=== PATIENT | female | born 1945 | race Caucasian/White ===

== ENCOUNTER 2019-09-07 13:39 | Outpatient (CLI) | payer MEDICARE, BC, SELFPAY ==
--- NOTE | 2019-09-07 14:03 | ECHO_ITS ---
Patient Info Name: Alpa Gifford Age: 73 years : 1945 Gender: Female Ht: 63 in Wt: 197 lbs BSA: 2.03 m2 HR: 71 bpm BP: 136 / 83 mmHg Technical Quality: Good Exam Date: 09/07/2019 2:36 PM Exam Location: [facility] Patient Status: Outpatient Admit Date: 09/07/2019 Staff Ordering Physician: Govind Oliva PA-C Surface Hydrologist: Sami Betts RDCS, RT Attending Provider: Govind Oliva PA-C Referring Physician: Hazel PEARL; Exam Type: CA echo doppler color flow Study Info Indications R01.1 - Cardiac murmur, unspecified Complete two-dimensional, color flow and Doppler transthoracic echocardiogram is performed. Summary 1. Left ventricular chamber dimension is normal. 2. Left ventricular systolic function is normal, estimated at 60-65%. 3. There is mildly increased left ventricular wall thickness. 4. The left ventricular diastolic function is grade I diastolic dysfunction. 5. E/e' 12 is mildly elevated. 6. There is severe aortic valve sclerosis. 7. There is severe aortic valve stenosis with a peak velocity of 400 cm/s, mean gradient of 36 mmHg, and aortic valve area of 1.0 cm2. 8. The mitral valve has moderately calcified annulus. 9. There is trace tricuspid valve regurgitation. 10. Small atheroma in anterior and posterior aortic root. Left Ventricle E/e' 12 is mildly elevated. Left ventricular chamber dimension is normal. Left ventricular systolic function is normal, estimated at 60-65%. There is mildly increased left ventricular wall thickness. The left ventricular diastolic function is grade I diastolic dysfunction. Right Ventricle Right ventricular chamber dimension is normal. Right ventricular systolic function is normal. Left Atria Left atrial chamber dimension is normal. Right Atria Right atrial chamber dimension is normal. Aortic Valve The aortic valve is trileaflet. There is severe aortic valve sclerosis. There is severe aortic valve stenosis with a peak velocity of 400 cm/s, mean gradient of 36 mmHg, and aortic valve area of 1.0 cm2. There is no aortic valve regurgitation. Pulmonic Valve There is no pulmonic regurgitation. Mitral Valve The mitral valve has moderately calcified annulus. There is no mitral valve stenosis. There is no mitral valve regurgitation. Tricuspid Valve There is trace tricuspid valve regurgitation. RVSP is not calcuated due to an inadequate TR jet. Pericardium/Pleural There is no pericardial effusion. Inferior Vena Cava Normal inferior vena cava with >50% collapse upon inspiration consistent with normal right atrial pressure, 5 mmHg. Aorta Small atheroma in anterior and posterior aortic root. The aortic root size at the sinus of Valsalva is normal. Left Ventricular Outflow Tract Name Value Normal LVOT 2D LVOT Diameter 2.2 cm LVOT Doppler LVOT Peak Gradient 4 mmHg LVOT Mean Gradient 2 mmHg LVOT VTI 23 cm LVOT VTI/AV VTI Ratio 0.3 LVOT Stroke Volume 88 ml
== END 2019-09-07 13:40 | disposition home or self-care (01) ==
PROVIDERS: PCP Physician Assistant; Visit Provider Physician Assistant
DX: I08.3 Combined rheumatic disorders of mitral, aortic and tricuspid valves (principal)
CPT/HCPCS: 93306

== ENCOUNTER → 2019-09-09 11:28 | Outpatient (CLI) | payer MEDICARE, BC, SELFPAY ==
--- NOTE | ~2019-09-09 | XR_ITS ---
XR lumbar spine 6V w bending DATE: 09/09/2019 12:14 INDICATION: Low back pain TECHNIQUE: AP, lateral, coned lateral lumbosacral and standing flexion and extension lateral views COMPARISON: 04/26/2019 lumbar spine FINDINGS: Diffuse osteopenia. Since 04/26/2019 there has been vertebroplasty at L4 mild anterior wedge compression fracture and at T 11 vertebral body where mild cupping of the superior vertebral endplate is noted. There is chronic vertebroplasty at moderate anterior wedge L1 compression fracture and at L5. There is mild retrolisthesis at L2-3. There is mild grade 1 anterolisthesis at L3-4. The sacroiliac joints are normally aligned. Surgical clips overlie the abdomen, radiopaque sutures overlie the medial left upper quadrant. Status post left total hip arthroplasty.. IMPRESSION: Interval vertebroplasty at T11 and L4 since 04/26/2019 Degenerative changes Diffuse osteopenia Reviewed, dictated and finalized at location B. HER ALL ROUND
--- NOTE | ~2019-09-09 | XR_ITS ---
XR thoracic spine 2V DATE: 09/09/2019 12:14 INDICATION: Wedge compression fracture of T9-T10 vertebra TECHNIQUE: Standing AP, lateral and swimmer views COMPARISON: 03/08/2019 CT cervical spine and thoracic spine 04/03/2019 MR thoracic spine 04/26/2019 thoracic spine FINDINGS: Diffuse osteopenia. Moderate dextroscoliosis of the thoracic spine. Degenerative spurring of the thoracic spine. Cervical fusion is noted at C5-6. Moderately severe degenerative disc disease at C4-5 and C7-T1. There are compression fracture deformities and vertebroplasty at T7, T9 and T11, as well as L1. IMPRESSION: Compression fracture deformities and vertebroplasty at T7, T9, T11 and L1 Dextroscoliosis Degenerative change of the thoracic spine Osteopenia Reviewed, dictated and finalized at location B. ON OPENER
== END ==
PROVIDERS: Visit Provider Nurse Practitioner Family
DX: S22.070D Wedge compression fracture of T9-T10 vertebra, subsequent encounter for fracture with routine healing (principal); M85.88 Other specified disorders of bone density and structure, other site; M41.9 Scoliosis, unspecified; M51.34 Other intervertebral disc degeneration, thoracic region
CPT/HCPCS: 72070; 72114

== ENCOUNTER 2019-09-09 15:45 | Outpatient (CLI) | payer MEDICARE, BC, SELFPAY ==
--- NOTE | ~2019-09-09 | XR_ITS ---
EXAMINATION: XR chest 2V 09/09/2019 16:20 INDICATION: Pain pump placement. Back pain. PROCEDURE: 2 view chest COMPARISON: 06/28/2019 FINDINGS: The lungs are clear. The cardiomediastinal silhouette is within normal limits. There are no pleural effusions. There is no pneumothorax suspected. There is dextroscoliosis of the thoracic spine. There are multiple thoracic compression fractures with vertebroplasty changes. There is side p late and screws transfixing the proximal aspect of the right humerus. There are changes of left clavi cular osteotomy. Status post cholecystectomy. IMPRESSION: 1: NO ACUTE CARDIOPULMONARY DISEASE. Reviewed, dictated and finalized at location A. SETTER
== END 2019-09-09 15:46 | disposition home or self-care (01) ==
PROVIDERS: PCP Physician Assistant; Visit Provider Nurse Practitioner Family
DX: Z01.812 Encounter for preprocedural laboratory examination (principal); Z45.9 Encounter for adjustment and management of unspecified implanted device; M54.9 Dorsalgia, unspecified
CPT/HCPCS: 71046

== ENCOUNTER 2019-09-28 06:34 | Day surgery (SDC) | payer MEDICARE, BC, SELFPAY ==
[2019-09-27 18:22] VITALS: BMI 35.4
[2019-09-28] VITALS (9 sets, daily range): BP systolic 117–166; BP diastolic 56–96; PULSE 64–77; RESP 10–24; TEMP 36.7; O2SAT 94–100
--- NOTE | 2019-09-28 06:57 | ECHO_ITS ---
Patient Info Name: Alpa Gifford Age: 73 years : 1945 Gender: Female Ht: 63 in Wt: 200 lbs BSA: 2.05 m2 Technical Quality: Good Exam Date: 09/28/2019 7:14 AM Exam Location: [facility] Patient Status: Outpatient Admit Date: 09/28/2019 Staff Ordering Physician: Albino Ruff DO Transportation Director: Paula Hines RDCS Attending Provider: Albino Ruff DO Exam Type: CA echo transesophageal Study Info Indications I35.0 - Nonrheumatic aortic (valve) stenosis Complete two-dimensional, color flow and Doppler transesophageal study is performed. Procedure Details Risks/benefits/alternative treatment discussed with patient and she gave informed consent. Conscious sedation with Versed 2 mg and Fentanyl 50 mcg IV given. HALLIE probe advanced to posterior oropharynx and she swallowed probe without incident. Transesophageal images obtained. HALLIE probe withdrawn and no blood noted on HALLIE probe tip. She tolerated procedure well and no complications. Vitals stable with HR 70's bpm and BP 135/80 mmHg. Summary 1. Left ventricular systolic function is normal with an ejection fraction 60-65%. 2. Left ventricular chamber dimension is normal. 3. There is moderately increased left ventricular wall thickness. 4. Diastolic function is not assessed. 5. Left atrial chamber dimension is mildly enlarged. 6. There is severe aortic valve sclerosis. 7. There is severe aortic valve stenosis with turbulent flow. 8. By planimetry, aortic valve area is 0.7 cm2 and 0.8 cm2. 9. The mitral valve has mild calcified annulus. 10. There is mild mitral valve regurgitation. Left Ventricle Diastolic function is not assessed. Left ventricular systolic function is normal with an ejection fraction 60-65%. Left ventricular chamber dimension is normal. There is moderately increased left ventricular wall thickness. Right Ventricle Right ventricular chamber dimension is normal. Right ventricular systolic function is normal. Left Atria Left atrial chamber dimension is mildly enlarged. Right Atria Right atrial chamber dimension is normal. Atrial Septum Intact interatrial septum visualized by color flow and agitated saline imaging. Aortic Valve There is severe aortic valve stenosis with turbulent flow. By planimetry, aortic valve area is 0.7 cm2 and 0.8 cm2. The aortic valve is trileaflet. There is severe aortic valve sclerosis. There is no aortic valve regurgitation. Pulmonic Valve There is no pulmonic regurgitation. Mitral Valve The mitral valve has mild calcified annulus. There is no mitral valve stenosis. There is mild mitral valve regurgitation. Tricuspid Valve There is no tricuspid valve regurgitation. Pericardium/Pleural There is no pericardial effusion. Inferior Vena Cava Not well visualized inferior vena cava. Aorta The aortic root size at the sinus of Valsalva is normal. Aortic Valve Name Value Normal AV 2D/MM AV Area (Planimetry) 0.7 cm2 Report Signatures
== END 2019-09-28 09:30 | disposition home or self-care (01) ==
PROVIDERS: PCP Physician Assistant; Visit Provider Internal Medicine Cardiovascular Disease
PROC: (CPT 93312; principal; 2019-09-28 07:30)
DX: I35.0 Nonrheumatic aortic (valve) stenosis (principal); I10 Essential (primary) hypertension; E78.5 Hyperlipidemia, unspecified; Z79.82 Long term (current) use of aspirin
CPT/HCPCS: 93312; 93320; 93325; J2250; J3010

== ENCOUNTER → 2019-10-02 09:38 | Outpatient (CLI) | payer MEDICARE, BC, SELFPAY ==
--- NOTE | ~2019-10-02 | MR_ITS ---
EXAMINATION: MR thoracic spine wo con EXAM DATE: 10/02/2019 10:59 INDICATION: Chronic mid to low back pain, left hip and leg pain. TECHNIQUE: Multi-sequential, multiplanar MR images of the thoracic spine were obtained without contra st. Sagittal T1, T2, T2 fat saturation, axial T2 weighted images reviewed. Comparison is made to [place] or examination from 04/03/2019. FINDINGS: The previously seen bone marrow edema at acute and subacute thoracolumbar fractures has res olved. There is normal bone marrow signal today. Following chronic appearing compression fractures are present. T6 mild. T7 moderate, treated. T9 mild to moderate, treated. T11 mild, treated. L1 mild to moderate, treated. Compared to previous examination the T11 compression fracture has developed. Methylmethacrylate has b een injected at the T7, T9, T11 levels. L1 was already treated on prior study. There is mild to moderate thoracic disc disease, no more than mild central canal or neural foraminal stenosis at any given level. The vertebral bodies are aligned in the AP dimension. There are scattere d focal signal abnormalities consistent with hemangiomata, otherwise without focal suspicious marrow signal abnormalities. Mild to moderate thoracic facet arthropathy. The spinal cord signal intensity a nd intrinsic morphology is normal. Paraspinal soft tissue is unremarkable. IMPRESSION: 1. Multiple chronic appearing thoracolumbar compression fractures. 2. Mild to moderate spondylosis. Reviewed, dictated and finalized at location A.
--- NOTE | ~2019-10-02 | MR_ITS ---
EXAMINATION: MR lumbar spine wo [facility] EXAM DATE: 10/02/2019 11:01 INDICATION: Chronic low back pain, left hip and leg pain. 3 previous surgeries. TECHNIQUE: Multi-sequential, multiplanar MR images of the lumbar spine were obtained without contrast . Sagittal T1, T2, T2 fat saturation images. Axial T2 weighted images. Comparison is made to prior examination from 05/04/2019. FINDINGS: Chronic mild to moderate compression fracture at L1 and L4, mild at L5. The L1 and L5 level s were previously treated, L4 has been treated since the prior study. There is 2 mm retrolisthesis L1 on L2 and L2 on L3, 3 mm anterolisthesis L3 on L4, 4 mm retrolisthesis L4 on L5. There is moderate d isc disease L4-5 and L5-S1, mild at the other lumbar levels. Endplate degenerative signal change. The conus medullaris terminates at the L1/2 level and has normal signal intensity and morphology. Scatt ered vertebral body hemangiomas. No acute lumbar findings. Paraspinal soft tissue is unremarkable. Level by level evaluation: T12-L1: There is a mild diffuse disc bulge. Facet arthropathy: None. Neural foraminal stenosis: No stenosis. Central canal stenosis: No stenosis. L1-L2: There is a mild diffuse disc bulge. Facet arthropathy: Mild. Neural foraminal stenosis: No stenosis. Central canal stenosis: No stenosis. L2-L3: There is a mild to moderate diffuse disc bulge. Facet arthropathy: Mild to moderate. Neural foraminal stenosis: Mild bilateral. Central canal stenosis: No stenosis. L3-L4: There is a moderate diffuse disc bulge. Facet arthropathy: Moderate . Ligamentum flavum enlargement. Neural foraminal stenosis: Mild to moderate bilateral. Central canal stenosis: Mild to moderate. L4-L5: There is a moderate diffuse disc bulge asymmetric to the right Facet arthropathy: Moderate. Neural foraminal stenosis: Moderate right to severe, mild to moderate left. Central canal stenosis: Mild. L5-S1: There is a mild to moderate diffuse disc bulge. Facet arthropathy: Mild to moderate. Neural foraminal stenosis: Moderate bilateral. Central canal stenosis: No stenosis. IMPRESSION: 1. Stable treated thoracolumbar compression fractures. 2. Moderate lower lumbar spondylosis Reviewed, dictated and finalized at location A.
== END ==
PROVIDERS: Visit Provider Nurse Practitioner Family
DX: M54.17 Radiculopathy, lumbosacral region (principal); S22.068A Other fracture of T7-T8 thoracic vertebra, initial encounter for closed fracture; X58.XXXA Exposure to other specified factors, initial encounter; M47.896 Other spondylosis, lumbar region
CPT/HCPCS: 72146; 72148

== ENCOUNTER 2020-05-03 11:44 | Outpatient (CLI) | payer MEDICARE, BC, SELFPAY ==
[2020-05-03 12:39] LABS: Anion Gap 6 mmol/L (8-16); Blood Urea Nitrogen 12 mg/dL (7-17); Calcium 9.5 mg/dL (8.4-10.2); Carbon Dioxide 32 mmol/L (22-30); Chloride 102 mmol/L (98-107); Estimated Glomerular Filt Rate > 60; Glucose 90 mg/dL (65-105); Potassium 4.2 mmol/L (3.4-5.0); Sodium 140 mmol/L (137-145)
[2020-05-03 13:27] LABS: Free T4 Free Thyroxine 1.22 ng/mL (0.78-2.19); Vitamin D 25 Hydroxy 55.8 ng/mL
== END 2020-05-03 11:45 | disposition home or self-care (01) ==
PROVIDERS: PCP Physician Assistant; Visit Provider Internal Medicine Endocrinology, Diabetes & Metabolism
DX: M81.0 Age-related osteoporosis without current pathological fracture (principal); E03.9 Hypothyroidism, unspecified; K11.7 Disturbances of salivary secretion
CPT/HCPCS: 36415; 80048; 82306; 84439; 84443; 86038

== ENCOUNTER 2020-05-30 07:28 | Outpatient (CLI) | payer MEDICARE, BC, SELFPAY ==
--- NOTE | 2020-06-30 15:14 | WPDHOMESLEEP ---
Sleep Study - Home Unattended Date of Study: 05/30/20 Interpreting Physician: Keisha Xie MD Home Sleep Study Type: Apnea Link Air Height: 1.6 m Weight: 90.718 kg Body Mass Index: 35.4 Neck Circumference (inches): 16 Sparks: 18 Reason for Sleep Study Hypersomnia Sleep History Alpa Gifford is a 74 year old female who has difficulty sleeping due to pain which has been going on several years. She reports difficulty falling asleep and staying asleep. She wakes up several times at night, and she often needs to take medication to get back to sleep. She never gets more than 3 or 4 hours at a time. She has tried to go to bed earlier but this leads to her staying awake longer during the night. Her oldest son had a diagnosis of sleep apnea before he , and it was attributed to his weight. She does not snore loudly enough that others complain. She occasionally awakens at night with heartburn, belching or coughing. She never awakens from sleep feeling short of breath. She frequently has trouble sleeping with a cold. She does not wake up gasping for breath at night. She constantly has breathing problems at night observed by others. She occasionally sweats excessively at night. She does not notice her heart pounding or beating irregularly at night. She constantly falls asleep during the day, occasionally involuntarily, never while driving. She does not fall asleep during physical effort. She does not have loss of muscle tone due to strong emotion. She does not feel paralyzed on waking or falling asleep and does not have vivid dreamlike scenes upon waking or falling asleep. She is not afraid to go to sleep. She does not have nightmares. She does not remember her dreams. She does not have racing thoughts. She occasionally feels sad or depressed. Rarely feels anxiety. Rarely has muscular tension or notice parts of her body jerking. She never kicks at night. She constantly has crawling and aching feelings in her legs. She constantly has leg pain at night. She does not have morning jaw pain. She does not grind her teeth during sleep. She is constantly bothered by pain in the daytime, is awakened by pain in the night, wakes up feeling stiff with sore muscles and has pain in the spine on waking. She has fatigue, memory problems and headaches. She is so sleepy that she may fall asleep at the table after lunch. She has gained 50-60 pounds this year. Normal bedtime is 7 or 8:00 p.m. typically taking quite a while to fall asleep. She wakes 4-5 times at night. After her sleep medication wears off she will lie awake in bed, sometimes turn the lights on, sometimes use her telephone. She wakes in the morning between 3:00 a.m. and 5:00 a.m.. She estimates 3-4 hours of sleep at night, occasionally 5 hours. Weekend is the same. She often will go back to bed around 6:00 or 7:00 a.m.ng and sleep until 10:00 a.m.. She can't breathe through her nose at times while sleeping. Her lips and tongue are very dry. She does take short naps. Short naps are not refreshing. She is drowsy in the morning for 3 hours or longer. Habits: Never smoked. Caffeine diet Pepsi 1 a day. No alcohol or recreational drugs. [facility] Past Medical History Medical History Anxiety Arthritis Cataracts, bilateral Depression Heart disease High cholesterol History of stroke Hypertension Inguinal hernia Lumbar radiculitis Migraines Obesity RLS (restless legs syndrome) Shortness of breath Spine fracture Stroke Thyroid disease Tibia fracture Surgical History Surgical History History of cholecystectomy History of hip replacement History of kyphoplasty History of revision of total hip arthroplasty (~07/2018) History of Mekhi-en-Y gastric bypass History of total hysterectomy Family History Family History O
[2020-06-30 16:05] VITALS: BMI 35.4
== END 2020-05-30 07:29 | disposition home or self-care (01) ==
LOC: ANHCSM 07:28
PROVIDERS: PCP Physician Assistant; Visit Provider Physician Assistant
DX: G47.33 Obstructive sleep apnea (adult) (pediatric) (principal); G47.10 Hypersomnia, unspecified; E66.9 Obesity, unspecified; Z68.35 Body mass index [BMI] 35.0-35.9, adult
CPT/HCPCS: 95806

== ENCOUNTER 2020-06-30 12:58 | Outpatient (CLI) | payer MEDICARE, BC, SELFPAY ==
[2020-06-30 14:56] LABS: Folic Acid 13.7 ng/mL (2.76->20)
== END 2020-06-30 12:59 | disposition home or self-care (01) ==
PROVIDERS: PCP Physician Assistant; Visit Provider Physician Assistant
DX: R53.83 Other fatigue (principal)
CPT/HCPCS: 36415; 82607; 82746

== ENCOUNTER 2020-08-11 08:20 | Outpatient (CLI) | payer MEDICARE, BC, SELFPAY ==
[2020-08-11 08:54] LABS: Anion Gap 5 mmol/L (8-16); Blood Urea Nitrogen 22 mg/dL (7-17); Carbon Dioxide 31 mmol/L (22-30); Chloride 103 mmol/L (98-107); Estimated Glomerular Filt Rate > 60; Glucose 93 mg/dL (65-105); Potassium 4.2 mmol/L (3.4-5.0); Sodium 139 mmol/L (137-145)
[2020-08-11 09:31] LABS: Free T4 Free Thyroxine 1.39 ng/mL (0.78-2.19); Vitamin D 25 Hydroxy 44.8 ng/mL
[2020-08-11 09:32] LABS: Thyroid Stimulating Hormone 0.777 uIU/mL (0.465-4.680)
[2020-08-11 10:00] LABS: Total Triiodothyronine (T3) 0.94 NG/ML (0.97-1.69)
[2020-08-15 16:49] LABS: Creatinine, Random Urine 87 mg/dL (20-275); N-Telopeptide (NTx) 84 (***)
[2020-08-16 12:04] LABS: Collagen Type I C-Telopeptide 803 pg/mL (***); Osteocalcin 41 ng/mL (8-32)
== END 2020-08-11 08:21 | disposition home or self-care (01) ==
PROVIDERS: PCP Physician Assistant; Visit Provider Internal Medicine Endocrinology, Diabetes & Metabolism
DX: E03.9 Hypothyroidism, unspecified (principal); M81.0 Age-related osteoporosis without current pathological fracture
CPT/HCPCS: 36415; 80048; 82306; 82523; 82570; 83937; 84439; 84443; 84480

== ENCOUNTER 2020-08-21 11:14 | Outpatient (CLI) | payer MEDICARE, BC, SELFPAY ==
[2020-08-21 13:09] LABS: Free T4 Free Thyroxine 1.48 ng/mL (0.78-2.19)
== END 2020-08-21 11:15 | disposition home or self-care (01) ==
LOC: ANHLAB 11:16
PROVIDERS: PCP Physician Assistant; Visit Provider Internal Medicine Endocrinology, Diabetes & Metabolism
DX: E03.9 Hypothyroidism, unspecified (principal)
CPT/HCPCS: 36415; 84439; 84443

== ENCOUNTER 2020-08-26 11:09 | Emergency (ER) | payer MEDICARE, BC, SELFPAY ==
[2020-08-26] VITALS (17 sets, daily range): BP systolic 130–179; BP diastolic 73–108; PULSE 98; RESP 20; TEMP 36.6; O2SAT 95–100
--- NOTE | ~2020-08-26 | CT_ITS ---
EXAMINATION: CT facial & cervical spine wo DATE: 08/26/2020 12:22 INDICATION: Head injury. TECHNIQUE: Computed tomography (CT) of the maxillofacial region and cervical spine was performed with out intravenous contrast. Automated exposure control and iterative reconstruction technique were empl oyed. The dose-length product was 488.83 mGy-cm. COMPARISON: CT and cervical spine CT 03/08/2019 FINDINGS: MAXILLOFACIAL CT: There are likely changes of ocular lens replacement surgeries. There is leftward deviation of the shellie al septum. The paranasal sinuses are clear. There are small bilateral chronic mastoid effusions. CERVICAL SPINE CT: There is 3 mm anterolisthesis of C3 on C4 and 2 mm anterolisthesis of C4 on C5 and C7 on T1. There is interbody fusion at C5-C6. Vertebral body heights are normal. There is mildly decreased disc height at C2-C3 and C3-C4, severely decreased disc height at C4-C5 and C6-C7, and mildly decreased disc heig ht at C7-T1. The following disc levels are specifically discussed: C2-C3: There is mild bilateral uncovertebral joint osteoarthritis. There is mild right and severe lef t facet joint osteoarthritis. There is no neural foraminal stenosis. There is no central canal stenos is. C3-C4: There is moderate bilateral uncovertebral joint osteoarthritis. There is severe bilateral face t joint osteoarthritis. There is mild bilateral neural foraminal stenosis. There is mild central edil l stenosis. C4-C5: There is severe bilateral uncovertebral joint osteoarthritis. There is severe bilateral facet joint osteoarthritis. There is mild bilateral neural foraminal stenosis. There is mild central canal stenosis. C5-C6: There is no uncovertebral joint hypertrophy. There is mild bilateral facet joint hypertrophy. There is no neural foraminal stenosis. There is no central canal stenosis. C6-C7: There is severe bilateral uncovertebral joint osteoarthritis. There is moderate bilateral face t joint osteoarthritis. There is mild bilateral neural foraminal stenosis. There is mild central edil l stenosis. C7-T1: There is mild bilateral uncovertebral joint osteoarthritis. There is severe bilateral facet megan int osteoarthritis. There is mild bilateral neural foraminal stenosis. There is no central canal sten osis. IMPRESSION: 1. No fracture. 2. Severe cervical spondylosis. Reviewed, dictated and finalized at location A. WARE ENGINEERING SUPERVISOR
--- NOTE | ~2020-08-26 | XR_ITS ---
EXAMINATION: XR chest 2V DATE: 08/26/2020 12:50 INDICATION: Fall. TECHNIQUE: Frontal and lateral views of the chest were obtained. COMPARISON: Chest 2 views 09/09/2019 FINDINGS: There are mild airspace opacities in the lower lung zones. No pleural effusion or pneumotho rax. The heart size is normal. There are changes of aortic valve replacement. There are changes of ve rtebroplasty at multiple levels. There is internal fixation of right humerus. IMPRESSION: 1. Mild airspace opacities in lower lung zones, consistent with atelectasis versus pneumonia. Reviewed, dictated and finalized at location A. H REPAIR TECHNICIAN IMPRESSION: 1. Mild airspace opacities in lower lung zones, consistent with atelectasis anatoliy ria pneumonia.
--- NOTE | ~2020-08-26 | CT_ITS ---
EXAMINATION: CT lumbar spine wo con DATE: 08/26/2020 12:22 INDICATION: Low back pain. TECHNIQUE: Computed tomography (CT) of the lumbar spine was performed without intravenous contrast. A utomated exposure control and iterative reconstruction technique were employed. The dose-length produ ct was 1235.81 mGy-cm. COMPARISON: CT abdomen and pelvis 03/30/2019 FINDINGS: There are changes of cholecystectomy. There are 4 stones in left kidney measuring up to 4 m m. There is 3 mm retrolisthesis of L5 on S1. There are chronic fractures of T11, L1, L4, and L5 with changes of vertebroplasty. There is severely decreased disc height at T12-L1, L4-L5, and L5-S1 with e ndplate remodeling. There is mildly decreased disc height at L1-L2. There is a left hip arthroplasty. The following disc levels are specifically discussed: L1-L2: The disc does not extend beyond the endplate margin. There is moderate bilateral facet joint o steoarthritis. There is no neural foraminal stenosis. There is no central canal stenosis. L2-L3: The disc is bulging. There is moderate bilateral facet joint osteoarthritis. There is mild louis ateral neural foraminal stenosis. There is mild central canal stenosis. L3-L4: The disc is bulging. There is severe bilateral facet joint osteoarthritis. There is mild bilat eral neural foraminal stenosis. There is mild central canal stenosis. L4-L5: The disc is bulging. There is severe bilateral facet joint osteoarthritis. There is moderate b ilateral neural foraminal stenosis. There is mild central canal stenosis. L5-S1: The disc is bulging. There is severe bilateral facet joint osteoarthritis. There is moderate b ilateral neural foraminal stenosis. There is mild central canal stenosis. IMPRESSION: 1. No acute fracture. 2. Severe lumbar spondylosis. Reviewed, dictated and finalized at location A. [employer]
--- NOTE | ~2020-08-26 | XR_ITS ---
EXAMINATION: XR foot LT min 3V DATE: 08/26/2020 12:50 INDICATION: Left foot pain. Fall. TECHNIQUE: 4 views of left foot were obtained. COMPARISON: None. FINDINGS: Bone alignment is normal. No fracture. There is mild osteoarthritis of first metatarsophala ngeal joint and many of the midfoot joints and interphalangeal joints. There are erosions at first in terphalangeal joint. There is an enthesophyte at plantar aspect of calcaneal tuberosity. IMPRESSION: 1. Mild polyarticular osteoarthritis. 2. Erosions at first interphalangeal joint, which may be inflammatory arthropathy such as gout. Reviewed, dictated and finalized at location A. 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 Mild polyarticular osteoarthritis. 2. Erosions at first interphalangeal joint, which may be inflammatory arthropat hy such as gout.
--- NOTE | ~2020-08-26 | XR_ITS ---
EXAMINATION: XR hip LT min 3V w AP pelvis DATE: 08/26/2020 12:50 INDICATION: Left hip pain. TECHNIQUE: An anteroposterior view pelvis and 3 views of left hip were obtained. COMPARISON: Left hip radiographs 06/28/2019 FINDINGS: There is a total left hip arthroplasty in near-anatomic alignment. No acute fracture. No pe riprosthetic lucency to suggest loosening or infection. There is mild right hip osteoarthritis. There are changes of vertebroplasty at L4 and L5. IMPRESSION: 1. Total left hip arthroplasty in near-anatomic alignment. 2. Mild right hip osteoarthritis. Reviewed, dictated and finalized at location A. C.O.D. BILLER
--- NOTE | ~2020-08-26 | CT_ITS ---
EXAMINATION: CT brain wo con DATE: 08/26/2020 12:15 INDICATION: Head injury. TECHNIQUE: Computed tomography (CT) of the head was performed without intravenous contrast. The mA wa s adjusted according to patient size. Iterative reconstruction technique was employed. The dose-lengt h product was 605.33 mGy-cm. COMPARISON: Head CT 03/08/2019 FINDINGS: There are scattered areas of low attenuation in the cerebral white matter. There is no intr acranial hemorrhage, acute infarction, or abnormal intracranial mass lesion. The ventricles are ada l in size. There are likely changes of ocular lens replacement surgeries. There is mild mucosal thick ening in the ethmoid sinuses. There are small bilateral mastoid effusions. There is right frontal sca lp soft tissue swelling. IMPRESSION: 1. Stable moderate nonspecific cerebral white matter disease, which likely represents chronic small v essel ischemic disease. Reviewed, dictated and finalized at location A. 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 Stable moderate nonspecific cerebral white matter disease, which likely repr esents chronic small vessel ischemic disease.
--- NOTE | 2020-08-26 11:42 | ECG_ITS ---
Measurements Intervals [place] Rate: 79 P: 43 AR: 181 QRS: 2 QRSD: 96 T: 25 QT: 362 QTc: 416 Interpretive Statements SINUS RHYTHM VOLTAGE CRITERIA FOR LVH BORDERLINE R WAVE PROGRESSION, ANTERIOR LEADS BORDERLINE ECG Electronically Signed On 08-26-2020 14:32:53 LONG CHAIN BEAMER by Albino Ruff D.O.
--- NOTE | 2020-08-26 11:45 | PC.NURSE ---
patient brought back to ED room 22 after ground level fall at her home during the night. see initial notes. denies known LOC. feels ok now just mild ALMONTE. has chronic hip pain. lives with her son and DIL. assessments documented.
--- NOTE | 2020-08-26 11:45 | ED.FALL ---
HPI - Fall General Chief Complaint: Fall Stated Complaint: fall Time Seen by Provider: 08/26/20 11:30 Source: patient Mode of arrival: ambulatory Limitations: no limitations History of Present Illness HPI Narrative: This is a 74 year old female that presents to the ER after a fall in the night. Reports last night she was getting out of bed to adjust her CPAP machine. Reports she hadn't even gotten her feet on the floor and she fell forward. Reports striking her face on her dresser. Also reports an injury to her left foot. She is unsure why she fell. Denies any prodromal symptoms. Is unsure if she lost consciousness. Reports pain in her neck, back and left hip as well which is apparently chronic. Reports she has history of drop fot on the left and uses a cane to walk. Denies vision changes, chest pain, shortness of breath, vomiting, or new numbness or weakness. Related Data Home Medications Medication Instructions Recorded Confirmed fluticasone 250 mcg-salmeterol 50 1 inhalation INHALATION BID 07/09/19 08/21/20 mcg/dose blistr powdr for inhalation losartan 50 mg tablet 50 mg PO DAILY 07/09/19 08/21/20 pregabalin 100 mg capsule 100 mg PO DAILY 07/09/19 05/17/20 albuterol sulfate 90 mcg/actuation 1 puff INHALATION Q4H PRN 09/10/19 08/21/20 aerosol inhaler azelastine 0.05 % eye drops 1 drop EACH EYE BID 09/10/19 08/21/20 baclofen 5 mg tablet 5 mg PO TID tablet 09/10/19 08/21/20 lactobacillus combination no.9 4 4,000 mmu cells PO DAILY 09/10/19 08/21/20 billion cell capsule metoclopramide HCl 10 mg tablet 10 mg PO Q6H PRN 09/10/19 05/17/20 multivitamin 1 tablet PO DAILY 09/10/19 08/21/20 diphenoxylate-atropine 2.5 1 tablet PO QID tablet 11/16/19 08/21/20 mg-0.025 mg tablet cyanocobalamin (vitamin B-12) 1,000 mcg PO DAILY 04/27/20 08/21/20 1,000 mcg capsule docusate sodium 50 mg capsule 50 mg PO DAILY 04/27/20 08/21/20 glycerin (adult) 1 supp CO DAILY PRN 04/27/20 magnesium hydroxide 400 mg/5 mL 5 ml PO DAILY PRN 04/27/20 05/17/20 oral suspension ondansetron 4 mg disintegrating 4 mg PO Q8H 04/27/20 tablet levothyroxine 75 mcg tablet 75 mcg PO DAILY tablet 08/21/20 08/21/20 Allergies Allergy/AdvReac Type Severity Reaction Status Date / Time gabapentin Allergy Severe hallucinati Verified 08/26/20 11:27 on pentazocine Allergy Severe hallucinati Verified 08/26/20 11:27 on adhesive tape Allergy Mild rash Verified 08/26/20 11:27 Review of Systems Review of Systems: Narrative: CONSTITUTIONAL: Denies fever EYES: Denies visual changes CARDIOVASCULAR: Denies chest pain RESPIRATORY: Denies dyspnea. GASTROINTESTINAL: Denies vomiting MUSCULOSKELETAL: Reports back pain, joint pain, and myalgia. NEUROLOGIC: Reports headache. Denies new numbness, or weakness. All systems reviewed & are unremarkable except as noted in HPI and below PMFSH Past Medical History Medical History Anxiety Arthritis Cataracts, bilateral Depression Heart disease High cholesterol History of stroke Hypertension Inguinal hernia Lumbar radiculitis Migraines Obesity RLS (restless legs syndrome) Shortness of breath Spine fracture Stroke Thyroid disease Tibia fracture Surgical History Surgical History History of cholecystectomy History of hip replacement History of kyphoplasty History of revision of total hip arthroplasty (~07/2018) History of Mekhi-en-Y gastric bypass History of total hysterectomy Family History Family History Other Back pain H/O thyroid disease Hypertension Social History Social History Smoking status: Never smoker Second hand tobacco smoke exposure: No Alcohol intake: current Drinks per week: 1 Exam Narrative: Exam Narrative: GENERAL: Well-appearing, well-n
[2020-08-26] MEDS: ACETAMINOPHEN 500 MG TABLET 1000 MG PO (12:01)
[2020-08-26 12:04] LABS: Basophils Percent Auto 0.4 % (0.2-1.2); Eosinophils Absolute Auto 0.1 K/mm3 (0-0.3); Eosinophils Percent Auto 2.5 % (0-4.4); Hematocrit 39.7 % (37.0-47.0); Hemoglobin 13.2 g/dL (12.0-15.0); Immature Granulocyte Absolute 0.02 K/mm3 (0.00-0.031); Immature Granulocyte Percent A 0.4 % (0-0.5); Lymphocytes Absolute Auto 1.23 K/mm3 (0.9-3.2); Lymphocytes Percent Auto 22.1 % (18.3-44.2); Mean Corpuscular HGB Conc 33.2 g/dl (32-36); Mean Corpuscular Hemoglobin 31.6 pg (26-34); Mean Platelet Volume 9.1 fl (7.4-10.4); Monocytes Absolute Auto 0.3 K/mm3 (0.1-0.6); Monocytes Percent Auto 6.1 % (2.6-8.5); Neutrophils Absolute Auto 3.8 K/mm3 (1.3-6.7); Neutrophils Percent Auto 68.5 % (45.5-73.1); Platelet Count Result 143 k/mm3 (150-375); Red Blood Count 4.18 M/mm3 (4.2-5.4); Red Cell Distribution Width 12.9 % (11.5-14.5); White Blood Count 5.6 K/mm3 (4.5-10.0)
--- NOTE | 2020-08-26 12:15 | PC.NURSE ---
patient to CT
[2020-08-26 12:20] LABS: Alanine Aminotransferase 16 U/L (4-35); Albumin Level 4.1 g/dL (3.5-5.1); Alkaline Phosphatase 74 U/L (38-126); Anion Gap 4 mmol/L (8-16); Aspartate Amino Transferase 27 U/L (14-36); Bilirubin,Total 0.6 mg/dL (0.2-1.3); Blood Urea Nitrogen 16 mg/dL (7-17); Calcium 9.2 mg/dL (8.4-10.2); Carbon Dioxide 29 mmol/L (22-30); Chloride 106 mmol/L (98-107); Estimated CRCL calculation 58 ml/min; Estimated Glomerular Filt Rate > 60; Glucose 96 mg/dL (65-105); Sodium 139 mmol/L (137-145)
--- NOTE | 2020-08-26 12:45 | PC.NURSE ---
back from CT. ordnance technician at bedside to get urine specimen. back on BP and O2 monitors.
[2020-08-26 13:39] LABS: Add Urine Microscopic? YES; Appearance Urine Clear (Clear); Bilirubin Urine Negative (Negative); Blood Urine Negative (Negative); Color Urine Yellow (Yellow); Glucose Urine UA Negative (Negative); Ketones Urine Negative (Negative); Leukocyte Esterase Ur Trace LEU/UL (Negative); Mucus Urine Rare /lpf; Nitrate Urine Negative (Negative); Protein Urine Negative (Negative); RBC Urine 0-2 /hpf (0-2); Specific Grav Ur 1.015 (1.001-1.035); Squamous Epithelial Cell Urine Moderate /hpf (Few); Urobilinogen Urine Negative mg/dL (<2.0); WBC Urine 0-3 /hpf
--- NOTE | 2020-08-26 13:43 | PC.NURSE ---
resting on stretcher. tests all resulted. patient did ambulate to restroom to provide urine specimen. assist x 1 and her cane. gait appeared steady.
== END 2020-08-26 14:43 | disposition home or self-care (01) ==
PROVIDERS: Physician Assistant; Emergency Provider Emergency Medicine; PCP Physician Assistant
DX: S09.93XA Unspecified injury of face, initial encounter (principal); E78.00 Pure hypercholesterolemia, unspecified; Z86.73 Personal history of transient ischemic attack (TIA), and cerebral infarction without residual deficits; I10 Essential (primary) hypertension; E66.9 Obesity, unspecified; Z68.37 Body mass index [BMI] 37.0-37.9, adult; G25.81 Restless legs syndrome; E07.9 Disorder of thyroid, unspecified; Z96.649 Presence of unspecified artificial hip joint; Z98.84 Bariatric surgery status; M47.812 Spondylosis without myelopathy or radiculopathy, cervical region; R94.31 Abnormal electrocardiogram [ECG] [EKG]; M47.816 Spondylosis without myelopathy or radiculopathy, lumbar region; R90.82 White matter disease, unspecified; M94.8X7 Other specified disorders of cartilage, ankle and foot; M19.072 Primary osteoarthritis, left ankle and foot; R91.8 Other nonspecific abnormal finding of lung field; M16.11 Unilateral primary osteoarthritis, right hip; Z96.642 Presence of left artificial hip joint; W06.XXXA Fall from bed, initial encounter
CPT/HCPCS: 36415; 70450; 70486; 71046; 72125; 72131; 73502; 73630; 80053; 81001; 85025; 93005; 99284; A9270

== ENCOUNTER 2020-09-07 07:51 | Outpatient (CLI) | payer MEDICARE, BC, SELFPAY ==
--- NOTE | ~2020-09-07 | DEXA_ITS ---
Bone Density Report Name: Alpa Gifford Age: 74 Sex: Female Ethnicity: White Date of : 1945 Indication: postmenopausal; prior fracture; Referring Provider: Estela García Study: Bone densitometry was performed. Exam Date: September 07, 2020 Accession number: [id number] Bone Density: Region BMD T-score Z-score Classification AP Spine (L2, L3) 0.875 -1.7 0.9 Osteopenia Femoral Neck (Right) 0.693 -1.4 0.8 Osteopenia Total Hip (Right) 0.748 -1.6 0.3 Osteopenia World Health Organization criteria for BMD impression classify patients as: Normal (T-score at or above -1.0), Osteopenia (T-score between -1.0 and -2.5), or Osteoporosis (T-score at or below -2.5). 10-year Fracture Risk: FRAX not reported because: Prior hip or vertebral fracture Impression: The patient has low bone mass, based on the Total Spine T-score. The patient has risk factors, including: previous fracture. Discussion: INCREASED RISK OF FRACTURE DUE TO HISTORY OF FRACTURE. The patient's previous fracture puts the patient at high risk of a future fracture. In untreated patients, the risk of osteoporotic fracture increases approximately two-fold for each 1.0 SD decrease in T-score. Low bone density is not the only risk factor for fracture; also consider factors such as patient's age, frailty or poor health, risk of falling, risk of injury, previous osteoporotic fracture, family history of osteoporosis, cigarette smoking, low body weight, etc. Not everyone with a low trauma fracture has osteoporosis; osteomalacia and other metabolic bone disorders should also be considered. Patients who have osteoporosis should be evaluated for specific diseases and conditions (secondary causes) that may cause or contribute to bone loss and fracture risk. National Osteoporosis Foundation (NOF) recommends pharmacologic intervention for patients with a prior hip or vertebral fracture regardless of BMD T-score. The patient should follow a healthful lifestyle (good nutrition with adequate calcium and vitamin D, and appropriate weight-bearing exercise). Follow-Up: Consider a repeat BMD and Vertebral Fracture Assessment (VFA) exam in 2 years or sooner if medically necessary, to reassess this patient's status. Reported by: BRIAN on 09/07/2020 8:33:00 AM. Reviewed, dictated and finalized at location Howard CHAVES
== END 2020-09-07 07:52 | disposition home or self-care (01) ==
PROVIDERS: PCP Physician Assistant; Visit Provider Internal Medicine Endocrinology, Diabetes & Metabolism
DX: M81.0 Age-related osteoporosis without current pathological fracture (principal); M85.89 Other specified disorders of bone density and structure, multiple sites
CPT/HCPCS: 77080

== ENCOUNTER → 2020-09-08 12:07 | Outpatient (CLI) | payer MEDICARE, BC, SELFPAY ==
[2020-09-08 21:58] LABS: SARS-CoV-2 RNA PCR Negative
== END ==
PROVIDERS: PCP Physician Assistant; Visit Provider Physician Assistant
DX: R68.89 Other general symptoms and signs (principal); Z20.822 Contact with and (suspected) exposure to COVID-19
CPT/HCPCS: C9803; U0003; U0005

== ENCOUNTER 2020-09-11 12:05 | Outpatient (CLI) | payer MEDICARE, BC, SELFPAY ==
--- NOTE | 2020-09-11 | ECG_ITS ---
Measurements Intervals [place] Rate: 69 P: 51 TX: 172 QRS: 4 QRSD: 81 T: 35 QT: 383 QTc: 411 Interpretive Statements SINUS RHYTHM VOLTAGE CRITERIA FOR LVH BASELINE ARTIFACT- II, III, AVR, AVL, AVF BORDERLINE ECG Electronically Signed On 09-11-2020 13:14:27 PREPRESS OPERATOR by Albino Ruff D.O.
[2020-09-11 13:29] LABS: Thyroid Stimulating Hormone 0.842 uIU/mL (0.465-4.680)
[2020-09-11 13:46] LABS: Hematocrit 40.5 % (37.0-47.0); Hemoglobin 13.7 g/dL (12.0-15.0); Mean Corpuscular HGB Conc 33.8 g/dl (32-36); Mean Corpuscular Hemoglobin 31.3 pg (26-34); Mean Corpuscular Volume 92.5 fl (80-100); Mean Platelet Volume 8.7 fl (7.4-10.4); Platelet Count Result 198 k/mm3 (150-375); Red Blood Count 4.38 M/mm3 (4.2-5.4); Red Cell Distribution Width 12.5 % (11.5-14.5); White Blood Count 4.7 K/mm3 (4.5-10.0)
[2020-09-11 14:00] LABS: Free T4 Free Thyroxine 1.09 ng/mL (0.78-2.19)
[2020-09-11 14:03] LABS: Anion Gap 5 mmol/L (8-16); Blood Urea Nitrogen 20 mg/dL (7-17); CRP 0.6 mg/dL (<1.0); Calcium 9.5 mg/dL (8.4-10.2); Carbon Dioxide 30 mmol/L (22-30); Chloride 106 mmol/L (98-107); Estimated Glomerular Filt Rate > 60; Glucose 92 mg/dL (65-105); Potassium 3.7 mmol/L (3.4-5.0); Sodium 141 mmol/L (137-145)
[2020-09-11 14:46] LABS: Erythrocyte Sedimentation Rate 24 mm/hr (0-20)
[2020-09-11 14:56] LABS: Add Urine Microscopic? NO; Appearance Urine Clear (Clear); Bilirubin Urine Negative (Negative); Blood Urine Negative (Negative); Color Urine Yellow (Yellow); Glucose Urine UA Negative (Negative); Ketones Urine Negative (Negative); Leukocyte Esterase Ur Negative LEU/UL (NEGATIVE); Nitrate Urine Negative (Negative); Protein Urine Negative (Negative); Specific Grav Ur 1.021 (1.001-1.035); Urobilinogen Urine Negative mg/dL (<2.0)
== END 2020-09-11 12:06 | disposition home or self-care (01) ==
LOC: ANHLAB 12:08
PROVIDERS: Nurse Practitioner Family; PCP Physician Assistant; Visit Provider Internal Medicine Endocrinology, Diabetes & Metabolism
DX: Z01.818 Encounter for other preprocedural examination (principal); E03.9 Hypothyroidism, unspecified
CPT/HCPCS: 36415; 80048; 81003; 84439; 84443; 85027; 85652; 86140; 87086; 93005

== ENCOUNTER 2020-10-27 14:41 | Outpatient (CLI) | payer MEDICARE, BC, SELFPAY ==
--- NOTE | 2020-10-27 14:47 | ECHO_ITS ---
Patient Info Name: Alpa Gifford Age: 74 years : 1945 Gender: Female Ht: 63 in Wt: 220 lbs BSA: 2.16 m2 HR: 72 bpm BP: 126 / 79 mmHg Technical Quality: Good Exam Date: 10/27/2020 2:49 PM Exam Location: [facility] Patient Status: Outpatient Admit Date: 10/27/2020 Staff Ordering Physician: Albino Ruff DO All Round Butcher: Allison Mendoza RDCS Attending Provider: Albino Ruff DO Referring Physician: Speedy GODOY; Exam Type: CA echo doppler color flow Study Info Indications - S/P AVR Complete two-dimensional, color flow and Doppler transthoracic echocardiogram is performed. Summary 1. Complete two-dimensional, color flow and Doppler transthoracic echocardiogram is performed. 2. Left ventricular chamber dimension is normal. 3. Left ventricular systolic function is normal, estimated at 60-65%. 4. The left ventricular diastolic function is grade I diastolic dysfunction. 5. E/e' 12 is mildly elevated. 6. Left atrial chamber dimension is mildly enlarged. 7. The bioprosthetic aortic valve is normal in appearance. TAVR by history. 8. The mitral valve has moderately calcified annulus. 9. No pulmonary hypertension, estimated pulmonary arterial systolic pressure is 24 mmHg. Left Ventricle E/e' 12 is mildly elevated. Left ventricular chamber dimension is normal. Left ventricular systolic function is normal, estimated at 60-65%. The left ventricular diastolic function is grade I diastolic dysfunction. Right Ventricle Right ventricular chamber dimension is normal. Right ventricular systolic function is normal. Left Atria Left atrial chamber dimension is mildly enlarged. Right Atria Right atrial chamber dimension is normal. Aortic Valve The bioprosthetic aortic valve is normal in appearance. TAVR by history. There is no bioprosthetic aortic valve stenosis by gradients and velocity. There is no regurgitation of the bioprosthetic aortic valve. Pulmonic Valve There is no pulmonic regurgitation. Mitral Valve The mitral valve has moderately calcified annulus. There is no mitral valve stenosis. There is no mitral valve regurgitation. Tricuspid Valve There is no tricuspid valve regurgitation. No pulmonary hypertension, estimated pulmonary arterial systolic pressure is 24 mmHg. Pericardium/Pleural There is no pericardial effusion. Inferior Vena Cava Normal inferior vena cava with >50% collapse upon inspiration consistent with normal right atrial pressure, 5 mmHg. Aorta The aortic root size at the sinus of Valsalva is normal. Left Ventricular Outflow Tract Name Value Normal LVOT 2D LVOT Diameter 2.0 cm LVOT Doppler LVOT Peak Gradient 7 mmHg LVOT Mean Gradient 4 mmHg LVOT VTI 28 cm LVOT VTI/AV VTI Ratio 0.5 LVOT Stroke Volume 88 ml LVOT CO 18.9 l/min LVOT CI 8.8 l/min/m2 Pulmonic Valve Name
== END 2020-10-27 14:42 | disposition home or self-care (01) ==
PROVIDERS: PCP Physician Assistant; Visit Provider Internal Medicine Cardiovascular Disease
DX: Z95.2 Presence of prosthetic heart valve (principal); I51.7 Cardiomegaly
CPT/HCPCS: 93306

== ENCOUNTER 2020-11-06 10:55 | Outpatient (CLI) | payer MEDICARE, BC, SELFPAY ==
[2020-11-06 11:37] LABS: Anion Gap 4 mmol/L (8-16); Blood Urea Nitrogen 26 mg/dL (7-17); Calcium 9.3 mg/dL (8.4-10.2); Carbon Dioxide 36 mmol/L (22-30); Chloride 98 mmol/L (98-107); Estimated Glomerular Filt Rate 54; Glucose 100 mg/dL (65-105); Potassium 3.7 mmol/L (3.4-5.0); Sodium 138 mmol/L (137-145)
== END 2020-11-06 10:56 | disposition home or self-care (01) ==
PROVIDERS: PCP Physician Assistant; Visit Provider Internal Medicine Cardiovascular Disease
DX: R60.0 Localized edema (principal)
CPT/HCPCS: 36415; 80048

== ENCOUNTER 2020-11-13 05:07 | Emergency (ER) | payer MEDICARE, SELFPAY ==
--- NOTE | ~2020-11-13 | XR_ITS ---
EXAMINATION: XR wrist LT min 3V DATE: 11/13/2020 06:07 INDICATION: Left wrist pain. Fall. TECHNIQUE: 4 views of left wrist were obtained. COMPARISON: None. FINDINGS: There is a comminuted fracture of distal radius with involvement of the distal radioulnar j oint. The main distal fracture fragment demonstrates impaction and 4 mm dorsal displacement and dorsa l angulation. There is 28 degrees dorsal tilt of the distal articular surface. There is an avulsion f racture of the ulnar styloid. Osteopenia is noted. There is moderate osteoarthritis of first carpomet acarpal joint and mild osteoarthritis of first metacarpophalangeal joint. There are loose bodies in t he radiocarpal compartment. IMPRESSION: 1. Comminuted fracture of distal radius. 2. Avulsion fracture of the ulnar styloid. Reviewed, dictated and finalized at location A.
[2020-11-13 05:23] VITALS: BP 127/80; PULSE 95; RESP 18; TEMP 36.3; O2SAT 100
[2020-11-13] MEDS: HYDROmorphone HCL INJ (*CRX) 1 MG/ML SYR IM ×2 (05:34→06:57)
--- NOTE | 2020-11-13 06:20 | ED.GENADULT ---
HPI - General Adult General Chief complaint: Extremity Problem,Nontraumatic Stated complaint: FALL, L WRIST INJURY Time Seen by Provider: 11/13/20 05:21 History of Present Illness HPI narrative: Patient 75-year-old female presents emerged from with chief complaint of left wrist pain. The patient reports that she fell on an outstretched hand this evening did not strike her head had no loss of consciousness. Patient reports that there is pain in her distal wrist and reports pain with range of motion. The patient denies numbness or tingling Related Data Home Medications Medication Instructions Recorded Confirmed fluticasone 250 mcg-salmeterol 50 1 inhalation INHALATION BID 07/09/19 10/09/20 mcg/dose blistr powdr for inhalation losartan 50 mg tablet 50 mg PO DAILY 07/09/19 10/09/20 pregabalin 100 mg capsule 100 mg PO DAILY 07/09/19 10/09/20 albuterol sulfate 90 mcg/actuation 1 puff INHALATION Q4H PRN 09/10/19 10/09/20 aerosol inhaler azelastine 0.05 % eye drops 1 drop EACH EYE BID 09/10/19 10/09/20 lactobacillus combination no.9 4 4,000 mmu cells PO DAILY 09/10/19 10/09/20 billion cell capsule metoclopramide HCl 10 mg tablet 10 mg PO Q6H PRN 09/10/19 10/09/20 multivitamin 1 tablet PO DAILY 09/10/19 10/09/20 diphenoxylate-atropine 2.5 1 tablet PO QID tablet 11/16/19 10/09/20 mg-0.025 mg tablet cyanocobalamin (vitamin B-12) 1,000 mcg PO DAILY 04/27/20 10/09/20 1,000 mcg capsule docusate sodium 50 mg capsule 50 mg PO DAILY 04/27/20 10/09/20 glycerin (adult) 1 supp IA DAILY PRN 04/27/20 10/09/20 magnesium hydroxide 400 mg/5 mL 5 ml PO DAILY PRN 04/27/20 10/09/20 oral suspension ondansetron 4 mg disintegrating 4 mg PO Q8H 04/27/20 10/09/20 tablet Allergies Allergy/AdvReac Type Severity Reaction Status Date / Time gabapentin Allergy Severe hallucinati Verified 11/13/20 05:27 on pentazocine Allergy Severe hallucinati Verified 11/13/20 05:27 on adhesive tape Allergy Mild rash Verified 11/13/20 05:27 Review of Systems Review of Systems: Narrative: A 10 system review of systems was completed on the patient and is negative except for what is stated in the HPI. Nursing and ancillary documentation was reviewed. [facility] Past Medical History Medical History Anxiety Arthritis Cataracts, bilateral Depression Heart disease High cholesterol History of stroke Hypertension Inguinal hernia Lumbar radiculitis Migraines Obesity RLS (restless legs syndrome) Shortness of breath Spine fracture Stroke Thyroid disease Tibia fracture Surgical History Surgical History History of cholecystectomy History of hip replacement History of kyphoplasty History of revision of total hip arthroplasty (~07/2018) History of Mekhi-en-Y gastric bypass History of total hysterectomy Family History Family History Other Back pain H/O thyroid disease Hypertension Social History Social History Smoking status: Never smoker Second hand tobacco smoke exposure: No Alcohol intake: current Drinks per week: 1 Exam Narrative: Exam Narrative: GENERAL: Well-appearing, well-nourished, and in no acute distress. HEAD: Normocephalic, atraumatic. EYES: PERRLA and EOMI. ENT: Nares clear, no rhinorrhea or epistaxis. Mucous membranes moist. NECK: Supple. CHEST: Clear to auscultation. No respiratory distress. HEART: Regular rate and rhythm. No murmur heard. Normal peripheral pulses. ABDOMEN: Soft, nontender, nondistended, normal active bowel sounds. EXTREMITIES: Normal range of motion. No edema. There is a deformity present in the distal radius of the left upper extremity SKIN: Warm, dry, no rash. NEURO: No focal deficits. Alert and oriented x3. PSYCH: Normal mood and
[2020-11-13 06:58] VITALS: BP 130/74; PULSE 90; RESP 18; O2SAT 99
== END 2020-11-13 07:00 | disposition home or self-care (01) ==
PROVIDERS: Emergency Provider Emergency Medicine; PCP Physician Assistant
DX: S52.502A Unspecified fracture of the lower end of left radius, initial encounter for closed fracture (principal); W19.XXXA Unspecified fall, initial encounter; H26.9 Unspecified cataract; E78.00 Pure hypercholesterolemia, unspecified; Z86.73 Personal history of transient ischemic attack (TIA), and cerebral infarction without residual deficits; I10 Essential (primary) hypertension; G25.81 Restless legs syndrome; Z96.649 Presence of unspecified artificial hip joint
CPT/HCPCS: 29125; 73110; 96372; 99284; A4565; J1170

== ENCOUNTER → 2020-11-18 06:44 | Outpatient (CLI) | payer MEDICARE, BC, SELFPAY ==
[2020-11-18 19:16] LABS: SARS-CoV-2 RNA PCR Negative
== END ==
PROVIDERS: PCP Physician Assistant; Visit Provider Orthopaedic Surgery
DX: Z01.812 Encounter for preprocedural laboratory examination (principal); Z20.822 Contact with and (suspected) exposure to COVID-19
CPT/HCPCS: C9803; U0003; U0005

== ENCOUNTER 2020-11-21 01:05 | Day surgery (SDC) | payer MEDICARE, BC, SELFPAY ==
[2020-11-21] VITALS (8 sets, daily range): BP systolic 107–179; BP diastolic 52–94; PULSE 73–88; RESP 12–18; TEMP 36.1–36.4; O2SAT 92–100
--- NOTE | ~2020-11-21 | XR_ITS ---
EXAMINATION: XR surgery orthopedic DATE: 11/21/2020 14:59 INDICATION: ORIF left wrist fracture TECHNIQUE: 3 fluoroscopic spot images of the left wrist were obtained during procedure performed by Carson Villalobos. Radiologist was not present for the imaging or procedure. The amount of fluoroscopy ti me used during this procedure was 0.4 minutes. COMPARISON: 11/13/2020 FINDINGS: Interval open reduction and internal fixation of a comminuted intra-articular fracture of the distal left femur with a volar plate and screws. Alignment of the fracture appears near-anatomic post fixati on. No significant interval change in mild distraction of an ulnar styloid avulsion fracture. No othe r fractures identified. Joint spaces appear relatively preserved. IMPRESSION: 1. Near-anatomic alignment post open reduction internal fixation of a comminuted intra-articular frac ture of the distal left radius. Line 2. Unchanged mild distraction of an ulnar styloid avulsion fracture. Reviewed, dictated and finalized at location A. IMPRESSION: 1. Near-anatomic alignment post open reduction internal fixation of a comminute d intra-articular fracture of the distal left radius. Line 2. Unchanged mild distraction of an ulnar styloid avulsion fracture.
--- NOTE | 2020-11-21 09:38 | WPDHPUPDATE1 ---
History and Physical Update Update Date/Time: 11/21/20 09:38 History and Physical has been reviewed, including an updated exam of the patient. There are NO changes in the patient's condition. Risks, benefits, and alternatives have been discussed and questions answered. Patient agrees to proceed with procedure.
[2020-11-21] MEDS: ACETAMINOPHEN 500 MG TABLET 1000 MG PO (12:20)
[2020-11-21] MEDS: LACTATED RINGERS 1,000 ML 30 ML IV CONT (12:20)
[2020-11-21] MEDS: KETOROLAC 15 MG/ML VIAL (*BKC) IV PUSH (12:23)
--- NOTE | 2020-11-21 12:24 | WPDANESEPPF ---
Anes - Initial Pre Proc Eval Procedure: Operation Date: 11/21/20 13:30 Proposed Procedures p Open Reduction Internal Fixation Left Distal Radius - Narayan Villalobos MD Date/Time: 11/21/20 12:24 Surgeon: Narayan Villalobos MD Pre Op Diagnosis: extra articular left distal radius fx Patient Data Age: 75 Gender: F Height: 1.6 m Weight: 100.2 kg Allergies Allergy/AdvReac Type Severity Reaction Status Date / Time gabapentin Allergy Severe hallucinati Verified 11/21/20 11:42 on pentazocine Allergy Severe hallucinati Verified 11/21/20 11:42 on adhesive tape Allergy Mild rash Verified 11/21/20 11:42 Home Medications Medication Instructions Recorded Confirmed Type fluticasone 250 mcg-salmeterol 50 1 inhalation INHALATION BID 07/09/19 11/15/20 History mcg/dose blistr powdr for inhalation losartan 50 mg tablet 50 mg PO DAILY 07/09/19 11/15/20 History pregabalin 100 mg capsule 100 mg PO DAILY 07/09/19 11/15/20 History albuterol sulfate 90 mcg/actuation 1 puff INHALATION Q4H PRN 09/10/19 11/15/20 History aerosol inhaler azelastine 0.05 % eye drops 1 drop EACH EYE BID 09/10/19 11/15/20 History lactobacillus combination no.9 4 4,000 mmu cells PO DAILY 09/10/19 11/15/20 History billion cell capsule metoclopramide HCl 10 mg tablet 10 mg PO Q6H PRN 09/10/19 11/15/20 History multivitamin 1 tablet PO DAILY 09/10/19 11/15/20 History aspirin 81 mg tablet,delayed 81 mg PO DAILY #90 tablet 11/16/19 11/15/20 Rx release diphenoxylate-atropine 2.5 1 tablet PO QID PRN tablet 11/16/19 11/15/20 History mg-0.025 mg tablet sennosides 8.6 mg-docusate sodium 1 tab-cap PO BID PRN #60 tablet 04/09/20 11/15/20 Rx 50 mg tablet cyanocobalamin (vitamin B-12) 1,000 mcg PO DAILY 04/27/20 11/15/20 History 1,000 mcg capsule docusate sodium 50 mg capsule 50 mg PO DAILY 04/27/20 11/15/20 History glycerin (adult) 1 supp SC DAILY PRN 04/27/20 11/15/20 History magnesium hydroxide 400 mg/5 mL 5 ml PO DAILY PRN 04/27/20 11/15/20 History oral suspension ondansetron 4 mg disintegrating 4 mg PO Q8H PRN 04/27/20 11/15/20 History tablet atorvastatin 40 mg tablet 40 mg PO DAILY #90 tablet 06/26/20 11/15/20 Rx pramipexole 1 mg tablet See Rx Instructions .ROUTE 07/07/20 11/15/20 Rx .COMPLEX #180 tablet baclofen 10 mg tablet 10 mg PO TID PRN #30 tablet 09/08/20 11/15/20 Rx hyoscyamine sulfate 0.125 mg tablet 0.125 mg PO QID #30 tablet 09/08/20 11/15/20 Rx finasteride 1 mg tablet 1 mg PO DAILY #30 tablet 10/06/20 11/15/20 Rx levothyroxine 75 mcg tablet 75 mcg PO DAILY #90 tablet 10/16/20 11/15/20 Rx omeprazole 40 mg capsule,delayed 40 mg PO DAILY #90 cap 10/16/20 11/15/20 Rx release furosemide 20 mg tablet 20 mg PO DAILY #30 tablet 10/30/20 11/15/20 Rx oxycodone-acetaminophen 5 mg-325 1 - 2 tablet PO Q4-6H PRN #30 11/15/20 11/15/20 Rx mg tablet tablet suvorexant 10 mg tablet 10 mg PO QHS #30 tablet 11/15/20 Rx venlafaxine [Effexor XR] 37.5 mg PO HS 11/15/20 11/15/20 History Patient hx anesthesia problems: none Family hx anesthesia problems: none [facility] Past Medical History Medical History (Updated 11/14/20 @ 00:01 by Patti Wagner) Anxiety Arthritis Cataracts, bilateral Depression Heart disease High cholesterol History of stroke Hypertension Inguinal hernia Lumbar radiculitis Migraines Obesity RLS (restless legs syndrome) Shortness of breath Spine fracture Stroke Thyroid disease Tibia fracture Surgical History Surgical History (Updated 11/20/20 @ 09:38 by Chaz Persaud DO) H/O aortic valve replacement History of cholecystectomy History of hip replacement History of kyphoplasty History of revision of total hip arthroplasty (~07/2018) History of Mekhi-en-Y gastric bypass History of total hysterectomy Family History Family History Other Back pain H/O thyroid disease Hypertension Social History Social His
[2020-11-21] MEDS: ceFAZolin 2 GM/D5W 50 ML 2 GM/50 ML BAG IVPB (13:34)
[2020-11-21] MEDS: BUPIVACAINE/EPINEPHRINE 0.5% 30 ML VIAL INFILTRATE (14:15)
--- NOTE | 2020-11-21 15:20 | P.OP_ITS ---
Procedure Note - Detailed Date of procedure: 11/21/20 Pre-op diagnosis: extra articular left distal radius fx Post-op diagnosis: same Procedure performed: ORIF distal radius fracture. Implants: [employer] volar plate Anesthesia: JOYA Surgeon: Narayan Villalobos MD Hardware Engineer: Rupal Myles PA-C Estimated blood loss (mL): 20 Tourniquet time (min): 47 Drains: No Complications: No immediate complications Condition: stable Disposition: PACU Findings: Physician accounts receivable assistant, Rupal Myles PA-C, required for surgery; including patient positioning, draping, tissue retraction, maintaining instrument position, wound closure, and splint replacement. Operative details: Preoperative antibiotics were given. A general anesthetic was administered. The hand was prepped and draped in the usual sterile fashion with a well-padded tourniquet. The limb was exsanguinated and the tourniquet inflated to 250 millimeters of mercury. A longitudinal incision was created over the flexor carpi radialis tendon. Dissection was brought down through the sheath. The pronator quadratus was identified and released off of the radius. The fracture was carefully exposed and cleared of debris. Reduction was obtained with traction and manipulation. Fluoroscopy was used to confirm anatomic reduction. The volar plate was placed on the radius and the position was confirmed. Provisional pins were placed. The dynamic cortical screw was applied. The plate was fine tuned and fluoroscopy was use to confirm that the joint would not be violated. Subsequent distal pins and screws were placed, followed by the proximal row. The wound was irrigated and closed. 2-0 Vicryl suture was used to reapproximate the pronator quadratus. The tourniquet was released and meticulous hemostasis was confirmed. The skin was closed with 3-0 Monocryl suture and a running 4-0 Monocryl suture. Steri-Strips were applied on the skin. A sterile bulky dressing with a volar splint was applied.
[2020-11-21] MEDS: fentaNYL CITRATE INJ (*CRX) 100 MCG/2 ML VIAL 25 MCG IV PUSH ×5 (15:57→16:28)
== END 2020-11-21 18:05 | disposition home or self-care (01) ==
PROVIDERS: PCP Physician Assistant; Visit Provider Orthopaedic Surgery
PROC: (CPT 25575; principal; 2020-11-21 13:30)
DX: S52.552A Other extraarticular fracture of lower end of left radius, initial encounter for closed fracture (principal); I10 Essential (primary) hypertension; E78.00 Pure hypercholesterolemia, unspecified; G25.81 Restless legs syndrome; F41.9 Anxiety disorder, unspecified; F32.9 Major depressive disorder, single episode, unspecified; E66.9 Obesity, unspecified; Z68.39 Body mass index [BMI] 39.0-39.9, adult; Z86.73 Personal history of transient ischemic attack (TIA), and cerebral infarction without residual deficits; Z95.2 Presence of prosthetic heart valve; Z98.84 Bariatric surgery status; W19.XXXA Unspecified fall, initial encounter
CPT/HCPCS: 25607; A9270; J0690; J1885; J2405; J2704; J3010; J7120

== ENCOUNTER → 2021-02-15 10:35 | Outpatient (CLI) | payer MEDICARE, BC, SELFPAY ==
--- NOTE | ~2021-02-15 | MR_ITS ---
EXAMINATION: MR knee RT wo con DATE: 02/15/2021 11:59 INDICATION: Lateral primary osteoarthritis of the right knee presenting with worsening generalized ri ght knee pain, swelling, difficulty walking with limited range of motion. TECHNIQUE: Magnetic resonance imaging (MRI) of the right knee was performed without intravenous contr ast. Sequences included coronal PD-weighted FSE, coronal PD-weighted FS FSE, sagittal T2-weighted FS E, sagittal PD-weighted FS FSE and axial PD weighted fat saturated FSE. COMPARISON: None. FINDINGS: Motion blurring Mild motion artifact or blurring to some degree on all sequences which mildly limits evaluation most significantly of the menisci and cartilage. Medial compartment: Medial meniscus is normal. Articular cartilage is normal. Small marginal osteophytes are present. Lateral compartment: Tear, likely complex at the anterior horn and body of the lateral meniscus. Partial-thickness cartila ge loss along the posterior weightbearing lateral femoral condyle with smooth chondral surface and wi thout degenerative subchondral changes. Small marginal osteophytes are present. Patellofemoral compartment: Partial-thickness cartilage loss at the patella and trochlea most prominent along the lateral patella r facet with central tiny focus of subarticular edema, at the inferior aspect of the trochlear groove and throughout the lateral trochlea. Small marginal osteophytes are present. Ligaments and tendons: Anterior and posterior cruciate ligaments are normal. The medial collateral ligament and fibular raphael ateral ligament complex are normal. The extensor mechanism is normal. The visualized medial and later al hamstring tendons as well as the iliotibial band are normal. Fluid: Moderate-sized left knee joint effusion. No loose osteochondral bodies identified. Osseous/other: Mild red marrow reexpansion in the distal metadiaphyseal region of the femur. Marrow signal is otherw ise unremarkable. No fracture or pathologic marrow replacing process. Subcutaneous varicosities along the lateral side of the knee. IMPRESSION: 1. Motion artifact or blurring to some degree on all sequences which moderately decreases sensitivity and specificity for evaluation of the menisci and cartilage. 2. Suggestion of a likely complex tear of the body and anterior horn of the lateral meniscus. 3. Moderate patellofemoral osteoarthritis with extensive moderate to high-grade chondromalacia at the lateral aspect of the patellofemoral compartment. 4. Moderate-sized left knee joint effusion. Reviewed, dictated and finalized at location A. IMPRESSION: 1. Motion artifact or blurring to some degree on all sequences which moderately decreases sensitivity and specificity for evaluation of the menisci and cartil age. 2. Suggestion of a likely complex tear of the body and anterior horn of the lat eral meniscus. 3. Moderate patellofemoral osteoarthritis with extensive moderate to high-grade chondromalacia at the lateral aspect of the patellofemoral compartment. 4. Moderate-sized left knee joint effusion.
== END ==
PROVIDERS: PCP Physician Assistant; Visit Provider Orthopaedic Surgery
DX: M17.11 Unilateral primary osteoarthritis, right knee (principal); M22.41 Chondromalacia patellae, right knee; M25.461 Effusion, right knee
CPT/HCPCS: 73721

== ENCOUNTER 2021-03-01 08:03 | Outpatient (CLI) | payer MEDICARE, BC, SELFPAY ==
[2021-03-01 08:43] LABS: Anion Gap 7 mmol/L (8-16); Blood Urea Nitrogen 13 mg/dL (7-17); Calcium 9.5 mg/dL (8.4-10.2); Carbon Dioxide 31 mmol/L (22-30); Chloride 100 mmol/L (98-107); Estimated Glomerular Filt Rate > 60; Glucose 93 mg/dL (65-110); Potassium 3.9 mmol/L (3.4-5.0); Sodium 138 mmol/L (137-145)
== END 2021-03-01 08:04 | disposition home or self-care (01) ==
PROVIDERS: Anesthesiology; PCP Physician Assistant; Visit Provider Orthopaedic Surgery
DX: Z01.818 Encounter for other preprocedural examination (principal); Z51.81 Encounter for therapeutic drug level monitoring
CPT/HCPCS: 36415; 80048

== ENCOUNTER → 2021-03-06 03:37 | Outpatient (CLI) | payer MEDICARE, BC, SELFPAY ==
[2021-03-06 21:09] LABS: SARS-CoV-2 RNA PCR Negative
== END ==
PROVIDERS: PCP Physician Assistant; Visit Provider Orthopaedic Surgery
DX: Z01.812 Encounter for preprocedural laboratory examination (principal); Z20.822 Contact with and (suspected) exposure to COVID-19
CPT/HCPCS: C9803; U0003; U0005

== ENCOUNTER 2021-03-09 04:19 | Day surgery (SDC) | payer MEDICARE, BC, SELFPAY ==
[2021-02-27 15:27] VITALS: BMI 39.8
--- NOTE | 2021-03-05 10:46 | SUR.PREOP ---
1045 notiffied pt of date/time change for surgery, and covid test. pt updated on meds of what to take and when to stop taking.
[2021-03-09] VITALS (9 sets, daily range): BP systolic 116–154; BP diastolic 59–100; PULSE 61–86; RESP 12–22; TEMP 36.4–36.6; O2SAT 95–100
[2021-03-09] MEDS: LACTATED RINGERS 1,000 ML 30 ML IV CONT (12:55)
[2021-03-09] MEDS: KETOROLAC 15 MG/ML VIAL (*BKC) IV PUSH (13:05)
[2021-03-09] MEDS: ACETAMINOPHEN 500 MG TABLET 1000 MG PO (13:05)
--- NOTE | 2021-03-09 13:42 | WPDHPUPDATE1 ---
History and Physical Update Update Date/Time: 03/09/21 13:42 History and Physical has been reviewed, including an updated exam of the patient. There are NO changes in the patient's condition. Risks, benefits, and alternatives have been discussed and questions answered. Patient agrees to proceed with procedure.
--- NOTE | 2021-03-09 13:46 | WPDANESEPPF ---
Anes - Initial Pre Proc Eval Procedure: Operation Date: 03/09/21 14:30 Proposed Procedures p Right Arthroscopic Partial Lateral Meniscectomy, Right Intraarticular Knee Injection - Narayan Villalobos MD Date/Time: 03/09/21 13:46 Surgeon: Narayan Villalobos MD Pre Op Diagnosis: right lateral meniscus tear Patient Data Age: 75 Gender: F Height: 1.6 m Weight: 103.5 kg Last Vital Signs Temp 36.6 C 03/09/21 13:02 Pulse 81 03/09/21 13:02 Resp 18 03/09/21 13:02 BP 151/79 H 03/09/21 13:02 Pulse Ox 100 03/09/21 13:02 Allergies Allergy/AdvReac Type Severity Reaction Status Date / Time gabapentin Allergy Severe hallucinati Verified 03/09/21 13:18 on pentazocine Allergy Severe hallucinati Verified 03/09/21 13:18 on adhesive tape Allergy Mild rash Verified 03/09/21 13:18 Home Medications Medication Instructions Recorded Confirmed Type fluticasone 250 mcg-salmeterol 50 1 inhalation INHALATION BID PRN 07/09/19 03/09/21 History mcg/dose blistr powdr for inhalation albuterol sulfate 90 mcg/actuation 1 puff INHALATION Q4H PRN 09/10/19 03/09/21 History aerosol inhaler azelastine 0.05 % eye drops 1 drop EACH EYE DAILY 09/10/19 03/09/21 History lactobacillus combination no.9 4 4,000 mmu cells PO DAILY 09/10/19 03/09/21 History billion cell capsule multivitamin 1 tablet PO DAILY 09/10/19 03/09/21 History aspirin 81 mg tablet,delayed 81 mg PO DAILY #90 tablet 11/16/19 03/09/21 Rx release diphenoxylate-atropine 2.5 1 tablet PO QID PRN tablet 11/16/19 03/09/21 History mg-0.025 mg tablet sennosides 8.6 mg-docusate sodium 1 tab-cap PO BID PRN #60 tablet 04/09/20 03/09/21 Rx 50 mg tablet cyanocobalamin (vitamin B-12) 1,000 mcg PO DAILY 04/27/20 03/09/21 History 1,000 mcg capsule glycerin (adult) 1 supp [place] DAILY PRN 04/27/20 03/09/21 History atorvastatin 40 mg tablet 40 mg PO DAILY #90 tablet 12/19/20 03/09/21 Rx pregabalin 100 mg capsule 100 mg PO BID #60 cap 12/19/20 03/09/21 Rx baclofen 10 mg tablet 10 mg PO TID PRN #30 tablet 01/16/21 03/09/21 Rx losartan 50 mg tablet 50 mg PO DAILY #90 tablet 01/25/21 03/09/21 Rx finasteride 1 mg PO DAILY 02/27/21 03/09/21 History furosemide 20 mg PO QAM 02/27/21 03/09/21 History levothyroxine 75 mcg PO QAM 02/27/21 03/09/21 History magnesium 250 mg PO DAILY 02/27/21 03/09/21 History omeprazole 40 mg capsule,delayed 40 mg PO DAILY #90 cap 02/27/21 03/09/21 Rx release pramipexole [Mirapex] 2 mg PO HS 02/27/21 03/09/21 History venlafaxine 150 mg PO HS 02/27/21 03/09/21 History Patient hx anesthesia problems: none Family hx anesthesia problems: none PMFSH Past Medical History Medical History Anxiety Arthritis Cataracts, bilateral Depression Heart disease High cholesterol History of stroke Hypertension Inguinal hernia Lumbar radiculitis Migraines Obesity RLS (restless legs syndrome) Shortness of breath Spine fracture Stroke Thyroid disease Tibia fracture Surgical History Surgical History H/O aortic valve replacement History of cholecystectomy History of hip replacement History of kyphoplasty History of revision of total hip arthroplasty (~07/2018) History of Mekhi-en-Y gastric bypass History of total hysterectomy Family History Family History Other Back pain H/O thyroid disease Hypertension Social History Social History Smoking status: Never smoker Second hand tobacco smoke exposure: No Alcohol intake: never Drinks per week: 1 Alcohol use details: STATES MAYBE 1 DRINK / MONTH Substance use: never Substance use type: does not use Living arrangements: with family Additional living arrangements comments: SON AND DIL Spiritual care concerns: No Anes - Eval
[2021-03-09] MEDS: ceFAZolin 2 GM/D5W 50 ML 2 GM/50 ML BAG IVPB (15:08)
[2021-03-09] MEDS: BUPIVACAINE/EPINEPHRINE 0.5% 10 ML VIAL 20 ML INFILTRATE (15:52)
[2021-03-09] MEDS: methylPREDNISolone ACETATE 80 MG/ML VIAL IM (15:53)
--- NOTE | 2021-03-09 16:17 | P.OP_ITS ---
Procedure Note - Detailed Date of Procedure 03/09/21 Pre-op Diagnosis Lateral meniscus tear Post-op Diagnosis same Procedure Performed Arthroscopic partial lateral meniscectomy Surgeon Narayan Villalobos MD Anesthesia general Findings Extensive complex tearing of the lateral meniscus throughout the body as well as the anterior and posterior horn. Unstable flaps consistent with the severe mechanical symptoms the patient experienced. Extensive chondrocalcinosis. Subtotal lateral meniscectomy performed. Medial femur chondromalacia grade 1, medial tibia grade 2. Lateral femur chondromalacia grade 2, lateral tibia grade 1. Patellar grade 2/3, trochlea grade 2/3. Description of Procedure The patient was identified and the surgical site confirmed and signed in the preoperative holding area. Antibiotics were started per protocol. She was brought to the operative room and transferred to the OR table. A general anesthetic was administered. Supine position with the operative lower extremity position in the leg snell after placement of a well padded tourniquet. The leg support was lowered and the contralateral limb was supported with a soft bolster. The knee was prepped and draped in the usual sterile fashion. A time- out was performed. The portal sites were marked and infiltrated with 0.5% Marcaine 20 mL. The limb was exsanguinated and the tourniquet inflated to 300 mL Hg. Standard inferolateral and inferomedial portals were established. Inflow was obtained with the saline pump. The camera was introduced. Diagnostic inspection of the joint was accomplished. The meniscus was debrided with the arthroscopic shaver and punches until stable. The radiofrequency probe was also used for further d?bridement. The arthroscopic instruments were removed. The tourniquet released and wounds closed with subcutaneous 4-0 Monocryl absorbable suture. Steri strips and a sterile dressing were applied. A light elastic wrap was placed. The patient was extubated and brought to the recovery room in stable condition. Estimated Blood Loss 5 Drains No Complications No immediate complications Condition stable Disposition PACU
[2021-03-09] MEDS: fentaNYL CITRATE INJ (*CRX) 100 MCG/2 ML VIAL 25 MCG IV PUSH (16:23)
[2021-03-09] MEDS: ONDANSETRON INJ 4 MG/2 ML VIAL IV PUSH (16:44)
== END 2021-03-09 18:34 | disposition home or self-care (01) ==
PROVIDERS: PCP Physician Assistant; Visit Provider Orthopaedic Surgery
PROC: (CPT 29870; principal; 2021-03-09 14:30)
DX: M23.241 Derangement of anterior horn of lateral meniscus due to old tear or injury, right knee (principal); M23.251 Derangement of posterior horn of lateral meniscus due to old tear or injury, right knee; M23.261 Derangement of other lateral meniscus due to old tear or injury, right knee; M11.261 Other chondrocalcinosis, right knee; I10 Essential (primary) hypertension; E78.00 Pure hypercholesterolemia, unspecified; E78.5 Hyperlipidemia, unspecified; G25.81 Restless legs syndrome; E66.9 Obesity, unspecified; Z68.41 Body mass index [BMI] 40.0-44.9, adult; I25.10 Atherosclerotic heart disease of native coronary artery without angina pectoris; E07.9 Disorder of thyroid, unspecified; Z86.73 Personal history of transient ischemic attack (TIA), and cerebral infarction without residual deficits; Z96.649 Presence of unspecified artificial hip joint; Z95.2 Presence of prosthetic heart valve; Z98.84 Bariatric surgery status; Z79.82 Long term (current) use of aspirin; Z79.899 Other long term (current) drug therapy
CPT/HCPCS: 29881; A9270; J0690; J1040; J1885; J2405; J3010; J7120

== ENCOUNTER 2021-03-30 12:23 | Outpatient (CLI) | payer MEDICARE, BC, SELFPAY | END 2021-03-30 12:24 | disposition home or self-care (01) | PROVIDERS: PCP Physician Assistant; Visit Provider Physician Assistant | DX: K52.1 Toxic gastroenteritis and colitis (principal); Z53.9 Procedure and treatment not carried out, unspecified reason | CPT/HCPCS: 99199 ==

== ENCOUNTER 2021-04-10 10:24 | Outpatient (CLI) | payer MEDICARE, BC, SELFPAY ==
[2021-04-10 11:08] LABS: Cholesterol 228 mg/dL (0-200); HDL Direct 97 mg/dL; Triglycerides 111 mg/dL (<150)
[2021-04-10 11:20] LABS: LDL Cholesterol Direct 84 mg/dL
== END 2021-04-10 10:25 | disposition home or self-care (01) ==
LOC: ANHLAB 10:26
PROVIDERS: PCP Physician Assistant; Visit Provider Internal Medicine Cardiovascular Disease
DX: E78.00 Pure hypercholesterolemia, unspecified (principal)
CPT/HCPCS: 36415; 80061

== ENCOUNTER → 2021-05-08 04:25 | Outpatient (CLI) | payer MEDICARE, BC, SELFPAY ==
[2021-05-09 19:26] LABS: SARS-CoV-2 RNA PCR Negative
== END ==
PROVIDERS: PCP Physician Assistant; Visit Provider Physician Assistant
DX: Z20.822 Contact with and (suspected) exposure to COVID-19 (principal); R09.89 Other specified symptoms and signs involving the circulatory and respiratory systems
CPT/HCPCS: C9803; U0003; U0005

== ENCOUNTER 2021-05-17 18:41 | Emergency (ER) | payer MEDICARE, BC, SELFPAY ==
[2021-05-17 19:24] VITALS: BP 169/89; PULSE 96; RESP 18; TEMP 36.3; O2SAT 98
[2021-05-17] MEDS: ENOXAPARIN 120 MG/0.8 ML SYRINGE 106 MG SUB-Q (21:13)
--- NOTE | 2021-05-17 21:29 | ED.GENADULT ---
HPI - General Adult General Chief complaint: Extremity Problem,Nontraumatic Stated complaint: R LEG SWELLING,PAINFUL Time Seen by Provider: 05/17/21 20:09 History of Present Illness HPI narrative: Patient is a 75-year-old female who presents ER with right lower extremity swelling. She reports history of DVT and PE in the past. She is not anticoagulated. She underwent right knee surgery 2 months ago and then had a fall with trauma to the right knee 2 weeks ago. She had negative radiographs after the fall. Since then she has developed swelling and pain in her calf and anterior thigh. No chest pain or chest pressure or difficulty breathing. No fevers or chills or sweats. Was sent here by her orthopedic to be evaluated for DVT. Related Data Home Medications Medication Instructions Recorded Confirmed fluticasone 250 mcg-salmeterol 50 1 inhalation INHALATION BID PRN 07/09/19 05/02/21 mcg/dose blistr powdr for inhalation albuterol sulfate 90 mcg/actuation 1 puff INHALATION Q4H PRN 09/10/19 05/02/21 aerosol inhaler azelastine 0.05 % eye drops 1 drop EACH EYE DAILY 09/10/19 05/02/21 lactobacillus combination no.9 4 4,000 mmu cells PO DAILY 09/10/19 05/02/21 billion cell capsule multivitamin 1 tablet PO DAILY 09/10/19 05/02/21 diphenoxylate-atropine 2.5 1 tablet PO QID PRN tablet 11/16/19 05/02/21 mg-0.025 mg tablet cyanocobalamin (vitamin B-12) 1,000 mcg PO DAILY 04/27/20 05/02/21 1,000 mcg capsule glycerin (adult) 1 supp MD DAILY PRN 04/27/20 05/02/21 finasteride 1 mg PO DAILY 02/27/21 05/02/21 furosemide 20 mg PO QAM 02/27/21 05/02/21 levothyroxine 75 mcg PO QAM 02/27/21 05/02/21 magnesium 250 mg PO DAILY 02/27/21 05/02/21 venlafaxine 150 mg PO HS 02/27/21 04/17/21 atorvastatin 40 mg tablet 40 mg PO TID tablet 05/10/21 Allergies Allergy/AdvReac Type Severity Reaction Status Date / Time gabapentin Allergy Severe hallucinati Verified 05/17/21 20:19 on pentazocine Allergy Severe hallucinati Verified 05/17/21 20:19 on adhesive tape Allergy Mild rash Verified 05/17/21 20:19 Review of Systems Review of Systems: All systems reviewed & are unremarkable except as noted in HPI and below Constitutional: Constitutional: Denies chills, Denies fever(s) and Denies weakness Cardiovascular: Cardiovascular: Denies chest pain and Denies radiating jaw, neck or arm pain Respiratory: Respiratory: Denies cough, Denies dyspnea and Denies wheezing Musculoskeletal: Musculoskeletal: Reports arthralgias and Denies joint swelling Comments: Lower extremity swelling Neurologic: Denies focal weakness and Denies numbness PMFSH Past Medical History Medical History Anxiety Arthritis Cataracts, bilateral Depression Heart disease High cholesterol History of stroke Hypertension Inguinal hernia Lumbar radiculitis Migraines Obesity RLS (restless legs syndrome) Shortness of breath Spine fracture Stroke Thyroid disease Tibia fracture Surgical History Surgical History H/O aortic valve replacement History of cholecystectomy History of hip replacement History of kyphoplasty History of meniscectomy of right knee (~03/09/21) Partial Lateral Menisectomy w/Cortisone Injection History of revision of total hip arthroplasty (~07/2018) History of Mekhi-en-Y gastric bypass History of total hysterectomy Family History Family History Other Back pain H/O thyroid disease Hypertension Social History Social History Second hand tobacco smoke exposure: No Alcohol intake: never Drinks per week: 1 Alcohol use details: STATES MAYBE 1 DRINK / MONTH Substance use: never Substance use type: does not use Additional living arrangements comments: SON AND DIL Spiritual care concerns: No
== END 2021-05-17 21:40 | disposition home or self-care (01) ==
PROVIDERS: Emergency Provider Emergency Medicine; PCP Physician Assistant
DX: M79.89 Other specified soft tissue disorders (principal); E78.00 Pure hypercholesterolemia, unspecified; I11.9 Hypertensive heart disease without heart failure; E66.9 Obesity, unspecified; Z68.41 Body mass index [BMI] 40.0-44.9, adult; E07.9 Disorder of thyroid, unspecified; M19.90 Unspecified osteoarthritis, unspecified site; Z86.718 Personal history of other venous thrombosis and embolism; Z86.711 Personal history of pulmonary embolism; Z86.73 Personal history of transient ischemic attack (TIA), and cerebral infarction without residual deficits; Z96.649 Presence of unspecified artificial hip joint; Z95.2 Presence of prosthetic heart valve; Z98.84 Bariatric surgery status
CPT/HCPCS: 96372; 99283; J1650

== ENCOUNTER 2021-05-18 09:14 | Outpatient (CLI) | payer MEDICARE, BC, SELFPAY ==
--- NOTE | ~2021-05-18 | US_ITS ---
EXAMINATION: US venous doppler LE RT DATE: 05/18/2021 10:00 INDICATION: Right lower limb pain. TECHNIQUE: Grayscale ultrasound images without and with compression and Doppler ultrasound images of the right lower extremity veins were obtained. COMPARISON: None. FINDINGS: The visualized portions of right common femoral vein, profunda (deep) femoral vein, femoral vein, pop liteal vein, peroneal veins, posterior tibial veins, and greater saphenous vein outflow are patent. IMPRESSION: 1. No deep venous thrombosis. Reviewed, dictated and finalized at location A.
== END 2021-05-18 09:15 | disposition home or self-care (01) ==
PROVIDERS: PCP Physician Assistant; Visit Provider Emergency Medicine
DX: M79.89 Other specified soft tissue disorders (principal)
CPT/HCPCS: 93971

== ENCOUNTER 2021-05-28 15:46 | Emergency (ER) | payer MEDICARE, BC, SELFPAY ==
--- NOTE | ~2021-05-28 | US_ITS ---
EXAMINATION: US venous doppler LE RT EXAM DATE: 05/28/2021 17:56 INDICATION: Right leg pain. TECHNIQUE: Multiple grayscale, color flow and Doppler images of the right lower extremity deep venous system were obtained and reviewed. There is no prior study for comparison. FINDINGS: The right common femoral, femoral and profunda veins demonstrate normal color flow, respira tory variation, augmentation and compressibility. Compressibility, color flow confirmed within the r ight popliteal, posterior tibial, peroneal, and greater saphenous veins. IMPRESSION: No right lower extremity deep venous thrombosis. Reviewed, dictated and finalized at location A. RBOAT MECHANIC INBOARD/OUTBOARD
--- NOTE | ~2021-05-28 | XR_ITS ---
EXAMINATION: XR knee RT 3V EXAM DATE: 05/28/2021 18:00 INDICATION: Chronic pain to lateral side right knee, hard to walk and then the period. TECHNIQUE: Three projections of the right knee. Comparison is made to prior examination from 05/10/20. FINDINGS: No evidence osteochondral defect or joint body in the right knee joint. There is small j oint effusion. There is varicose vein. There is moderate tricompartmental primary osteoarthritis. The re is mild meniscal calcification. Chondrocalcinosis can be an age related finding, but with other po ssible etiologies including CPPD, parathyroid disorders, hemochromatosis, gout. There are no acute fr actures or dislocations identified. There is no subcutaneous gas. The soft tissue is unremarkable. There are no radiopaque foreign bodies. IMPRESSION: 1. Small joint effusion. 2. Moderate osteoarthritis. 3. Chondrocalcinosis. Reviewed, dictated and finalized at location A. RUMENT TECHNICIAN
[2021-05-28 16:02] VITALS: BP 155/78; PULSE 100; RESP 16; TEMP 36.2; O2SAT 100
[2021-05-28 17:01] LABS: Basophils Percent Auto 0.6 % (0.2-1.2); Eosinophils Absolute Auto 0.4 K/mm3 (0-0.3); Eosinophils Percent Auto 6.1 % (0-4.4); Hematocrit 42.1 % (37.0-47.0); Immature Granulocyte Absolute 0.02 K/mm3 (0.00-0.031); Immature Granulocyte Percent A 0.3 % (0-0.5); Lymphocytes Absolute Auto 1.34 K/mm3 (0.9-3.2); Lymphocytes Percent Auto 20.3 % (18.3-44.2); Mean Corpuscular HGB Conc 33.3 g/dl (32-36); Mean Corpuscular Hemoglobin 32.2 pg (26-34); Mean Corpuscular Volume 96.8 fl (80-100); Mean Platelet Volume 9.3 fl (7.4-10.4); Monocytes Absolute Auto 0.5 K/mm3 (0.1-0.6); Monocytes Percent Auto 7.1 % (2.6-8.5); Neutrophils Absolute Auto 4.3 K/mm3 (1.3-6.7); Neutrophils Percent Auto 65.6 % (45.5-73.1); Platelet Count Result 193 k/mm3 (150-375); Red Blood Count 4.35 M/mm3 (4.2-5.4); Red Cell Distribution Width 13.2 % (11.5-14.5); White Blood Count 6.6 K/mm3 (4.5-10.0)
[2021-05-28 17:13] LABS: Anion Gap 10 mmol/L (8-16); Blood Urea Nitrogen 14 mg/dL (7-17); Calcium 9.4 mg/dL (8.4-10.2); Carbon Dioxide 26 mmol/L (22-30); Chloride 107 mmol/L (98-107); Estimated CRCL calculation 58 ml/min; Estimated Glomerular Filt Rate > 60; Glucose 94 mg/dL (65-110); Potassium 3.8 mmol/L (3.4-5.0); Sodium 143 mmol/L (137-145)
[2021-05-28 17:19] VITALS: BP 165/94; PULSE 96; RESP 18; TEMP 37; O2SAT 99
--- NOTE | 2021-05-28 18:11 | ED.GENADULT ---
HPI - General Adult General Chief complaint: Extremity Problem,Nontraumatic Stated complaint: cellulitis of leg Time Seen by Provider: 05/28/21 17:12 Source: patient and RN notes reviewed History of Present Illness HPI narrative: Patient is a 75 y/o female complaining of right knee pain and swelling for 1 month. She states that she had knee surgery with Dr. Villalobos over 2 months ago. She describes her pain as aching and rates it as 7/10. There is no pain radiation. Walking makes her pain worse. Related Data Home Medications Medication Instructions Recorded Confirmed fluticasone 250 mcg-salmeterol 50 1 inhalation INHALATION BID PRN 07/09/19 05/02/21 mcg/dose blistr powdr for inhalation albuterol sulfate 90 mcg/actuation 1 puff INHALATION Q4H PRN 09/10/19 05/02/21 aerosol inhaler azelastine 0.05 % eye drops 1 drop EACH EYE DAILY 09/10/19 05/02/21 lactobacillus combination no.9 4 4,000 mmu cells PO DAILY 09/10/19 05/02/21 billion cell capsule multivitamin 1 tablet PO DAILY 09/10/19 05/02/21 diphenoxylate-atropine 2.5 1 tablet PO QID PRN tablet 11/16/19 05/02/21 mg-0.025 mg tablet cyanocobalamin (vitamin B-12) 1,000 mcg PO DAILY 04/27/20 05/02/21 1,000 mcg capsule glycerin (adult) 1 supp [place] DAILY PRN 04/27/20 05/02/21 finasteride 1 mg PO DAILY 02/27/21 05/02/21 furosemide 20 mg PO QAM 02/27/21 05/02/21 levothyroxine 75 mcg PO QAM 02/27/21 05/02/21 magnesium 250 mg PO DAILY 02/27/21 05/02/21 venlafaxine 150 mg PO HS 02/27/21 04/17/21 atorvastatin 40 mg tablet 40 mg PO TID tablet 05/10/21 Allergies Allergy/AdvReac Type Severity Reaction Status Date / Time gabapentin Allergy Severe hallucinati Verified 05/17/21 20:19 on pentazocine Allergy Severe hallucinati Verified 05/17/21 20:19 on adhesive tape Allergy Mild rash Verified 05/17/21 20:19 Review of Systems Constitutional: Constitutional: Denies chills, Denies fever(s), Denies headache(s) and Denies weakness Eyes: Eyes: Denies blurry vision ENT: Denies headache(s) and Denies neck pain Cardiovascular: Cardiovascular: Denies chest pain and Denies dyspnea Respiratory: Respiratory: Denies cough and Denies dyspnea Gastrointestinal: Gastrointestinal: Denies abdominal pain, Denies diarrhea, Denies nausea and Denies vomiting Genitourinary: Genitourinary: Denies hematuria and Denies dysuria Musculoskeletal: Musculoskeletal: Reports as per HPI, Denies back pain, Reports arthralgias (right knee pain) and Denies neck pain Neurologic: Denies headache(s) and Denies weakness PMFSH Past Medical History Medical History Anxiety Arthritis Cataracts, bilateral Depression Heart disease High cholesterol History of stroke Hypertension Inguinal hernia Lumbar radiculitis Migraines Obesity RLS (restless legs syndrome) Shortness of breath Spine fracture Stroke Thyroid disease Tibia fracture Surgical History Surgical History H/O aortic valve replacement History of cholecystectomy History of hip replacement History of kyphoplasty History of meniscectomy of right knee (~03/09/21) Partial Lateral Menisectomy w/Cortisone Injection History of revision of total hip arthroplasty (~07/2018) History of Mekhi-en-Y gastric bypass History of total hysterectomy Family History Family History Other Back pain H/O thyroid disease Hypertension Social History Social History Second hand tobacco smoke exposure: No Alcohol intake: never Drinks per week: 1 Alcohol use details: STATES MAYBE 1 DRINK / MONTH Substance use: never Substance use type: does not use Additional living arrangements comments: SON AND DIL Spiritual care concerns: No Exam Const: General: no acute distress and well developed Orientation/consciousness:
[2021-05-28 18:57] VITALS: BP 164/87; PULSE 98; RESP 18; O2SAT 98
[2021-05-28 19:08] LABS: CRP < 0.5 mg/dL (<1.0); Uric Acid 5.2 mg/dL (2.5-7.5)
[2021-05-28 19:18] LABS: Erythrocyte Sedimentation Rate 21 mm/hr (0-20)
[2021-05-28 19:33] VITALS: PULSE 89; RESP 16; O2SAT 99
[2021-05-28 20:34] LABS: Source Synovial Fluid Synovial fluid
[2021-05-28 20:35] LABS: Appearance Synovial Fluid Cloudy (Clear); Color Synovial Fluid Red (Colorless); Nucleated Cell Synovial Fluid 255 /uL (0-200); RBC Synovial Fluid 12163 /uL (0-0)
[2021-05-28 20:53] LABS: Lymphocytes Synovial Fluid 44 %; Monocytes Synovial Fluid 30 %; Neutrophils Synovial Fluid 26 % (0-25)
[2021-05-28 20:55] LABS: Crystals Synovial Fluid None Seen (None Seen)
[2021-05-28 21:34] VITALS: BP 151/63; PULSE 98; RESP 16; O2SAT 96
[2021-05-28 23:07] VITALS: BP 154/66; PULSE 89; RESP 16; O2SAT 97
== END 2021-05-28 23:00 | disposition home or self-care (01) ==
PROVIDERS: Emergency Medicine; Emergency Provider Emergency Medicine; PCP Physician Assistant
DX: M17.11 Unilateral primary osteoarthritis, right knee (principal); I11.9 Hypertensive heart disease without heart failure; Z86.73 Personal history of transient ischemic attack (TIA), and cerebral infarction without residual deficits
CPT/HCPCS: 20610; 36415; 73562; 80048; 84550; 85025; 85652; 86140; 87070; 87075; 87205; 89051; 89060; 93971; 99284

== ENCOUNTER → 2021-05-30 11:58 | Outpatient (CLI) | payer MEDICARE, BC, SELFPAY ==
--- NOTE | ~2021-05-30 | MR_ITS ---
EXAMINATION: MR lumbar spine wo con DATE: 05/30/2021 13:13 INDICATION: Radiculopathy, lumbosacral region. TECHNIQUE: Magnetic resonance imaging (MRI) of the lumbar spine was performed without intravenous con trast. Sequences included sagittal T2-weighted FSE, sagittal STIR FSE, sagittal T1-weighted FSE, and axial T2-weighted FSE. COMPARISON: Lumbar spine MRI 10/02/2019 FINDINGS: Bone alignment is normal. There is a chronic compression fracture of T11 with changes of ve rtebroplasty. There are chronic burst fractures of L1, L4, and L5 with changes of vertebroplasties. T here is 3 mm retrolisthesis of L4 on L5 and L5 on S1. There is mildly decreased disc height at T12-L1 and L1-L2 and severely decreased disc height at L4-L5 and L5-S1 with endplate remodeling. The distal spinal cord signal intensity is normal. The conus medullaris is at L1-L2. The following disc levels are specifically discussed: T12-L1: The disc is bulging. There is mild bilateral facet joint osteoarthritis. There is no neural f oraminal stenosis. There is mild central canal stenosis. L1-L2: The disc is bulging. There is mild bilateral facet joint osteoarthritis. There is mild bilater al neural foraminal stenosis. There is no central canal stenosis. L2-L3: The disc is bulging and has an annular fissure. There is mild bilateral facet joint osteoarthr itis. There is mild bilateral neural foraminal stenosis. There is mild central canal stenosis. L3-L4: The disc is bulging and has an annular fissure. There is severe bilateral facet joint osteoart hritis. There is mild bilateral neural foraminal stenosis. There is mild central canal stenosis. L4-L5: The disc is bulging and has an annular fissure. There is severe right and moderate left facet joint osteoarthritis. There is moderate bilateral neural foraminal stenosis. There is mild central ca nal stenosis. L5-S1: The disc is bulging and has an annular fissure. There is mild bilateral facet joint osteoarthr itis. There is moderate bilateral neural foraminal stenosis. There is no central canal stenosis. IMPRESSION: 1. Severe lumbar spondylosis, stable from 10/02/2019. Reviewed, dictated and finalized at location A. SMISSION WORKER
== END ==
PROVIDERS: Visit Provider Nurse Practitioner Family
DX: M54.17 Radiculopathy, lumbosacral region (principal); M47.816 Spondylosis without myelopathy or radiculopathy, lumbar region
CPT/HCPCS: 72148

== ENCOUNTER 2021-06-25 14:29 | Outpatient (CLI) | payer MEDICARE, BC, SELFPAY ==
--- NOTE | ~2021-06-25 | XR_ITS ---
EXAMINATION: XR chest 2V DATE: 06/25/2021 14:53 INDICATION: Cough, unspecified. TECHNIQUE: Frontal and lateral views of the chest were obtained. COMPARISON: Chest 2 views 08/26/2020 FINDINGS: Calcified pulmonary nodules are consistent with old granulomatous disease. There are mild a irspace opacities in right midlung zone. No pleural effusion or pneumothorax. The heart size is ada l. There are changes of aortic valve replacement. There are changes of vertebroplasty at multiple lev els. There is plate and screw fixation of proximal right humerus. Surgical clips in the right upper q uadrant are likely from cholecystectomy. IMPRESSION: 1. Mild airspace opacities in right midlung zone, consistent with atelectasis versus pneumonia. Reviewed, dictated and finalized at location A. EXAMINER IMPRESSION: 1. Mild airspace opacities in right midlung zone, consistent with atelectasis v ersus pneumonia.
== END 2021-06-25 14:30 | disposition home or self-care (01) ==
LOC: ANHIMG 14:37
PROVIDERS: PCP Physician Assistant; Visit Provider Physician Assistant
DX: R05.9 Cough, unspecified (principal); R91.8 Other nonspecific abnormal finding of lung field
CPT/HCPCS: 71046

== ENCOUNTER → 2021-08-06 08:20 | Outpatient (CLI) | payer MEDICARE, BC, SELFPAY ==
[2021-08-07 08:04] LABS: SARS-CoV-2 RNA PCR Positive
== END ==
PROVIDERS: PCP Physician Assistant; Visit Provider Physician Assistant
DX: U07.1 COVID-19 (principal); R68.89 Other general symptoms and signs
CPT/HCPCS: C9803; U0003; U0005

== ENCOUNTER 2021-08-06 10:21 | Inpatient (IN) | payer MEDICARE, BC, SELFPAY ==
[2021-08-06] VITALS (23 sets, daily range): BP systolic 110–178; BP diastolic 62–137; PULSE 72–90; RESP 13–24; TEMP 36.7–36.8; O2SAT 88–99
--- NOTE | ~2021-08-06 | CT_ITS ---
EXAMINATION: CTA chest PE protocol DATE: 08/06/2021 15:06 INDICATION: Shortness of breath. Cough. TECHNIQUE: Computed tomography angiography (CTA) of the chest was performed with 100 mL Omnipaque-350 intravenous contrast timed to evaluate the pulmonary arteries. Coronal maximum intensity projection 3D-reconstructions were created by the technologist. Automated exposure control and iterative reconst ruction technique were employed. The dose-length product was 714.10 mGy-cm. COMPARISON: Chest single view 08/06/21, CT abdomen and pelvis 03/30/2019, thoracic spine 03/08/2019 FINDINGS: There is mild atelectasis bilaterally. There are patchy groundglass opacities in the lower lobes. There are two 6 mm nodules at left major fissure that are chronic, likely benign. No pleural e ffusion. The heart size is normal. There are changes of aortic valve replacement. There is no pulmona ry embolus. There is a small sliding hiatal hernia. There are surgical changes of the stomach. There are changes of cholecystectomy. An intrathecal catheter is noted. There is internal fixation of right humerus. There are multiple chronic vertebral fractures of the spine with changes vertebroplasty at 3 levels. IMPRESSION: 1. No pulmonary embolus. 2. Patchy groundglass opacities in the lower lobes of the lungs, consistent with mild atelectasis anatoliy ria pneumonia. Reviewed, dictated and finalized at location A. GN PAINTER IMPRESSION: 1. No pulmonary embolus. 2. Patchy groundglass opacities in the lower lobes of the lungs, consistent wit h mild atelectasis versus pneumonia.
--- NOTE | ~2021-08-06 | XR_ITS ---
EXAMINATION: XR chest 1V portable EXAM DATE: 08/06/2021 11:47 INDICATION: dyspnea/covid pending. Productive cough. TECHNIQUE: Portable AP frontal chest x-ray was obtained. Comparison is made to prior examination from 07/10. FINDINGS: Small amount of basilar atelectasis or pneumonia. The cardiomediastinal silhouette is promi nent but magnified on this AP technique. There is no pneumothorax suspected. There are no pleural eff usions. There is aortic arteriosclerosis. Right humeral hardware. There are bony degenerative changes . Thoracic and lumbar vertebral plasties. IMPRESSION: Small amount of bibasilar atelectasis or pneumonia. Reviewed, dictated and finalized at location G. HANDISE DISTRIBUTOR
--- NOTE | 2021-08-06 11:35 | ECG_ITS ---
Measurements Intervals [place] Rate: 83 P: 39 IN: 156 QRS: -25 QRSD: 93 T: 1 QT: 383 QTc: 451 Interpretive Statements SINUS RHYTHM VOLTAGE CRITERIA FOR LVH BORDERLINE R WAVE PROGRESSION, ANTERIOR LEADS BASELINE ARTIFACT- I, II, III, AVR, AVL, AVF, V2-V6 BORDERLINE ECG Electronically Signed On 08-06-2021 11:44:52 LAUNDERER HAND by Albino Ruff D.O.
[2021-08-06 12:07] LABS: Basophils Percent Auto 0.6 % (0.2-1.2); Eosinophils Absolute Auto 0.3 K/mm3 (0-0.3); Eosinophils Percent Auto 6.3 % (0-4.4); Hematocrit 43.1 % (37.0-47.0); Hemoglobin 14.4 g/dL (12.0-15.0); Immature Granulocyte Absolute 0.02 K/mm3 (0.00-0.031); Immature Granulocyte Percent A 0.4 % (0-0.5); Lymphocytes Absolute Auto 1.76 K/mm3 (0.9-3.2); Lymphocytes Percent Auto 34.6 % (18.3-44.2); Mean Corpuscular HGB Conc 33.4 g/dl (32-36); Mean Corpuscular Hemoglobin 31.6 pg (26-34); Mean Corpuscular Volume 94.5 fl (80-100); Monocytes Absolute Auto 0.5 K/mm3 (0.1-0.6); Monocytes Percent Auto 10.2 % (2.6-8.5); Neutrophils Absolute Auto 2.4 K/mm3 (1.3-6.7); Neutrophils Percent Auto 47.9 % (45.5-73.1); Platelet Count Result 173 k/mm3 (150-375); Red Blood Count 4.56 M/mm3 (4.2-5.4); Red Cell Distribution Width 12.7 % (11.5-14.5); White Blood Count 5.1 K/mm3 (4.5-10.0)
[2021-08-06 12:23] LABS: Alanine Aminotransferase 21 U/L (4-35); Albumin Level 4.6 g/dL (3.5-5.1); Alkaline Phosphatase 81 U/L (38-126); Anion Gap 10 mmol/L (8-16); Aspartate Amino Transferase 31 U/L (14-36); Bilirubin,Total 0.7 mg/dL (0.2-1.3); Blood Urea Nitrogen 19 mg/dL (7-17); Calcium 9.6 mg/dL (8.4-10.2); Carbon Dioxide 32 mmol/L (22-30); Chloride 95 mmol/L (98-107); Estimated CRCL calculation 60 ml/min; Estimated Glomerular Filt Rate > 60; Glucose 93 mg/dL (65-110); Potassium 3.6 mmol/L (3.4-5.0); Sodium 137 mmol/L (137-145)
[2021-08-06 12:30] LABS: NT Pro B Type Natriuretic Pept 40 pg/mL (5-100); Troponin I < 0.012 ng/mL (0.000-0.034)
[2021-08-06 13:57] LABS: D Dimer 0.49 ug/mL (<0.48)
--- NOTE | 2021-08-06 14:04 | ED.GENADULT ---
HPI - General Adult General Chief complaint: Shortness of Breath/Dyspnea Stated complaint: sob Time Seen by Provider: 08/06/21 13:06 Source: patient History of Present Illness HPI narrative: Patient is a 75 y/o female complaining of moderate to severe SOB for one week. There is no alleviating or exacerbating factor. She also has some cough with yellowish phlegm. She has no fever or chest pain. She has not been vaccinated against COVID. Related Data Home Medications Medication Instructions Recorded Confirmed fluticasone 250 mcg-salmeterol 50 1 inhalation INHALATION BID PRN 07/09/19 08/06/21 mcg/dose blistr powdr for inhalation lactobacillus combination no.9 4 4,000 mmu cells PO DAILY 09/10/19 08/06/21 billion cell capsule multivitamin 1 tablet PO DAILY 09/10/19 08/06/21 cyanocobalamin (vitamin B-12) 1,000 mcg PO QNOON 04/27/20 08/06/21 1,000 mcg capsule atorvastatin 40 mg tablet 40 mg PO DAILY tablet 05/10/21 08/06/21 baclofen 10 mg tablet 5 mg PO TID tablet 06/04/21 08/06/21 alprazolam [Xanax] 0.25 mg PO DAILY PRN 08/06/21 08/06/21 ascorbic acid (vitamin C) 60 mg PO DAILY 08/06/21 08/06/21 aspirin 81 mg PO QPM 08/06/21 08/06/21 azelastine [Optivar] 1 drp EACH EYE BID 08/06/21 08/06/21 colestipol [Colestid] 2 g PO QNOON 08/06/21 08/06/21 diphenoxylate-atropine [Lomotil] 1 tablet PO QID PRN 08/06/21 08/06/21 ergocalciferol (vitamin D2) 50,000 unit PO DAILY 08/06/21 08/06/21 levothyroxine 75 mcg PO DAILY 08/06/21 08/06/21 losartan 50 mg PO DAILY 08/06/21 08/06/21 metoclopramide HCl [Reglan] 5 mg PO Q6H PRN 08/06/21 08/06/21 ondansetron [Zofran ODT] 8 mg PO DAILY PRN 08/06/21 08/06/21 potassium 99 mg PO DAILY 08/06/21 08/06/21 pramipexole 2 mg PO HS 08/06/21 08/06/21 tolterodine 2 mg PO DAILY 08/06/21 08/06/21 trazodone 200 mg PO HS 08/06/21 08/06/21 venlafaxine 37.5 mg PO QPM 08/06/21 08/06/21 vitamins A,C,E-tcdp-ftuphs [Eye 1 tablet PO DAILY 08/06/21 08/06/21 Multivitamin] Allergies Allergy/AdvReac Type Severity Reaction Status Date / Time gabapentin Allergy Severe hallucinati Verified 08/06/21 18:50 on pentazocine Allergy Severe hallucinati Verified 08/06/21 18:50 on adhesive tape Allergy Mild rash Verified 08/06/21 18:50 Review of Systems Constitutional: Constitutional: Denies chills, Denies fever(s), Denies headache(s) and Denies weakness Eyes: Eyes: Denies blurry vision ENT: Denies headache(s) and Denies neck pain Cardiovascular: Cardiovascular: Denies chest pain and Reports dyspnea Respiratory: Respiratory: Reports cough and Reports dyspnea Gastrointestinal: Gastrointestinal: Denies abdominal pain, Denies diarrhea, Denies nausea and Denies vomiting Genitourinary: Genitourinary: Denies hematuria and Denies dysuria Musculoskeletal: Musculoskeletal: Denies back pain and Denies neck pain Neurologic: Denies headache(s) and Denies weakness PMFSH Past Medical History Medical History Anxiety Arthritis Cataracts, bilateral Depression Heart disease High cholesterol History of stroke Hypertension Inguinal hernia Lumbar radiculitis Migraines Obesity RLS (restless legs syndrome) Shortness of breath Spine fracture Stroke Thyroid disease Tibia fracture Surgical History Surgical History H/O aortic valve replacement History of cholecystectomy History of hip replacement History of kyphoplasty History of meniscectomy of right knee (~03/09/21) Partial Lateral Menisectomy w/Cortisone Injection History of revision of total hip arthroplasty (~07/2018) History of Mekhi-en-Y gastric bypass History of total hysterectomy Family History Family History Other Back pain H/O thyroid disease Hypertension Social History Social History Smoking status: Never smoker Second 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
[2021-08-06 14:07] LABS: NT Pro B Type Natriuretic Pept 41 pg/mL (5-100)
--- NOTE | 2021-08-06 18:28 | ADMGEN ---
This patient, Alpa Gifford, was admitted to 3 [facility] Surg Room 311-01. Patient/family oriented to hospital policies and general routines including ID bracelet, bed and alarms, visiting hours, pain management, procedures, bathroom and other care routines, personal items, smoking policy, room service/diet, and visiting hours. Information on how to activate the Rapid Response Team has been discussed. Patient/Family are encouraged to report perceived risks to care and to ask questions if they do not understand what they are told or what they should do.
[2021-08-06] MEDS: PREGABALIN (*CRX) 50 MG CAPSULE 100 MG PO (21:31)
[2021-08-06] MEDS: VENLAFAXINE HCL XR 37.5 MG CAP PO (21:31)
[2021-08-06] MEDS: ASPIRIN 81 MG ENTERIC TABLET PO (21:31)
[2021-08-06] MEDS: PRAMIPEXOLE 1 MG TABLET 2 MG PO (21:31)
[2021-08-06] MEDS: BACLOFEN 5 MG TABLET PO (21:31)
--- NOTE | 2021-08-06 21:54 | PM.IMHP ---
H&P: HPI History of Present Illness Date/Time: 08/06/21 21:00 this is a 75-year-old female patient who has been having a cough and moderate shortness of breath for at least 1 week. She has not been vaccinated against COVID-19. 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 Her COVID test is now pending. The patient has chronic arthritic pain and has a pain pump. The patient states that she just hurts all over and this is a chronic thing for her. The patient has no suicidal ideation and does not have any plan for suicide however she stated that if her heart stopped beating and she said breathing she would not want to be resuscitated. She would not want to be on a ventilator. She stated she had COVID was having difficulty breathing she would not want to be intubated would want to be made comfort measures. Chest x-ray was read as small amount of bibasilar atelectasis or pneumonia. Chest CTA was read as no pulmonary embolism. Patchy ground-glass opacities in the lower lungs consistent with mild atelectasis versus pneumonia. No leukocytosis. D-dimer was 0.49 however the patient was negative for PE. The patient was started on Rocephin and azithromycin. The patient is being admitted for observation status on the date of service 08/06/2021. Chief Complaint: Shortness of breath Review of Systems Review of Systems: All systems reviewed & are unremarkable except as noted in HPI and below Constitutional: Constitutional: Reports as per HPI and Reports no additional constitutional complaints Eyes: Eyes: Reports as per HPI and Reports no additional eye complaints ENT: Reports system reviewed and no additional complaints, except as documented and Reports Normal hearing present Cardiovascular: Cardiovascular: Reports no additional cardiovascular complaints Respiratory: Respiratory: Reports no additional respiratory complaints and Reports no additional respiratory complaints Gastrointestinal: Gastrointestinal: Reports as per HPI and Reports no additional gastrointestinal complaints Musculoskeletal: Musculoskeletal: Reports no additional musculoskeletal complaints Integumentary/Breasts: Skin/Breast: Reports system reviewed and no additional complaints, except as docu and Reports as per HPI Neurologic: Reports system reviewed and no additional complaints, except as documented, Reports as per HPI and Reports Normal hearing present Psychiatric: Psychiatric: Reports no additional psychiatric complaints and Reports as per HPI Endocrine: Endocrine: Reports no additional endocrine complaints Hematologic/Lymphatic: Hematologic/Lymphatic: Reports no additional hematologic/lymphatic complaints Allergic/Immunologic: Allergic/Immunologic: Reports no additional allergic/immunologic complaints PMFSH Past Medical History Medical History Anxiety Arthritis Cataracts, bilateral Depression Heart disease High cholesterol History of stroke Hypertension Inguinal hernia Lumbar radiculitis Migraines Obesity RLS (restless legs syndrome) Shortness of breath Spine fracture Stroke Thyroid disease Tibia fracture Surgical History Surgical History (Updated 08/06/21 @ 22:00 by Estelle Richter NP) H/O aortic valve replacement Pig History of cholecystectomy History of hip replacement History of kyphoplasty History of meniscectomy of right knee (~03/09/21) Partial Lateral Menisectomy w/Cortisone Injection History of revision of total hip arthroplasty (~07/2018) History of Mekhi-en-Y gastric bypass History of total hysterectomy Family History Family History Other Back pain H/O thyroid disease Hypertension Social History Social History (Updated 08/06/21 @ 22:01 by Estelle Richter NP) Social History: The patient is . Patient gave to 4 children and 3 have
[2021-08-07] VITALS (8 sets, daily range): BP systolic 114–145; BP diastolic 42–68; PULSE 70–98; RESP 18–20; TEMP 36.2–36.8; O2SAT 93–99
--- NOTE | 2021-08-07 00:42 | PCRCNOTE ---
RT asked PT. about CPAP home setting. PT. has CPAP at home not used often, but PT. is willing to try hospitals CPAP tomorrow night
[2021-08-07] MEDS: LEVOTHYROXINE SODIUM 75 MCG TABLET PO (05:48)
[2021-08-07] MEDS: SENNA/DOCUSATE SODIUM TABLET 1 TAB PO (08:05)
[2021-08-07] MEDS: ERGOCALCIFEROL 50,000 UNIT CAPSULE 50000 UNITS PO (08:05)
[2021-08-07] MEDS: ASCORBIC ACID 250 MG TABLET PO (08:05)
[2021-08-07] MEDS: BACLOFEN 5 MG TABLET PO ×3 (08:07→17:06)
[2021-08-07] MEDS: ACIDOPHILUS/BULGARICUS CHEWABLE TABLET 1 TABLET PO (08:08)
[2021-08-07] MEDS: PANTOPRAZOLE 40 MG TABLET PO ×2 (08:08→17:06)
[2021-08-07] MEDS: ATORVASTATIN 40 MG TABLET PO (08:08)
[2021-08-07] MEDS: OPTI-GEN TAB 1 TABLET PO (08:08)
[2021-08-07] MEDS: LOSARTAN POTASSIUM 50 MG TABLET PO (08:08)
[2021-08-07] MEDS: MULTIVITAMINS THERAPEUTIC TAB (*BKC) 1 TABLET PO (08:08)
[2021-08-07] MEDS: FUROSEMIDE 20 MG TABLET PO (08:08)
[2021-08-07] MEDS: OLOPATADINE 0.1% OPHTH SOLN 5 ML BTL 1 DROP EACH EYE ×2 (08:09→17:07)
[2021-08-07] MEDS: ENOXAPARIN 40 MG/0.4 ML SYRINGE SUB-Q (08:09)
[2021-08-07] MEDS: PREGABALIN (*CRX) 50 MG CAPSULE 100 MG PO ×3 (08:11→16:32)
[2021-08-07] MEDS: COLESTIPOL HCL 1 GM TABLET 2 GM PO (12:53)
[2021-08-07] MEDS: CYANOCOBALAMIN 1,000 MCG TABLET 1000 MCG PO (12:53)
[2021-08-07] MEDS: ASPIRIN 81 MG ENTERIC TABLET PO (17:06)
[2021-08-07] MEDS: VENLAFAXINE HCL XR 37.5 MG CAP PO (17:06)
--- NOTE | 2021-08-07 17:38 | PM.IMPN ---
Progress Note: A&P Assessment and Plan (1) Pneumonia of both lower lobes: Qualifiers: Pneumonia type: due to unspecified organism Qualified Code(s): J18.9 - Pneumonia, unspecified organism Code(s): J18.9 - Pneumonia, unspecified organism Status: Acute Assessment and Plan: The patient is being treated for community-acquired pneumonia and was placed on a azithromycin and Rocephin. Her COVID serology came back positive. She does not require oxygen to maintain her saturation. Will continue steroids. There is no indication for remdesivir. Continue with albuterol inhalation p.r.n.. Sputum and blood cultures are pending. Patient was started on the anti microbial stewardship as per protocol. Patient had when low pulse oximeter of 88%. Otherwise she has been in the upper 90s. She is currently on room air. Of note, patient had a previous COVID-19 infection back in May of 2020. (2) Person under investigation for COVID-19: Code(s): Z20.822 - Contact with and (suspected) exposure to COVID-19 Status: Acute Assessment and Plan: COVID test is positive; however patient does not need oxygen supplementation. The patient is to remain on contact and droplet isolation. The patient has not been vaccinated for COVID-19, out of concern for history of Guillain [place] disease. (3) S/P TAVR (transcatheter aortic valve replacement): Code(s): Z95.2 - Presence of prosthetic heart valve Status: Acute Assessment and Plan: Continue with home medications. Patient has a pig valve. (4) Hypothyroidism (acquired): Code(s): E03.9 - Hypothyroidism, unspecified Status: Acute Assessment and Plan: Continue with levothyroxine and check thyroid level. (5) Hypertension: Qualifiers: Hypertension type: primary hypertension Qualified Code(s): I10 - Essential (primary) hypertension Code(s): I10 - Essential (primary) hypertension Status: Acute Assessment and Plan: Blood pressure is moderately control with blood pressure in the 131/55-145/68 range. Continue with losartan (6) High cholesterol: Code(s): E78.00 - Pure hypercholesterolemia, unspecified Status: Acute Assessment and Plan: Continue with home medications. Additional Plan The patient has chronic pain and has a pain pump, venlafaxine, Lyrica, pramipexole, Xanax and baclofen. Subjective Date/time seen: 08/07/21 17:38 Narrative: this is a 75-year-old female patient who has been having a cough and moderate shortness of breath for at least 1 week. She has not been vaccinated against COVID-19. 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 Her COVID test is now pending. The patient has chronic arthritic pain and has a pain pump. The patient states that she just hurts all over and this is a chronic thing for her. The patient has no suicidal ideation and does not have any plan for suicide however she stated that if her heart stopped beating and she said breathing she would not want to be resuscitated. She would not want to be on a ventilator. She stated she had COVID was having difficulty breathing she would not want to be intubated would want to be made comfort measures. Chest x-ray was read as small amount of bibasilar atelectasis or pneumonia. Chest CTA was read as no pulmonary embolism. Patchy ground-glass opacities in the lower lungs consistent with mild atelectasis versus pneumonia. No leukocytosis. D-dimer was 0.49 however the patient was negative for PE. The patient was started on Rocephin and azithromycin. S: Patient was seen and examined at the bedside. She is eating dinner with good appetite. No active complaints. Review of Systems Review of Systems: All systems reviewed & are unremarkable except as noted in HPI and below Constitutional: Constitutional: Reports as per HPI and Reports no additional
--- NOTE | 2021-08-07 18:56 | PCRCNOTE ---
Window of time for administration has passed. See next scheduled administration.
[2021-08-07] MEDS: PRAMIPEXOLE 1 MG TABLET 2 MG PO (20:37)
[2021-08-07] MEDS: ALPRAZolam (*CRX) 0.25 MG TABLET PO (23:21)
[2021-08-08] VITALS (10 sets, daily range): BP systolic 113–133; BP diastolic 53–76; PULSE 72–97; RESP 18–20; TEMP 36.3–36.9; O2SAT 94–99
[2021-08-08] MEDS: LEVOTHYROXINE SODIUM 75 MCG TABLET PO (06:08)
[2021-08-08] MEDS: ACIDOPHILUS/BULGARICUS CHEWABLE TABLET 1 TABLET PO (10:08)
[2021-08-08] MEDS: ASCORBIC ACID 250 MG TABLET PO (10:08)
[2021-08-08] MEDS: BACLOFEN 5 MG TABLET PO ×3 (10:09→19:56)
[2021-08-08] MEDS: FUROSEMIDE 20 MG TABLET PO (10:09)
[2021-08-08] MEDS: ENOXAPARIN 40 MG/0.4 ML SYRINGE SUB-Q (10:09)
[2021-08-08] MEDS: ATORVASTATIN 40 MG TABLET PO (10:09)
[2021-08-08] MEDS: OLOPATADINE 0.1% OPHTH SOLN 5 ML BTL 1 DROP EACH EYE ×2 (10:10→17:22)
[2021-08-08] MEDS: PANTOPRAZOLE 40 MG TABLET PO ×2 (10:10→17:23)
[2021-08-08] MEDS: PREGABALIN (*CRX) 50 MG CAPSULE 100 MG PO ×3 (10:10→17:23)
[2021-08-08] MEDS: LOSARTAN POTASSIUM 50 MG TABLET PO (10:10)
[2021-08-08] MEDS: MULTIVITAMINS THERAPEUTIC TAB (*BKC) 1 TABLET PO (10:10)
[2021-08-08] MEDS: OPTI-GEN TAB 1 TABLET PO (10:10)
[2021-08-08] MEDS: SENNA/DOCUSATE SODIUM TABLET 1 TAB PO ×2 (11:30→14:58)
[2021-08-08] MEDS: COLESTIPOL HCL 1 GM TABLET 2 GM PO (12:32)
[2021-08-08] MEDS: CYANOCOBALAMIN 1,000 MCG TABLET 1000 MCG PO (12:33)
[2021-08-08 14:18] LABS: Hematocrit 40.3 % (37.0-47.0); Hemoglobin 14.3 g/dL (12.0-15.0); Mean Corpuscular HGB Conc 35.5 g/dl (32-36); Mean Corpuscular Hemoglobin 34.2 pg (26-34); Mean Corpuscular Volume 96.4 fl (80-100); Platelet Count Result 182 k/mm3 (150-375); Red Blood Count 4.18 M/mm3 (4.2-5.4); Red Cell Distribution Width 12.7 % (11.5-14.5); White Blood Count 4.5 K/mm3 (4.5-10.0)
[2021-08-08 14:42] LABS: Anion Gap 10 mmol/L (8-16); Blood Urea Nitrogen 18 mg/dL (7-17); Calcium 9.2 mg/dL (8.4-10.2); Carbon Dioxide 29 mmol/L (22-30); Chloride 98 mmol/L (98-107); Estimated CRCL calculation 75 ml/min; Estimated Glomerular Filt Rate 54; Glucose 236 mg/dL (65-110); Potassium 3.5 mmol/L (3.4-5.0); Sodium 137 mmol/L (137-145)
--- NOTE | 2021-08-08 16:05 | PM.IMPN ---
Progress Note: A&P Assessment and Plan (1) Pneumonia of both lower lobes: Qualifiers: Pneumonia type: due to unspecified organism Qualified Code(s): J18.9 - Pneumonia, unspecified organism Code(s): J18.9 - Pneumonia, unspecified organism Status: Acute Assessment and Plan: The patient is currently being treated for community-acquired pneumonia receiving azithromycin and Rocephin. Her COVID serology came back positive. She ia able maintain her saturation on room air. Will continue steroids. There is no indication for remdesivir. Continue with albuterol inhalation p.r.n.. Sputum and blood cultures are pending. Patient was started on the anti microbial stewardship as per protocol. Patient had when low pulse oximeter of 88%. Otherwise she has been in the upper 90s. She is currently on room air. Of note, patient had a previous COVID-19 infection back in May of 2020. (2) Person under investigation for COVID-19: Code(s): Z20.822 - Contact with and (suspected) exposure to COVID-19 Status: Acute Assessment and Plan: COVID test is positive; however patient does not need oxygen supplementation. The patient is to remain on contact and droplet isolation. The patient has not been vaccinated for COVID-19, out of concern for history of Guillain [place] disease. (3) S/P TAVR (transcatheter aortic valve replacement): Code(s): Z95.2 - Presence of prosthetic heart valve Status: Acute Assessment and Plan: Continue with home medications. Patient has a pig valve. (4) Hypothyroidism (acquired): Code(s): E03.9 - Hypothyroidism, unspecified Status: Acute Assessment and Plan: Continue with levothyroxine and check thyroid level. (5) Hypertension: Qualifiers: Hypertension type: primary hypertension Qualified Code(s): I10 - Essential (primary) hypertension Code(s): I10 - Essential (primary) hypertension Status: Acute Assessment and Plan: Blood pressure is moderately control with blood pressure in the 131/55-145/68 range. Continue with losartan (6) High cholesterol: Code(s): E78.00 - Pure hypercholesterolemia, unspecified Status: Acute Assessment and Plan: Continue with home medications. Additional Plan The patient has chronic pain and has a pain pump, venlafaxine, Lyrica, pramipexole, Xanax and baclofen. Subjective Date/time seen: 08/08/21 15:05 S: Patient was seen examined at the bedside. She is breathing comfortably on room air. She is complaining of constipation. Patient had insomnia, but did not tolerate Xanax overnight. She agreed with trazodone as she had previously received it. Review of Systems Review of Systems: All systems reviewed & are unremarkable except as noted in HPI and below Constitutional: Constitutional: Reports as per HPI and Reports no additional constitutional complaints Eyes: Eyes: Reports as per HPI and Reports no additional eye complaints ENT: Reports system reviewed and no additional complaints, except as documented and Reports Normal hearing present Cardiovascular: Cardiovascular: Reports no additional cardiovascular complaints Respiratory: Respiratory: Reports no additional respiratory complaints, Reports no additional respiratory complaints and Reports cough Gastrointestinal: Gastrointestinal: Reports as per HPI and Reports no additional gastrointestinal complaints Musculoskeletal: Musculoskeletal: Reports no additional musculoskeletal complaints Integumentary/Breasts: Skin/Breast: Reports system reviewed and no additional complaints, except as docu and Reports as per HPI Neurologic: Reports system reviewed and no additional complaints, except as documented, Reports as per HPI and Reports Normal hearing present Psychiatric: Psychiatric: Reports no additional psychiatric complaints and Reports as per HPI Endocrine: Endocrine: Reports no additional endocrine complaints
[2021-08-08] MEDS: LACTULOSE 20 GM/30 ML UDC PO (16:45)
[2021-08-08] MEDS: VENLAFAXINE HCL XR 37.5 MG CAP PO (17:23)
[2021-08-08] MEDS: ASPIRIN 81 MG ENTERIC TABLET PO (17:23)
[2021-08-08] MEDS: traZODone HCL 50 MG TABLET PO (19:55)
[2021-08-08] MEDS: PRAMIPEXOLE 1 MG TABLET 2 MG PO (19:56)
[2021-08-08] MEDS: FLUTICASONE/SALMETEROL 115-21 MCG (*SP) INHALER 2 PUFF INHALATION (20:32)
[2021-08-09] VITALS (9 sets, daily range): BP systolic 116–127; BP diastolic 56–84; PULSE 56–81; RESP 16–20; TEMP 36.2–36.9; O2SAT 90–99
[2021-08-09] MEDS: LEVOTHYROXINE SODIUM 75 MCG TABLET PO (05:56)
[2021-08-09 07:30] LABS: Hematocrit 38.3 % (37.0-47.0); Hemoglobin 12.6 g/dL (12.0-15.0); Mean Corpuscular HGB Conc 32.9 g/dl (32-36); Mean Corpuscular Hemoglobin 31.3 pg (26-34); Mean Corpuscular Volume 95.3 fl (80-100); Mean Platelet Volume 8.8 fl (7.4-10.4); Platelet Count Result 195 k/mm3 (150-375); Red Blood Count 4.02 M/mm3 (4.2-5.4); Red Cell Distribution Width 12.6 % (11.5-14.5); White Blood Count 4.8 K/mm3 (4.5-10.0)
[2021-08-09 07:42] LABS: Anion Gap 6 mmol/L (8-16); Blood Urea Nitrogen 17 mg/dL (7-17); Calcium 9.1 mg/dL (8.4-10.2); Carbon Dioxide 34 mmol/L (22-30); Chloride 101 mmol/L (98-107); Estimated CRCL calculation 83 ml/min; Estimated Glomerular Filt Rate > 60; Glucose 94 mg/dL (65-110); Potassium 3.4 mmol/L (3.4-5.0); Sodium 141 mmol/L (137-145)
[2021-08-09] MEDS: MULTIVITAMINS THERAPEUTIC TAB (*BKC) 1 TABLET PO (09:48)
[2021-08-09] MEDS: PANTOPRAZOLE 40 MG TABLET PO ×2 (09:48→16:56)
[2021-08-09] MEDS: ENOXAPARIN 40 MG/0.4 ML SYRINGE SUB-Q (09:48)
[2021-08-09] MEDS: LOSARTAN POTASSIUM 50 MG TABLET PO (09:48)
[2021-08-09] MEDS: SENNA/DOCUSATE SODIUM TABLET 2 TAB PO (09:48)
[2021-08-09] MEDS: FUROSEMIDE 20 MG TABLET PO (09:48)
[2021-08-09] MEDS: OPTI-GEN TAB 1 TABLET PO (09:48)
[2021-08-09] MEDS: ASCORBIC ACID 250 MG TABLET PO (09:49)
[2021-08-09] MEDS: PREGABALIN (*CRX) 50 MG CAPSULE 100 MG PO ×3 (09:49→16:57)
[2021-08-09] MEDS: OLOPATADINE 0.1% OPHTH SOLN 5 ML BTL 1 DROP EACH EYE ×2 (09:49→16:56)
[2021-08-09] MEDS: LACTULOSE 20 GM/30 ML UDC PO (09:49)
[2021-08-09] MEDS: ACIDOPHILUS/BULGARICUS CHEWABLE TABLET 1 TABLET PO (09:49)
[2021-08-09] MEDS: ATORVASTATIN 40 MG TABLET PO (09:49)
[2021-08-09] MEDS: BACLOFEN 5 MG TABLET PO ×3 (09:49→16:56)
[2021-08-09] MEDS: FLUTICASONE/SALMETEROL 115-21 MCG (*SP) INHALER 2 PUFF INHALATION ×2 (09:54→21:01)
[2021-08-09] MEDS: CYANOCOBALAMIN 1,000 MCG TABLET 1000 MCG PO (13:23)
[2021-08-09] MEDS: BENZONATATE 100 MG CAPSULE 200 MG PO ×2 (13:23→16:56)
[2021-08-09] MEDS: COLESTIPOL HCL 1 GM TABLET 2 GM PO (13:23)
--- NOTE | 2021-08-09 15:01 | PM.IMPN ---
Progress Note: A&P Assessment and Plan (1) Pneumonia of both lower lobes: Qualifiers: Pneumonia type: due to unspecified organism Qualified Code(s): J18.9 - Pneumonia, unspecified organism Code(s): J18.9 - Pneumonia, unspecified organism Status: Acute Assessment and Plan: The patient is currently being treated for community-acquired pneumonia receiving azithromycin and Rocephin. Acute diarrhea could be related to antibiotics. We are sending C diff. Her COVID serology came back positive. She remains able maintain her saturation on room air. Will continue steroids. There is no indication for remdesivir. Continue with albuterol inhalation and ipratropium p.r.n.. Blood cultures remained unrevealing. (2) Person under investigation for COVID-19: Code(s): Z20.822 - Contact with and (suspected) exposure to COVID-19 Status: Acute Assessment and Plan: COVID test is positive; however patient does not need oxygen supplementation. The patient is to remain on contact and droplet isolation. The patient has not been vaccinated for COVID-19, out of concern for history of Guillain [place] disease. There is no indication for remdesivir. Continue treatment for community-acquired pneumonia. Due to complaints of chest congestion well starting albuterol and ipratropium nebulizations p.r.n.. Patient will receive robitussin/codeine and Tessalon Perles p.r.n. for cough. (3) S/P TAVR (transcatheter aortic valve replacement): Code(s): Z95.2 - Presence of prosthetic heart valve Status: Acute Assessment and Plan: Continue with home medications. Patient has a pig valve. (4) Hypothyroidism (acquired): Code(s): E03.9 - Hypothyroidism, unspecified Status: Acute Assessment and Plan: Continue with levothyroxine and check thyroid level. (5) Hypertension: Qualifiers: Hypertension type: primary hypertension Qualified Code(s): I10 - Essential (primary) hypertension Code(s): I10 - Essential (primary) hypertension Status: Acute Assessment and Plan: Blood pressure is moderately control with blood pressure in the 121/60-121/84 range. Continue with losartan (6) High cholesterol: Code(s): E78.00 - Pure hypercholesterolemia, unspecified Status: Acute Assessment and Plan: Continue with home medications. (7) Antibiotic-associated diarrhea: Code(s): K52.1 - Toxic gastroenteritis and colitis; T36.95XA - Adverse effect of unspecified systemic antibiotic, initial encounter Status: Acute Assessment and Plan: Send stool for C diff. Additional Plan The patient has chronic pain and has a pain pump, venlafaxine, Lyrica, pramipexole, Xanax and baclofen. Subjective Date/time seen: 08/09/21 15:00 S: Patient was seen and examined at the bedside. She complains of diarrhea after 1 week without having a bowel movement and recurrent cough, making her incontinent. She is in good spirits. Sleep is improving and appetite is preserved. Review of Systems Review of Systems: All systems reviewed & are unremarkable except as noted in HPI and below Constitutional: Constitutional: Reports as per HPI and Reports no additional constitutional complaints Eyes: Eyes: Reports as per HPI and Reports no additional eye complaints ENT: Reports system reviewed and no additional complaints, except as documented and Reports Normal hearing present Cardiovascular: Cardiovascular: Reports no additional cardiovascular complaints Respiratory: Respiratory: Reports no additional respiratory complaints, Reports no additional respiratory complaints and Reports cough Gastrointestinal: Gastrointestinal: Reports as per HPI, Reports no additional gastrointestinal complaints, Reports diarrhea and Reports loose stools Musculoskeletal: Musculoskeletal: Reports no additional musculoskeletal complaints Integumentary/Breasts: Skin/Breast: Reports system revi
[2021-08-09] MEDS: LIDOCAINE 5% PATCH 2 PATCH TRANSDERM (16:56)
[2021-08-09] MEDS: ASPIRIN 81 MG ENTERIC TABLET PO (16:58)
[2021-08-09] MEDS: VENLAFAXINE HCL XR 37.5 MG CAP PO (16:58)
[2021-08-09] MEDS: DIPHENOXYLATE/ATROPINE (*CRX) 2.5 MG TABLET 1 TABLET PO (16:59)
[2021-08-09] MEDS: POTASSIUM CHLORIDE 20 MEQ PACKET (FOR LIQUID) 40 MEQ PO (17:15)
[2021-08-09] MEDS: PRAMIPEXOLE 1 MG TABLET 2 MG PO (20:56)
[2021-08-09] MEDS: traZODone HCL 50 MG TABLET PO (23:06)
[2021-08-10] VITALS (9 sets, daily range): BP systolic 95–178; BP diastolic 60–87; PULSE 54–77; RESP 16–18; TEMP 36.2–38; O2SAT 93–100
[2021-08-10] MEDS: LEVOTHYROXINE SODIUM 75 MCG TABLET PO (06:01)
[2021-08-10 07:27] LABS: Anion Gap 7 mmol/L (8-16); Blood Urea Nitrogen 17 mg/dL (7-17); CRP 0.7 mg/dL (<1.0); Calcium 9.4 mg/dL (8.4-10.2); Carbon Dioxide 31 mmol/L (22-30); Chloride 101 mmol/L (98-107); Estimated CRCL calculation 93 ml/min; Estimated Glomerular Filt Rate > 60; Glucose 100 mg/dL (65-110); Lactate Dehydrogenase 579 U/L (313-618); Magnesium 2.1 mg/dL (1.6-2.3); Potassium 3.7 mmol/L (3.4-5.0); Sodium 139 mmol/L (137-145)
[2021-08-10 07:30] LABS: Thyroid Stimulating Hormone 0.991 uIU/mL (0.465-4.680)
[2021-08-10] MEDS: FLUTICASONE/SALMETEROL 115-21 MCG (*SP) INHALER 2 PUFF INHALATION (08:31)
[2021-08-10] MEDS: LIDOCAINE 5% PATCH 2 PATCH TRANSDERM (09:00)
[2021-08-10] MEDS: guaiFENesin/CODEINE (*CRX) 200/20 MG 10 ML SYRUP PO (09:00)
[2021-08-10] MEDS: ENOXAPARIN 40 MG/0.4 ML SYRINGE SUB-Q (09:00)
[2021-08-10] MEDS: FUROSEMIDE 20 MG TABLET PO (09:01)
[2021-08-10] MEDS: PREGABALIN (*CRX) 50 MG CAPSULE 100 MG PO ×3 (09:01→17:19)
[2021-08-10] MEDS: OLOPATADINE 0.1% OPHTH SOLN 5 ML BTL 1 DROP EACH EYE ×2 (09:01→17:19)
[2021-08-10] MEDS: PANTOPRAZOLE 40 MG TABLET PO ×2 (09:01→17:19)
[2021-08-10] MEDS: LACTULOSE 20 GM/30 ML UDC PO (09:01)
[2021-08-10] MEDS: OPTI-GEN TAB 1 TABLET PO (09:01)
[2021-08-10] MEDS: ATORVASTATIN 40 MG TABLET PO (09:01)
[2021-08-10] MEDS: ACIDOPHILUS/BULGARICUS CHEWABLE TABLET 1 TABLET PO (09:01)
[2021-08-10] MEDS: MULTIVITAMINS THERAPEUTIC TAB (*BKC) 1 TABLET PO (09:01)
[2021-08-10] MEDS: ASCORBIC ACID 250 MG TABLET PO (09:01)
[2021-08-10] MEDS: LOSARTAN POTASSIUM 50 MG TABLET PO (09:01)
[2021-08-10] MEDS: BENZONATATE 100 MG CAPSULE 200 MG PO ×3 (09:01→17:19)
[2021-08-10] MEDS: BACLOFEN 5 MG TABLET PO ×3 (09:02→17:19)
[2021-08-10] MEDS: COLESTIPOL HCL 1 GM TABLET 2 GM PO (12:25)
[2021-08-10] MEDS: CYANOCOBALAMIN 1,000 MCG TABLET 1000 MCG PO (12:25)
--- NOTE | 2021-08-10 15:00 | PM.IMPN ---
Progress Note: A&P Assessment and Plan (1) Pneumonia of both lower lobes: Qualifiers: Pneumonia type: due to unspecified organism Qualified Code(s): J18.9 - Pneumonia, unspecified organism Code(s): J18.9 - Pneumonia, unspecified organism Status: Acute Assessment and Plan: The patient is currently being treated for community-acquired pneumonia receiving azithromycin and Rocephin. Acute diarrhea is resolving, making C diff less likely. Patient is still able maintain her saturation on room air. Will continue steroids. There is no indication for remdesivir. Continue with albuterol inhalation and ipratropium p.r.n.. Blood cultures remained unrevealing. (2) Person under investigation for COVID-19: Code(s): Z20.822 - Contact with and (suspected) exposure to COVID-19 Status: Acute Assessment and Plan: COVID test is positive; however patient does not need oxygen supplementation. The patient is to remain on contact and droplet isolation. The patient has not been vaccinated for COVID-19, out of concern for history of Guillain [place] disease. There is no indication for remdesivir. Continue treatment for community-acquired pneumonia. Due to complaints of chest congestion well starting albuterol and ipratropium nebulizations p.r.n.. Patient will receive robitussin/codeine and Tessalon Perles p.r.n. for cough. (3) S/P TAVR (transcatheter aortic valve replacement): Code(s): Z95.2 - Presence of prosthetic heart valve Status: Acute Assessment and Plan: Continue with home medications. Patient has a pig valve. (4) Hypothyroidism (acquired): Code(s): E03.9 - Hypothyroidism, unspecified Status: Acute Assessment and Plan: Continue with levothyroxine and check thyroid level. (5) Hypertension: Qualifiers: Hypertension type: primary hypertension Qualified Code(s): I10 - Essential (primary) hypertension Code(s): I10 - Essential (primary) hypertension Status: Acute Assessment and Plan: Blood pressure is moderately control with blood pressure in the 95/63-178/73 range. Continue with losartan. Monitor blood pressure closely. (6) High cholesterol: Code(s): E78.00 - Pure hypercholesterolemia, unspecified Status: Acute Assessment and Plan: Continue with home medications. (7) Antibiotic-associated diarrhea: Code(s): K52.1 - Toxic gastroenteritis and colitis; T36.95XA - Adverse effect of unspecified systemic antibiotic, initial encounter Status: Acute Assessment and Plan: Resolved. Additional Plan The patient has chronic pain and has a pain pump, venlafaxine, Lyrica, pramipexole, Xanax and baclofen. Subjective Date/time seen: 08/10/21 13:00 S: Patient was seen examined at the bedside. Diarrhea has now resolved resolved. She is having formed stools. Cough is persisting. Review of Systems Review of Systems: All systems reviewed & are unremarkable except as noted in HPI and below Constitutional: Constitutional: Reports as per HPI and Reports no additional constitutional complaints Eyes: Eyes: Reports as per HPI and Reports no additional eye complaints ENT: Reports system reviewed and no additional complaints, except as documented and Reports Normal hearing present Cardiovascular: Cardiovascular: Reports no additional cardiovascular complaints Respiratory: Respiratory: Reports no additional respiratory complaints, Reports no additional respiratory complaints and Reports cough Gastrointestinal: Gastrointestinal: Reports as per HPI, Reports no additional gastrointestinal complaints, Reports diarrhea and Reports loose stools Musculoskeletal: Musculoskeletal: Reports no additional musculoskeletal complaints Integumentary/Breasts: Skin/Breast: Reports system reviewed and no additional complaints, except as docu and Reports as per HPI Neurologic: Reports system reviewed and no additional compl
[2021-08-10] MEDS: ASPIRIN 81 MG ENTERIC TABLET PO (17:19)
[2021-08-10] MEDS: VENLAFAXINE HCL XR 37.5 MG CAP PO (17:19)
[2021-08-10] MEDS: PRAMIPEXOLE 1 MG TABLET 2 MG PO (22:01)
[2021-08-10] MEDS: ACETAMINOPHEN 325 MG TABLET 650 MG PO (22:02)
[2021-08-10] MEDS: traZODone HCL 50 MG TABLET PO (22:15)
[2021-08-11] VITALS (9 sets, daily range): BP systolic 109–145; BP diastolic 59–90; PULSE 56–92; RESP 16–22; TEMP 36.2–36.7; O2SAT 93–100
[2021-08-11] MEDS: LEVOTHYROXINE SODIUM 75 MCG TABLET PO (05:16)
[2021-08-11] MEDS: PANTOPRAZOLE 40 MG TABLET PO ×2 (08:26→16:24)
[2021-08-11] MEDS: BACLOFEN 5 MG TABLET PO ×3 (08:26→16:24)
[2021-08-11] MEDS: LOSARTAN POTASSIUM 50 MG TABLET PO (08:26)
[2021-08-11] MEDS: ASCORBIC ACID 250 MG TABLET PO (08:26)
[2021-08-11] MEDS: ATORVASTATIN 40 MG TABLET PO (08:26)
[2021-08-11] MEDS: OPTI-GEN TAB 1 TABLET PO (08:26)
[2021-08-11] MEDS: ACIDOPHILUS/BULGARICUS CHEWABLE TABLET 1 TABLET PO (08:27)
[2021-08-11] MEDS: ENOXAPARIN 40 MG/0.4 ML SYRINGE SUB-Q (08:27)
[2021-08-11] MEDS: BENZONATATE 100 MG CAPSULE 200 MG PO ×3 (08:27→16:24)
[2021-08-11] MEDS: FUROSEMIDE 20 MG TABLET PO (08:28)
[2021-08-11] MEDS: LIDOCAINE 5% PATCH 2 PATCH TRANSDERM (08:28)
[2021-08-11] MEDS: MULTIVITAMINS THERAPEUTIC TAB (*BKC) 1 TABLET PO (08:29)
[2021-08-11] MEDS: OLOPATADINE 0.1% OPHTH SOLN 5 ML BTL 1 DROP EACH EYE ×2 (08:29→16:24)
[2021-08-11] MEDS: FLUTICASONE/SALMETEROL 115-21 MCG (*SP) INHALER 2 PUFF INHALATION ×3 (08:48→20:01)
[2021-08-11] MEDS: ACETAMINOPHEN 325 MG TABLET 650 MG PO ×2 (08:49→23:14)
[2021-08-11] MEDS: PREGABALIN (*CRX) 50 MG CAPSULE 100 MG PO ×3 (08:49→16:24)
--- NOTE | 2021-08-11 10:52 | PM.IMPN ---
Progress Note: A&P Assessment and Plan (1) Pneumonia of both lower lobes: Qualifiers: Pneumonia type: due to unspecified organism Qualified Code(s): J18.9 - Pneumonia, unspecified organism Code(s): J18.9 - Pneumonia, unspecified organism Status: Acute Assessment and Plan: The patient is currently being treated for community-acquired pneumonia receiving azithromycin and Rocephin. Acute diarrhea is resolving, making C diff less likely. Patient is still able maintain her saturation on room air. Will continue steroids. There is no indication for remdesivir. Continue with albuterol inhalation and ipratropium p.r.n.. Blood cultures remained unrevealing. Repeat chest x-ray. (2) Person under investigation for COVID-19: Code(s): Z20.822 - Contact with and (suspected) exposure to COVID-19 Status: Acute Assessment and Plan: COVID test is positive; however patient does not need oxygen supplementation. The patient is to remain on contact and droplet isolation. 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 There is no indication for remdesivir. Continue treatment for community-acquired pneumonia. Due to complaints of chest congestion well starting albuterol and ipratropium nebulizations p.r.n.. Patient will receive robitussin/codeine and Tessalon Perles p.r.n. for cough. (3) S/P TAVR (transcatheter aortic valve replacement): Code(s): Z95.2 - Presence of prosthetic heart valve Status: Acute Assessment and Plan: Continue with home medications. Patient has a pig valve. (4) Hypothyroidism (acquired): Code(s): E03.9 - Hypothyroidism, unspecified Status: Acute Assessment and Plan: Continue with levothyroxine and check thyroid level. (5) Hypertension: Qualifiers: Hypertension type: primary hypertension Qualified Code(s): I10 - Essential (primary) hypertension Code(s): I10 - Essential (primary) hypertension Status: Acute Assessment and Plan: Blood pressure is moderately control with blood pressure in the 95/63-178/73 range. Continue with losartan. Monitor blood pressure closely. (6) High cholesterol: Code(s): E78.00 - Pure hypercholesterolemia, unspecified Status: Acute Assessment and Plan: Continue with home medications. (7) Antibiotic-associated diarrhea: Code(s): K52.1 - Toxic gastroenteritis and colitis; T36.95XA - Adverse effect of unspecified systemic antibiotic, initial encounter Status: Acute Assessment and Plan: Resolved. Additional Plan The patient has chronic pain and has a pain pump, venlafaxine, Lyrica, pramipexole, Xanax and baclofen. Subjective Date/time seen: 08/11/21 09:52 S: patient was seen examined at the bedside. She is complaining of chest tightness. The cough is improving. Review of Systems Review of Systems: All systems reviewed & are unremarkable except as noted in HPI and below Constitutional: Constitutional: Reports as per HPI and Reports no additional constitutional complaints Eyes: Eyes: Reports as per HPI and Reports no additional eye complaints ENT: Reports system reviewed and no additional complaints, except as documented and Reports Normal hearing present Cardiovascular: Cardiovascular: Reports no additional cardiovascular complaints Respiratory: Respiratory: Reports no additional respiratory complaints, Reports no additional respiratory complaints and Reports cough Gastrointestinal: Gastrointestinal: Reports as per HPI, Reports no additional gastrointestinal complaints, Reports diarrhea and Reports loose stools Musculoskeletal: Musculoskeletal: Reports no additional musculoskeletal complaints Integumentary/Breasts: Skin/Breast: Reports system reviewed and no additional complaints, except as docu and Reports as per HPI Neurologic: Reports system reviewed and no additional complain
[2021-08-11] MEDS: CYANOCOBALAMIN 1,000 MCG TABLET 1000 MCG PO (12:18)
[2021-08-11] MEDS: COLESTIPOL HCL 1 GM TABLET 2 GM PO (12:18)
[2021-08-11] MEDS: ASPIRIN 81 MG ENTERIC TABLET PO (17:08)
[2021-08-11] MEDS: VENLAFAXINE HCL XR 37.5 MG CAP PO (17:08)
[2021-08-11] MEDS: PRAMIPEXOLE 1 MG TABLET 2 MG PO (23:13)
[2021-08-11] MEDS: traZODone HCL 50 MG TABLET PO (23:13)
[2021-08-12] VITALS (7 sets, daily range): BP systolic 106–145; BP diastolic 35–87; PULSE 61–71; RESP 18–20; TEMP 35.6–36.9; O2SAT 92–100
[2021-08-12] MEDS: FLUTICASONE/SALMETEROL 115-21 MCG (*SP) INHALER 2 PUFF INHALATION ×2 (07:50→19:16)
[2021-08-12] MEDS: ACIDOPHILUS/BULGARICUS CHEWABLE TABLET 1 TABLET PO (09:36)
[2021-08-12] MEDS: ENOXAPARIN 40 MG/0.4 ML SYRINGE SUB-Q (09:36)
[2021-08-12] MEDS: BACLOFEN 5 MG TABLET PO ×3 (09:36→17:57)
[2021-08-12] MEDS: BENZONATATE 100 MG CAPSULE 200 MG PO ×3 (09:36→17:57)
[2021-08-12] MEDS: ASCORBIC ACID 250 MG TABLET PO (09:36)
[2021-08-12] MEDS: LEVOTHYROXINE SODIUM 75 MCG TABLET PO (09:36)
[2021-08-12] MEDS: ATORVASTATIN 40 MG TABLET PO (09:36)
[2021-08-12] MEDS: OPTI-GEN TAB 1 TABLET PO (09:37)
[2021-08-12] MEDS: LOSARTAN POTASSIUM 50 MG TABLET PO (09:37)
[2021-08-12] MEDS: PREGABALIN (*CRX) 50 MG CAPSULE 100 MG PO ×3 (09:37→18:07)
[2021-08-12] MEDS: PANTOPRAZOLE 40 MG TABLET PO ×2 (09:37→17:57)
[2021-08-12] MEDS: OLOPATADINE 0.1% OPHTH SOLN 5 ML BTL 1 DROP EACH EYE ×2 (09:37→17:55)
[2021-08-12] MEDS: MULTIVITAMINS THERAPEUTIC TAB (*BKC) 1 TABLET PO (09:37)
[2021-08-12] MEDS: FUROSEMIDE 20 MG TABLET PO (09:37)
[2021-08-12] MEDS: LIDOCAINE 5% PATCH 2 PATCH TRANSDERM (09:41)
--- NOTE | 2021-08-12 10:00 | PM.IMPN ---
Progress Note: A&P Assessment and Plan (1) Pneumonia of both lower lobes: Qualifiers: Pneumonia type: due to unspecified organism Qualified Code(s): J18.9 - Pneumonia, unspecified organism Code(s): J18.9 - Pneumonia, unspecified organism Status: Acute Assessment and Plan: The patient is currently being treated for community-acquired pneumonia receiving azithromycin and Rocephin. Acute diarrhea is resolving, making C diff less likely. Patient is still able maintain her saturation on room air. Will continue steroids. There is no indication for remdesivir. Continue with albuterol inhalation and ipratropium p.r.n.. Blood cultures remained unrevealing. Repeat chest x-ray. (2) Person under investigation for COVID-19: Code(s): Z20.822 - Contact with and (suspected) exposure to COVID-19 Status: Acute Assessment and Plan: COVID test is positive; however patient does not need oxygen supplementation. The patient is to remain on contact and droplet isolation. 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 There is no indication for remdesivir. Continue treatment for community-acquired pneumonia. Due to complaints of chest congestion well starting albuterol and ipratropium nebulizations p.r.n.. Patient will receive robitussin/codeine and Tessalon Perles p.r.n. for cough. (3) S/P TAVR (transcatheter aortic valve replacement): Code(s): Z95.2 - Presence of prosthetic heart valve Status: Acute Assessment and Plan: Continue with home medications. Patient has a pig valve. (4) Hypothyroidism (acquired): Code(s): E03.9 - Hypothyroidism, unspecified Status: Acute Assessment and Plan: Continue with levothyroxine and check thyroid level. (5) Hypertension: Qualifiers: Hypertension type: primary hypertension Qualified Code(s): I10 - Essential (primary) hypertension Code(s): I10 - Essential (primary) hypertension Status: Acute Assessment and Plan: Blood pressure is moderately control with blood pressure in the 95/63-178/73 range. Continue with losartan. Monitor blood pressure closely. (6) High cholesterol: Code(s): E78.00 - Pure hypercholesterolemia, unspecified Status: Acute Assessment and Plan: Continue with home medications. (7) Antibiotic-associated diarrhea: Code(s): K52.1 - Toxic gastroenteritis and colitis; T36.95XA - Adverse effect of unspecified systemic antibiotic, initial encounter Status: Acute Assessment and Plan: Resolved. (8) Acute diarrhea: Code(s): R19.7 - Diarrhea, unspecified Status: Acute Assessment and Plan: Patient describes an alternate pattern of diarrhea and constipation evolving over the past 2 years. She has had colonoscopies in the past and is due for a screening colonoscopy. She denies any particular food intolerance. There is abdominal discomfort, alleviated with the passage of stools. Additional Plan The patient has chronic pain and has a pain pump, venlafaxine, Lyrica, pramipexole, Xanax and baclofen. Subjective Date/time seen: 08/12/21 11:05 S: Patient was seen examined at the bedside. She is complaining of constipation alternating with diarrhea. Cough is improving. Appetite is preserved and sleep is better. Review of Systems Review of Systems: All systems reviewed & are unremarkable except as noted in HPI and below Constitutional: Constitutional: Reports as per HPI and Reports no additional constitutional complaints Eyes: Eyes: Reports as per HPI and Reports no additional eye complaints ENT: Reports system reviewed and no additional complaints, except as documented and Reports Normal hearing present Cardiovascular: Cardiovascular: Reports no additional cardiovascular complaints Respiratory: Respiratory: Reports no additional respiratory complaints, Reports no addition
[2021-08-12 11:11] LABS: Hematocrit 40.3 % (37.0-47.0); Hemoglobin 13.5 g/dL (12.0-15.0); Mean Corpuscular HGB Conc 33.5 g/dl (32-36); Mean Corpuscular Hemoglobin 31.8 pg (26-34); Mean Platelet Volume 9.1 fl (7.4-10.4); Platelet Count Result 228 k/mm3 (150-375); Red Blood Count 4.24 M/mm3 (4.2-5.4); Red Cell Distribution Width 12.6 % (11.5-14.5); White Blood Count 6.3 K/mm3 (4.5-10.0)
[2021-08-12 11:17] LABS: Alanine Aminotransferase 21 U/L (4-35); Albumin Level 4.2 g/dL (3.5-5.1); Alkaline Phosphatase 63 U/L (38-126); Anion Gap 6 mmol/L (8-16); Aspartate Amino Transferase 27 U/L (14-36); Bilirubin,Total 0.4 mg/dL (0.2-1.3); Blood Urea Nitrogen 23 mg/dL (7-17); Calcium 9.3 mg/dL (8.4-10.2); Carbon Dioxide 33 mmol/L (22-30); Chloride 100 mmol/L (98-107); Estimated CRCL calculation 83 ml/min; Estimated Glomerular Filt Rate > 60; Glucose 88 mg/dL (65-110); Potassium 3.4 mmol/L (3.4-5.0); Sodium 139 mmol/L (137-145)
[2021-08-12] MEDS: CYANOCOBALAMIN 1,000 MCG TABLET 1000 MCG PO (13:00)
[2021-08-12] MEDS: COLESTIPOL HCL 1 GM TABLET 2 GM PO (13:00)
[2021-08-12] MEDS: ONDANSETRON INJ 4 MG/2 ML VIAL IV PUSH (15:48)
[2021-08-12] MEDS: VENLAFAXINE HCL XR 37.5 MG CAP PO (17:57)
[2021-08-12] MEDS: ASPIRIN 81 MG ENTERIC TABLET PO (17:57)
[2021-08-12] MEDS: ACETAMINOPHEN 325 MG TABLET 650 MG PO (20:18)
[2021-08-12] MEDS: PRAMIPEXOLE 1 MG TABLET 2 MG PO (23:10)
[2021-08-12] MEDS: traZODone HCL 50 MG TABLET PO (23:10)
[2021-08-13] VITALS: BP 116/52; PULSE 61; RESP 18; TEMP 36.6; O2SAT 98
[2021-08-13 04:00] VITALS: BP 114/53; PULSE 72; RESP 16; TEMP 36.6; O2SAT 98
[2021-08-13] MEDS: LEVOTHYROXINE SODIUM 75 MCG TABLET PO (06:35)
[2021-08-13 08:00] VITALS: BP 111/80; PULSE 65; RESP 19; TEMP 37.1; O2SAT 97
[2021-08-13] MEDS: ATORVASTATIN 40 MG TABLET PO (08:10)
[2021-08-13] MEDS: BACLOFEN 5 MG TABLET PO ×2 (08:10→12:08)
[2021-08-13] MEDS: ASCORBIC ACID 250 MG TABLET PO (08:11)
[2021-08-13] MEDS: PANTOPRAZOLE 40 MG TABLET PO (08:11)
[2021-08-13] MEDS: BENZONATATE 100 MG CAPSULE 200 MG PO ×2 (08:11→12:08)
[2021-08-13] MEDS: ACIDOPHILUS/BULGARICUS CHEWABLE TABLET 1 TABLET PO (08:11)
[2021-08-13] MEDS: MULTIVITAMINS THERAPEUTIC TAB (*BKC) 1 TABLET PO (08:11)
[2021-08-13] MEDS: OPTI-GEN TAB 1 TABLET PO (08:11)
[2021-08-13] MEDS: LOSARTAN POTASSIUM 50 MG TABLET PO (08:11)
[2021-08-13] MEDS: ENOXAPARIN 40 MG/0.4 ML SYRINGE SUB-Q (08:12)
[2021-08-13] MEDS: LIDOCAINE 5% PATCH 2 PATCH TRANSDERM (08:13)
[2021-08-13] MEDS: FUROSEMIDE 20 MG TABLET PO (08:14)
[2021-08-13] MEDS: OLOPATADINE 0.1% OPHTH SOLN 5 ML BTL 1 DROP EACH EYE (08:15)
[2021-08-13] MEDS: FLUTICASONE/SALMETEROL 115-21 MCG (*SP) INHALER 2 PUFF INHALATION (08:17)
[2021-08-13] MEDS: PREGABALIN (*CRX) 50 MG CAPSULE 100 MG PO ×2 (08:18→12:13)
[2021-08-13 08:21] VITALS: O2SAT 97
[2021-08-13 12:00] VITALS: BP 140/62; PULSE 63; RESP 18; TEMP 36.1; O2SAT 94
[2021-08-13] MEDS: COLESTIPOL HCL 1 GM TABLET 2 GM PO (12:08)
[2021-08-13] MEDS: CYANOCOBALAMIN 1,000 MCG TABLET 1000 MCG PO (12:08)
[2021-08-13] MEDS: LACTULOSE 20 GM/30 ML UDC PO (12:11)
[2021-08-13] MEDS: ACETAMINOPHEN 325 MG TABLET 650 MG PO (12:13)
--- NOTE | 2021-08-13 15:43 | PM.DS ---
DS: Admitting Diagnosis Discharge Date 08/13/2021 Admitting Diagnosis (1) Pneumonia of both lower lobes: (2) Person under investigation for COVID-19: (3) S/P TAVR (transcatheter aortic valve replacement): (4) Hypothyroidism (acquired): (5) Hypertension: (6) High cholesterol: DS: Discharge Diagnosis Discharge Diagnosis (1) Pneumonia of both lower lobes: Qualifiers: Pneumonia type: due to unspecified organism Qualified Code(s): J18.9 - Pneumonia, unspecified organism Code(s): J18.9 - Pneumonia, unspecified organism Status: Acute Assessment and Plan: The patient is currently being treated for community-acquired pneumonia receiving azithromycin and Rocephin. Acute diarrhea is resolving, making C diff less likely. Patient is still able maintain her saturation on room air. Will continue steroids. There is no indication for remdesivir. Continue with albuterol inhalation and ipratropium p.r.n.. Blood cultures remained unrevealing. Repeat chest x-ray. (2) Person under investigation for COVID-19: Code(s): Z20.822 - Contact with and (suspected) exposure to COVID-19 Status: Acute Assessment and Plan: COVID test is positive; however patient does not need oxygen supplementation. The patient is to remain on contact and droplet isolation. 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 There is no indication for remdesivir. Continue treatment for community-acquired pneumonia. Due to complaints of chest congestion well starting albuterol and ipratropium nebulizations p.r.n.. Patient will receive robitussin/codeine and Tessalon Perles p.r.n. for cough. (3) S/P TAVR (transcatheter aortic valve replacement): Code(s): Z95.2 - Presence of prosthetic heart valve Status: Acute Assessment and Plan: Continue with home medications. Patient has a pig valve. (4) Hypothyroidism (acquired): Code(s): E03.9 - Hypothyroidism, unspecified Status: Acute Assessment and Plan: Continue with levothyroxine and check thyroid level. (5) Hypertension: Qualifiers: Hypertension type: primary hypertension Qualified Code(s): I10 - Essential (primary) hypertension Code(s): I10 - Essential (primary) hypertension Status: Acute Assessment and Plan: Blood pressure is moderately control with blood pressure in the 95/63-178/73 range. Continue with losartan. Monitor blood pressure closely. (6) High cholesterol: Code(s): E78.00 - Pure hypercholesterolemia, unspecified Status: Acute Assessment and Plan: Continue with home medications. (7) Antibiotic-associated diarrhea: Code(s): K52.1 - Toxic gastroenteritis and colitis; T36.95XA - Adverse effect of unspecified systemic antibiotic, initial encounter Status: Acute Assessment and Plan: Resolved. (8) Acute diarrhea: Code(s): R19.7 - Diarrhea, unspecified Status: Acute Assessment and Plan: Patient describes an alternate pattern of diarrhea and constipation evolving over the past 2 years. She has had colonoscopies in the past and is due for a screening colonoscopy. She denies any particular food intolerance. There is abdominal discomfort, alleviated with the passage of stools. DS: Summary Hospital Course Reason for hospitalization: Shortness of breath. Hospital Course: Please refer to admission H&P. Briefly, this is a 75-year-old female patient who has been having a cough and moderate shortness of breath for at least 1 week. She has not been vaccinated against COVID-19. 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 Her COVID test is now pending. The patient has chronic arthritic pain and has a pain pump. The patient states that she just hurts all over and this is a chronic thing for her. The patient has no suicidal
== END 2021-08-13 18:33 | disposition home or self-care (01) | DRG 193 ==
LOC: ANHED 13:06 → ANH3MEDSUR 17:12
PROVIDERS: Emergency Medicine; Admitting Provider Internal Medicine; Emergency Provider Emergency Medicine; PCP Physician Assistant; Visit Provider Internal Medicine
DX: J18.9 Pneumonia, unspecified organism (principal); U07.1 COVID-19; K52.1 Toxic gastroenteritis and colitis; Z68.45 Body mass index [BMI] 70 or greater, adult; T36.95XA Adverse effect of unspecified systemic antibiotic, initial encounter; E03.9 Hypothyroidism, unspecified; I10 Essential (primary) hypertension; E78.00 Pure hypercholesterolemia, unspecified; M19.90 Unspecified osteoarthritis, unspecified site; F41.9 Anxiety disorder, unspecified; F32.A Depression, unspecified; E66.9 Obesity, unspecified; G25.81 Restless legs syndrome; Z96.649 Presence of unspecified artificial hip joint; Z66 Do not resuscitate; Z95.2 Presence of prosthetic heart valve; Z86.73 Personal history of transient ischemic attack (TIA), and cerebral infarction without residual deficits; Z90.49 Acquired absence of other specified parts of digestive tract; Z90.710 Acquired absence of both cervix and uterus
CPT/HCPCS: 36415; 71045; 71275; 80048; 80053; 82728; 83615; 83735; 83880; 84443; 84484; 85025; 85027; 85380; 86140; 87040; 87324; 93005; 94640; 96365; 96368; 96372; 96375; 99285; A9270; C9803; G0378; J0456; J0696; J1100; J1650; J2405; Q9967; U0003; U0005

== ENCOUNTER 2021-08-28 11:32 | Emergency (ER) | payer MEDICARE, BC, SELFPAY ==
--- NOTE | ~2021-08-28 | XR_ITS ---
EXAMINATION: XR knee RT min 4V EXAM DATE: 08/28/2021 12:12 INDICATION: Fall, anterior pain above patella. I TECHNIQUE: Right knee lateral, frontal AP, frontal PA tunnel, sunrise projections. Comparison is made to prior examination from 05/28/2021. FINDINGS: There is lucency through the posterior superior most aspect of the patella, possible tiny a cute nondisplaced fracture of an osteophyte, not evident on prior study. There is small right knee megan int effusion without evidence of lipohemarthrosis, small effusion was present on prior study. There i s edema surrounding the knee, in the subcutaneous tissues. There is moderate primary osteoarthritis. Meniscal calcification, chondrocalcinosis. Chondrocalcinosis can be an age related finding, but with other possible etiologies including CPPD, parathyroid disorders, hemochromatosis, gout. IMPRESSION: 1. Possible acute nondisplaced fracture through suprapatellar enthesopathy. No evidence of quadricep s disruption. 2. Small right knee joint effusion. 3. Moderate osteoarthritis. 4. Chondrocalcinosis. Reviewed, dictated and finalized at location B. SERVICE STEWARD IMPRESSION: 1. Possible acute nondisplaced fracture through suprapatellar enthesopathy. No evidence of quadriceps disruption. 2. Small right knee joint effusion. 3. Moderate osteoarthritis. 4. Chondrocalcinosis.
--- NOTE | ~2021-08-28 | XR_ITS ---
XR foot RT min 3V DATE: 08/28/2021 12:12 INDICATION: Fall. Right foot injury, pain TECHNIQUE: 4 views COMPARISON: 10/09/2020 right foot FINDINGS: There is osteopenia. There is prominent calcification along the distal Achilles tendon and some focal calcification of the plantar aponeurosis. There is soft tissue swelling along the dorsum of the forefoot. No fracture or dislocation, periosteal reaction or bone destruction is detected. Mild osteoarthritis at the first metatarsophalangeal joint. IMPRESSION: No fracture or dislocation Reviewed, dictated and finalized at location A. ERY INSPECTOR IMPRESSION: No fracture or dislocation
--- NOTE | ~2021-08-28 | CT_ITS ---
EXAMINATION: CT brain wo con DATE: 08/28/2021 12:16 INDICATION: Patient fell last night and struck head TECHNIQUE: Computed tomography (CT) of the head was performed without intravenous contrast. The mA wa s adjusted according to patient size. Iterative reconstruction technique was employed. Exam dose: 60 5.33 mGy-cm total exam DLP. COMPARISON: August 26, 2020 CT brain FINDINGS: The examination is limited by motion artifact. There is moderate cerebral volume loss. Vertebral, basilar and bilateral carotid siphon internal carotid artery calcifications. There is nonspecific diminished attenuation of the cerebral white matter, likely due to chronic small vessel ischemic changes. No intracranial mass lesion or hemorrhage or cerebrovascular accident is evident. No midline shift or mass effect. No subdural or epidural hematoma is detected. No orbital mass lesion. The paranasal sinuses are normally developed and aerated. Small focal mastoid effusions are noted lou[place] aterally. The majority of the mastoid air cells are normally developed and aerated. No skull fracture or bone destruction. IMPRESSION: No skull fracture or acute intracranial finding Cerebral atherosclerosis and chronic small vessel ischemic changes of the cerebral white matter Reviewed, dictated and finalized at [facility]. Reviewed, dictated and finalized at location A. ID NATURAL G[employer] PLANT OPERATOR IMPRESSION: No skull fracture or acute intracranial finding Cerebral atherosclerosis and chronic small vessel ischemic changes of the cereb ral white matter
[2021-08-28 11:34] VITALS: BP 143/76; PULSE 112; RESP 16; TEMP 36.4; O2SAT 98
[2021-08-28 11:40] VITALS: BP 143/76; PULSE 112; RESP 16; TEMP 36.4; O2SAT 98
--- NOTE | 2021-08-28 11:52 | ED.FALL ---
HPI - Fall General Chief Complaint: Fall Stated Complaint: Fall Time Seen by Provider: 08/28/21 11:47 Source: RN notes reviewed History of Present Illness HPI Narrative: Patient presents emergency department from home for fall. Patient states that last night she got up to use restroom sitting the side of her bed when she gone to stand up she had fallen over hitting the right side of her head on the side table as well as striking her right knee and right leg pain rolled up underneath her she since that time she had some pain in her right knee as well as bruising around her right foot states she did have some swelling over her head that is improved with ice packs she does not believe she had any loss of consciousness states that she did just receive an injection in her right knee by Dr. Villalobos yesterday and she is in need of her right knee replacement she states she is unsure if the knee pain is new from the fall as her knee always hurts she states she has been walking with her walker she denies any vision changes nausea or vomiting or any other symptoms Related Data Home Medications Medication Instructions Recorded Confirmed lactobacillus combination no.9 4 4,000 mmu cells PO DAILY 09/10/19 08/22/21 billion cell capsule multivitamin 1 tablet PO DAILY 09/10/19 08/22/21 cyanocobalamin (vitamin B-12) 1,000 mcg PO QNOON 04/27/20 08/22/21 1,000 mcg capsule atorvastatin 40 mg tablet 40 mg PO DAILY tablet 05/10/21 08/22/21 baclofen 10 mg tablet 5 mg PO TID tablet 06/04/21 08/22/21 Eye Multivitamin 1 tablet PO DAILY 08/06/21 08/22/21 alprazolam [Xanax] 0.25 mg PO DAILY PRN 08/06/21 08/22/21 ascorbic acid (vitamin C) 60 mg PO DAILY 08/06/21 08/22/21 aspirin 81 mg PO QPM 08/06/21 08/22/21 azelastine 1 drp EACH EYE BID 08/06/21 08/22/21 colestipol [Colestid] 2 g PO QNOON 08/06/21 08/22/21 diphenoxylate-atropine [Lomotil] 1 tablet PO QID PRN 08/06/21 08/22/21 ergocalciferol (vitamin D2) 50,000 unit PO DAILY 08/06/21 08/22/21 levothyroxine 75 mcg PO DAILY 08/06/21 08/22/21 losartan 50 mg PO DAILY 08/06/21 08/22/21 metoclopramide HCl [Reglan] 5 mg PO Q6H PRN 08/06/21 08/22/21 ondansetron 8 mg PO DAILY PRN 08/06/21 08/22/21 potassium 99 mg PO DAILY 08/06/21 08/22/21 pramipexole 2 mg PO HS 08/06/21 08/22/21 tolterodine 2 mg PO DAILY 08/06/21 08/22/21 trazodone 200 mg PO HS 08/06/21 08/22/21 venlafaxine 37.5 mg PO QPM 08/06/21 08/22/21 Allergies Allergy/AdvReac Type Severity Reaction Status Date / Time gabapentin Allergy Severe hallucinati Verified 08/28/21 11:46 on pentazocine Allergy Severe hallucinati Verified 08/28/21 11:46 on adhesive tape Allergy Mild rash Verified 08/28/21 11:46 Review of Systems Review of Systems: Gen.: Denies fevers or chills Eyes: Denies eye pain or visual change ENT: Denies congestion Respiratory: Denies shortness of breath or cough CV: Denies chest pain GI: Denies abdominal pain nausea, emesis Musculoskeletal: See HPI Neuro: Denies headache numbness or tingling Skin: Denies rash Except as documented, all other systems reviewed and negative [facility] [place] Past Medical History Medical History Anxiety Arthritis Cataracts, bilateral Depression Heart disease High cholesterol History of stroke Hypertension Inguinal hernia Lumbar radiculitis Migraines Obesity RLS (restless legs syndrome) Shortness of breath Spine fracture Stroke Thyroid disease Tibia fracture Surgical History Surgical History H/O aortic valve replacement Pig History of cholecystectomy History of hip replacement History of kyphoplasty History of meniscectomy of right knee (~03/09/21) Partial Lateral Menisectomy w/Cortisone Injection History of revision of total hip arthroplasty (~07/2018) 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
== END 2021-08-28 13:20 | disposition home or self-care (01) ==
PROVIDERS: Emergency Provider Emergency Medicine; PCP Physician Assistant
DX: S90.31XA Contusion of right foot, initial encounter (principal); S80.01XA Contusion of right knee, initial encounter; S09.90XA Unspecified injury of head, initial encounter; I11.9 Hypertensive heart disease without heart failure; E78.00 Pure hypercholesterolemia, unspecified; E07.9 Disorder of thyroid, unspecified; M17.11 Unilateral primary osteoarthritis, right knee; G25.81 Restless legs syndrome; F32.A Depression, unspecified; F41.9 Anxiety disorder, unspecified; H26.9 Unspecified cataract; Z86.73 Personal history of transient ischemic attack (TIA), and cerebral infarction without residual deficits; Z95.2 Presence of prosthetic heart valve; Z96.649 Presence of unspecified artificial hip joint; Z98.84 Bariatric surgery status; Z66 Do not resuscitate; I67.2 Cerebral atherosclerosis; M11.261 Other chondrocalcinosis, right knee; R93.6 Abnormal findings on diagnostic imaging of limbs; Z79.82 Long term (current) use of aspirin; W01.190A Fall on same level from slipping, tripping and stumbling with subsequent striking against furniture, initial encounter
CPT/HCPCS: 70450; 73564; 73630; 99284

== ENCOUNTER 2021-09-27 13:16 | Outpatient (CLI) | payer MEDICARE, BC, SELFPAY ==
--- NOTE | ~2021-09-27 | DEXA_ITS ---
Bone Density Report Name: JAYLIN WISE Age: 75 Sex: Female Ethnicity: White Date of : 1945 Indication: osteopenia; height loss; inflammatory bowel disease; prior fracture; asthma or emphysema; hysterectomy; postmenopausal Referring Provider: Estela García Study: Bone densitometry was performed. Exam Date: September 27, 2021 Accession number: [id number] Bone Density: Region BMD T-score Z-score Classification AP Spine (L2, L3) 1.004 -0.5 2.1 Normal Femoral Neck (Right) 0.711 -1.2 1.0 Osteopenia Total Hip (Right) 0.801 -1.2 0.8 Osteopenia World Health Organization criteria for BMD impression classify patients as: Normal (T-score at or above -1.0), Osteopenia (T-score between -1.0 and -2.5), or Osteoporosis (T-score at or below -2.5). 10-year Fracture Risk: FRAX not reported because: Prior hip or vertebral fracture Previous Exams: Region Exam Age BMD T-score BMD Change BMD Change Date g/cm2 vs Baseline vs Previous AP Spine(L2, L3) 09/27/2021 75 1.004 -0.5 0.129(14.8%)* 0.129(14.8%)* 09/07/2020 74 0.875 -1.7 Total Hip(Right) 09/27/2021 75 0.801 -1.2 0.053(7.1%)* 0.053(7.1%)* 09/07/2020 74 0.748 -1.6 *Denotes significance at 95% confidence level, LSC for AP Spine = 0.022 g/cm2, LSC for Total Hip = 0.027 g/cm2 Clinical Information Provided by Patient: Have had a previous hip or vertebral fracture Has had a low trauma fracture Has used the following medications: Vitamin D, Calcium Has the following medical conditions: Asthma or Emphysema, Inflammatory bowel diseases, Hysterectomy Patient maximum height was 65 Menopause Age: 46 No regular weight bearing exercise Does not regularly consume dairy products Drinks caffeinated beverages Onset of menses at age 11 Number of children 4 Impression: The patient has low bone mass, based on the Right Total Hip T-score. The patient has risk factors, including: previous fracture. No significant bone loss was observed. Discussion: INCREASED RISK OF FRACTURE DUE TO HISTORY OF FRACTURE. The patient's previous fracture puts the patient at high risk of a future fracture. In untreated patients, the risk of osteoporotic fracture increases approximately two-fold for each 1.0 SD decrease in T-score. Low bone density is not the only risk factor for fracture; also consider factors such as patient's age, frailty or poor health, risk of falling, risk of injury, previous osteoporotic fracture, family history of osteoporosis, cigarette smoking, low body weight, etc. Not everyone
== END 2021-09-27 13:17 | disposition home or self-care (01) ==
LOC: ANHIMG 13:18
PROVIDERS: PCP Physician Assistant; Visit Provider Internal Medicine Endocrinology, Diabetes & Metabolism
DX: Z78.0 Asymptomatic menopausal state (principal); M81.0 Age-related osteoporosis without current pathological fracture; M85.88 Other specified disorders of bone density and structure, other site
CPT/HCPCS: 77080

== ENCOUNTER 2021-11-05 13:00 | Outpatient (CLI) | payer MEDICARE, SELFPAY ==
--- NOTE | 2021-11-05 13:43 | ECHO_ITS ---
Patient Info Name: Alpa Gifford Age: 75 years : 1945 Gender: Female Ht: 63 in Wt: 225 lbs BSA: 2.18 m2 HR: 80 bpm BP: 100 / 84 mmHg Technical Quality: Fair Exam Date: 11/05/2021 2:08 PM Exam Location: [facility] Patient Status: Outpatient Admit Date: 11/05/2021 Staff Ordering Physician: Govind Oliva PA-C [employer] Unit Worker: Allison Mendoza RDCS Attending Provider: Govind Oliva PA-C Referring Physician: Hazel PEARL; Exam Type: CA echo doppler color flow Study Info Indications R22.43 - Localized swelling, mass and lump, lower limb, bilateral Complete two-dimensional, color flow and Doppler transthoracic echocardiogram is performed. Summary 1. Complete two-dimensional, color flow and Doppler transthoracic echocardiogram is performed. 2. Left ventricular chamber dimension is normal. 3. Left ventricular systolic function is normal, estimated at 65-70%. 4. There is mildly increased left ventricular wall thickness. 5. The left ventricular diastolic function is grade I diastolic dysfunction. 6. E/e' 12 is mildly elevated. 7. There is mild aortic valve sclerosis. 8. The mitral valve has mildly calcified annulus. 9. No pulmonary hypertension, estimated pulmonary arterial systolic pressure is 26 mmHg. Left Ventricle E/e' 12 is mildly elevated. Left ventricular chamber dimension is normal. Left ventricular systolic function is normal, estimated at 65-70%. There is mildly increased left ventricular wall thickness. The left ventricular diastolic function is grade I diastolic dysfunction. Right Ventricle Right ventricular chamber dimension is normal. Right ventricular systolic function is normal. Left Atria Left atrial chamber dimension is normal. Right Atria Right atrial chamber dimension is normal. Aortic Valve The aortic valve is probable trileaflet. There is mild aortic valve sclerosis. There is no aortic valve stenosis. There is no aortic valve regurgitation. Pulmonic Valve There is no pulmonic regurgitation. Mitral Valve The mitral valve has mildly calcified annulus. There is no mitral valve stenosis. There is no mitral valve regurgitation. Tricuspid Valve There is no tricuspid valve regurgitation. No pulmonary hypertension, estimated pulmonary arterial systolic pressure is 26 mmHg. Pericardium/Pleural There is no pericardial effusion. Inferior Vena Cava Normal inferior vena cava with >50% collapse upon inspiration consistent with normal right atrial pressure, 5 mmHg. Aorta The aortic root size at the sinus of Valsalva is normal. Left Ventricular Outflow Tract Name Value Normal LVOT 2D LVOT Diameter 2.0 cm LVOT Doppler LVOT Peak Gradient 7 mmHg LVOT Mean Gradient 5 mmHg LVOT VTI 33 cm LVOT VTI/AV VTI Ratio 0.7 LVOT Stroke Volume 104 ml LVOT CO 20.2 l/min LVOT CI 9.3 l/min/m2 Pulmonic Valve
[2021-11-05 14:17] LABS: Anion Gap 6 mmol/L (8-16); Blood Urea Nitrogen 17 mg/dL (7-17); Calcium 9.3 mg/dL (8.4-10.2); Carbon Dioxide 33 mmol/L (22-30); Chloride 103 mmol/L (98-107); Estimated Glomerular Filt Rate > 60; Glucose 67 mg/dL (65-110); Potassium 3.8 mmol/L (3.4-5.0); Sodium 142 mmol/L (137-145)
== END 2021-11-05 13:01 | disposition home or self-care (01) ==
PROVIDERS: PCP Physician Assistant; Visit Provider Physician Assistant
DX: R22.43 Localized swelling, mass and lump, lower limb, bilateral (principal); E87.6 Hypokalemia; I10 Essential (primary) hypertension; I35.8 Other nonrheumatic aortic valve disorders
CPT/HCPCS: 36415; 80048; 93306

== ENCOUNTER → 2021-11-13 15:28 | Outpatient (CLI) | payer MEDICARE, BC, SELFPAY ==
--- NOTE | ~2021-11-13 | XR_ITS ---
XR shoulder LT min 2V DATE: 11/13/2021 16:03 INDICATION: Left shoulder pain TECHNIQUE: 5 Views COMPARISON: None FINDINGS: There is diffuse osteopenia. There is mild to moderate osteoarthritis of the left glenohumeral joint. There is resection of the lateral aspect of the left clavicle. No fracture, dislocation, periosteal reaction or bone destruction. Aortic arch calcification. IMPRESSION: Osteopenia Mild osteoarthritis at left glenohumeral joint Resection lateral aspect of left clavicle Reviewed, dictated and finalized at location A.
== END ==
PROVIDERS: PCP Physician Assistant; Visit Provider Nurse Practitioner Family
DX: M19.012 Primary osteoarthritis, left shoulder (principal); I70.0 Atherosclerosis of aorta
CPT/HCPCS: 73030

== ENCOUNTER 2021-11-14 12:00 | Outpatient (CLI) | payer MEDICARE, SELFPAY ==
[2021-11-14 12:36] LABS: Add Urine Microscopic? YES; Appearance Urine Cloudy (Clear); Bacteria Urine Trace /hpf; Bilirubin Urine Negative (Negative); Blood Urine Negative (Negative); Color Urine Yellow (Yellow); Glucose Urine UA Negative (Negative); Ketones Urine Negative (Negative); Leukocyte Esterase Ur 3+ LEU/UL (NEGATIVE); Nitrate Urine Positive (Negative); Protein Urine Negative (Negative); RBC Urine 21-50 /hpf (0-2); WBC Clumps Urine Present /HPF; WBC Urine >75 /hpf (0-3)
[2021-11-14 12:41] LABS: Anion Gap 4 mmol/L (8-16); Blood Urea Nitrogen 20 mg/dL (7-17); Calcium 9.4 mg/dL (8.4-10.2); Carbon Dioxide 34 mmol/L (22-30); Chloride 104 mmol/L (98-107); Estimated Glomerular Filt Rate 48; Glucose 96 mg/dL (65-110); Potassium 4.6 mmol/L (3.4-5.0); Sodium 142 mmol/L (137-145)
== END 2021-11-14 12:01 | disposition home or self-care (01) ==
LOC: ANHLAB 12:03
PROVIDERS: PCP Physician Assistant; Visit Provider Physician Assistant
DX: E87.6 Hypokalemia (principal); R30.0 Dysuria
CPT/HCPCS: 36415; 80048; 81001; 87077; 87086; 87186

== ENCOUNTER → 2021-12-10 03:14 | Outpatient (CLI) | payer MEDICARE, SELFPAY ==
[2021-12-10 10:38] LABS: SARS-CoV-2 RNA PCR Negative
== END ==
PROVIDERS: PCP Physician Assistant; Visit Provider Internal Medicine Critical Care Medicine
DX: U07.1 COVID-19 (principal)
CPT/HCPCS: C9803; U0003; U0005

== ENCOUNTER 2021-12-12 07:40 | Outpatient (CLI) | payer MEDICARE, SELFPAY ==
--- NOTE | 2021-12-24 16:17 | WPDSLEEPSTUD ---
Sleep Study Date of Study: 12/12/21 Ordering Provider: Keisha Xie MD Interpreting Physician: Keisha Xie MD Sleep Study Type: Split Polysomnogram Height: 1.6 m Weight: 102.058 kg Body Mass Index: 39.8 Neck Circumference (inches): 16.5 [place]: 10 Reason for Sleep Study Daytime fatigue, poor quality sleep * Home sleep test May 31, 2020 using [employer] showing an AHI of 3.5, 98% obstructive events, 5% central events and 2% mixed events. The lowest desaturation was 82% and 7 minutes were spent below 88% saturation. The oxygen desaturation index was 18.1. Sleep History Alpa Gifford is a 76 year old female with complaints of not sleeping well at night and feeling extremely tired during the day. She had a home sleep test and 2019 with an apnea-hypopnea index of 23.5. She use auto PAP without having any relief. She did try for several months. She has other medical problems including chronic edema, chronic kidney disease and chronic pain with a pain pump. She is always short of breath. She had COVID twice, once in May of 2020 and again in July of 2021. She uses trazodone as a sleep aid but it does not help her very much. She uses a hospital bed with an adjustable head and foot of the bed. 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 She has used sleep medications. She occasionally awakens from sleep feeling short of breath. She frequently awakens at night with heartburn, belching or coughing. She frequently snores but is never loud enough that others complain about it. She frequently has trouble sleeping with a cold. She does not wake up gasping for breath at night or have breathing problems at night observed by others. She rarely sweats excessively at night and rarely notices her heart pounding or beating irregularly at night. She frequently falls asleep during the day, occasionally falls asleep involuntarily but never falls asleep while driving. She does not have loss of muscle tone with strong emotion. She does not have daytime difficulties due to excessive sleepiness. She does not feel paralyzed on waking or falling asleep. She does not have vivid dreamlike scenes upon awakening or falling asleep. She does not feel afraid to go to sleep. She does not have nightmares. She rarely remembers her dreams. She rarely has racing thoughts. She occasionally feels sad or depressed. She frequently has anxieties. She frequently has muscular tension. She occasionally notices parts of body jerking. She does not kick at night. She constantly has crawling and aching feelings in her legs and leg pain during the night. She does not have morning jaw pain. She does not grind her teeth during sleep. She constantly is bothered by pain during the day. She frequently is awakened by pain at night. She frequently wakes up feeling stiff in the morning with sore achy muscles and constantly wakes up with pain in the neck and spine. She has headaches, bowel disturbances, fatigue, memory problems and concentration difficulties. She takes antacids regularly. Normal bedtime is between 730 and 9:30 p.m. and although it does not take long for her to fall asleep she does not stay asleep very long. She typically wakes up 3-4 times during the night for unclear reasons. She may stay awake anywhere between 40 minutes or 2-3 hours. While awake she will look at her cell phone to play a game or listen to white noise. She takes naps in the afternoon. A short nap of 10 or 15 minutes is not refreshing P she is drowsy for 3 hours after waking. She feels better in the morning compared to other times of day. Habits: Never smoked tobacco. Caffeine 2-3 servings a day. No alcohol or recreational drugs. COUNTS INCLUDE 234 BEDS AT THE [facility] Past Medical History Medical History Anxiety Arthritis Cataracts, bilateral Chronic pain syndrome CKD (chronic kidney disease) stage 3, GFR 30-59 ml/m
[2021-12-24 20:03] VITALS: BMI 39.8
== END 2021-12-13 06:03 | disposition home or self-care (01) ==
LOC: ANHCSM 07:42
PROVIDERS: PCP Physician Assistant; Visit Provider Internal Medicine Critical Care Medicine
DX: G47.19 Other hypersomnia (principal); G47.33 Obstructive sleep apnea (adult) (pediatric); Z68.39 Body mass index [BMI] 39.0-39.9, adult
CPT/HCPCS: 95811

== ENCOUNTER 2021-12-20 10:22 | Outpatient (CLI) | payer MEDICARE, SELFPAY ==
--- NOTE | 2021-12-20 12:23 | WPDPFTINT ---
PFT Procedure Performed PFT Procedure Performed Spirometry with Pre/Post Bronchodilator Plethysmography (Lung Vol) Diffusing Cap (DLCO) Flow Vol Loop PFT Interpretation This is a pulmonary function test with pre and post-bronchodilator spirometry, plethysmography and diffusing capacity. The test was performed and results interpreted in accordance with the 2019 and 2005 ATS/ERS Task Force guidelines respectively using the Global Lung Function Initiative-2012 reference equations. Patient demonstrated good effort and cooperation. Reproducibility criteria were met. The quality of the pre bronchodilator spirometry maneuver was Grade B and post bronchodilator spirometry maneuver was Grade A. Findings: Spirometry: The contour the inspiratory and expiratory flow tracing are normal. The pre bronchodilator FVC is 2.68 L, 107% predicted. The pre bronchodilator FEV1 is 2.14 L, 112% predicted. The pre bronchodilator FEV1: FVC ratio was 80%. The post bronchodilator FVC is 2.62 L, representing a 2% decrease. The post bronchodilator FEV1 is 2.20 L, representing a 2% increase. The post bronchodilator FEV1: FVC ratio was 84%. Plethysmography: The total lung capacity is 4.41 L, 90% predicted. The functional residual capacity is 1.98 L, 70% predicted. The residual volume is 1.54 L, 67% predicted. Diffusing capacity: The diffusing capacity unadjusted for hemoglobin and carboxyhemoglobin is 18.8, 98% predicted. The diffusing capacity adjusted for alveolar volume is 4.53, 108% predicted. Impression: The spirometry is normal without evidence of an obstructive abnormality. There is no significant improvement after inhaling a single dose of albuterol. The lung volumes are normal. The diffusing capacity is normal. There are no prior studies for comparison
== END 2021-12-20 10:23 | disposition home or self-care (01) ==
PROVIDERS: PCP Physician Assistant; Visit Provider Internal Medicine Critical Care Medicine
DX: R06.09 Other forms of dyspnea (principal); R94.2 Abnormal results of pulmonary function studies
CPT/HCPCS: 94060; 94726; 94729

== ENCOUNTER 2021-12-27 02:19 | Day surgery (SDC) | payer MEDICARE, SELFPAY ==
[2021-12-06 15:28] VITALS: BMI 39.8
[2021-12-27 08:41] VITALS: BP 131/69; PULSE 78; RESP 20; TEMP 36.6; O2SAT 99
[2021-12-27] MEDS: GENTAMICIN 80MG/SOD CHL 50 ML 80 MG/50 ML BAG 100 MG IVPB (08:59)
[2021-12-27] MEDS: AMPICILLIN 2 GM/NS 100 ML 2 GM/100 ML BAG IVPB (09:00)
[2021-12-27] MEDS: LACTATED RINGERS 1,000 ML 150 ML IV CONT (09:00)
--- NOTE | 2021-12-27 09:01 | WPDGICN ---
Assessment and Plan Assessment and plan (1) GERD (gastroesophageal reflux disease): Code(s): K21.9 - Gastro-esophageal reflux disease without esophagitis Status: Acute Assessment and Plan: Patient has chronic GE reflux. Likely related to previous gastric bypass. She apparently has had some procedure to minimize this 5 years ago in [place]. EGD is requested because of ongoing worsening symptoms. Agree with pantoprazole 40mg p.o. b.i.d.. Elevate head of bed at night. Small frequent meals are encouraged. Further recommendations may be given after endoscopy. (2) Chronic pain syndrome: Code(s): G89.4 - Chronic pain syndrome Status: Acute (3) Morbid obesity with BMI of 40.0-44.9, adult: Code(s): E66.01 - Morbid (severe) obesity due to excess calories; Z68.41 - Body mass index [BMI] 40.0-44.9, adult Status: Acute (4) History of Mekhi-en-Y gastric bypass: Code(s): Z98.84 - Bariatric surgery status Status: Acute GI Consult Note Consult date/time: 12/27/21 09:01 Reason for consult: GERD. HPI: Alpa Gifford is a 76 year old female I am asked to see at the request of Govind Oliva. Patient has a long history of acid reflux. She has a history of gastric bypass surgery with a Mekhi-en-Y procedure many years ago. Patient has been treated for acid reflux. patient reports an anti-reflux procedure of some sort was performed in [place]. But she has no memory of that type of surgery whether incisions are endoscopy was performed. Patient has been maintained on medications for acid reflux but she does not remember what they were. Proximally 1-2 months ago because of worsening regurgitation and throat pain some substernal heartburn. Her medications were changed to pantoprazole currently 40mg p.o. b.i.d.. She states this has helped to some degree but not abated her symptoms. Patient continues to be overweight. Family history is noncontributory. She presents today on referral for EGD to assess her ongoing heartburn. Patient complains of chronic pain. She has a pain pump. Has had apparently orthopedic procedures including their hips. Review of Systems Review of Systems: Review of systems is noncontributory. [facility] Past Medical History Medical History Anxiety Arthritis Cataracts, bilateral Chronic pain syndrome CKD (chronic kidney disease) stage 3, GFR 30-59 ml/min Depression Heart disease High cholesterol History of stroke Hypertension Hypothyroidism (acquired) Inguinal hernia Lumbar radiculitis Migraines Obesity JUAN (obstructive sleep apnea) RLS (restless legs syndrome) Shortness of breath Spine fracture Stroke Thyroid disease Tibia fracture Surgical History Surgical History H/O aortic valve replacement Pig History of cholecystectomy History of hip replacement History of kyphoplasty History of meniscectomy of right knee (~03/09/21) Partial Lateral Menisectomy w/Cortisone Injection History of revision of total hip arthroplasty (~07/2018) History of Mekhi-en-Y gastric bypass History of total hysterectomy Family History Family History Son , Cerebral aneurysm, age 47 Cerebral aneurysm Father Emphysema of lung Grandparent Emphysema of lung Other Back pain H/O thyroid disease Hypertension Malignant neoplasm of prostate Social History Social History Social History: The patient is . Patient gave to 4 children and 3 have . The patient lives with her son and [id number]. She does not have a durable power business attorney for healthcare. Patient is a lifelong nonsmoker. And rarely ever drinks. She does not use any marijuana or illicit drugs. Code status DNR Smoking status: Never
--- NOTE | 2021-12-27 09:54 | WPDANESEPPF ---
Anes - Initial Pre Proc Eval Procedure: Operation Date: 12/27/21 10:00 Proposed Procedures p Esophagogastroduodenoscopy - Edgar Mendez MD Date/Time: 12/27/21 09:54 Surgeon: Edgar Mendez MD Pre Op Diagnosis: GERD Patient Data Age: 76 Gender: F Height: 1.6 m Weight: 99.6 kg Last Vital Signs Temp 97.9 F 12/27/21 08:41 Pulse 78 12/27/21 08:41 Resp 20 12/27/21 08:41 BP 131/69 12/27/21 08:41 Pulse Ox 99 12/27/21 08:41 O2 Del Method Room Air 12/27/21 08:41 Allergies Allergy/AdvReac Type Severity Reaction Status Date / Time gabapentin Allergy Severe hallucinati Verified 12/27/21 08:40 on pentazocine Allergy Severe hallucinati Verified 12/27/21 08:40 on adhesive tape Allergy Mild rash Verified 12/27/21 08:40 Home Medications Medication Instructions Recorded Confirmed Type lactobacillus combination no.9 4 4,000 mmu cells PO DAILY 09/10/19 12/14/21 History billion cell capsule (Adult 50 Plus Probiotic) multivitamin 1 tablet PO DAILY 09/10/19 12/14/21 History pregabalin 100 mg capsule 100 mg PO TID #90 caps 05/02/21 12/14/21 Rx aspirin 81 mg tablet,delayed 81 mg PO QPM 08/06/21 12/14/21 History release azelastine 0.05 % eye drops 1 drp EACH EYE BID 08/06/21 12/14/21 History colestipol 1 gram tablet (Colestid) 2 g PO QNOON 08/06/21 12/14/21 History metoclopramide HCl 5 mg tablet 5 mg PO Q6H PRN Nausea 08/06/21 12/14/21 History (Reglan) lactulose 20 gram/30 mL oral 20 g (30 mL) PO QAM PRN 08/13/21 12/14/21 Rx solution constipation #473 mL albuterol sulfate 90 mcg/actuation 2 puff inhalation Q4-6H PRN 08/21/21 12/14/21 Rx aerosol inhaler Dyspnea #8.5 grams ergocalciferol (vitamin D2) 50,000 5,000 unit PO DAILY 09/10/21 12/14/21 History unit tablet levothyroxine 75 mcg tablet 75 mcg PO .COMPLEX #90 tabs 09/10/21 12/14/21 Rx atorvastatin 40 mg tablet See Rx Instructions .Route 09/21/21 12/14/21 Rx .COMPLEX #90 tabs sennosides 8.6 mg-docusate sodium 1 tab-cap PO BID PRN constipation 09/21/21 12/14/21 Rx 50 mg tablet (Senna Plus) #60 tabs potassium chloride 20 mEq 20 meq PO DAILY #90 tabs 10/10/21 12/14/21 Rx tablet,extended release trazodone 100 mg tablet 200 mg PO QPM #180 tabs 10/10/21 12/14/21 Rx furosemide 40 mg tablet 40 mg PO BID #60 tabs 11/07/21 12/14/21 Rx fluticasone 250 mcg-salmeterol 50 See Rx Instructions .Route 11/22/21 12/14/21 Rx mcg/dose blistr powdr for .COMPLEX #60 ea inhalation (Wixela Inhub) pantoprazole 40 mg tablet,delayed 40 mg PO BID #180 tabs 11/27/21 12/14/21 Rx release pramipexole 1 mg tablet See Rx Instructions .Route 12/10/21 12/27/21 Rx .COMPLEX #180 tabs baclofen 5 mg tablet 5 mg PO TID PRN spasms #270 tabs 12/13/21 12/27/21 Rx spironolactone 25 mg tablet 25 mg PO DAILY 12/14/21 12/27/21 History losartan 100 mg tablet 100 mg PO DAILY #90 tabs 12/25/21 12/27/21 Rx Patient hx anesthesia problems: none Family hx anesthesia problems: none Results Review: All pre-operative results and documents have been reviewed as part of the pre-operative evaluation. [facility] Past Medical History Medical History Anxiety Arthritis Cataracts, bilateral Chronic pain syndrome CKD (chronic kidney disease) stage 3, GFR 30-59 ml/min Depression Heart disease High cholesterol History of stroke Hypertension Hypothyroidism (acquired) Inguinal hernia Lumbar radiculitis Migraines Obesity JUAN (obstructive sleep apnea) RLS (restless legs syndrome) Shortness of breath Spine fracture Stroke Thyroid disease Tibia fracture Surgical History Surgical History H/O aortic valve replacement Pig History of cholecystectomy History of hip replacement History of kyphoplasty History of meniscectomy of right knee (~03/09/21) Partial Lateral Menisectomy w/Cortisone Injection History of revision of total hip arthroplasty
[2021-12-27 10:01] VITALS: BP 98/53; PULSE 60; RESP 18; O2SAT 98
[2021-12-27 10:11] VITALS: BP 107/57; PULSE 63; RESP 16; O2SAT 98
[2021-12-27 10:21] VITALS: BP 124/61; PULSE 68; RESP 17; O2SAT 100
== END 2021-12-27 10:45 | disposition home or self-care (01) ==
PROVIDERS: PCP Physician Assistant; Visit Provider Internal Medicine Gastroenterology
PROC: 0DJ08ZZ Inspection of Upper Intestinal Tract, Via Natural or Artificial Opening Endoscopic (ICD-10-PCS; CPT 43235; principal; 2021-12-27 10:00)
DX: K21.9 Gastro-esophageal reflux disease without esophagitis (principal); I12.9 Hypertensive chronic kidney disease with stage 1 through stage 4 chronic kidney disease, or unspecified chronic kidney disease; N18.30 Chronic kidney disease, stage 3 unspecified; E03.9 Hypothyroidism, unspecified; G47.33 Obstructive sleep apnea (adult) (pediatric); G89.4 Chronic pain syndrome; G25.81 Restless legs syndrome; F41.8 Other specified anxiety disorders; E78.00 Pure hypercholesterolemia, unspecified; Z86.73 Personal history of transient ischemic attack (TIA), and cerebral infarction without residual deficits; Z95.3 Presence of xenogenic heart valve; E66.9 Obesity, unspecified; Z68.38 Body mass index [BMI] 38.0-38.9, adult; Z98.84 Bariatric surgery status; Z79.82 Long term (current) use of aspirin; Z79.51 Long term (current) use of inhaled steroids
CPT/HCPCS: 43235; J0290; J1580; J2704; J7120

== ENCOUNTER 2022-01-11 10:52 | Outpatient (CLI) | payer MEDICARE, SELFPAY ==
--- NOTE | ~2022-01-11 | US_ITS ---
EXAMINATION: US venous doppler [facility] DATE: 01/11/2022 11:27 INDICATION: Localized lower limb edema. TECHNIQUE: Grayscale ultrasound images without and with compression and Doppler ultrasound images of the bilateral lower extremity veins were obtained. COMPARISON: Ultrasound 05/28/2021 FINDINGS: The visualized portions of right common femoral vein, profunda (deep) femoral vein, femoral vein, pop liteal vein, peroneal veins, posterior tibial veins, and greater saphenous vein outflow are patent. The visualized portions of left common femoral vein, profunda femoral vein, femoral vein, popliteal v ein, peroneal veins, posterior tibial veins, and greater saphenous vein outflow are patent. IMPRESSION: 1. No deep venous thrombosis. Reviewed, dictated and finalized at location A.
== END 2022-01-11 10:53 | disposition home or self-care (01) ==
PROVIDERS: PCP Physician Assistant; Visit Provider Internal Medicine Cardiovascular Disease
DX: I82.409 Acute embolism and thrombosis of unspecified deep veins of unspecified lower extremity (principal); M79.89 Other specified soft tissue disorders
CPT/HCPCS: 93970

== ENCOUNTER → 2022-01-15 01:50 | Outpatient (CLI) | payer MEDICARE, SELFPAY ==
[2022-01-15 16:58] LABS: SARS-CoV-2 RNA PCR Negative
== END ==
PROVIDERS: PCP Physician Assistant; Visit Provider Internal Medicine Critical Care Medicine
DX: Z01.812 Encounter for preprocedural laboratory examination (principal); Z20.822 Contact with and (suspected) exposure to COVID-19
CPT/HCPCS: C9803; U0003; U0005

== ENCOUNTER 2022-01-18 07:33 | Outpatient (CLI) | payer MEDICARE, SELFPAY ==
--- NOTE | 2022-02-12 17:14 | WPDSLEEPSTUD ---
Sleep Study Date of Study: 01/18/22 Ordering Provider: Govind Oliva PA-C Interpreting Physician: Tessy Yee, Sleep Study Type: CPAP Titration Height: 1.6 m Weight: 102.058 kg Body Mass Index: 39.8 Neck Circumference (inches): 16.5 [place]: 10 Reason for Sleep Study The patient had a split night sleep study on December 12, 2021 that showed severe obstructive sleep apnea with an apnea hypopnea index of 62.6, desaturation to 80% and snoring.??She had a suboptimal CPAP titration with pressures from 5 cm to 17 cm. It was recommended that she have a repeat PAP Titration starting on CPAP 12 cm H2O. ? Sleep History Alpa Gifford is a 76 year old female with complaints of not sleeping well at night and feeling extremely tired during the day.? She had a home sleep test and 2020 with an apnea-hypopnea index of 23.5.? She use auto PAP without having any relief.? She did try for several months.? She has other medical problems including chronic edema, chronic kidney disease and chronic pain with a pain pump.? She is always short of breath.? She had COVID twice, once in May of 2020 and again in July of 2021.? She uses trazodone as a sleep aid but it does not help her very much.? She uses a hospital bed with an adjustable head and foot of the bed.? Wakes up during the night and in the early childhood associate hours, often to urinate.? She has used sleep medications.? She occasionally awakens from sleep feeling short of breath.? She frequently awakens at night with heartburn, belching or coughing.? She frequently snores but is never loud enough that others complain about it.? She frequently has trouble sleeping with a cold.? She does not wake up gasping for breath at night or have breathing problems at night observed by others.? She rarely sweats excessively at night and rarely notices her heart pounding or beating irregularly at night.? She frequently falls asleep during the day, occasionally falls asleep involuntarily but never falls asleep while driving.? She does not have loss of muscle tone with strong emotion.? She does not have daytime difficulties due to excessive sleepiness.? She does not feel paralyzed on waking or falling asleep.? She does not have vivid dreamlike scenes upon awakening or falling asleep.? She does not feel afraid to go to sleep.? She does not have nightmares.? She rarely remembers her dreams.? She rarely has racing thoughts.? She occasionally feels sad or depressed.? She frequently has anxieties.? She frequently has muscular tension.? She occasionally notices parts of body jerking.? She does not kick at night.? She constantly has crawling and aching feelings in her legs and leg pain during the night.? She does not have morning jaw pain.? She does not grind her teeth during sleep.? She constantly is bothered by pain during the day.? She frequently is awakened by pain at night.? She frequently wakes up feeling stiff in the morning with sore achy muscles and constantly wakes up with pain in the neck and spine.? She has headaches, bowel disturbances, fatigue, memory problems and concentration difficulties.? She takes antacids regularly. Normal bedtime is between 730 and 9:30 p.m. and although it does not take long for her to fall asleep she does not stay asleep very long.? She typically wakes up 3-4 times during the night for unclear reasons.? She may stay awake anywhere between 40 minutes or 2-3 hours.? While awake she will look at her cell phone to play a game or listen to white noise.? She takes naps in the afternoon.? A short nap of 10 or 15 minutes is not refreshing P she is drowsy for 3 hours after waking.? She feels better in the morning compared to other times of day. Habits:? Never smoked tobacco.? Caffeine 2-3 servings a day.? No alcohol or recreational drugs. [facility] Past Medical History Medical History Anxiety Arthritis Cataracts, bilateral Chronic pain syndrome CKD (chronic kid
[2022-02-12 20:32] VITALS: BMI 39.8
--- NOTE | 2022-03-20 08:21 | SLEEP ---
pt has not been set with machine
== END 2022-01-19 06:23 | disposition home or self-care (01) ==
LOC: ANHCSM 07:36
PROVIDERS: PCP Physician Assistant; Visit Provider Physician Assistant
DX: G47.33 Obstructive sleep apnea (adult) (pediatric) (principal)
CPT/HCPCS: 95806; 95811

== ENCOUNTER 2022-01-24 11:38 | Outpatient (CLI) | payer MEDICARE, SELFPAY ==
[2022-01-24 12:24] LABS: Anion Gap 5 mmol/L (8-16); Blood Urea Nitrogen 13 mg/dL (7-17); Calcium 9.1 mg/dL (8.4-10.2); Carbon Dioxide 30 mmol/L (22-30); Chloride 104 mmol/L (98-107); Estimated Glomerular Filt Rate > 60; Glucose 105 mg/dL (65-110); Magnesium 1.7 mg/dL (1.6-2.3); Potassium 3.6 mmol/L (3.4-5.0); Sodium 139 mmol/L (137-145)
== END 2022-01-24 11:39 | disposition home or self-care (01) ==
LOC: ANHLAB 11:43
PROVIDERS: PCP Physician Assistant; Visit Provider Internal Medicine Cardiovascular Disease
DX: I82.409 Acute embolism and thrombosis of unspecified deep veins of unspecified lower extremity (principal)
CPT/HCPCS: 36415; 80048; 83735

== ENCOUNTER 2022-02-04 10:27 | Outpatient (CLI) | payer MEDICARE, SELFPAY ==
[2022-02-04 10:59] LABS: Cholesterol 183 mg/dL (0-200); HDL Direct 57 mg/dL; Triglycerides 148 mg/dL (<150)
[2022-02-04 11:09] LABS: LDL Cholesterol Direct 66 mg/dL
== END 2022-02-04 10:28 | disposition home or self-care (01) ==
LOC: ANHLAB 10:31
PROVIDERS: PCP Physician Assistant; Visit Provider Internal Medicine Cardiovascular Disease
DX: E78.00 Pure hypercholesterolemia, unspecified (principal)
CPT/HCPCS: 36415; 80061

== ENCOUNTER 2022-02-12 00:09 | Day surgery (SDC) | payer MEDICARE, SELFPAY ==
[2022-02-01 14:27] VITALS: BMI 38.2
[2022-02-12 07:04] VITALS: BP 137/78; PULSE 90; RESP 18; TEMP 36.3; O2SAT 95
[2022-02-12] MEDS: LACTATED RINGERS 1,000 ML 150 ML IV CONT (07:09)
[2022-02-12] MEDS: AMPICILLIN 2 GM/NS 100 ML 2 GM/100 ML BAG IVPB (07:15)
--- NOTE | 2022-02-12 07:22 | WPDANESEPPF ---
Anes - Initial Pre Proc Eval Procedure: Operation Date: 02/12/22 08:15 Proposed Procedures p Screening Colonoscopy - Edgar Mendez MD Date/Time: 02/12/22 07:22 Surgeon: Edgar Mendez MD Pre Op Diagnosis: neoplasm screening Patient Data Age: 76 Gender: F Height: 1.6 m Weight: 97.2 kg Last Vital Signs Temp 36.3 C L 02/12/22 07:04 Pulse 90 02/12/22 07:04 Resp 18 02/12/22 07:04 BP 137/78 02/12/22 07:04 Pulse Ox 95 02/12/22 07:04 O2 Del Method Room Air 02/12/22 07:04 Allergies Allergy/AdvReac Type Severity Reaction Status Date / Time gabapentin Allergy Severe hallucinati Verified 02/12/22 07:03 on pentazocine Allergy Severe hallucinati Verified 02/12/22 07:03 on adhesive tape Allergy Mild rash Verified 02/12/22 07:03 Home Medications Medication Instructions Recorded Confirmed Type lactobacillus combination no.9 4 4,000 mmu cells PO DAILY 09/10/19 02/12/22 History billion cell capsule (Adult 50 Plus Probiotic) multivitamin 1 tablet PO DAILY 09/10/19 02/12/22 History pregabalin 100 mg capsule 100 mg PO TID #90 caps 05/02/21 02/12/22 Rx aspirin 81 mg tablet,delayed 81 mg PO QPM 08/06/21 02/12/22 History release azelastine 0.05 % eye drops 1 drp EACH EYE BID 08/06/21 02/12/22 History colestipol 1 gram tablet (Colestid) 2 g PO QNOON 08/06/21 02/12/22 History lactulose 20 gram/30 mL oral 20 g (30 mL) PO QAM PRN 08/13/21 02/12/22 Rx solution constipation #473 mL albuterol sulfate 90 mcg/actuation 2 puff inhalation Q4-6H PRN 08/21/21 02/12/22 Rx aerosol inhaler Dyspnea #8.5 grams ergocalciferol (vitamin D2) 50,000 5,000 unit PO DAILY 09/10/21 02/12/22 History unit tablet levothyroxine 75 mcg tablet 75 mcg PO .COMPLEX #90 tabs 09/10/21 02/12/22 Rx atorvastatin 40 mg tablet See Rx Instructions .Route 09/21/21 02/12/22 Rx .COMPLEX #90 tabs potassium chloride 20 mEq 20 meq PO DAILY #90 tabs 10/10/21 02/12/22 Rx tablet,extended release trazodone 100 mg tablet 200 mg PO QPM #180 tabs 10/10/21 02/12/22 Rx furosemide 40 mg tablet 40 mg PO BID #60 tabs 11/07/21 02/12/22 Rx baclofen 5 mg tablet 5 mg PO TID PRN spasms #270 tabs 12/13/21 02/12/22 Rx losartan 100 mg tablet 100 mg PO DAILY #90 tabs 12/25/21 02/12/22 Rx spironolactone 25 mg tablet 25 mg PO DAILY #30 tabs 01/11/22 02/12/22 Rx ropinirole 2 mg tablet 2 mg PO QHS #90 tabs 01/22/22 02/12/22 Rx sod picosulf 10 mg-magnes 3.5 160 ml PO DAILY 2 doses #320 mL 01/29/22 02/12/22 Rx gram-citric 12 gram/160 mL oral solution (Clenpiq) Patient hx anesthesia problems: none Family hx anesthesia problems: none Results Review: All pre-operative results and documents have been reviewed as part of the pre-operative evaluation. [facility] Past Medical History Medical History Anxiety Arthritis Cataracts, bilateral Chronic pain syndrome CKD (chronic kidney disease) stage 3, GFR 30-59 ml/min Depression Heart disease High cholesterol History of stroke Hypertension Hypothyroidism (acquired) Inguinal hernia Lumbar radiculitis Migraines Obesity JUAN (obstructive sleep apnea) RLS (restless legs syndrome) Shortness of breath Spine fracture Stroke Thyroid disease Tibia fracture Surgical History Surgical History H/O aortic valve replacement Pig History of cholecystectomy History of hip replacement History of kyphoplasty History of meniscectomy of right knee (~03/09/21) Partial Lateral Menisectomy w/Cortisone Injection History of revision of total hip arthroplasty (~07/2018) History of Mekhi-en-Y gastric bypass History of total hysterectomy Family History Family History Son , Cerebral aneurysm, age 47 Cerebral aneurysm Father Emphysema of lung Grandparent Emphysema of lung Other Back pain H/O thyroid disease Hypertension M
--- NOTE | 2022-02-12 08:24 | PM.IMHP ---
H&P: HPI History of Present Illness Date/Time: 02/12/22 08:24 Chief Complaint: Neoplasia screening. Narrative: This is a 76-year-old white female patient presents for screening colonoscopy. She reports a colon polyp while living in [place] many years ago. She denies abdominal pain. She states that her she typically has diarrhea. Over the last several months she has begun to have constipation. Currently treated with lactulose daily. Recent EGD was performed because of gastric bypass surgery. She states this was many years ago. Currently Eats adequately. Review of Systems Review of Systems: Review of systems noncontributory. [facility] Past Medical History Medical History Anxiety Arthritis Cataracts, bilateral Chronic pain syndrome CKD (chronic kidney disease) stage 3, GFR 30-59 ml/min Depression Heart disease High cholesterol History of stroke Hypertension Hypothyroidism (acquired) Inguinal hernia Lumbar radiculitis Migraines Obesity JUAN (obstructive sleep apnea) RLS (restless legs syndrome) Shortness of breath Spine fracture Stroke Thyroid disease Tibia fracture Surgical History Surgical History H/O aortic valve replacement Pig History of cholecystectomy History of hip replacement History of kyphoplasty History of meniscectomy of right knee (~03/09/21) Partial Lateral Menisectomy w/Cortisone Injection History of revision of total hip arthroplasty (~07/2018) History of Mekhi-en-Y gastric bypass History of total hysterectomy Family History Family History Son , Cerebral aneurysm, age 47 Cerebral aneurysm Father Emphysema of lung Grandparent Emphysema of lung Other Back pain H/O thyroid disease Hypertension Malignant neoplasm of prostate Social History Social History Social History: The patient is . Patient gave to 4 children and 3 have . The patient lives with her son and [id number]. 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 Patient is a lifelong nonsmoker. And rarely ever drinks. She does not use any marijuana or illicit drugs. Code status DNR Smoking status: Never smoker Second hand tobacco smoke exposure: No Alcohol intake: current Drinks per week: 1 Alcohol use details: rarely Substance use: never Substance use type: does not use Living [place]: [place] Additional living arrangements comments: SON AND DIL Spiritual care concerns: No Meds Home Medications and Allergies Home Medications Medication Instructions Recorded Confirmed Type lactobacillus combination no.9 4 4,000 mmu cells PO DAILY 09/10/19 02/12/22 History billion cell capsule (Adult 50 Plus Probiotic) multivitamin 1 tablet PO DAILY 09/10/19 02/12/22 History pregabalin 100 mg capsule 100 mg PO TID #90 caps 05/02/21 02/12/22 Rx aspirin 81 mg tablet,delayed 81 mg PO QPM 08/06/21 02/12/22 History release azelastine 0.05 % eye drops 1 drp EACH EYE BID 08/06/21 02/12/22 History colestipol 1 gram tablet (Colestid) 2 g PO QNOON 08/06/21 02/12/22 History lactulose 20 gram/30 mL oral 20 g (30 mL) PO QAM PRN 08/13/21 02/12/22 Rx solution constipation #473 mL albuterol sulfate 90 mcg/actuation 2 puff inhalation Q4-6H PRN 08/21/21 02/12/22 Rx aerosol inhaler Dyspnea #8.5 grams ergocalciferol (vitamin D2) 50,000 5,000 unit PO DAILY 09/10/21 02/12/22 History unit tablet levothyroxine 75 mcg tablet 75 mcg PO .COMPLEX #90 tabs 09/10/21 02/12/22 Rx atorvastatin 40 mg tablet See Rx Instructions .Route 09/21/21 02/12/22 Rx .COMPLEX #90 tabs potassium chloride 20 mEq 20 meq PO DAILY #90 tabs 10/10/21 02/12/22 Rx tablet,extended release trazodone 100 mg tablet 200 mg PO QPM #180 tabs 10/10
[2022-02-12 09:03] VITALS: BP 100/64; PULSE 88; RESP 22; O2SAT 99
[2022-02-12 09:13] VITALS: BP 87/57; PULSE 61; RESP 17; O2SAT 99
[2022-02-12 09:23] VITALS: BP 112/55; PULSE 51; RESP 16; O2SAT 99
== END 2022-02-12 09:33 | disposition home or self-care (01) ==
PROVIDERS: PCP Physician Assistant; Visit Provider Internal Medicine Gastroenterology
PROC: 0DJD8ZZ Inspection of Lower Intestinal Tract, Via Natural or Artificial Opening Endoscopic (ICD-10-PCS; CPT 45378; principal; 2022-02-12 08:15)
DX: Z12.11 Encounter for screening for malignant neoplasm of colon (principal); D12.2 Benign neoplasm of ascending colon; I13.10 Hypertensive heart and chronic kidney disease without heart failure, with stage 1 through stage 4 chronic kidney disease, or unspecified chronic kidney disease; K64.8 Other hemorrhoids; K57.30 Diverticulosis of large intestine without perforation or abscess without bleeding; M19.90 Unspecified osteoarthritis, unspecified site; F41.9 Anxiety disorder, unspecified; N18.30 Chronic kidney disease, stage 3 unspecified; E78.00 Pure hypercholesterolemia, unspecified; G47.33 Obstructive sleep apnea (adult) (pediatric); G25.81 Restless legs syndrome; Z86.73 Personal history of transient ischemic attack (TIA), and cerebral infarction without residual deficits; Z79.82 Long term (current) use of aspirin; Z79.51 Long term (current) use of inhaled steroids; Z98.84 Bariatric surgery status; E66.9 Obesity, unspecified; Z68.38 Body mass index [BMI] 38.0-38.9, adult; Z95.2 Presence of prosthetic heart valve
CPT/HCPCS: 45385; 88305; J0290; J2704; J7120

== ENCOUNTER 2022-02-18 10:40 | Outpatient (CLI) | payer MEDICARE, SELFPAY ==
[2022-02-18 11:48] LABS: Appearance Urine Clear (Clear); Bilirubin Urine Negative (Negative); Color Urine Yellow (Yellow); Glucose Urine UA Negative (Negative); Ketones Urine Negative (Negative); Leukocyte Esterase Ur 1+ LEU/UL (NEGATIVE); Nitrate Urine Negative (Negative); Protein Urine Negative (Negative); Specific Grav Ur 1.015 (1.001-1.035)
[2022-02-18 11:50] LABS: Add Urine Microscopic? YES; Blood Urine Trace-Intact (Negative)
[2022-02-18 11:56] LABS: Hyaline Casts Urine 20-29 /lpf; Mucus Urine Rare /lpf; RBC Urine 0-2 /hpf (0-2); Squamous Epithelial Cell Urine Moderate /hpf (Few); Transitional Epi Cells Urine Rare /hpf (None Seen); WBC Urine 0-3 /hpf (0-3)
== END 2022-02-18 10:41 | disposition home or self-care (01) ==
PROVIDERS: PCP Physician Assistant; Visit Provider Physician Assistant
DX: R30.0 Dysuria (principal)
CPT/HCPCS: 81001; 87086; 87088

== ENCOUNTER 2022-03-18 09:00 | Outpatient (CLI) | payer MEDICARE, SELFPAY ==
[2022-03-18 10:33] LABS: Free T4 Free Thyroxine 1.69 ng/mL (0.78-2.19); Vitamin D 25 Hydroxy 59.4 ng/mL
== END 2022-03-18 09:01 | disposition home or self-care (01) ==
PROVIDERS: PCP Physician Assistant; Visit Provider Internal Medicine Endocrinology, Diabetes & Metabolism
DX: E03.9 Hypothyroidism, unspecified (principal); M81.0 Age-related osteoporosis without current pathological fracture; R79.89 Other specified abnormal findings of blood chemistry; I10 Essential (primary) hypertension
CPT/HCPCS: 36415; 82306; 84439; 84443

== ENCOUNTER 2022-03-27 07:03 | Outpatient (CLI) | payer MEDICARE, SELFPAY ==
--- NOTE | ~2022-03-27 | MR_ITS ---
EXAMINATION: MR shoulder LT wo con DATE: 03/27/2022 08:45 INDICATION: Left shoulder pain TECHNIQUE: Magnetic resonance imaging (MRI) of the left shoulder was performed without intravenous co ntrast. Sequences included axial PD-weighted FS FSE, coronal oblique PD-weighted FS FSE, coronal obli que T2-weighted FS FSE, sagittal PD-weighted FS FSE, and sagittal T1-weighted SE. COMPARISON: None. FINDINGS: Coracoacromial arch: The acromion undersurface is curved in morphology (type II). The lateral acromion appears thinner paolo n typical suggesting possible prior acromioplasty has also appears to been a distal right clavicle re section. The coracoacromial ligament is normal. Rotator cuff: Complete full-thickness tear of the supraspinatus and infraspinatus tendons. There is severe tendinop athy along both sides of the tendon tears. There is present on-1.5 cm of residual frayed tendon mater ial remaining attached along the greater tuberosity footplate. The frayed SIDED tear margin is retrac andrew approximately 3.5 cm medially to the level of the glenoid. The teres minor tendon is normal. Mode rate subscapularis tendinopathy without discrete tear. The subscapularis tendon is normal. There is m edial retraction of the supraspinatus and infraspinatus muscle bellies with associated mild fatty atr ophy. Biceps tendon, glenoid labrum and glenohumeral cartilage: There is complete tear and distal retraction of the long head biceps tendon with the distal tear lona in positioned at the caudal aspect of the intertubercular groove. There is irregular degenerative tea ring of the anterior, superior and posterior glenoid labrum. The inferior labrum appears relatively p reserved. There is partial thickness cartilage loss along the cephalad half of the glenoid which invo lves greater than 50% the cartilage thickness but without degenerative subchondral changes. Additiona l deep chondral ulceration at the apex of the humeral head and at the posterior inferior medial aspec t of the humeral head. Fluid: Moderate-sized glenohumeral joint effusion with extension of fluid into the deep subscapular recess a s well as through the full-thickness rotator cuff tear into the subacromial/subdeltoid bursa. No loos e osteochondral bodies. Bones: There is cephalad subluxation of the humeral head with respect to the glenoid and prominent narrowing of the subacromial space secondary to the full-thickness rotator cuff tear. No fracture or pathologi c marrow replacing process. Mild cortical irregularity along the greater tuberosity likely related to chronic rotator cuff disease. IMPRESSION: 1. Severe supraspinatus and infraspinatus tendinopathy with large full-thickness tear along the criti mayank zone of the full width of both tendons. This likely new since the prior radiographs given the int erval development of subtle subluxation of the humeral head and progression of now moderate severity glenohumeral osteoarthritis. 2. Degenerative tearing of the glenoid labrum along the cephalad half the glenoid. 3. Complete tear and distal retraction of the long head biceps tendon. 4. Moderate subscapularis tendinopathy without tear. 5. Likely reactive moderate sized left glenohumeral joint effusion. 6. Change of chronic distal left clavicle resection potentially also with associated acromioplasty. Reviewed, dictated and finalized at location A. IMPRESSION: 1. Severe supraspinatus and infraspinatus tendinopathy with large full-thicknes s tear along the critical zone of the full width of both tendons. This likely n ew since the prior radiographs given the interval development of subtle subluxa tion of the humeral head and progression of now moderate severity glenohumeral osteoarthritis. 2. Degenerative tearing
== END 2022-03-27 07:04 | disposition home or self-care (01) ==
PROVIDERS: PCP Physician Assistant; Visit Provider Nurse Practitioner Family
DX: M25.512 Pain in left shoulder (principal); S46.812A Strain of other muscles, fascia and tendons at shoulder and upper arm level, left arm, initial encounter; S43.432A Superior glenoid labrum lesion of left shoulder, initial encounter; S46.112A Strain of muscle, fascia and tendon of long head of biceps, left arm, initial encounter; M25.412 Effusion, left shoulder; Z98.890 Other specified postprocedural states
CPT/HCPCS: 73221

== ENCOUNTER 2023-01-10 12:00 | Outpatient (CLI) | payer MEDICARE, SELFPAY ==
--- NOTE | ~2023-01-10 | CT_ITS ---
CT ANGIOGRAM NECK AND HEAD History: Amaurosis fugax. Technique: Axial noncontrast imaging of the brain was performed. Serial spiral axial images through t he head and neck were then obtained during arterial phase IV injection of 100 cc of Omnipaque 350. 3- D postprocessing and MIP images were then reconstructed on the remote workstation. Dose reduction colton hnique was used on this scan by utilizing automated exposure control and iterative reconstruction colton hnique. The dose-length product (DLP) was 1559.05 mGy-cm. CTA neck findings: Bilateral vertebral arteries are patent. Bilateral common carotid, internal carot id, and external carotid arteries are patent. There are small calcified plaques of the proximal inter nal carotid arteries bilaterally, but without stenosis. The proximal right internal carotid artery de monstrates 0% stenosis relative to the normal distal artery lumen diameter. The proximal left interna l carotid artery demonstrates 0% stenosis relative to the normal distal artery lumen diameter. CTA head findings: Distal vertebral arteries, basilar artery, and posterior cerebral arteries are pat ent. Distal internal carotid arteries, middle cerebral arteries, and anterior cerebral arteries are p atent. No large vessel occlusion. No significant stenosis or aneurysm. Noncontrast imaging of the brain demonstrate mild generalized atrophy and mild chronic microvascular ischemic change. No mass lesion, acute infarct, or intracranial hemorrhage identified. Impression: No significant abnormality identified. Reviewed, dictated and finalized at [facility]. Impression: No significant abnormality identified.
[2023-01-10 12:51] LABS: Estimated Glomerular Filt Rate 48
== END 2023-01-10 12:01 | disposition home or self-care (01) ==
PROVIDERS: PCP Physician Assistant; Visit Provider Physician Assistant
DX: G45.3 Amaurosis fugax (principal)
CPT/HCPCS: 70496; 70498; Q9967

== ENCOUNTER 2023-02-14 10:29 | Outpatient (CLI) | payer MEDICARE, SELFPAY ==
[2023-02-14 12:35] LABS: Free T4 Free Thyroxine 1.61 ng/mL (0.78-2.19); Vitamin D 25 Hydroxy 39.6 ng/mL
== END 2023-02-14 10:30 | disposition home or self-care (01) ==
PROVIDERS: PCP Physician Assistant; Visit Provider Internal Medicine Endocrinology, Diabetes & Metabolism
DX: R79.89 Other specified abnormal findings of blood chemistry (principal); M81.0 Age-related osteoporosis without current pathological fracture; E03.9 Hypothyroidism, unspecified; I10 Essential (primary) hypertension
CPT/HCPCS: 36415; 82306; 84439; 84443

== ENCOUNTER 2023-05-30 08:34 | Outpatient (CLI) | payer MEDICARE, BC, SELFPAY ==
--- NOTE | ~2023-05-30 | NM_ITS ---
EXAMINATION: NM norberto stress w perfusion DATE: 05/30/2023 13:42 INDICATION: Dyspnea on exertion. Presence of prosthetic heart valve. TECHNIQUE: Rest images were obtained following intravenous administration of 9 mCi Tc99m tetrofosmin (Myoview). The patient was infused intravenously with Lexiscan (Regadenoson). Then, 27.8 mCi Tc99m te trofosmin (Myoview) was administered intravenously, and stress images were obtained. Data was reconst ructed into short axis and horizontal and vertical long axis SPECT images. Gated SPECT images were al so obtained. COMPARISON: None. FINDINGS: There is no definite reversible or fixed perfusion abnormality to suggest ischemia or infar ction. There is normal left ventricular chamber size, wall motion and ejection fraction. Left ventr icular ejection fraction measures >70%. IMPRESSION: 1. Normal myocardial perfusion at rest and during stress. 2. Left ventricular ejection fraction measuring >70%. Reviewed, dictated and finalized at location A. UMER LOAN MANAGER
--- NOTE | 2023-05-30 08:57 | ECHO_ITS ---
Patient Info Name: Alpa Gifford Age: 77 years : 1945 Gender: Female Ht: 64 in Wt: 190 lbs BSA: 2.01 m2 HR: 98 bpm BP: 159 / 95 mmHg Technical Quality: Fair Exam Date: 05/30/2023 9:18 AM Exam Location: Echo Lab Patient Status: Outpatient Admit Date: 05/30/2023 Staff Ordering Physician: Albino Ruff DO Ed Manager: Allison Mendoza RDCS Attending Provider: Albino Ruff DO Referring Physician: Speedy GODOY; Exam Type: CA echo doppler color flow Study Info Indications - prosthetic heart valve Complete two-dimensional, color flow and Doppler transthoracic echocardiogram is performed. Summary 1. Complete two-dimensional, color flow and Doppler transthoracic echocardiogram is performed. 2. Left ventricular chamber dimension is normal. 3. Left ventricular systolic function is normal, estimated at 60-65%. 4. There is mild concentric increased left ventricular wall thickness. 5. The left ventricular diastolic function is grade I diastolic dysfunction. 6. E/e' 12 is mildly elevated. 7. History of TAVR with bioprosthetic aortic valve. 8. The mitral valve has moderately calcified annulus. 9. There is trace tricuspid valve regurgitation. 10. No pulmonary hypertension, estimated pulmonary arterial systolic pressure is 21 mmHg. Left Ventricle E/e' 12 is mildly elevated. Left ventricular chamber dimension is normal. Left ventricular systolic function is normal, estimated at 60-65%. There is mild concentric increased left ventricular wall thickness. The left ventricular diastolic function is grade I diastolic dysfunction. Right Ventricle Right ventricular chamber dimension is not well visualized. Left Atria Left atrial chamber dimension is normal. Right Atria Right atrial chamber dimension is normal. Aortic Valve History of TAVR with bioprosthetic aortic valve. The bioprosthetic aortic valve is not well visualized. There is no bioprosthetic aortic valve stenosis. There is no regurgitation of the bioprosthetic aortic valve. Pulmonic Valve There is no pulmonic regurgitation. Mitral Valve The mitral valve has moderately calcified annulus. There is no mitral valve stenosis. There is no mitral valve regurgitation. Tricuspid Valve There is trace tricuspid valve regurgitation. No pulmonary hypertension, estimated pulmonary arterial systolic pressure is 21 mmHg. Pericardium/Pleural There is no pericardial effusion. Inferior Vena Cava Normal inferior vena cava with >50% collapse upon inspiration consistent with normal right atrial pressure, 5 mmHg. Aorta The aortic root size at the sinus of Valsalva is normal. Left Ventricular Outflow Tract Name Value Normal LVOT 2D LVOT Diameter 2.0 cm LVOT Doppler LVOT Peak Gradient 6 mmHg LVOT Mean Gradient 4 mmHg LVOT VTI 26 cm LVOT VTI/AV VTI Ratio 0.5 LVOT Stroke Volume 77 ml LVOT CO 16.6 l/min LVOT CI 8.3 l/min/m2 Pulmonic Valve Name
--- NOTE | 2023-05-30 10:10 | EST_ITS ---
Patient Info Name: Alpa Gifford Age: 77 years : 1945 Gender: Female Ht: 63 in Wt: 190 lbs BSA: 1.99 m2 HR: 82 bpm BP: 158 / 98 mmHg Heart Rhythm: Sinus Rhythm Exam Date: 05/30/2023 11:51 AM Exam Location: Echo Lab Patient Status: Outpatient Admit Date: 05/30/2023 Staff Ordering Physician: Albino Ruff DO Attending Provider: Albino Ruff DO Exercise Technologist: Florecita Montes CT Exercise Physician: Albino Ruff DO Exam Type: CA stress norberto w NM Study Info Indications R06.09 - Other forms of dyspnea A regadenoson stress test was performed. Summary 1. 1. Negative lexiscan stress test for ischemic ST changes by ECG criteria. 2. 2. Baseline hypertension. 3. 3. Nuclear scan to follow and will be reported separately. Please correlate with it. 4. 4. Patient informed of the above results. Protocol: Lexiscan Stress ECG Details Stage: REST Duration (min): 0 min : 57 sec HR (bpm): 84 SBP (mmHg): 158 DBP (mmHg): 98 Stage: REST Duration (min): 12 min : 31 sec HR (bpm): 75 SBP (mmHg): 158 DBP (mmHg): 98 Stage: STAGE 1 Duration (min): 1 min : 0 sec HR (bpm): 92 SBP (mmHg): 182 DBP (mmHg): 92 Stage: RECOVERY Duration (min): 1 min : 0 sec HR (bpm): 93 SBP (mmHg): 182 DBP (mmHg): 92 Stage: RECOVERY Duration (min): 2 min : 0 sec HR (bpm): 91 SBP (mmHg): 182 DBP (mmHg): 92 Stage: RECOVERY Duration (min): 3 min : 0 sec HR (bpm): 91 SBP (mmHg): 153 DBP (mmHg): 94 Stage: RECOVERY Duration (min): 3 min : 17 sec HR (bpm): 91 SBP (mmHg): 153 DBP (mmHg): 94 Rest HR: 75 bpm Peak HR: 95 bpm Rest Sys BP: 158 mmHg Peak Sys BP: 182 mmHg Max Pred HR: 141 bpm % Max Pred HR: 67 % Target HR: 120 bpm Max RPP: 17,290 bpm*mmHg Termination Reason: Completed protocol Cardiac Symptoms: Shortness of breath Total Time: 1 min : 0 sec Rest Calloway BP: 98 mmHg Peak Calloway BP: 92 mmHg Total Dose: 0.4 mg Resting ECG Sinus rhythm. Stress ECG No ST changes. Arrhythmias None. Report Signatures
== END 2023-05-30 08:35 | disposition home or self-care (01) ==
LOC: ANHCARD 08:36
PROVIDERS: PCP Physician Assistant; Visit Provider Internal Medicine Cardiovascular Disease
DX: R06.09 Other forms of dyspnea (principal)
CPT/HCPCS: 78452; 93017; 93306; A9502; J2785

== ENCOUNTER 2023-06-19 12:21 | Outpatient (CLI) | payer MEDICARE, BC, SELFPAY ==
--- NOTE | ~2023-06-19 | XR_ITS ---
Left Shoulder Technique: AP and scapular Y views were obtained. Clinical History: Pain Findings: No fracture or dislocation is seen. Osseous alignment is anatomic. The glenohumeral and acr omioclavicular joint spaces are preserved. Soft tissues are unremarkable. Impression: Unremarkable left shoulder radiographs. Reviewed, dictated and finalized at [facility]. DLE CARVER Impression: Unremarkable left shoulder radiographs.
--- NOTE | ~2023-06-19 | XR_ITS ---
AP view of the pelvis and AP and lateral views of the bilateral hips Clinical history: Pain Findings: No acute fracture or dislocation is seen. Left hip arthroplasties in place. No hardware con vocation seen. There is minimal degenerative change of the right hip joint. There is vertebroplasty c ement at the lower lumbar spine. Soft tissues are unremarkable. Impression: No acute abnormality. Minimal degenerative change of the right hip joint. Left hip arthroplasty. Vertebroplasty cement at the lower lumbar spine. Reviewed, dictated and finalized at location M. SAFETY MANAGER Impression: No acute abnormality. Minimal degenerative change of the right hip joint. Left hip arthroplasty. Vertebroplasty cement at the lower lumbar spine.
--- NOTE | ~2023-06-19 | XR_ITS ---
EXAMINATION: XR lumbar spine 6V w bending DATE: 06/19/2023 13:36 INDICATION: Low back and bilateral hip pain TECHNIQUE: Anteroposterior, lateral in neutral, flexion and extension, and bilateral oblique views of the lumbar spine, and cone-down lateral view of the lumbosacral junction were obtained. COMPARISON: Lumbar spine MR dated 05/30/2021. FINDINGS: 3 mm retrolisthesis L1 on L2 which is unchanged with extension and decreased to 2 mm with flexion. 4 mm retrolisthesis L2 on L3 which is unchanged with extension and decreases to 2 mm with flexion. 2-3 mm anterolisthesis L3 on L4 which decreases to 2 mm with extension and increases to 3 mm with flexion . 2 mm anterolisthesis L5 on S1 which is unchanged with flexion and extension. No interval change in chronic T11 burst fracture with 20% central vertebral body height loss, L1 burst fracture with one th ird vertebral body height loss and L4 and L5 burst fractures with 20% central vertebral body height l oss, each with change of prior vertebroplasty. And age-indeterminate T12 compression fracture with 20 % anterior vertebral body height loss which is new since the prior study. Severe disc height loss at L4-L5 and L5-S1 and mild disc height loss at T10-T11, T12-L1, L1-L2 and L3-L4. No evident pars intera rticularis defects identified on the oblique views however assessment is limited in the lower lumbar spine 2 to the methylmethacrylate such with the vertebral plasties at L4 and L5 as well as the presen ce of superimposed intrathecal pain pump on the RPO view. The catheter from the pain pump is partiall y obscured but appears to extend into the central canal at the level of L2-L3 extending cephalad but with the distal tip unable be identified. Multilevel moderate to severe lower lumbar predominant face t osteoarthritis. Moderate osteoarthritis at the bilateral sacroiliac joints. Partially visualized le ft total hip arthroplasty. Cholecystectomy clips in right upper quadrant. There are are a pair of aylin stomotic suture lines in the left upper quadrant and mid left abdomen suggesting prior gastric bypass procedure. IMPRESSION: 1. Age-indeterminate mild T12 compression fracture with no change in additional chronic compression a nd burst fractures with vertebral plasties at T11, L1, L4 and L5. 2. Severe lumbar spondylosis. 3. mild grade 1 spondylolisthesis at a few levels in the mid to upper lumbar spine with no greater th an 1 mm translatory motion with flexion or extension as detailed above. Reviewed, dictated and finalized at location A. GENCY MEDICINE MEDICAL DIRECTOR IMPRESSION: 1. Age-indeterminate mild T12 compression fracture with no change in additional chronic compression and burst fractures with vertebral plasties at T11, L1, L4 and L5. 2. Severe lumbar spondylosis. 3. mild grade 1 spondylolisthesis at a few levels in the mid to upper lumbar sp ine with no greater than 1 mm translatory motion with flexion or extension as d etailed above.
== END 2023-06-19 12:22 | disposition home or self-care (01) ==
PROVIDERS: PCP Physician Assistant; Visit Provider Physician Assistant
DX: M25.512 Pain in left shoulder (principal); M47.896 Other spondylosis, lumbar region; S22.080D Wedge compression fracture of T11-T12 vertebra, subsequent encounter for fracture with routine healing; S32.011D Stable burst fracture of first lumbar vertebra, subsequent encounter for fracture with routine healing; S32.041D Stable burst fracture of fourth lumbar vertebra, subsequent encounter for fracture with routine healing; S32.051D Stable burst fracture of fifth lumbar vertebra, subsequent encounter for fracture with routine healing; X58.XXXD Exposure to other specified factors, subsequent encounter
CPT/HCPCS: 72114; 73030; 73521

== ENCOUNTER 2023-07-12 17:27 | Observation (INO) | payer MEDICARE, BC, SELFPAY ==
[2023-07-12] VITALS (10 sets, daily range): BP systolic 152–164; BP diastolic 79–85; PULSE 81–100; RESP 12–25; TEMP 36.2–36.4; O2SAT 92–100
--- NOTE | ~2023-07-12 | CT_ITS ---
EXAMINATION: CT thoracic lumbar wo con DATE: 07/12/2023 18:05 INDICATION: Back pain after fall TECHNIQUE: Computed tomography (CT) of the thoracic and lumbar spine was performed without intravenou s contrast. The dose-length product was 1902.21 mGy-cm. Automated exposure control and iterative [place] nstruction technique were employed. COMPARISON: MRI dated 10/02/2019 FINDINGS: Thoracic spine: Stable mild superior endplate compression fracture of T6 unchanged. Chronic T7, T9, T11 and L1 fractures. There is a new superior endplate compression fracture of T12, age inde terminate. There are vertebroplasty changes at T7, T9, T11 and L1. There are changes of gastric bypas s surgery. Lumbar spine: There is a new burst fracture of L2, age indeterminate. There are treated compression f ractures of L4 and L5 with methylmethacrylate. IMPRESSION: 1. Age-indeterminate compression fractures of T12 and burst fracture of L2, new since prior examinati on. 2: Chronic compression fractures of T6, T7, T9, T11, L1, L4 and L5. Reviewed, dictated and finalized at location A. ICAL ENGINEERING DIRECTOR IMPRESSION: 1. Age-indeterminate compression fractures of T12 and burst fracture of L2, new since prior examination. 2: Chronic compression fractures of T6, T7, T9, T11, L1, L4 and L5.
--- NOTE | ~2023-07-12 | XR_ITS ---
XR pelvis 1-2V 07/12/2023 18:14 Indication: Status post fall. Pelvic pain. Procedure: AP pelvis Comparison: No prior studies for comparison. Findings: Pelvic rings are intact. Vertebroplasty changes noted in L4 and L5. There is a left total h ip arthroplasty. Mild osteoarthritis of the right hip. No acute fracture. Impression: 1: No acute fracture. Reviewed, dictated and finalized at location A. RETE PANEL INSTALLER Impression: 1: No acute fracture.
--- NOTE | ~2023-07-12 | CT_ITS ---
EXAMINATION: CT brain wo con DATE: 07/12/2023 18:05 INDICATION: Status post fall. Head injury. TECHNIQUE: Computed tomography (CT) of the head was performed without intravenous contrast. The dose- length product was 605.33 mGy-cm. Automated exposure control and iterative reconstruction technique w ere employed. COMPARISON: CT dated 01/10/2023 FINDINGS: No acute intracranial hemorrhage, infarction, mass or mass effect. Generalized atrophy. The re are scattered moderate periventricular and subcortical white matter changes, most likely related t o small vessel ischemic disease (microangiopathy). Paranasal sinuses are pneumatized. No depressed sk ull fractures. Small left mastoid effusion. IMPRESSION: 1. No acute intracranial abnormality. Reviewed, dictated and finalized at location A. IER COURTESY BOOTH
--- NOTE | ~2023-07-12 | XR_ITS ---
XR chest 1V 07/12/2023 18:14 Indication: Chest pain after fall Procedure: AP view of the chest Comparison: Comparison to multiple prior studies sequentially, with oldest reviewed study dated 09/09. Findings: Heart size normal. No focal air space disease, pulmonary edema, pleural effusion or suspect ed pneumothorax. There is a prosthetic aortic valve. There are vertebroplasty changes at multiple tho racic vertebra. There are cholecystectomy clips. There are surgical changes in the right humerus prox imally, partially visualized. Impression: 1: No acute cardiopulmonary disease. Reviewed, dictated and finalized at location A. TIC PHYSICIAN Impression: 1: No acute cardiopulmonary disease.
--- NOTE | ~2023-07-12 | CT_ITS ---
EXAMINATION: CT cervical spine wo con DATE: 07/12/2023 18:05 INDICATION: Neck pain after fall TECHNIQUE: Computed tomography (CT) of the cervical spine was performed without intravenous contrast. The dose-length product was 472 mGy-cm. Automated exposure control and iterative reconstruction tech [employer] were employed. COMPARISON: CT dated 08/26/2020 FINDINGS: Reversal of cervical lordosis. There is degenerative anterolisthesis at C3-4 and C7 on T1.. There is interbody fusion at C5-6. No acute fracture or traumatic malalignment. There is advanced mu ltilevel facet and uncinate hypertrophy. Levoscoliosis. Odontoid process within normal limits. Latera l masses normally aligned. No evidence for perched facet. Craniovertebral junction is normal. There i s carotid atherosclerosis. Lung apices are normal. There is degenerative disc disease at all cervical spine levels. IMPRESSION: 1. No acute fracture. 2: Severe cervical spondylosis. Reviewed, dictated and finalized at location A. O GAME DEVELOPER
--- NOTE | 2023-07-12 17:46 | ECG_ITS ---
Measurements Intervals [place] Rate: 93 P: 83 HI: 191 QRS: 44 QRSD: 90 T: 43 QT: 340 QTc: 424 Interpretive Statements SINUS RHYTHM LARGE AMOUNT OF BASELINE ARTIFACT COMPARED TO ECG 08/06/2021 11:42:00 NO SIGNIFICANT CHANGES Electronically Signed On 07-12-2023 19:56:19 LABOR CONCILIATOR by Lianet Ye M.D.
--- NOTE | 2023-07-12 19:11 | ED.FALL ---
HPI - Fall General Chief Complaint: Fall Stated Complaint: unwitnessed fall/altered Time Seen by Provider: 07/12/23 17:47 Source: patient and EMS Mode of arrival: EMS Limitations: altered mental status History of Present Illness HPI Narrative: This is a 77 year old female that presents to the ER for altered mental status. Reportedly her son saw on the ring cameron that she was lying on the ground and called EMS. Patient found to be altered on their arrival. Is unsure what happened or how she fell. She complains of low back pain, no other complaints currently. Related Data Home Medications Medication Instructions Recorded Confirmed lactobacillus combination no.9 4 4,000 mmu cells PO DAILY 09/10/19 06/06/23 billion cell capsule (Adult 50 Plus Probiotic) multivitamin 1 tablet PO DAILY 09/10/19 06/06/23 cholecalciferol (vitamin D3) 125 125 mcg PO DAILY 03/12/22 06/06/23 mcg (5,000 unit) tablet bupropion HCl 150 mg 24 hr tablet, 150 mg PO QAM 02/13/23 06/06/23 extended release pantoprazole 40 mg tablet,delayed 40 mg PO QAM 02/13/23 06/06/23 release aripiprazole 5 mg tablet 5 mg PO QHS 05/21/23 06/06/23 duloxetine 30 mg capsule,delayed 30 mg PO DAILY 05/21/23 06/06/23 release pantoprazole 40 mg tablet,delayed 40 mg PO BID 05/21/23 06/06/23 release solifenacin 10 mg tablet 10 mg PO DAILY 05/21/23 06/06/23 trazodone 100 mg tablet 100 mg PO QHS PRN 05/21/23 06/06/23 lidocaine 5 % topical patch 2 patch topical DAILY 06/23/23 Allergies Allergy/AdvReac Type Severity Reaction Status Date / Time gabapentin Allergy Severe hallucinati Verified 06/23/23 16:06 on pentazocine Allergy Severe hallucinati Verified 06/23/23 16:06 on adhesive tape Allergy Mild rash Verified 06/23/23 16:06 Review of Systems Review of Systems: ROS unobtainable: Yes unobtainable due to mental status PMFSH Past Medical History Medical History Anxiety Arthritis Cataracts, bilateral Chronic pain syndrome CKD (chronic kidney disease) stage 3, GFR 30-59 ml/min Depression Heart disease High cholesterol History of stroke Hypertension Hypothyroidism (acquired) Inguinal hernia Lumbar radiculitis Migraines Obesity JUAN (obstructive sleep apnea) RLS (restless legs syndrome) Shortness of breath Spine fracture Stroke Thyroid disease Tibia fracture Surgical History Surgical History H/O aortic valve replacement Pig History of cholecystectomy History of hip replacement History of kyphoplasty History of meniscectomy of right knee (~03/09/21) Partial Lateral Menisectomy w/Cortisone Injection History of revision of total hip arthroplasty (~07/2018) History of Mekhi-en-Y gastric bypass History of total hysterectomy Family History Family History Son , Cerebral aneurysm, age 47 Cerebral aneurysm Father Emphysema of lung Grandparent Emphysema of lung Other Back pain H/O thyroid disease Hypertension Malignant neoplasm of prostate Social History Social History Social History: The patient is . Patient gave to 4 children and 3 have . The patient lives with her son and [id number]. She does not have a durable power health care attorney for healthcare. Patient is a lifelong nonsmoker. And rarely ever drinks. She does not use any marijuana or illicit drugs. Code status DNR Smoking status: Never smoker Second hand tobacco smoke exposure: No Alcohol intake: current Drinks per week: 1 Alcohol use details: rarely Substance use: never Substance use type: does not use Lack of Transportation: No Lack of Food: Sometimes True Current Housing: I Have Housing Concerned About Future Housing: No Difficulty Paying Gas/Electric Bills: No Difficulty Payi
--- NOTE | 2023-07-12 19:15 | PC.NURSE ---
THIS RN ASSUMED CARE OF PT. THIS RN TOOK PT REPORT FROM DANICA DUPONT.
[2023-07-12 19:55] LABS: Basophils Percent Auto 0.5 % (0.2-1.2); Eosinophils Absolute Auto 0.1 K/mm3 (0-0.3); Eosinophils Percent Auto 2.3 % (0-4.4); Hematocrit 42.7 % (37.0-47.0); Hemoglobin 13.7 g/dL (12.0-15.0); Immature Granulocyte Absolute 0.01 K/mm3 (0.00-0.031); Immature Granulocyte Percent A 0.2 % (0-0.5); Lymphocytes Absolute Auto 0.61 K/mm3 (0.9-3.2); Lymphocytes Percent Auto 10.9 % (18.3-44.2); Mean Corpuscular HGB Conc 32.1 g/dl (32-36); Mean Corpuscular Hemoglobin 31.9 pg (26-34); Mean Corpuscular Volume 99.3 fl (80-100); Mean Platelet Volume 9.2 fl (7.4-10.4); Monocytes Absolute Auto 0.3 K/mm3 (0.1-0.6); Monocytes Percent Auto 5.5 % (2.6-8.5); Neutrophils Absolute Auto 4.5 K/mm3 (1.3-6.7); Neutrophils Percent Auto 80.6 % (45.5-73.1); Platelet Count Result 171 k/mm3 (150-375); Red Cell Distribution Width 13.7 % (11.5-14.5); White Blood Count 5.6 K/mm3 (4.5-10.0)
[2023-07-12 20:05] LABS: Lactic Acid Reflex 1.3 mmol/L (0.7-2.0)
[2023-07-12 20:12] LABS: Appearance Urine Cloudy (Clear); Bacteria Urine None Seen /hpf; Bilirubin Urine Negative (Negative); Blood Urine Negative (Negative); Color Urine Dark Yellow (Yellow); Glucose Urine UA Negative (Negative); Ketones Urine Trace mg/dL (Negative); Leukocyte Esterase Ur Negative LEU/UL (Negative); Mucus Urine Present /lpf; Need Manual Microscopic Reviewed; Nitrate Urine Negative (Negative); Non Pathogenic Casts >20; Protein Urine Trace mg/dL (Negative); RBC Urine 0-2 /hpf (0-2); Specific Grav Ur 1.022 (1.001-1.035); Squamous Epithelial Cell Urine None seen /hpf (Few); WBC Urine 0-5 /hpf; Waxy Casts Urine Present /lpf
[2023-07-12 20:16] LABS: Add Urine Microscopic? YES
[2023-07-12] MEDS: SODIUM CHLORIDE 0.9% IV 500 ML 999 ML IV CONT (20:51)
[2023-07-12 21:04] LABS: Partial Thromboplastin Time 29.8 SECONDS (22.3-36.8); Prothrombin Time 13.2 Seconds (11.1-14.7)
[2023-07-12 21:10] LABS: Alanine Aminotransferase 15 U/L (6-35); Albumin Level 3.8 g/dL (3.5-5.1); Alkaline Phosphatase 85 U/L (38-126); Anion Gap 8 mmol/L (8-16); Aspartate Amino Transferase 22 U/L (14-36); Bilirubin,Total 0.9 mg/dL (0.2-1.3); Blood Urea Nitrogen 13 mg/dL (7-17); CRP < 0.5 mg/dL (<1.0); Calcium 9.2 mg/dL (8.4-10.2); Carbon Dioxide 25 mmol/L (22-30); Chloride 111 mmol/L (98-107); Creatine Kinase 75 U/L (30-135); Estimated CRCL calculation 28 ml/min; Estimated Glomerular Filt Rate 43; Glucose 124 mg/dL (65-110); Potassium 4.1 mmol/L (3.4-5.0); Sodium 144 mmol/L (137-145)
--- NOTE | 2023-07-12 21:11 | PC.NURSE ---
THIS RN SPOKE WITH CORRY LOMBARDI TO SEE IF C COLLAR WAS NEEDED. C COLLAR HAD NOT BEEN APPLIED BY RN PRIOR TO SHIFT CHANGE. CORRY LOMBARDI VERBALIZED THAT PT DID NOT NEED C COLLAR AT THIS TIME.
[2023-07-12 21:16] LABS: Ammonia < 9 umol/L (9-30)
[2023-07-12 21:19] LABS: Troponin I < 0.012 ng/mL (0.000-0.034)
[2023-07-12 21:31] LABS: Amphetamine Screen Urine Negative (Negative); Barbiturate Screen Urine Negative (Negative); Benzodiazepines Screen Urine Negative (Negative); Cannabinoid Screen Urine Negative (Negative); Cocaine Screen Urine Negative (Negative); Methadone Screen Urine Negative (Negative); Opiate Screen Urine Negative (Negative); Phencyclidine Screen Urine Negative (Negative)
--- NOTE | 2023-07-12 22:16 | WPDNEUROSGPN ---
Subjective Date/time seen: 07/12/23 22:16 Interval history: Discussed case with Jojo Kelsey. Briefly, this is a 77 year old female who was found down who presents with altered mental status. Workup is pending, but CT head was negative for acute hemorrhage. CT thoracic lumbar spine indicates multiple chronic compression fractures within the thoraco lumbar spine and possiblely acute T12 and L2 fractures. These do not appear to involve the pedicles/posterior column and have minimal retropulsion. I do not recommend surgical intervention, and recommend that this be managed medically. I have contacted [facility] to provide a TLSO brace for Mrs. Gifford. She can wear jama brace when out of bed and moving. She does not need to wear it when stationary such as in bed. She may also benefit from kyphoplasty performed by pain management as she has had done previously. She needs a full medical workup and management for potential osteoprosis. She would benefit from physical therapy and fall precautions. She may follow up in clinic upon discharge. Objective Data Vital Signs Vital Signs: Vital Signs - 24 hr 07/12/23 17:27 07/12/23 19:01 07/12/23 19:11 Temperature 36.4 C L Pulse Rate 94 100 Respiratory Rate 16 17 Blood Pressure 152/84 H Pulse Oximetry 100 Oxygen Delivery Room Air 07/12/23 19:15 07/12/23 19:16 07/12/23 19:32 Temperature Pulse Rate 81 87 99 Respiratory Rate 12 13 23 H Blood Pressure 161/79 H Pulse Oximetry 98 98 100 Oxygen Delivery 07/12/23 19:45 07/12/23 19:47 07/12/23 21:08 Temperature Pulse Rate 94 97 88 Respiratory Rate 24 H 25 H 15 Blood Pressure 164/85 H Pulse Oximetry 96 98 98 Oxygen Delivery Intake/Output Intake/Output: Intake & Output 07/09/23 07/10/23 07/11/23 07/12/23 23:59 23:59 23:59 23:59 Output Total 200 Balance -200 Meds/Results Radiology Results: ITS Impressions Head CT 07/12/23 18:09 IMPRESSION: 1. No acute intracranial abnormality. Cervical Spine CT 07/12/23 18:12 IMPRESSION: 1. No acute fracture. 2: Severe cervical spondylosis. Chest X-Ray 07/12/23 18:16 Impression: 1: No acute cardiopulmonary disease. Pelvis X-Ray 07/12/23 18:17 Impression: 1: No acute fracture. Thoracic/Lumbar Spine CT 07/12/23 18:18 IMPRESSION: 1. Age-indeterminate compression fractures of T12 and burst fracture of L2, new since prior examination. 2: Chronic compression fractures of T6, T7, T9, T11, L1, L4 and L5. Labs Labs: Laboratory Results - last 24 hr 07/12/23 07/12/23 07/12/23 19:44 20:44 21:10 WBC 5.6 RBC 4.30 Hgb 13.7 Hct 42.7 MCV 99.3 MCH 31.9 MCHC 32.1 RDW 13.7 Plt Count 171 MPV 9.2 Immature Gran % (Auto) 0.2 Neut % (Auto) 80.6 H Lymph % (Auto) 10.9 L [place] % (Auto) 5.5 Eos % (Auto) 2.3 Baso % (Auto) 0.5 Lymph # (Auto) 0.61 L [place] # (Auto) 0.3 Eos # (Auto) 0.1 Baso # (Auto) 0.0 Abs Immat Gran (auto) 0.01 Absolute Neuts (auto) 4.5 Absolute Nucleated RBC 0.0 Nucleated RBC % 0.0 PT 13.2 INR 1.0 APTT 29.8 Sodium 144 Potassium 4.1 Chloride 111 H Carbon Dioxide 25 Anion Gap 8 BUN 13 Creatinine 1.20 H Estim Creat Clear Calc 28 Estimated GFR 43 L Glucose 124 H Lactic Acid 1.3 Calcium 9.2 Total Bilirubin 0.9 AST 22 ALT 15 Alkaline Phosphatase 85 Ammonia < 9 L Total Creatine Kinase 75 Troponin I < 0.012 C-Reactive Protein < 0.5 Total Protein 6.0 L Albumin 3.8 Urine Color Dark yellow Urine Appearance Cloudy H Urine pH 5.0 Ur Specific [place] 1.022 Urine Protein Trace Urine Glucose (UA) Negative Urine Ketones Trace H Ur Blood (Man) Negative Urine Nitrate Negative Urine Bilirubin Negative Urine Urobilinogen 1.0 Add Ur Microanalysis Reviewed Leukocyte Esterase Rfl Negative Urine RBC 0-2 U
--- NOTE | 2023-07-12 22:17 | PM.IMHP ---
H&P: HPI History of Present Illness Date/Time: 07/12/23 22:17 Chief Complaint: Fall Narrative: This is a 77-year-old female with past medical history significant for chronic pain syndrome, chronic back pain, recently pain pump placed, foot drop left foot, was brought for evaluation to the emergency room after she fell out the door, no loss of consciousness, mechanical fall ground level. Patient has been in her usual state denies any nausea vomiting diarrhea no fevers no rigors no chills no dizziness, no lightheadedness. Preliminary workup has been essentially nonrevealing. Patient has been placed in observation for further evaluation management and treatment. EXAMINATION: CT brain wo con DATE: 07/12/2023 18:05 INDICATION: Status post fall. Head injury. TECHNIQUE: Computed tomography (CT) of the head was performed without intravenous contrast. The dose-length product was 605.33 mGy-cm. Automated exposure control and iterative reconstruction technique were employed. COMPARISON: CT dated 01/10/2023 FINDINGS: No acute intracranial hemorrhage, infarction, mass or mass effect. Generalized atrophy. There are scattered moderate periventricular and subcortical white matter changes, most likely related to small vessel ischemic disease (microangiopathy). Paranasal sinuses are pneumatized. No depressed skull fractures. Small left mastoid effusion. IMPRESSION: 1. No acute intracranial abnormality EXAMINATION: CT thoracic lumbar wo con DATE: 07/12/2023 18:05 INDICATION: Back pain after fall TECHNIQUE: Computed tomography (CT) of the thoracic and lumbar spine was performed without intravenous contrast. The dose-length product was 1902.21 mGy-cm. Automated exposure control and iterative reconstruction technique were employed. COMPARISON: MRI dated 10/02/2019 FINDINGS: Thoracic spine: Stable mild superior endplate compression fracture of T6 unchanged. Chronic T7, T9, T11 and L1 fractures. There is a new superior endplate compression fracture of T12, age indeterminate. There are vertebroplasty changes at T7, T9, T11 and L1. There are changes of gastric bypass surgery. Lumbar spine: There is a new burst fracture of L2, age indeterminate. There are treated compression fractures of L4 and L5 with methylmethacrylate. IMPRESSION: 1. Age-indeterminate compression fractures of T12 and burst fracture of L2, new since prior examination. 2: Chronic compression fractures of T6, T7, T9, T11, L1, L4 and L5. XR chest 1V 07/12/2023 18:14 Indication: Chest pain after fall Procedure: AP view of the chest Comparison: Comparison to multiple prior studies sequentially, with oldest reviewed study dated? 09/09/2019. Findings: Heart size normal. No focal air space disease, pulmonary edema, pleural effusion or suspected pneumothorax. There is a prosthetic aortic valve. There are vertebroplasty changes at multiple thoracic vertebra. There are cholecystectomy clips. There are surgical changes in the right humerus proximally, partially visualized. Impression: 1: No acute cardiopulmonary disease. Review of Systems Review of Systems: Fall Constitutional: Constitutional: Denies chills, Denies fatigue, Denies fever(s), Denies frequent falls, Denies malaise, Denies night sweats and Denies poor appetite Eyes: Eyes: Denies change in vision ENT: Denies dysphagia and Denies odynophagia Cardiovascular: Cardiovascular: Denies chest pain, Denies radiating jaw, neck or arm pain and Denies palpitations Respiratory: Respiratory: Denies cough, Denies excessive phlegm production, Denies dyspnea and Denies wheezing Gastrointestinal: Gastrointestinal: Denies abdominal pain, Denies dyspepsia, Denies heartburn, Denies diarrhea, Denies nausea and Denies vomiting Genitourinary: Genitourinary: Denies dysuria Musculoskeletal: Musculoskeletal: Reports other (Left footdrop) Comments: Back pain Integumentary/Breasts: Skin/Breast: Denies rash Neurologic:
--- NOTE | 2023-07-12 23:22 | PC.NURSE ---
pt to room 306-2 at 2303 from ER, this RN called at 2320 to pts son to help complete admission questions, call was not answered, will attempt call again at another time
--- NOTE | 2023-07-12 23:29 | ADMGEN ---
This patient, Alpa Gifford, was admitted to [facility] Surg Room 306-02 at 2303 from ER. Patient/family oriented to hospital policies and general routines including ID bracelet, bed and alarms, visiting hours, pain management, procedures, bathroom and other care routines, personal items, smoking policy, room service/diet, and visiting hours. Information on how to activate the Rapid Response Team has been discussed. Patient/Family are encouraged to report perceived risks to care and to ask questions if they do not understand what they are told or what they should do.
--- NOTE | 2023-07-13 00:08 | PC.NURSE ---
this RN spoke with pts daughter in law, helped RN with patients admission as well as they could, did not know what medications pt was taking currently, they will be back in town today around 5pm and they will bring in patients home medications
[2023-07-13] MEDS: ONDANSETRON INJ 4 MG/2 ML VIAL 6 MG IV PUSH (01:38)
[2023-07-13 01:57] VITALS: BP 127/98; PULSE 112; RESP 20; TEMP 35.9; O2SAT 94
[2023-07-13] MEDS: HYDROmorphone HCL INJ (*CRX) 1 MG/ML SYR IV PUSH (01:57)
[2023-07-13] MEDS: LORazepam INJ (*CRX) 2 MG/ML VIAL 1 MG IV PUSH ×2 (01:58→10:37)
[2023-07-13 04:00] VITALS: PULSE 60
[2023-07-13 06:00] VITALS: BP 121/58; PULSE 80; RESP 14; TEMP 35.8; O2SAT 100
[2023-07-13 08:00] VITALS: PULSE 66; PULSE 80; O2SAT 99
[2023-07-13] MEDS: LIDOCAINE 5% PATCH 2 PATCH TOPICAL (08:27)
[2023-07-13] MEDS: SOLIFENACIN 5 MG TABLET 10 MG PO (08:36)
[2023-07-13] MEDS: PANTOPRAZOLE 40 MG TABLET PO (08:37)
[2023-07-13] MEDS: DULoxetine HCL 60 MG CAPSULE.DR PO (08:37)
[2023-07-13] MEDS: BACLOFEN 10 MG TABLET 20 MG PO (08:38)
[2023-07-13] MEDS: buPROPion HCL XL (24 HR) 150 MG TABCR PO (08:38)
[2023-07-13] MEDS: ATORVASTATIN 40 MG TABLET BY MOUTH (08:39)
[2023-07-13] MEDS: CHOLECALCIFEROL 1,000 UNITS TABLET 5000 UNITS PO (08:39)
--- NOTE | 2023-07-13 10:18 | ECG_ITS ---
Measurements Intervals Man Rate: 116 P: 44 AK: 149 QRS: -46 QRSD: 78 T: -26 QT: 298 QTc: 415 Interpretive Statements SINUS TACHYCARDIA MARKED LEFT AXIS DEVIATION [QRS AXIS < -30] POSSIBLE RIGHT VENTRICULAR CONDUCTION DELAY [RSR (QR) IN V1/V2] NONSPECIFIC ST & T-WAVE ABNORMALITY LARGE AMOUNT OF BASELINE ARTIFACT COMPARED TO ECG 07/12/2023 19:26:40 SINUS TACHYCARDIA NOW PRESENT Electronically Signed On 07-13-2023 17:11:43 CORPORATE MANAGER by Lianet Ye M.D.
[2023-07-13 10:29] LABS: Hematocrit 40.8 % (37.0-47.0); Hemoglobin 12.9 g/dL (12.0-15.0); Mean Corpuscular HGB Conc 31.6 g/dl (32-36); Mean Corpuscular Hemoglobin 31.6 pg (26-34); Mean Platelet Volume 8.4 fl (7.4-10.4); Platelet Count Result 156 k/mm3 (150-375); Red Blood Count 4.08 M/mm3 (4.2-5.4); Red Cell Distribution Width 13.7 % (11.5-14.5); White Blood Count 5.1 K/mm3 (4.5-10.0)
[2023-07-13] MEDS: SODIUM CHLORIDE 0.9% IV 1,000 ML 75 ML IV CONT (10:39)
[2023-07-13 10:42] LABS: Alanine Aminotransferase 18 U/L (6-35); Albumin Level 4.1 g/dL (3.5-5.1); Alkaline Phosphatase 83 U/L (38-126); Anion Gap 7 mmol/L (8-16); Aspartate Amino Transferase 23 U/L (14-36); Bilirubin,Total 0.9 mg/dL (0.2-1.3); Blood Urea Nitrogen 12 mg/dL (7-17); Calcium 9.5 mg/dL (8.4-10.2); Carbon Dioxide 29 mmol/L (22-30); Chloride 110 mmol/L (98-107); Estimated CRCL calculation 33 ml/min; Estimated Glomerular Filt Rate 53; Glucose 96 mg/dL (65-110); Potassium 4.2 mmol/L (3.4-5.0); Sodium 146 mmol/L (137-145)
[2023-07-13 10:46] LABS: Prothrombin Time 13.4 Seconds (11.1-14.7)
[2023-07-13 10:54] LABS: Troponin I < 0.012 ng/mL (0.000-0.034)
[2023-07-13 12:00] VITALS: PULSE 66
[2023-07-13 12:16] VITALS: BP 138/81; PULSE 128; RESP 28; O2SAT 93
[2023-07-13 13:46] LABS: Troponin I < 0.012 ng/mL (0.000-0.034)
--- NOTE | 2023-07-13 13:48 | PM.TDS ---
Transfer Discharge Sum: Prov Provider Date of admission: 07/12/23 22:00 Primary care physician: Govind Oliva PA-C Admitting clinician: Starla Hale MD Consults: 07/12/23 Consult to Physician Routine Comment: Consulting Provider: Kamari Caceres Reason for consultation: L2 fracture Has provider been notified: Yes Attending physician on discharge: Zia Zuleta Discharging clinician: Billy Moe Anticipated date of transfer: 07/13/23 Receiving physician/facility: Dr. Sommers--Neurology at [facility] [id number] DS: Admitting Diagnosis Discharge Date 07/13/2023 Admitting Diagnosis altered mental status, fracture of lumbar spine, restless leg syndrome, chronic low back pain with sciatica, GERD, CKD stage 3, history of Mekhi-en-Y gastric bypass, JUAN, status post TAVR, hypertension DS: Discharge Diagnosis Discharge Diagnosis (1) Seizure-like activity: Code(s): R56.9 - Unspecified convulsions Status: Acute (2) Altered mental status: Qualifiers: Altered mental status type: somnolence Qualified Code(s): R40.0 - Somnolence Code(s): R41.82 - Altered mental status, unspecified Status: Acute (3) Fracture of lumbar spine: Qualifiers: Encounter type: initial encounter Fracture morphology: burst- stable Fracture type: closed Lumbar vertebra fracture level: L2 Qualified Code(s): S32.021A - Stable burst fracture of second lumbar vertebra, initial encounter for closed fracture Code(s): S32.009A - Unspecified fracture of unspecified lumbar vertebra, initial encounter for closed fracture Status: Acute (4) RLS (restless legs syndrome): Code(s): G25.81 - Restless legs syndrome Status: Acute (5) Chronic low back pain with sciatica: Qualifiers: Back pain laterality: unspecified Sciatica laterality: sciatica laterality unspecified Qualified Code(s): M54.40 - Lumbago with sciatica, unspecified side; G89.29 - Other chronic pain Code(s): M54.40 - Lumbago with sciatica, unspecified side; G89.29 - Other chronic pain Status: Acute (6) GERD (gastroesophageal reflux disease): Code(s): K21.9 - Gastro-esophageal reflux disease without esophagitis Status: Acute (7) CKD (chronic kidney disease) stage 3, GFR 30-59 ml/min: Qualifiers: Chronic kidney disease stage 3 subtype: stage 3a (GFR 45-59) Qualified Code(s): N18.31 - Chronic kidney disease, stage 3a Code(s): N18.3 - Chronic kidney disease, stage 3 (moderate) Status: Acute (8) History of Mekhi-en-Y gastric bypass: Code(s): Z98.84 - Bariatric surgery status Status: Acute (9) JUAN (obstructive sleep apnea): Code(s): G47.33 - Obstructive sleep apnea (adult) (pediatric) Status: Acute (10) S/P TAVR (transcatheter aortic valve replacement): Code(s): Z95.2 - Presence of prosthetic heart valve Status: Acute (11) Hypertension: Qualifiers: Hypertension type: primary hypertension Qualified Code(s): I10 - Essential (primary) hypertension Code(s): I10 - Essential (primary) hypertension Status: Acute Plan Transfer to [place] by [facility] ambulance Transfer Discharge Sum: Med Medications Active and Home Medications: Home Medications cholecalciferol (vitamin D3) 125 mcg (5,000 unit) tablet 125 mcg PO DAILY 03/12/22 [History Confirmed 07/13/23] atorvastatin 40 mg tablet See Rx Instructions .Route .COMPLEX #90 tabs 09/23/22 [Rx Confirmed 07/13/23] duloxetine 60 mg capsule,delayed release 60 mg PO DAILY #90 caps 09/23/22 [Rx Confirmed 07/13/23] bupropion HCl 150 mg 24 hr tablet, extended release 150 mg PO QAM 02/13/23 [History Confirmed 07/13/23] aripiprazole 5 mg tablet 5 mg PO QHS 05/21/23 [History Confirmed 07/13/23] pantoprazole 40 mg tablet,delayed release 40 mg PO BID 05/21/23 [History Confirmed 07/13/23] solifenacin 10 mg tablet 10 mg PO DAILY 05/21/23 [History Confirmed
== END 2023-07-13 15:40 | disposition short-term general hospital (02) ==
LOC: ANHED 18:43 → ANH3MEDSUR 22:32
PROVIDERS: Nurse Practitioner; Admitting Provider Internal Medicine; Emergency Provider Physician Assistant; PCP Physician Assistant; Visit Provider Internal Medicine
DX: R56.9 Unspecified convulsions (principal); R40.0 Somnolence; S32.021A Stable burst fracture of second lumbar vertebra, initial encounter for closed fracture; W19.XXXA Unspecified fall, initial encounter; S32.010A Wedge compression fracture of first lumbar vertebra, initial encounter for closed fracture; S32.040A Wedge compression fracture of fourth lumbar vertebra, initial encounter for closed fracture; S32.050A Wedge compression fracture of fifth lumbar vertebra, initial encounter for closed fracture; G25.81 Restless legs syndrome; G89.29 Other chronic pain; M54.40 Lumbago with sciatica, unspecified side; K21.9 Gastro-esophageal reflux disease without esophagitis; M47.812 Spondylosis without myelopathy or radiculopathy, cervical region; F41.9 Anxiety disorder, unspecified; M19.90 Unspecified osteoarthritis, unspecified site; Z95.2 Presence of prosthetic heart valve; Z90.49 Acquired absence of other specified parts of digestive tract; Z98.84 Bariatric surgery status; I12.9 Hypertensive chronic kidney disease with stage 1 through stage 4 chronic kidney disease, or unspecified chronic kidney disease; N18.30 Chronic kidney disease, stage 3 unspecified; R94.31 Abnormal electrocardiogram [ECG] [EKG]; F32.A Depression, unspecified; E78.00 Pure hypercholesterolemia, unspecified; E03.9 Hypothyroidism, unspecified; G47.33 Obstructive sleep apnea (adult) (pediatric); Z79.899 Other long term (current) drug therapy; Z86.73 Personal history of transient ischemic attack (TIA), and cerebral infarction without residual deficits
CPT/HCPCS: 36415; 70450; 71045; 72125; 72128; 72131; 72170; 80053; 80307; 81001; 82140; 82550; 83605; 84443; 84484; 85025; 85027; 85610; 85730; 86140; 93005; 96374; 96375; 96376; A9270; G0378; J1170; J1953; J2060; J2405; J7030; J7040; L0140

== ENCOUNTER 2024-03-03 09:45 | Outpatient (CLI) | payer MEDICARE, BC, SELFPAY ==
[2024-03-03 10:23] LABS: Albumin Level 4.4 g/dL (3.5-5.1); Anion Gap 9 mmol/L (4-12); Blood Urea Nitrogen 19 mg/dL (7-17); Calcium 9.4 mg/dL (8.4-10.2); Carbon Dioxide 30 mmol/L (22-30); Chloride 102 mmol/L (98-107); Estimated Glomerular Filt Rate 48; Glucose 94 mg/dL (65-110); Phosphorus 4.3 mg/dL (2.5-4.5); Potassium 4.3 mmol/L (3.4-5.0); Sodium 141 mmol/L (137-145)
[2024-03-03 10:57] LABS: Free T4 Free Thyroxine 1.33 ng/mL (0.78-2.19); Vitamin D 25 Hydroxy 30.2 ng/mL
== END 2024-03-03 09:46 | disposition home or self-care (01) ==
LOC: ANHLAB 09:49
PROVIDERS: Visit Provider Internal Medicine Endocrinology, Diabetes & Metabolism
DX: E03.9 Hypothyroidism, unspecified (principal); M81.0 Age-related osteoporosis without current pathological fracture; R53.83 Other fatigue; R79.89 Other specified abnormal findings of blood chemistry
CPT/HCPCS: 36415; 80069; 82306; 84439; 84443

== ENCOUNTER 2024-07-23 10:54 | Outpatient (CLI) | payer MEDICARE, SELFPAY ==
--- NOTE | ~2024-07-23 | XR_ITS ---
XR shoulder LT min 2V Ordering provider: Gwendolyn Ramesh, CLERK SUPERVISOR-C History: . L shoulder pain . Comparison: None. FINDINGS: BONES: No acute fracture or dislocation. JOINT SPACES: The acromioclavicular joint is normal. The glenohumeral joint shows severe osteoarthrit ic changes. SOFT TISSUES: Normal. Cardiac valve prosthesis. Multiple vertebroplasty. IMPRESSION: No acute osseous abnormality left shoulder. 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 Reviewed, dictated and finalized at location A. RATING MACHINE OPERATOR
== END 2024-07-23 10:55 | disposition home or self-care (01) ==
PROVIDERS: PCP Internal Medicine; Visit Provider Nurse Practitioner Family
DX: M25.512 Pain in left shoulder (principal); M19.012 Primary osteoarthritis, left shoulder
CPT/HCPCS: 73030

== ENCOUNTER 2024-07-27 14:33 | Outpatient (CLI) | payer MEDICARE, SELFPAY ==
[2024-07-27 15:45] LABS: Basophils Percent Auto 0.6 % (0.2-1.2); Eosinophils Absolute Auto 0.2 K/mm3 (0-0.3); Eosinophils Percent Auto 2.3 % (0-4.4); Hematocrit 38.7 % (37.0-47.0); Hemoglobin 13.1 g/dL (12.0-15.0); Immature Granulocyte Absolute 0.03 K/mm3 (0.00-0.031); Immature Granulocyte Percent A 0.5 % (0-0.5); Lymphocytes Absolute Auto 1.94 K/mm3 (0.9-3.2); Lymphocytes Percent Auto 30.2 % (18.3-44.2); Mean Corpuscular HGB Conc 33.9 g/dl (32-36); Mean Corpuscular Hemoglobin 32.4 pg (26-34); Mean Corpuscular Volume 95.8 fl (80-100); Mean Platelet Volume 8.9 fl (7.4-10.4); Monocytes Absolute Auto 0.4 K/mm3 (0.1-0.6); Monocytes Percent Auto 6.5 % (2.6-8.5); Neutrophils Absolute Auto 3.8 K/mm3 (1.3-6.7); Neutrophils Percent Auto 59.9 % (45.5-73.1); Platelet Count Result 168 k/mm3 (150-375); Red Blood Count 4.04 M/mm3 (4.2-5.4); Red Cell Distribution Width 11.9 % (11.5-14.5); White Blood Count 6.4 K/mm3 (4.5-10.0)
[2024-07-27 16:56] LABS: Alanine Aminotransferase 12 U/L (6-35); Albumin Level 4.1 g/dL (3.5-5.1); Alkaline Phosphatase 53 U/L (38-126); Anion Gap 3 mmol/L (4-12); Aspartate Amino Transferase 19 U/L (14-36); Bilirubin,Total 0.7 mg/dL (0.2-1.3); Blood Urea Nitrogen 23 mg/dL (7-17); Calcium 8.9 mg/dL (8.4-10.2); Carbon Dioxide 34 mmol/L (22-30); Chloride 101 mmol/L (98-107); Cholesterol 173 mg/dL (0-200); Estimated Glomerular Filt Rate 36; Glucose 80 mg/dL (65-110); HDL Direct 42 mg/dL; Potassium 4.1 mmol/L (3.4-5.0); Sodium 138 mmol/L (137-145); Triglycerides 171 mg/dL (<150)
[2024-07-27 17:07] LABS: LDL Cholesterol Direct 81 mg/dL
[2024-07-27 20:50] LABS: Vitamin D 25 Hydroxy 84.4 ng/mL
== END 2024-07-27 14:34 | disposition home or self-care (01) ==
PROVIDERS: PCP Internal Medicine; Visit Provider Internal Medicine
DX: I12.9 Hypertensive chronic kidney disease with stage 1 through stage 4 chronic kidney disease, or unspecified chronic kidney disease (principal); N18.30 Chronic kidney disease, stage 3 unspecified; E55.9 Vitamin D deficiency, unspecified; E78.5 Hyperlipidemia, unspecified; E78.00 Pure hypercholesterolemia, unspecified; E03.9 Hypothyroidism, unspecified
CPT/HCPCS: 36415; 80053; 80061; 82306; 84443; 85025

== ENCOUNTER 2025-02-01 10:47 | Outpatient (CLI) | payer MEDICARE, SELFPAY ==
--- OUTSIDE RECORDS SUMMARY | 2025-02-01 11:04 | XMS_ITS | Clinical Summary ---
Author Organization [facility] Address [address] [place] [address] Care Team Providers Care Technical Intern Name Role Phone Govind Oliva Primary Care Provider Hong Silva MD Unavailable [phone] Allergies Active Allergy Reactions Criticality Noted Date Comments Adhesive Rash,Unknown Medium 03/08/2019 Gabapentin Hallucinations Medium 03/08/2019 Pentazocine Hallucinations Medium 03/08/2019 Medications levothyroxine (SYNTHROID) 75 mcg tablet Take 1 tablet (75 mcg total) by mouth nurses' association executive director before breakfast Active atorvastatin (LIPITOR) 40 mg tablet Take 1 tablet (40 mg total) by mouth daily Active acetaminophen 500 mg capsule Take 2 capsules (1,000 mg total) by mouth every 6 (six) hours as needed Active diclofenac sodium (VOLTAREN) 1 % gel APPLY 1-2 GRAMS TO AFFECTED AREA TRANSDERMAL 1-2 TIMES DAILY NEEDED 30 DAYS 2 Active losartan (COZAAR) 50 mg tablet 1 tablet (50 mg total) nightly [address] (PROTONIX) 40 mg EC tablet Take 1 tablet (40 mg total) by mouth 2 (two) times a day 2 Active rOPINIRole (REQUIP) 2 mg tablet TAKE 1 TAB BY MOUTH EVERY DAY AT BEDTIME 2 Active spironolactone (ALDACTONE) 25 mg tablet Take 1 tablet (25 mg total) by mouth daily 2 Active lactulose 0.67 gram/mL solution TAKE 30 ML BY MOUTH EVERY MORNING NEEDED FOR CONSTIPATION [address] (CYMBALTA) 30 mg capsule Take 3 capsules (90 mg total) by mouth daily 4 Active baclofen (LIORESAL) 20 mg tablet Take 1 tablet (20 mg total) by mouth 3 (three) times a day with meals 4 Active ARIPiprazole (ABILIFY) 5 mg tablet Take 1 tablet (5 mg total) by mouth nightly 4 Active mirabegron ER (MYRBETRIQ) 25 mg tablet extended release 24 hr Take 1 tablet (25 mg total) by mouth nightly 4 Active thiamine (VITAMIN B1) 100 mg tablet Take 1 tablet (100 mg total) by mouth daily 4 Active Active Problems Problem Noted Date Diagnosed Date Altered mental status, unspecified 07/13/2023 Class 2 obesity 07/26/2022 Closed fracture of shaft of tibia 07/26/2022 Closed fracture of upper end of humerus 07/26/19 23 Depression 07/26/2022 Fall from ground level 07/26/2022 Fracture of humerus 07/26/2022 Gastroesophageal reflux disease 07/26/2022 Hypertension 07/26/2022 Hypothyroidism 07/26/2022 Insomnia 07/26/2022 Osteoporosis 07/26/2022 Pain in wrist 07/26/2022 Presence of prosthetic heart valve 07/26/2022 Sprain of wrist 07/26/2022 Chronic pain syndrome 08/17/2020 Overview (08/17/2020): Added automatically from request for surgery [id number] Lumbosacral radiculopathy 08/17/2020 Overview (08/17/2020): Added automatically from request for surgery [id number] Closed fracture of tibial pl ateau with routine healing, left 03/21/2020 Sleep difficulties 03/21/2020 S/P TAVR (transcatheter aortic valve replacement ) 11/09/2019 Aortic stenosis, severe 10/20/2019 Assessment & Plan (12/09/2019 3:20 PM CDT): S/p TAVR 1 month ago. We will plan to see back for a 1 year TAVR follow up. Assessment & Plan (10/20/2019 1:38 PM CDT): In summary, Ms. Gifford is a symptomatic and frail 73 y.o. patient with severe aortic stenosis in the setting of hypertension, remote history of DVT and TIA, osteoporosis, multiple back surgeries and nerve blocks in need of pain pump placement. Her Society of Thoracic Surgery risk for open aortic valve replacement is just over 2% but that does not take into account her significant orthopedic and chronic pain issues. To complete this workup will require a cardiac catheterization to rule out significant coronary artery disease. She is meeting with Dr. Polanco this afternoon. In addition, we will need a TAVR protocol CTA to determine vascular access and aortic root anatomy which she will have after her appointment today. This patient will be entered into the TVT registry. Closed compression fracture of body of L1 verteb ra 03/09/2019 Acute pain due to trauma 03/09/2019 Chronic pain 03/09/2019 MARCI (acute kidney injury) 03/09/2019 RLS (restless legs syndrome) 03/09/2019 HLD (hyperlipidemia) 03/09/2019 Dystonic movements 03/09/2019 Surgical History Surgery Date Site/Laterality Comments COLONOSCOPY W/ BIOPSIES ESOPHAGOSCOPY / EGD HIP ARTHROPLASTY INGUINAL HERNIA REPAIR ABDOMINOPLASTY SHOULDER ARTHROSCOPY LUMBAR DISCECTOMY 07/21/1977 - 07/20/1978 CERVICAL FUSION 07/21/1977 - 07/20/1978 HYSTERECTOMY 07/21/1991 - 07/20/1992 CARPAL TUNNEL RELEASE 07/21/1996 - 07/20/1997 Right CATARACT EXTRACTION W/ INTRAOCULAR LENS IMPLANT 07/21/2000 - 07/20/2001 Bilateral GASTRIC BYPASS 07/21/2000 - 07/20/2001 CHOLECYSTECTOMY 07/21/2002 - 07/20/2003 HIATAL HERNIA REPAIR 07/21/2013 - 07/20/2014 RADIOFREQUENCY ABLATION NERVES 07/21/2014 - 07/20/2015 HIP SURGERY 07/21/1997 - 07/20/1998 3 hip surgeris, lost the use of left foot AORTIC VALVE REPLACEMENT 11/09/2019 TAVR-26mm Nick SPINE SURGERY FRACTURE SURGERY Right arm FLUORO GUIDED ASPIRATION OR INJECTION LARGE JOINT BILATERAL 02/05/2023 Bilateral LUMBAR PUNCTURE WO INJECTION , DIAGNOSTIC 07/15/2023 N/A Medical History Medical History Date Comments Chronic back pain Neuropathy Depression Anxiety TIA (transient ischemic attack) 1998 Hypertension Restless leg syndrome Thyroid disease Bronchitis Asthma Acid reflux Peptic ulceration 2001 DVT (deep venous thrombosis) ([facility]) 1989 right leg Arthritis Herpes Gout Sciatica 2010 Wrist fracture 2014 right Hyperlipidemia History of transfusion 2014 after hia florencia hernia repair Osteoporosis Sleep apnea Hypothyroidism Stroke (HCC) TIAs Family History Medical History Relation Name Comments Coronary artery disease Father Heart attack Father's Brother Coronary artery disease Father's Sister Heart attack Father's Sister Coronary artery disease Mother Stroke Mother's Sister Relation Name Status Comments Father Father's Brother Father's Sister Mother Mother's Sister Social History Tobacco Use Types Packs/Day Years Used Date Smoking Tobacco: Never Smokeless Tobacco: Never Tobacco Cessation:Counseling Given: No Alcohol Use Standard Drinks/Week Comments Yes 1 (1 standard drink = 0.6 oz pur e alcohol) 1-2 glasses wine/week AUDIT-C Answer Date Recorded Q1: How often do you have a drink containing alc ohol? Monthly or less 01/03/2023 Q2: How many drinks containi ng alcohol do you have on a typical day when you are drinking? 1 or 2 01/03/2023 Q3: How often do you have si x or more drinks on one occasion? Never 01/03/2023 Personal Safety Answer Date Recorded Have you ever been in or are you currently in a harmful physical or emotional relationship or is someone making you feel afraid or unsafe? Denies 07/13/2023 Comments No Sex and Gender Information Value Date Recorded Sex Assigned at Not on file Legal Sex Female 12:21 PM CDT Gender Identity Not on file Sexual Orientation Not on file Obstetrics History Last Filed Vital Signs Vital Sign Reading Time Taken Comments Blood Pressure 114/42 07/23/2023 7:24 AM DISABILITIES SERVICES OFFICER Pulse 68 07/23/2023 7:24 AM DISABILITIES SERVICES OFFICER Temperature 36.4 C (97.5 F) 07/23/2023 7:24 AM DISABILITIES SERVICES OFFICER Respiratory Rate 18 07/23/2023 7:24 AM DISABILITIES SERVICES OFFICER Oxygen Saturation 95% 07/23/2023 7:24 AM DISABILITIES SERVICES OFFICER Inhaled Oxygen Concentration - - Weight 81.6 kg (180 lb) 07/21/2023 6:40 PM DISABILITIES SERVICES OFFICER Height 160 cm (5' 3) 07/14/2023 2:02 PM DISABILITIES SERVICES OFFICER Body Mass Index 31.89 07/14/2023 2:02 PM DISABILITIES SERVICES OFFICER Plan of Treatment Health Maintenance Due Date Last Done Comments Depression Screening 1945 DTaP/Tdap/Td Vaccine (1 - Tdap) 11/09/1954 Hepatitis B Screening 11/09/1961 Pneumococcal vaccine 65+ (1 of 1 - PCV) 11/09/1993 Zoster Vaccine (1 of 2) 11/09/1993 Well Visit 65+ 11/09/2008 Fall Risk Assessment 07/23/2024 07/23/2023 Osteoporosis Screening-Bone Density Scan 12/02/2024 12/02/2022 Influenza Vaccine (Season Ended) 2025 Medical Devices Implanted Type Area Diesel Power Mechanic Device Identifier Shelf Expiration Date Model / Serial / Lot Cardiva Medical Inc [id number] Vascade 6/7fr Bioabsorbable Vascular System Compression Collagen - [id number] - [id number] Implanted:Qty: 1 on 11/09/2019 by Trever Polanco MD at [facility] PDA Closure Device Left: Femoral [employer] Inc 09/07/2021 [id number] / [id number] / [id number] [employer] Lif[employer]iences [id number] Ananda 3 26mm Transcatheter Valve Aortic Bovine Sterile - [id number] - [id number] Implanted:Qty: 1 on 11/09/2019 by Trever Polanco MD at [facility] Prosthetic Valve N/A: Heart [employer] 05/02/2021 [id number] / [id number] / [id number] Medtronic Inc 8780 Ascenda 4fr .5mm 114cm 86cm 2 Piece Connector Pin Flexible Closed - [id number] Implanted:Qty: 1 on 09/22/2020 by Suzanne Gonsalez MD at [facility] Med[employer]onic Inc 09/20/2021 8780 / / [id number] Medtronic Neuro 8637-20 Synchromed Ii .78in [place] Filter Mesh Pouch Programmable - [id number] - [id number] Implanted:Qty: 1 on 09/22/2020 by Suzanne Gonsalez MD at [facility] [employer] Inc 02/14/2022 8637-20 / [id number] / Description:Pt knows pump mu st be checked post MRI JL 10/22/22 8785 Ascenda Implanted:Qty: 1 on 09/22/2020 by Suzanne Gonsalez MD at [facility] N/A: Back Med[employer]onic Inc 09/13/2021 8785 / NA / [id number] Description:[facility] ITEM# [id number] IS ACTIVE IN [facility] Procedures Procedure Name Priority Date/Time Associated Diagnosis Comments DEXA AXIAL SKELETON BONE DENSITY 1 OR MORE SITES Schedule Routine, Read Routine (OP Routine) 12/02/2022 10:51 AM CDT Closed compression fracture of body of L1 vertebra (HCC) Age-related osteoporosis with current pathological fracture of vertebra, initial encounter ([facility]) Cervicalgia Dorsalgia, unspecified Chronic pain syndrome Lumbosacral radiculopathy from Last 3 Months or Most Recently Relevant to Health Maintenance Results * DEXA Axial Skeleton Bone Density Multi Site (12/02/2022 10:51 AM CDT) Anatomical Region Laterality Modality Body N/A Radiographic Tyra ging Narrative 12/04/2022 1:07 PM CDT Patient Name: Alpa Gifford Date of : 1945 Date of scan: 12/02/2022 Bone mineral density was performed on a Hologic Discovery Densitometer. Based on machine cross-calibration and precision studies the least significant changes of this densitometer is 0.024 g/cm2 at the spine, 0.020 g/cm2 at the total proximal femur, and 0.014g/cm2 at the forearm. HISTORY: This is a 77 y.o. postmenopausal female with a history of asthma, low bone mass, multiple fractures, and thyroid disease. She reports that she has never smoked. She has never used smokeless tobacco. Currently on treatment with calcium, vitamin D, thyroid hormone, and diuretics, previously treated with zoledronic acid (Reclast), teriparatide (Forteo), and denosumab (Prolia), and current complaint of arm pain, back pain, neck pain, and leg pain. INDICATIONS: Menopause status and history of prior wrist and vertebral fracture. FINDINGS: BONE MINERAL DENSITY OF THE PROXIMAL FEMUR Bone Mineral Density (BMD) of the right hip total was found to be 0.726 gm/cm2. This corresponds to a T-score standard deviations from the mean of young adults of -1.8. Femoral neck is 0.691 gm/cm2 with a T-score (standard deviations from the mean of young adults) of -1.4. There is no previous study available for comparison. BONE MINERAL DENSITY OF THE FOREARM Bone Mineral density (BMD) of the right proximal 1/3 of the radius measures 0.575 gm/cm2. This corresponds to a T-score (standard deviations from the mean of young adults) of -2.0. There is no previous study available for comparison. A forearm bone density study was performed instead of a spine study because of history of spinal surgery and an internal artifact that cannot be removed SUMMARY: Bone mineral density shows evidence of low bone mass at the proximal femur and forearm and moderately increased fracture risk (Osteopenia). ADDITIONAL COMMENTS: Postmenopausal Women and Men Over 50: Diagnostic criteria: Osteoporosis: BMD at or below -2.5 T-score; Osteopenia (low bone mass): BMD between -1.0 and -2.5 T-score. If the patient has a history of a fragility fracture, a fracture that occurred with trauma equivalent to a fall from a standing position or less, then the diagnosis is osteoporosis regardless of bone density. The history and data sections of the bone mineral density scan were prepared by Janeth Medina)([facility]) who is accredited by the International Society of Clinical Densitometry. The overall patient assessment and scan interpretation were performed by Lenny De Leon M.D. who is certified by the International Society of Clinical Densitometry. [id number] Srinivasa SIDHU IM DXA PROCEDURES Final Result from Last 3 Months or Most Recently Relevant to Health Maintenance Insurance MEDICARE [facility] TRADITIONAL Member Subscriber Plan / Payer (Ef fective 2019-Present) Name:Alpa Gifford Relation to Subscriber:Self Name:Alpa Gifford Payer ID:[id number] (NAIC) Group ID:[id number] Type:[facility] Address: [address] [place] [address] TRADITIONAL OOS Member Subscriber Plan / Payer (Ef fective 2018-Present) Name:Alpa Giffodr Relation to Subscriber:Self Name:Alpa Gifford Payer ID:[id number] (NAIC) Group ID:[id number] Type:[facility] Address: [place] [address] [place] TRADITIONAL OOS Member Subscriber Plan / Payer (Ef fective 2018-Present) Name:Alpa Gifford Relation to Subscriber:Self Name:Alpa Gifford Payer ID:[id number] (NAIC) Group ID:[id number] Type:[facility] Address: [place] [address] MEDICARE MEDICARE [facility] TRADITIONAL Member Subscriber Plan / Payer (Ef fective 2018-Present) Name:Alpa Gifford Relation to Subscriber:Self Name:Alpa Gifford Payer ID:[id number] (NAIC) Group ID:[id number] Type:[facility] Address: [place] [address] [facility] Member Subscriber Plan / Payer (Ef fective 2021-Present) Name:Alpa Gifford Relation to Subscriber:Self Name:Alpa Gifford Payer ID:[id number] (NAIC) Group ID:[id number] Type:[facility] Address: [address] [place] [address] MEDICARE Advance Directives For more information, please contact: [phone] Documents on File Type Date Recorded Patient Hose Handler Expl anation ADVANCE DIRECTIVE 11/05/2019 2:22 PM * Full Code (Latest Code Status on File) Date Activated Date Inactivated Comments 07/13/2023 4:48 PM 07/23/2023 5:07 PM * Full Code Date Activated Date Inactivated Comments 09/22/2020 2:11 PM 09/23/2020 5:39 PM * Full Code Date Activated Date Inactivated Comments 11/09/2019 6:08 AM 2019 6:56 PM * Full Code Date Activated Date Inactivated Comments 03/09/2019 2:56 AM 03/10/2019 9:29 PM Healthcare Agents on File Name Relationship Healthcare Agent Relationshi p Communication Susan Gifford Daughter in Law Health Care Agent Care Teams Technical Intern Relationship Specialty Start Date End Date Govind Oliva PA [address] [place] [address] PCP - General 03/08/19 Hong Silva MD [address] [place] [address] Consulting Physician Cardiothoracic Surgery 11/09/19
--- OUTSIDE RECORDS SUMMARY | 2025-02-01 11:04 | XMS_ITS | Referral Summary ---
Author Organization [facility] Address [address] [place] [address] Care Team Providers Care Breaster Name Role Phone Govind Oliva Primary Care Provider Hong Silva MD Unavailable [phone] Allergies Active Allergy Reactions Criticality Noted Date Comments Adhesive Rash,Unknown Medium 03/08/2019 Gabapentin Hallucinations Medium 03/08/2019 Pentazocine Hallucinations Medium 03/08/2019 Medications levothyroxine (SYNTHROID) 75 mcg tablet Take 1 tablet (75 mcg total) by mouth rail crew member before breakfast Active atorvastatin (LIPITOR) 40 mg [...] (08/17/2020): Added automatically from request for surgery [id number] Lumbosacral radiculopathy 08/17/2020 Overview (08/17/2020): Added automatically from request for surgery [id number] Closed fracture of tibial pl ateau with [...] 03/09/2019 HLD (hyperlipidemia) 03/09/2019 Dystonic movements 03/09/2019 Social History Tobacco Use Types Packs/Day Years [...] on file Sexual Orientation Not on file Last Filed Vital Signs Vital Sign Reading Time Taken Comments Blood Pressure 114/42 07/23/2023 7:24 AM ENGINEERING SUPPLIES SALES Pulse 68 07/23/2023 7:24 AM ENGINEERING SUPPLIES SALES Temperature 36.4 C (97.5 F) 07/23/2023 7:24 AM ENGINEERING SUPPLIES SALES Respiratory Rate 18 07/23/2023 7:24 AM ENGINEERING SUPPLIES SALES Oxygen Saturation 95% 07/23/2023 7:24 AM ENGINEERING SUPPLIES SALES Inhaled Oxygen Concentration - - Weight 81.6 kg (180 lb) 07/21/2023 6:40 PM ENGINEERING SUPPLIES SALES Height 160 cm (5' 3) 07/14/2023 2:02 PM ENGINEERING SUPPLIES SALES Body Mass Index 31.89 07/14/2023 2:02 PM ENGINEERING SUPPLIES SALES Plan of Treatment Not on file Medical Devices Implanted Type Area Forest Manager Device Identifier Shelf Expiration Date Model / Serial / Lot Cardiva Medical Inc [id number] Vascade 6/7fr Bioabsorbable Vascular System Compression Collagen - [id number] - [id number] Implanted:Qty: 1 on 11/09/2019 by Trever Polanco MD at [facility] PDA Closure Device Left: Femoral [employer] Inc 09/07/2021 [id number] -[id number] / [id number] / [id number] [employer] [id number] Ananda 3 26mm Transcatheter Valve Aortic Bovine Sterile - [id number] - [id number] Implanted:Qty: 1 on 11/09/2019 by Trever Polanco MD at [facility] Prosthetic Valve N/A: Heart [employer] 05/02/2021 [id number] / [id number] / [id number] Medtronic Inc 8780 Ascenda 4fr .5mm 114cm 86cm 2 Piece Connector Pin Flexible Closed - [id number] Implanted:Qty: 1 on 09/22/2020 by Suzanne Gonsalez MD at [facility] [employer] 09/20/2021 8780 / / [id number] Medtronic Neuro 8637-20 Synchromed Ii .78in [place] Filter Mesh Pouch Programmable - [id number] - [id number] Implanted:Qty: 1 on 09/22/2020 by Suzanne Gonsalez MD at [facility] [employer] 02/14/2022 8637-20 / [id number] / Description:Pt knows pump mu st be checked post MRI JL 10/22/22 8785 Ascenda Implanted:Qty: 1 on 09/22/2020 by Suzanne Gonsalez MD at [facility] N/A: Back Med[employer] Inc 09/13/2021 8785 / NA / [id number] Description:[facility] ITEM# [id number] IS ACTIVE IN [facility] Procedures Procedure Name Priority Date/Time Associated Diagnosis Comments DEXA AXIAL SKELETON BONE DENSITY 1 OR MORE SITES Schedule Routine, Read Routine (OP Routine) 12/02/2022 10:51 AM CDT Closed compression fracture of body of L1 vertebra (HCC) Age-related osteoporosis with current pathological fracture of vertebra, initial encounter ([facility]) Cervicalgia Dorsalgia, unspecified Chronic pain syndrome Lumbosacral [...] Bone mineral density was performed on a HoloOsprey Data Discovery Densitometer. Based on machine cross-calibration and [...] mineral density scan were prepared by Janeth Medina)([facility]) who is accredited by the International Society of Clinical Densitometry. The overall patient assessment and scan interpretation were performed by Lenny De Leon M.D. who is certified by the International Society of Clinical Densitometry. [id number] Srinivasa SIDHU IMG DXA PROCEDURES Final Result from Last 3 Months or Most Recently Relevant to Health Maintenance Insurance MEDICARE [facility] TRADITIONAL TRADITIONAL [place] TRADITIONAL OOS MEDICARE MEDICARE [facility] TRADITIONAL [place] TRADITIONAL OOS MEDICARE Advance Directives For more information, please contact: [phone] Documents on File Type Date Recorded Patient Canoe Inspector Expl anation ADVANCE DIRECTIVE 11/05/2019 2:22 PM [...] in Law Health Care Agent Care Teams Breaster Relationship Specialty Start Date End Date Govind Oliva PA [address] [place] [address] PCP - General 03/08/19 Hong Silva MD [address] [place] [address] Consulting Physician Cardiothoracic Surgery 11/09/19
--- OUTSIDE RECORDS SUMMARY | 2025-02-01 11:04 | XMS_ITS | Clinical Summary ---
Author Organization [facility] Address [address] [place] [address] Care Team Providers Care Medical Office Specialist Name Role Phone Govind Oliva PA-C Primary Care Provider [phone] Allergies Active Allergy Reactions Criticality Noted Date Comments Gabapentin Unknown,Hallucinations Medium 03/08/2019 Pentazocine Unknown,Hallucinations Medium 03/08/2019 Tape Unknown,Rash Medium 03/08/2019 Medications No known medications Immunizations Immunization Administration Dates Next Due Tdap (Boostrix) 09/14/2023 Social History Tobacco Use Types Packs/Day Years Used Date Smoking Tobacco: Never Smokeless Tobacco: Never Tobacco Cessation:Counseling Given: Not Answered Alcohol Use Standard Drinks/Week Comments Yes 0 (1 standard drink = 0.6 oz pur e alcohol) rarely Comments No Sex and Gender Information Value Date Recorded Sex Assigned at Not on file Legal Sex Female 12:25 PM CDT Gender Identity Not on file Sexual Orientation Not on file Last Filed Vital Signs Vital Sign Reading Time Taken Comments Blood Pressure 152/67 10/22/2023 8:30 AM CDT Pulse 74 10/22/2023 6:33 AM CDT Temperature 36.7 C (98 F) 10/22/2023 5:58 AM CDT Respiratory Rate 18 10/22/2023 5:58 AM CDT Oxygen Saturation 97% 10/22/2023 8:30 AM CDT Inhaled Oxygen Concentration - - Weight 91.1 kg (200 lb 13.4 oz) 10/22/2023 5:58 AM CDT Height 160 cm (5' 3) 10/22/2023 5:58 AM CDT Body Mass Index 35.58 10/22/2023 5:58 AM CDT Plan of Treatment Health Maintenance Due Date Last Done Comments Pneumococcal Vaccine: 50+ Ye ars (1 of 1 - PCV) 11/09/1993 Zoster Vaccines (1 of 2) 11/09/1993 Annual Medicare Wellness Visit 11/09/2008 RSV Immunization or 60+ Years (1 - 1-dose 75+ series) 11/09/2018 COVID-19 Vaccine (1 - 2023-2 5 season) 2024 PHQ-2 (Physician [place]) 07/21/2024 DTaP, Tdap and Td Vaccines ( 2 - Td or Tdap) 09/14/2033 09/14/2023 Dexa Scan (General) Completed 12/02/2022 Meningococcal B Vaccine Aged Out No l onger eligible based on patient's age to complete this topic Meningococcal Vaccine Aged Out No lady jerome eligible based on patient's age to complete this topic RSV Immunizations Under 20 Months Aged Out No longer eligible based on patient's age to complete this topic Insurance MEDICARE [facility] Care Teams Medical Office Specialist Relationship Specialty Start Date End Date Govind Oliva PA-C [address] [facility] [address] [place] [address] PCP - General PHYSICIAN GALLERY MANAGER 10/24/22
[2025-02-01 12:21] LABS: Albumin Level 4.4 g/dL (3.5-5.1); Anion Gap 11 mmol/L (4-12); Blood Urea Nitrogen 26 mg/dL (7-17); Calcium 9.6 mg/dL (8.4-10.2); Carbon Dioxide 25 mmol/L (22-30); Chloride 104 mmol/L (98-107); Estimated Glomerular Filt Rate 31; Glucose 89 mg/dL (65-110); Potassium 4.3 mmol/L (3.4-5.0); Sodium 140 mmol/L (137-145)
[2025-02-01 13:06] LABS: Thyroid Stimulating Hormone 2.950 uIU/mL (0.465-4.680)
== END 2025-02-01 10:48 | disposition home or self-care (01) ==
PROVIDERS: PCP Internal Medicine; Visit Provider Internal Medicine Endocrinology, Diabetes & Metabolism
DX: R00.2 Palpitations (principal); R79.89 Other specified abnormal findings of blood chemistry; M81.0 Age-related osteoporosis without current pathological fracture
CPT/HCPCS: 36415; 80069; 82306; 84443

== ENCOUNTER 2025-02-07 11:58 | Outpatient (CLI) | payer MEDICARE, MEDICAID, SELFPAY ==
--- NOTE | ~2025-02-07 | DEXA_ITS ---
Bone Density Report Name: JAYLIN WISE Age: 79 Sex: Female Ethnicity: White Date of : 1945 Indication: postmenopausal; screening for osteoporosis; parental hip fracture; height loss; prior fracture; cancer; hysterectomy; rheumatoid arthritis; secondary osteoporosis; Referring Provider: Estela García Study: Bone densitometry was performed. Exam Date: February 07, 2025 Accession number: [id number] Bone Density: Region BMD T-score Z-score Classification Femoral Neck (Right) 0.711 -1.2 1.1 Osteopenia Total Hip (Right) 0.733 -1.7 0.4 Osteopenia World Health Organization criteria for BMD impression classify patients as: Normal (T-score at or above -1.0), Osteopenia (T-score between -1.0 and -2.5), or Osteoporosis (T-score at or below -2.5). 10-year Fracture Risk: FRAX not reported because: Prior hip or vertebral fracture Treated for osteoporosis Clinical Information Provided by Patient: Have had a previous hip or vertebral fracture Has had a low trauma fracture Parent has had a hip fracture Has rheumatoid arthritis Has secondary osteoporosis Is being treated for osteoporosis Has used the following medications: Forteo (i.e. parathyroid hormone), HRT (i.e. estrogen/hormone therapy), Prolia (i.e. denosumab), Vitamin D, Calcium Has the following medical conditions: Cancer, Hysterectomy, Aortic Valve Replacement, Skin Cancer Patient maximum height was 65 Menopause Age: 46 Drinks caffeinated beverages Onset of menses at age 10 Number of children 4 Impression: The patient has low bone mass, based on the Right Total Hip T-score. The patient has risk factors, including: parental hip fracture, previous fracture. Discussion: It is important to ask patients whether they are taking their medications and to encourage continued and appropriate compliance with their osteoporosis therapies to reduce fracture risk. It is also important to review their risk factors and encourage appropriate calcium and vitamin D intakes, exercise, fall prevention and other lifestyle measures. Follow-Up: Consider a repeat BMD and Vertebral Fracture Assessment (VFA) exam in 2 years or sooner if medically necessary, to reassess this patient's status. Reported by: JULIENNE on 02/07/2025 12:28:00 PM. Reviewed, dictated and finalized at location A.
--- OUTSIDE RECORDS SUMMARY | 2025-02-07 12:04 | XMS_ITS | Patient Health Record ---
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 [employer] Name Role Phone Sebastian Luther DO Primary Care Provider Blanquita Sosa Unavailable [phone] Allergies Allergen (clinical drug ingredient) Drug/Non Drug Allergy documented on EMR Reaction Allergy Type Onset Date Status ADHESIVE TAPE (uncoded) Unknown Allergy 12/01/2023 Active gabapentin Gabapentin Unknown Drug Allergy 12/01/2023 Acti ve pentazocine Pentazocine Unknown Drug Allergy 12/01/2023 Ac tive Reason For Referral No Information Medications Medication SIG (Take, Route, Frequency, Duration) Notes Start Date End Date Status ARIPiprazole 5 MG 1 tablet Oral at bedtime; Duration: 30 days Active Levothyroxine Sodium 75 MCG Oral; Duration: 28 Days Active Spironolactone 25 MG Oral 12/01/2023 Active Solifenacin Succinate 10 MG 1 tablet Orally Once a day Active Losartan Potassium 50 MG 1 tablet Orally Once a day Active Furosemide 20 MG 1 tablet Orally Once a day Active busPIRone HCl 5 MG 1 tablet Orally Twice a day; Duration: 30 days Active Pantoprazole Sodium 40 MG Oral 12/01/2023 Active hydrOXYzine Pamoate 25 MG 1 capsule Oral twice a day; Duration: 30 days Active Atorvastatin Calcium 40 MG Oral 12/01/2023 Active traZODone HCl 100 MG 2 tablet at bedtime Oral bedtime; Duration: 30 days d/c 100 mg dose Active Mirtazapine 30 MG 1 tablet at bedtime Orally Once a day; Duration: 30 days Active rOPINIRole HCl 2 MG Oral 12/01/2023 Active Social History Tobacco Use: Social History Observation Description Date Details (start date - stop date) Never Smoker NA - NA Sex Assigned At : Social History Observation Description Sex Assigned At Female Tobacco Control (Standard) Question Answer Notes Tobacco use: Nonsmoker Problems Problem Type SNOMED Code ICD Code Onset Dates Problem Status W/U Status Risk Notes Problem Moderate recurrent major depression (29523075) Major depressive disorder, recurrent, moderate (F33.1) 12/01/19 Active confirmed Problem Generalized anxiety disorder (94816518) Generalized anxiety disorder (F41.1) 12/01/19 Active confirmed Problem Insomnia disorder related to another mental disorder (92894084) Insomnia due to other mental disorder (F51.05) 12/01/19 Active confirmed Problem Amnesia (56830225) Other amnesia (R41.3) 12/01/19 Active confirmed Problem Screening for cardiovascular system disease (800750673) Encounter for screening for cardiovascular disorders (Z13.6) Active confirmed Vital Signs Heart Rate 77 /min 12/21/2024 Respiratory Rate 16 /min 12/21/2024 Height-cm 157.48 cm 12/21/2024 Blood pressure diastolic 79 mm Hg 12/21/2024 Weight-kg 80.56 kg 12/21/2024 Height 62.00 in 12/21/2024 Blood pressure systolic 126 mm Hg 12/21/2024 Weight 177.6 lbs 12/21/2024 BMI 32.48 kg/m2 12/21/2024 Encounters Encounter Location Date Provider Diagnosis [employer] [address] [place] [address] 03/23/2024 Blanquita Lockwood Major depressive disorder, recurrent, moderate F33.1 ; Generalized anxiety disorder F41.1 ; Insomnia due to other mental disorder F51.05 and Other amnesia R41.3 [facility] [address] [place] [address] 06/08/2024 Blanquita Lockwood Major depressive disorder, recurrent, moderate F33.1 ; Generalized anxiety disorder F41.1 ; Insomnia due to other mental disorder F51.05 and Other amnesia R41.3 [facility] [address] [place] [address] 08/31/2024 Blanquita Lockwood Major depressive disorder, recurrent, moderate F33.1 ; Generalized anxiety disorder F41.1 ; Insomnia due to other mental disorder F51.05 and Other amnesia R41.3 [facility] [address] [place] [address] 12/21/2024 Blanquita Lockwood Encounter for screen ing for depression Z13.31 ; Major depressive disorder, recurrent, moderate F33.1 ; Generalized anxiety disorder F41.1 ; Insomnia due to other mental disorder F51.05 ; Other amnesia R41.3 and Encounter for screening for cardiovascular disorders Z13.6 [facility] [address] [place] [address] 07/07/2024 Blanquita Lockwood Assessments Encounter Date Diagnosis (ICD Code) Assessment Notes Treatment Notes Treatment Clinical Notes Section Notes 03/23/2024 Major depressive disorder, recurrent, moderate (ICD-10 - F33.1) Preventing Depression From Coming Back: Care Instructions material was published, Learning About How to Get Help During a Mental Health Crisis material was published, Learning About Depression Screening material was published 1. Moderate recurrent major depression - discuss - educated on rx and Remeron 30 mg at bedtime discuss and educated on Remeron related to decreased appetite and not sleeping and also help depression and anxiety Abilify 5 mg at night for depression - currently continue dose discuss may decrease dose in near future SSRI/SNRI side effects discussed including but not limited to, gastric upset, nausea, vomiting, diarrhea and/or constipation, weight changes, sexual side effects including loss of libido, increased suicidal thoughts/behavior s in children and young adults, and serotonin syndrome. Second generation antipsychotics (SGAs) have metabolic syndrome issues with weight gain, increase in prolactin, increased waist circumference, increased lipids, and increased glucose. Thus routine monitoring of weight, metabolic labs, etc. is indicated. A general rank ordering of antipsychotics that have the greatest to the least risk of metabolic effects is olanzapine, quetiapine, risperidone, ziprasidone, and aripiprazole. However, weight gain can occur with all of these drugs and considerable variability exists among patients receiving the same drug regarding the risk of metabolic effects. Anti-psychotic agents not only increase the risk of metabolic disorder, they also increase the risk of CVA, akathisia, and movement disorders including EPS or tardive dyskinesia (more common with first generation antipsychotics) and more. Elderly- discussed risks, cognition, sedation, falls, metabolic, movement and atypical antipsychotics carry a black-box warning for increased risk of and cerebrovascular events in dementia. AIMS= 0 10/10/23 discuss medication's and options [facility] refer to therapy patient reported does not want to attend therapy educated on all medications, benefits, side effects and risk, and educated on depression, anxiety, and mood d/o and educated on compliance of medications, metabolic and movement d/o education appointment's, continue therapy discussion with patient about course of treatmentand patient instructions. all rx sent to [facility] Abilify 5 mg tablet - Take 1 tablet(s) every day by oral route at bedtime 2. 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 Memory impairment -CANS/MCI. - Memory- normal functioning, Fluency- normal, Executive functioning high functioning and 11/26/22 SLUMS- 26 completed 06/08/2024 Major depressive disorder, recurrent, moderate (ICD-10 - F33.1) Preventing Depression From Coming Back: Care Instructions material was published, Learning About How to Get Help During a Mental Health Crisis material was published, Learning About Depression Screening material was published 1. Moderate recurrent major depression - discuss - educated on rx and Remeron 30 mg at bedtime discuss and educated on Remeron related to decreased appetite and not sleeping and also help depression and anxiety Abilify 5 mg at night for depression - currently continue dose discuss may decrease dose in near future SSRI/SNRI side effects discussed including but not limited to, gastric upset, nausea, vomiting, diarrhea and/or constipation, weight changes, sexual side effects including loss of libido, increased suicidal thoughts/behavior s in children and young adults, and serotonin syndrome. Second generation antipsychotics (SGAs) have metabolic syndrome issues with weight gain, increase in prolactin, increased waist circumference, increased lipids, and increased glucose. Thus routine monitoring of weight, metabolic labs, etc. is indicated. A general rank ordering of antipsychotics that have the greatest to the least risk of metabolic effects is olanzapine, quetiapine, risperidone, ziprasidone, and aripiprazole. However, weight gain can occur with all of these drugs and considerable variability exists among patients receiving the same drug regarding the risk of metabolic effects. Anti-psychotic agents not only increase the risk of metabolic disorder, they also increase the risk of CVA, akathisia, and movement disorders including EPS or tardive dyskinesia (more common with first generation antipsychotics) and more. Elderly- discussed risks, cognition, sedation, falls, metabolic, movement and atypical antipsychotics carry a black-box warning for increased risk of and cerebrovascular events in dementia. AIMS= 0 10/10/23 discuss medication's and options [facility] refer to therapy patient reported does not want to attend therapy educated on all medications, benefits, side effects and risk, and educated on depression, anxiety, and mood d/o and educated on compliance of medications, metabolic and movement d/o education appointment's, continue therapy discussion with patient about course of treatmentand patient instructions. [facility] rx [facility] 2. 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 Memory impairment -CANS/MCI. - Memory- normal functioning, Fluency- normal, Executive functioning high functioning and 11/26/22 SLUMS- 26 completed 08/31/2024 Major depressive disorder, recurrent, moderate (ICD-10 - F33.1) Preventing Depression From Coming Back: Care Instructions material was published, Learning About How to Get Help During a Mental Health Crisis material was published, Learning About Depression Screening material was published 1. major depression - discuss - educated on rx and Remeron 30 mg at bedtime discuss and educated on Remeron related to decreased appetite and not sleeping and also help depression and anxiety Abilify 5 mg at night for depression - currently continue dose discuss may decrease dose in near future SSRI/SNRI side effects discussed including but not limited to, gastric upset, nausea, vomiting, diarrhea and/or constipation, weight changes, sexual side effects including loss of libido, increased suicidal thoughts/behavior s in children and young adults, and serotonin syndrome. Second generation antipsychotics (SGAs) have metabolic syndrome issues with weight gain, increase in prolactin, increased waist circumference, increased lipids, and increased glucose. Thus routine monitoring of weight, metabolic labs, etc. is indicated. A general rank ordering of antipsychotics that have the greatest to the least risk of metabolic effects is olanzapine, quetiapine, risperidone, ziprasidone, and aripiprazole. However, weight gain can occur with all of these drugs and considerable variability exists among patients receiving the same drug regarding the risk of metabolic effects. Anti-psychotic agents not only increase the risk of metabolic disorder, they also increase the risk of CVA, akathisia, and movement disorders including EPS or tardive dyskinesia (more common with first generation antipsychotics) and more. Elderly- discussed risks, cognition, sedation, falls, metabolic, movement and atypical antipsychotics carry a black-box warning for increased risk of and cerebrovascular events in dementia. AIMS= 0 10/10/23 discuss medication's and options [facility] refer to therapy patient reported does not want to attend therapy educated on all medications, benefits, side effects and risk, and educated on depression, anxiety, and mood d/o and educated on compliance of medications, metabolic and movement d/o education appointment's, continue therapy discussion with patient about course of treatmentand patient instructions. [facility] rx [facility] to [facility] 2. Generalized anxiety disorder -Remeron 30 mg at bedtime educated on rx Vistaril 25 mg twice a day Buspar 5 mg twice a day therapy discuss to see CRISTAL 3. Insomnia disorder related to another mental disorder - Trazodone 100 mg at bedtime Melatonin 3-5 mg at bedtime OTC for insomnia- reported takes PRN 4. Memory impairment -CANS/MCI. - Memory- normal functioning, Fluency- normal, SLUMS= 25 08/31/24 DISCUSS SLUMS results and medications options- patient does not want rx for memory at this time Executive functioning high functioning and 11/26/22 SLUMS- 26 completed 11/26/22 12/21/2024 Major depressive disorder, recurrent, moderate (ICD-10 - F33.1) Preventing Depression From Coming Back: Care Instructions material was published, Learning About How to Get Help During a Mental Health Crisis material was published, Learning About Depression Screening material was published 1. major depression - discuss - educated on rx all Remeron 30 mg at bedtime discuss and educated on Remeron related to decreased appetite and not sleeping and also help depression and anxiety Abilify 5 mg at night for depression - currently continue dose discuss may decrease dose in near future SSRI/SNRI side effects discussed including but not limited to, gastric upset, nausea, vomiting, diarrhea and/or constipation, weight changes, sexual side effects including loss of libido, increased suicidal thoughts/behavior s in children and young adults, and serotonin syndrome. Second generation antipsychotics (SGAs) have metabolic syndrome issues with weight gain, increase in prolactin, increased waist circumference, increased lipids, and increased glucose. Thus routine monitoring of weight, metabolic labs, etc. is indicated. A general rank ordering of antipsychotics that have the greatest to the least risk of metabolic effects is olanzapine, quetiapine, risperidone, ziprasidone, and aripiprazole. However, weight gain can occur with all of these drugs and considerable variability exists among patients receiving the same drug regarding the risk of metabolic effects. Anti-psychotic agents not only increase the risk of metabolic disorder, they also increase the risk of CVA, akathisia, and movement disorders including EPS or tardive dyskinesia (more common with first generation antipsychotics) and more. Elderly- discussed risks, cognition, sedation, falls, metabolic, movement and atypical antipsychotics carry a black-box warning for increased risk of and cerebrovascular events in dementia. AIMS= 0 10/10/23 AIMS= 0 12/21/24 discuss medication's and options [facility] refer to therapy patient reported does not want to attend therapy educated on all medications, benefits, side effects and risk, and educated on depression, anxiety, and mood d/o and educated on compliance of medications, metabolic and movement d/o education appointment's, continue therapy discussion with patient about course of treatmentand patient instructions. [facility] rx [facility] to [facility] 2. Generalized anxiety disorder -Remeron 30 mg at bedtime educated on rx Vistaril 25 mg twice a day Buspar 5 mg twice a day therapy discuss to see CRISTAL 3. Insomnia disorder related to another mental disorder - Trazodone 200 mg at bedtime - Patient reported currently taking 4. Memory impairment -CANS/MCI. - Memory- normal functioning, Fluency- normal, SLUMS= 25 08/31/24 DISCUSS SLUMS results and medications options- patient does not want rx for memory at this time Executive functioning high functioning and 11/26/22 SLUMS- 26 completed 11/26/22 12/21/2024 Encounter for screening for depression (ICD-10 - Z13.31) 1. major depression - discuss - educated on rx all Remeron 30 mg at bedtime discuss and educated on Remeron related to decreased appetite and not sleeping and also help depression and anxiety Abilify 5 mg at night for depression - currently continue dose discuss may decrease dose in near future SSRI/SNRI side effects discussed including but not limited to, gastric upset, nausea, vomiting, diarrhea and/or constipation, weight changes, sexual side effects including loss of libido, increased suicidal thoughts/behavior s in children and young adults, and serotonin syndrome. Second generation antipsychotics (SGAs) have metabolic syndrome issues with weight gain, increase in prolactin, increased waist circumference, increased lipids, and increased glucose. Thus routine monitoring of weight, metabolic labs, etc. is indicated. A general rank ordering of antipsychotics that have the greatest to the least risk of metabolic effects is olanzapine, quetiapine, risperidone, ziprasidone, and aripiprazole. However, weight gain can occur with all of these drugs and considerable variability exists among patients receiving the same drug regarding the risk of metabolic effects. Anti-psychotic agents not only increase the risk of metabolic disorder, they also increase the risk of CVA, akathisia, and movement disorders including EPS or tardive dyskinesia (more common with first generation antipsychotics) and more. Elderly- discussed risks, cognition, sedation, falls, metabolic, movement and atypical antipsychotics carry a black-box warning for increased risk of and cerebrovascular events in dementia. AIMS= 0 10/10/23 AIMS= 0 12/21/24 discuss medication's and options [facility] refer to therapy patient reported does not want to attend therapy educated on all medications, benefits, side effects and risk, and educated on depression, anxiety, and mood d/o and educated on compliance of medications, metabolic and movement d/o education appointment's, continue therapy discussion with patient about course of treatmentand patient instructions. [facility] rx [facility] 2. Generalized anxiety disorder -Remeron 30 mg at bedtime educated on rx Vistaril 25 mg twice a day Buspar 5 mg twice a day therapy discuss to see CRISTAL 3. Insomnia disorder related to another mental disorder - Trazodone 200 mg at bedtime - Patient reported currently taking 4. Memory impairment -CANS/MCI. - Memory- normal functioning, Fluency- normal, SLUMS= 25 08/31/24 DISCUSS SLUMS results and medications options- patient does not want rx for memory at this time Executive functioning high functioning and 11/26/22 SLUMS- 26 completed 11/26/22 12/21/2024 Generalized anxiety disorder (ICD-10 - F41.1) Learning About Generalized Anxiety Disorder material was published, Generalized Anxiety Disorder: Care Instructions material was published, Learning About Anxiety Disorders material was published 1. major depression - discuss - educated on rx all Remeron 30 mg at bedtime discuss and educated on Remeron related to decreased appetite and not sleeping and also help depression and anxiety Abilify 5 mg at night for depression - currently continue dose discuss may decrease dose in near future SSRI/SNRI side effects discussed including but not limited to, gastric upset, nausea, vomiting, diarrhea and/or constipation, weight changes, sexual side effects including loss of libido, increased suicidal thoughts/behavior s in children and young adults, and serotonin syndrome. Second generation antipsychotics (SGAs) have metabolic syndrome issues with weight gain, increase in prolactin, increased waist circumference, increased lipids, and increased glucose. Thus routine monitoring of weight, metabolic labs, etc. is indicated. A general rank ordering of antipsychotics that have the greatest to the least risk of metabolic effects is olanzapine, quetiapine, risperidone, ziprasidone, and aripiprazole. However, weight gain can occur with all of these drugs and considerable variability exists among patients receiving the same drug regarding the risk of metabolic effects. Anti-psychotic agents not only increase the risk of metabolic disorder, they also increase the risk of CVA, akathisia, and movement disorders including EPS or tardive dyskinesia (more common with first generation antipsychotics) and more. Elderly- discussed risks, cognition, sedation, falls, metabolic, movement and atypical antipsychotics carry a black-box warning for increased risk of and cerebrovascular events in dementia. AIMS= 0 10/10/23 AIMS= 0 12/21/24 discuss medication's and options [facility] refer to therapy patient reported does not want to attend therapy educated on all medications, benefits, side effects and risk, and educated on depression, anxiety, and mood d/o and educated on compliance of medications, metabolic and movement d/o education appointment's, continue therapy discussion with patient about course of treatmentand patient instructions. [facility] rx [facility] 2. Generalized anxiety disorder -Remeron 30 mg at bedtime educated on rx Vistaril 25 mg twice a day Buspar 5 mg twice a day therapy discuss to see CRISTAL 3. Insomnia disorder related to another mental disorder - Trazodone 200 mg at bedtime - Patient reported currently taking 4. Memory impairment -CANS/MCI. - Memory- normal functioning, Fluency- normal, SLUMS= 25 08/31/24 DISCUSS SLUMS results and medications options- patient does not want rx for memory at this time Executive functioning high functioning and 11/26/22 SLUMS- 26 completed 11/26/22 08/31/2024 Generalized anxiety disorder (ICD-10 - F41.1) Learning About Generalized Anxiety Disorder material was published, Generalized Anxiety Disorder: Care Instructions material was published, Learning About Anxiety Disorders material was published 1. major depression - discuss - educated on rx and Remeron 30 mg at bedtime discuss and educated on Remeron related to decreased appetite and not sleeping and also help depression and anxiety Abilify 5 mg at night for depression - currently continue dose discuss may decrease dose in near future SSRI/SNRI side effects discussed including but not limited to, gastric upset, nausea, vomiting, diarrhea and/or constipation, weight changes, sexual side effects including loss of libido, increased suicidal thoughts/behavior s in children and young adults, and serotonin syndrome. Second generation antipsychotics (SGAs) have metabolic syndrome issues with weight gain, increase in prolactin, increased waist circumference, increased lipids, and increased glucose. Thus routine monitoring of weight, metabolic labs, etc. is indicated. A general rank ordering of antipsychotics that have the greatest to the least risk of metabolic effects is olanzapine, quetiapine, risperidone, ziprasidone, and aripiprazole. However, weight gain can occur with all of these drugs and considerable variability exists among patients receiving the same drug regarding the risk of metabolic effects. Anti-psychotic agents not only increase the risk of metabolic disorder, they also increase the risk of CVA, akathisia, and movement disorders including EPS or tardive dyskinesia (more common with first generation antipsychotics) and more. Elderly- discussed risks, cognition, sedation, falls, metabolic, movement and atypical antipsychotics carry a black-box warning for increased risk of and cerebrovascular events in dementia. AIMS= 0 10/10/23 discuss medication's and options [facility] refer to therapy patient reported does not want to attend therapy educated on all medications, benefits, side effects and risk, and educated on depression, anxiety, and mood d/o and educated on compliance of medications, metabolic and movement d/o education appointment's, continue therapy discussion with patient about course of treatmentand patient instructions. all rx sent to [facility] 2. Generalized anxiety disorder -Remeron 30 mg at bedtime educated on rx Vistaril 25 mg twice a day Buspar 5 mg twice a day therapy discuss to see CRISTAL 3. Insomnia disorder related to another mental disorder - Trazodone 100 mg at bedtime Melatonin 3-5 mg at bedtime OTC for insomnia- reported takes PRN 4. Memory impairment -CANS/MCI. - Memory- normal functioning, Fluency- normal, SLUMS= 25 08/31/24 DISCUSS SLUMS results and medications options- patient does not want rx for memory at this time Executive functioning high functioning and 11/26/22 SLUMS- 26 completed 11/26/22 06/08/2024 Generalized anxiety disorder (ICD-10 - F41.1) Learning About Generalized Anxiety Disorder material was published, Generalized Anxiety Disorder: Care Instructions material was published, Learning About Anxiety Disorders material was published 1. Moderate recurrent major depression - discuss - educated on rx and Remeron 30 mg at bedtime discuss and educated on Remeron related to decreased appetite and not sleeping and also help depression and anxiety Abilify 5 mg at night for depression - currently continue dose discuss may decrease dose in near future SSRI/SNRI side effects discussed including but not limited to, gastric upset, nausea, vomiting, diarrhea and/or constipation, weight changes, sexual side effects including loss of libido, increased suicidal thoughts/behavior s in children and young adults, and serotonin syndrome. Second generation antipsychotics (SGAs) have metabolic syndrome issues with weight gain, increase in prolactin, increased waist circumference, increased lipids, and increased glucose. Thus routine monitoring of weight, metabolic labs, etc. is indicated. A general rank ordering of antipsychotics that have the greatest to the least risk of metabolic effects is olanzapine, quetiapine, risperidone, ziprasidone, and aripiprazole. However, weight gain can occur with all of these drugs and considerable variability exists among patients receiving the same drug regarding the risk of metabolic effects. Anti-psychotic agents not only increase the risk of metabolic disorder, they also increase the risk of CVA, akathisia, and movement disorders including EPS or tardive dyskinesia (more common with first generation antipsychotics) and more. Elderly- discussed risks, cognition, sedation, falls, metabolic, movement and atypical antipsychotics carry a black-box warning for increased risk of and cerebrovascular events in dementia. AIMS= 0 10/10/23 discuss medication's and options [place] refer to therapy patient reported does not want to attend therapy educated on all medications, benefits, side effects and risk, and educated on depression, anxiety, and mood d/o and educated on compliance of medications, metabolic and movement d/o education appointment's, continue therapy discussion with patient about course of treatmentand patient instructions. [facility] rx [facility] 2. 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 Memory impairment -CANS/MCI. - Memory- normal functioning, Fluency- normal, Executive functioning high functioning and 11/26/22 SLUMS- 26 completed 03/23/2024 Generalized anxiety disorder (ICD-10 - F41.1) Learning About Generalized Anxiety Disorder material was published, Generalized Anxiety Disorder: Care Instructions material was published, Learning About Anxiety Disorders material was published 1. Moderate recurrent major depression - discuss - educated on rx and Remeron 30 mg at bedtime discuss and educated on Remeron related to decreased appetite and not sleeping and also help depression and anxiety Abilify 5 mg at night for depression - currently continue dose discuss may decrease dose in near future SSRI/SNRI side effects discussed including but not limited to, gastric upset, nausea, vomiting, diarrhea and/or constipation, weight changes, sexual side effects including loss of libido, increased suicidal thoughts/behavior s in children and young adults, and serotonin syndrome. Second generation antipsychotics (SGAs) have metabolic syndrome issues with weight gain, increase in prolactin, increased waist circumference, increased lipids, and increased glucose. Thus routine monitoring of weight, metabolic labs, etc. is indicated. A general rank ordering of antipsychotics that have the greatest to the least risk of metabolic effects is olanzapine, quetiapine, risperidone, ziprasidone, and aripiprazole. However, weight gain can occur with all of these drugs and considerable variability exists among patients receiving the same drug regarding the risk of metabolic effects. Anti-psychotic agents not only increase the risk of metabolic disorder, they also increase the risk of CVA, akathisia, and movement disorders including EPS or tardive dyskinesia (more common with first generation antipsychotics) and more. Elderly- discussed risks, cognition, sedation, falls, metabolic, movement and atypical antipsychotics carry a black-box warning for increased risk of and cerebrovascular events in dementia. AIMS= 0 10/10/23 discuss medication's and options [place] [facility] refer to therapy patient reported does not want to attend therapy educated on all medications, benefits, side effects and risk, and educated on depression, anxiety, and mood d/o and educated on compliance of medications, metabolic and movement d/o education appointment's, continue therapy discussion with patient about course of treatmentand patient instructions. all rx sent to [place] Abilify 5 mg tablet - Take 1 tablet(s) every day by oral route at bedtime 2. 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 Memory impairment -CANS/MCI. - Memory- normal functioning, Fluency- normal, Executive functioning high functioning and 11/26/22 SLUMS- 26 completed 03/23/2024 Insomnia due to other mental disorder (ICD-10 - F51.05) 1. Moderate recurrent major depression - discuss - educated on rx and Remeron 30 mg at bedtime discuss and educated on Remeron related to decreased appetite and not sleeping and also help depression and anxiety Abilify 5 mg at night for depression - currently continue dose discuss may decrease dose in near future SSRI/SNRI side effects discussed including but not limited to, gastric upset, nausea, vomiting, diarrhea and/or constipation, weight changes, sexual side effects including loss of libido, increased suicidal thoughts/behavior s in children and young adults, and serotonin syndrome. Second generation antipsychotics (SGAs) have metabolic syndrome issues with weight gain, increase in prolactin, increased waist circumference, increased lipids, and increased glucose. Thus routine monitoring of weight, metabolic labs, etc. is indicated. A general rank ordering of antipsychotics that have the greatest to the least risk of metabolic effects is olanzapine, quetiapine, risperidone, ziprasidone, and aripiprazole. However, weight gain can occur with all of these drugs and considerable variability exists among patients receiving the same drug regarding the risk of metabolic effects. Anti-psychotic agents not only increase the risk of metabolic disorder, they also increase the risk of CVA, akathisia, and movement disorders including EPS or tardive dyskinesia (more common with first generation antipsychotics) and more. Elderly- discussed risks, cognition, sedation, falls, metabolic, movement and atypical antipsychotics carry a black-box warning for increased risk of and cerebrovascular events in dementia. AIMS= 0 10/10/23 discuss medication's and options [facility] refer to therapy patient reported does not want to attend therapy educated on all medications, benefits, side effects and risk, and educated on depression, anxiety, and mood d/o and educated on compliance of medications, metabolic and movement d/o education appointment's, continue therapy discussion with patient about course of treatmentand patient instructions. all rx sent to [place] Abilify 5 mg tablet - Take 1 tablet(s) every day by oral route at bedtime 2. Generalized anxiety disorder -Remeron 30 mg at bedtime educated on rx increase Vistaril 25 mg twice a day Buspar 5 mg twice a day therapy discuss to see CRISTLA 3. Insomnia disorder related to another mental disorder - Trazodone 100 mg at bedtime Melatonin 3-5 mg at bedtime OTC for insomnia- reported takes PRN Pharmacy: [facility] 4. Memory impairment -CANS/MCI. - Memory- normal functioning, Fluency- normal, Executive functioning high functioning and 11/26/22 SLUMS- 26 completed 06/08/2024 Insomnia due to other mental disorder (ICD-10 - F51.05) 1. Moderate recurrent major depression - discuss - educated on rx and Remeron 30 mg at bedtime discuss and educated on Remeron related to decreased appetite and not sleeping and also help depression and anxiety Abilify 5 mg at night for depression - currently continue dose discuss may decrease dose in near future SSRI/SNRI side effects discussed including but not limited to, gastric upset, nausea, vomiting, diarrhea and/or constipation, weight changes, sexual side effects including loss of libido, increased suicidal thoughts/behavior s in children and young adults, and serotonin syndrome. Second generation antipsychotics (SGAs) have metabolic syndrome issues with weight gain, increase in prolactin, increased waist circumference, increased lipids, and increased glucose. Thus routine monitoring of weight, metabolic labs, etc. is indicated. A general rank ordering of antipsychotics that have the greatest to the least risk of metabolic effects is olanzapine, quetiapine, risperidone, ziprasidone, and aripiprazole. However, weight gain can occur with all of these drugs and considerable variability exists among patients receiving the same drug regarding the risk of metabolic effects. Anti-psychotic agents not only increase the risk of metabolic disorder, they also increase the risk of CVA, akathisia, and movement disorders including EPS or tardive dyskinesia (more common with first generation antipsychotics) and more. Elderly- discussed risks, cognition, sedation, falls, metabolic, movement and atypical antipsychotics carry a black-box warning for increased risk of and cerebrovascular events in dementia. AIMS= 0 10/10/23 discuss medication's and options [facility] refer to therapy patient reported does not want to attend therapy educated on all medications, benefits, side effects and risk, and educated on depression, anxiety, and mood d/o and educated on compliance of medications, metabolic and movement d/o education appointment's, continue therapy discussion with patient about course of treatmentand patient instructions. all rx [facility] to [facility] 2. 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 Memory impairment -CANS/MCI. - Memory- normal functioning, Fluency- normal, Executive functioning high functioning and 11/26/22 SLUMS- 26 completed 08/31/2024 Insomnia due to other mental disorder (ICD-10 - F51.05) 1. major depression - discuss - educated on rx and Remeron 30 mg at bedtime discuss and educated on Remeron related to decreased appetite and not sleeping and also help depression and anxiety Abilify 5 mg at night for depression - currently continue dose discuss may decrease dose in near future SSRI/SNRI side effects discussed including but not limited to, gastric upset, nausea, vomiting, diarrhea and/or constipation, weight changes, sexual side effects including loss of libido, increased suicidal thoughts/behavior s in children and young adults, and serotonin syndrome. Second generation antipsychotics (SGAs) have metabolic syndrome issues with weight gain, increase in prolactin, increased waist circumference, increased lipids, and increased glucose. Thus routine monitoring of weight, metabolic labs, etc. is indicated. A general rank ordering of antipsychotics that have the greatest to the least risk of metabolic effects is olanzapine, quetiapine, risperidone, ziprasidone, and aripiprazole. However, weight gain can occur with all of these drugs and considerable variability exists among patients receiving the same drug regarding the risk of metabolic effects. Anti-psychotic agents not only increase the risk of metabolic disorder, they also increase the risk of CVA, akathisia, and movement disorders including EPS or tardive dyskinesia (more common with first generation antipsychotics) and more. Elderly- discussed risks, cognition, sedation, falls, metabolic, movement and atypical antipsychotics carry a black-box warning for increased risk of and cerebrovascular events in dementia. AIMS= 0 10/10/23 discuss medication's and options [facility] refer to therapy patient reported does not want to attend therapy educated on all medications, benefits, side effects and risk, and educated on depression, anxiety, and mood d/o and educated on compliance of medications, metabolic and movement d/o education appointment's, continue therapy discussion with patient about course of treatmentand patient instructions. all rx [facility] 2. Generalized anxiety disorder -Remeron 30 mg at bedtime educated on rx Vistaril 25 mg twice a day Buspar 5 mg twice a day therapy discuss to see CRISTAL 3. Insomnia disorder related to another mental disorder - Trazodone 100 mg at bedtime Melatonin 3-5 mg at bedtime OTC for insomnia- reported takes PRN 4. Memory impairment -CANS/MCI. - Memory- normal functioning, Fluency- normal, SLUMS= 25 08/31/24 DISCUSS SLUMS results and medications options- patient does not want rx for memory at this time Executive functioning high functioning and 11/26/22 SLUMS- 26 completed 11/26/22 12/21/2024 Insomnia due to other mental disorder (ICD-10 - F51.05) 1. major depression - discuss - educated on rx all Remeron 30 mg at bedtime discuss and educated on Remeron related to decreased appetite and not sleeping and also help depression and anxiety Abilify 5 mg at night for depression - currently continue dose discuss may decrease dose in near future SSRI/SNRI side effects discussed including but not limited to, gastric upset, nausea, vomiting, diarrhea and/or constipation, weight changes, sexual side effects including loss of libido, increased suicidal thoughts/behavior s in children and young adults, and serotonin syndrome. Second generation antipsychotics (SGAs) have metabolic syndrome issues with weight gain, increase in prolactin, increased waist circumference, increased lipids, and increased glucose. Thus routine monitoring of weight, metabolic labs, etc. is indicated. A general rank ordering of antipsychotics that have the greatest to the least risk of metabolic effects is olanzapine, quetiapine, risperidone, ziprasidone, and aripiprazole. However, weight gain can occur with all of these drugs and considerable variability exists among patients receiving the same drug regarding the risk of metabolic effects. Anti-psychotic agents not only increase the risk of metabolic disorder, they also increase the risk of CVA, akathisia, and movement disorders including EPS or tardive dyskinesia (more common with first generation antipsychotics) and more. Elderly- discussed risks, cognition, sedation, falls, metabolic, movement and atypical antipsychotics carry a black-box warning for increased risk of and cerebrovascular events in dementia. AIMS= 0 10/10/23 AIMS= 0 12/21/24 discuss medication's and options [facility] refer to therapy patient reported does not want to attend therapy educated on all medications, benefits, side effects and risk, and educated on depression, anxiety, and mood d/o and educated on compliance of medications, metabolic and movement d/o education appointment's, continue therapy discussion with patient about course of treatmentand patient instructions. all rx [facility] to [facility] 2. Generalized anxiety disorder -Remeron 30 mg at bedtime educated on rx Vistaril 25 mg twice a day Buspar 5 mg twice a day therapy discuss to see CRISTAL 3. Insomnia disorder related to another mental disorder - Trazodone 200 mg at bedtime - Patient reported currently taking 4. Memory impairment -CANS/MCI. - Memory- normal functioning, Fluency- normal, SLUMS= 25 08/31/24 DISCUSS SLUMS results and medications options- patient does not want rx for memory at this time Executive functioning high functioning and 11/26/22 SLUMS- 26 completed 11/26/22 12/21/2024 Other amnesia (ICD-10 - R41.3) 1. major depression - discuss - educated on rx all Remeron 30 mg at bedtime discuss and educated on Remeron related to decreased appetite and not sleeping and also help depression and anxiety Abilify 5 mg at night for depression - currently continue dose discuss may decrease dose in near future SSRI/SNRI side effects discussed including but not limited to, gastric upset, nausea, vomiting, diarrhea and/or constipation, weight changes, sexual side effects including loss of libido, increased suicidal thoughts/behavior s in children and young adults, and serotonin syndrome. Second generation antipsychotics (SGAs) have metabolic syndrome issues with weight gain, increase in prolactin, increased waist circumference, increased lipids, and increased glucose. Thus routine monitoring of weight, metabolic labs, etc. is indicated. A general rank ordering of antipsychotics that have the greatest to the least risk of metabolic effects is olanzapine, quetiapine, risperidone, ziprasidone, and aripiprazole. However, weight gain can occur with all of these drugs and considerable variability exists among patients receiving the same drug regarding the risk of metabolic effects. Anti-psychotic agents not only increase the risk of metabolic disorder, they also increase the risk of CVA, akathisia, and movement disorders including EPS or tardive dyskinesia (more common with first generation antipsychotics) and more. Elderly- discussed risks, cognition, sedation, falls, metabolic, movement and atypical antipsychotics carry a black-box warning for increased risk of and cerebrovascular events in dementia. AIMS= 0 10/10/23 AIMS= 0 12/21/24 discuss medication's and options [facility] refer to therapy patient reported does not want to attend therapy educated on all medications, benefits, side effects and risk, and educated on depression, anxiety, and mood d/o and educated on compliance of medications, metabolic and movement d/o education appointment's, continue therapy discussion with patient about course of treatmentand patient instructions. all rx [facility] 2. Generalized anxiety disorder -Remeron 30 mg at bedtime educated on rx Vistaril 25 mg twice a day Buspar 5 mg twice a day therapy discuss to see CRISTAL 3. Insomnia disorder related to another mental disorder - Trazodone 200 mg at bedtime - Patient reported currently taking 4. Memory impairment -CANS/MCI. - Memory- normal functioning, Fluency- normal, SLUMS= 25 08/31/24 DISCUSS SLUMS results and medications options- patient does not want rx for memory at this time Executive functioning high functioning and 11/26/22 SLUMS- 26 completed 11/26/22 08/31/2024 Other amnesia (ICD-10 - R41.3) 1. major depression - discuss - educated on rx and Remeron 30 mg at bedtime discuss and educated on Remeron related to decreased appetite and not sleeping and also help depression and anxiety Abilify 5 mg at night for depression - currently continue dose discuss may decrease dose in near future SSRI/SNRI side effects discussed including but not limited to, gastric upset, nausea, vomiting, diarrhea and/or constipation, weight changes, sexual side effects including loss of libido, increased suicidal thoughts/behavior s in children and young adults, and serotonin syndrome. Second generation antipsychotics (SGAs) have metabolic syndrome issues with weight gain, increase in prolactin, increased waist circumference, increased lipids, and increased glucose. Thus routine monitoring of weight, metabolic labs, etc. is indicated. A general rank ordering of antipsychotics that have the greatest to the least risk of metabolic effects is olanzapine, quetiapine, risperidone, ziprasidone, and aripiprazole. However, weight gain can occur with all of these drugs and considerable variability exists among patients receiving the same drug regarding the risk of metabolic effects. Anti-psychotic agents not only increase the risk of metabolic disorder, they also increase the risk of CVA, akathisia, and movement disorders including EPS or tardive dyskinesia (more common with first generation antipsychotics) and more. Elderly- discussed risks, cognition, sedation, falls, metabolic, movement and atypical antipsychotics carry a black-box warning for increased risk of and cerebrovascular events in dementia. AIMS= 0 10/10/23 discuss medication's and options [facility] refer to therapy patient reported does not want to attend therapy educated on all medications, benefits, side effects and risk, and educated on depression, anxiety, and mood d/o and educated on compliance of medications, metabolic and movement d/o education appointment's, continue therapy discussion with patient about course of treatmentand patient instructions. all rx [facility] 2. Generalized anxiety disorder -Remeron 30 mg at bedtime educated on rx Vistaril 25 mg twice a day Buspar 5 mg twice a day therapy discuss to see CRISTAL 3. Insomnia disorder related to another mental disorder - Trazodone 100 mg at bedtime Melatonin 3-5 mg at bedtime OTC for insomnia- reported takes PRN 4. Memory impairment -CANS/MCI. - Memory- normal functioning, Fluency- normal, SLUMS= 25 08/31/24 DISCUSS SLUMS results and medications options- patient does not want rx for memory at this time Executive functioning high functioning and 11/26/22 SLUMS- 26 completed 11/26/22 06/08/2024 Other amnesia (ICD-10 - R41.3) 1. Moderate recurrent major depression - discuss - educated on rx and Remeron 30 mg at bedtime discuss and educated on Remeron related to decreased appetite and not sleeping and also help depression and anxiety Abilify 5 mg at night for depression - currently continue dose discuss may decrease dose in near future SSRI/SNRI side effects discussed including but not limited to, gastric upset, nausea, vomiting, diarrhea and/or constipation, weight changes, sexual side effects including loss of libido, increased suicidal thoughts/behavior s in children and young adults, and serotonin syndrome. Second generation antipsychotics (SGAs) have metabolic syndrome issues with weight gain, increase in prolactin, increased waist circumference, increased lipids, and increased glucose. Thus routine monitoring of weight, metabolic labs, etc. is indicated. A general rank ordering of antipsychotics that have the greatest to the least risk of metabolic effects is olanzapine, quetiapine, risperidone, ziprasidone, and aripiprazole. However, weight gain can occur with all of these drugs and considerable variability exists among patients receiving the same drug regarding the risk of metabolic effects. Anti-psychotic agents not only increase the risk of metabolic disorder, they also increase the risk of CVA, akathisia, and movement disorders including EPS or tardive dyskinesia (more common with first generation antipsychotics) and more. Elderly- discussed risks, cognition, sedation, falls, metabolic, movement and atypical antipsychotics carry a black-box warning for increased risk of and cerebrovascular events in dementia. AIMS= 0 10/10/23 discuss medication's and options [facility] refer to therapy patient reported does not want to attend therapy educated on all medications, benefits, side effects and risk, and educated on depression, anxiety, and mood d/o and educated on compliance of medications, metabolic and movement d/o education appointment's, continue therapy discussion with patient about course of treatmentand patient instructions. [facility] 2. 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 Memory impairment -CANS/MCI. - Memory- normal functioning, Fluency- normal, Executive functioning high functioning and 11/26/22 SLUMS- 26 completed 03/23/2024 Other amnesia (ICD-10 - R41.3) 1. Moderate recurrent major depression - discuss - educated on rx and Remeron 30 mg at bedtime discuss and educated on Remeron related to decreased appetite and not sleeping and also help depression and anxiety Abilify 5 mg at night for depression - currently continue dose discuss may decrease dose in near future SSRI/SNRI side effects discussed including but not limited to, gastric upset, nausea, vomiting, diarrhea and/or constipation, weight changes, sexual side effects including loss of libido, increased suicidal thoughts/behavior s in children and young adults, and serotonin syndrome. Second generation antipsychotics (SGAs) have metabolic syndrome issues with weight gain, increase in prolactin, increased waist circumference, increased lipids, and increased glucose. Thus routine monitoring of weight, metabolic labs, etc. is indicated. A general rank ordering of antipsychotics that have the greatest to the least risk of metabolic effects is olanzapine, quetiapine, risperidone, ziprasidone, and aripiprazole. However, weight gain can occur with all of these drugs and considerable variability exists among patients receiving the same drug regarding the risk of metabolic effects. Anti-psychotic agents not only increase the risk of metabolic disorder, they also increase the risk of CVA, akathisia, and movement disorders including EPS or tardive dyskinesia (more common with first generation antipsychotics) and more. Elderly- discussed risks, cognition, sedation, falls, metabolic, movement and atypical antipsychotics carry a black-box warning for increased risk of and cerebrovascular events in dementia. AIMS= 0 10/10/23 discuss medication's and options [facility] refer to therapy patient reported does not want to attend therapy educated on all medications, benefits, side effects and risk, and educated on depression, anxiety, and mood d/o and educated on compliance of medications, metabolic and movement d/o education appointment's, continue therapy discussion with patient about course of treatmentand patient instructions. all rx sent to [facility] Abilify 5 mg tablet - Take 1 tablet(s) every day by oral route at bedtime 2. 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 Memory impairment -CANS/MCI. - Memory- normal functioning, Fluency- normal, Executive functioning high functioning and 11/26/22 SLUMS- 26 completed 12/21/2024 Encounter for screening for cardiovascular disorders (ICD-10 - Z13.6) 1. major depression - discuss - educated on rx all Remeron 30 mg at bedtime discuss and educated on Remeron related to decreased appetite and not sleeping and also help depression and anxiety Abilify 5 mg at night for depression - currently continue dose discuss may decrease dose in near future SSRI/SNRI side effects discussed including but not limited to, gastric upset, nausea, vomiting, diarrhea and/or constipation, weight changes, sexual side effects including loss of libido, increased suicidal thoughts/behavior s in children and young adults, and serotonin syndrome. Second generation antipsychotics (SGAs) have metabolic syndrome issues with weight gain, increase in prolactin, increased waist circumference, increased lipids, and increased glucose. Thus routine monitoring of weight, metabolic labs, etc. is indicated. A general rank ordering of antipsychotics that have the greatest to the least risk of metabolic effects is olanzapine, quetiapine, risperidone, ziprasidone, and aripiprazole. However, weight gain can occur with all of these drugs and considerable variability exists among patients receiving the same drug regarding the risk of metabolic effects. Anti-psychotic agents not only increase the risk of metabolic disorder, they also increase the risk of CVA, akathisia, and movement disorders including EPS or tardive dyskinesia (more common with first generation antipsychotics) and more. Elderly- discussed risks, cognition, sedation, falls, metabolic, movement and atypical antipsychotics carry a black-box warning for increased risk of and cerebrovascular events in dementia. AIMS= 0 10/10/23 AIMS= 0 12/21/24 discuss medication's and options [facility] refer to therapy patient reported does not want to attend therapy educated on all medications, benefits, side effects and risk, and educated on depression, anxiety, and mood d/o and educated on compliance of medications, metabolic and movement d/o education appointment's, continue therapy discussion with patient about course of treatmentand patient instructions. [facility] 2. Generalized anxiety disorder -Remeron 30 mg at bedtime educated on rx Vistaril 25 mg twice a day Buspar 5 mg twice a day therapy discuss to see CRISTAL 3. Insomnia disorder related to another mental disorder - Trazodone 200 mg at bedtime - Patient reported currently taking 4. Memory impairment -CANS/MCI. - Memory- normal functioning, Fluency- normal, SLUMS= 25 08/31/24 DISCUSS SLUMS results and medications options- patient does not want rx for memory at this time Executive functioning high functioning and 11/26/22 SLUMS- 26 completed 11/26/22 03/23/2024 Other referral to the local chapter or national office of the Alzheimer's Association ( ; http://www.alz. org), the Alzheimer's Disease Education and Referral Center (ADEAR) ( ; http://www.marshall. nih.gov/Alzheim ers/), 1. Moderate recurrent major depression - discuss - educated on rx and Remeron 30 mg at bedtime discuss and educated on Remeron related to decreased appetite and not sleeping and also help depression and anxiety Abilify 5 mg at night for depression - currently continue dose discuss may decrease dose in near future SSRI/SNRI side effects discussed including but not limited to, gastric upset, nausea, vomiting, diarrhea and/or constipation, weight changes, sexual side effects including loss of libido, increased suicidal thoughts/behavior s in children and young adults, and serotonin syndrome. Second generation antipsychotics (SGAs) have metabolic syndrome issues with weight gain, increase in prolactin, increased waist circumference, increased lipids, and increased glucose. Thus routine monitoring of weight, metabolic labs, etc. is indicated. A general rank ordering of antipsychotics that have the greatest to the least risk of metabolic effects is olanzapine, quetiapine, risperidone, ziprasidone, and aripiprazole. However, weight gain can occur with all of these drugs and considerable variability exists among patients receiving the same drug regarding the risk of metabolic effects. Anti-psychotic agents not only increase the risk of metabolic disorder, they also increase the risk of CVA, akathisia, and movement disorders including EPS or tardive dyskinesia (more common with first generation antipsychotics) and more. Elderly- discussed risks, cognition, sedation, falls, metabolic, movement and atypical antipsychotics carry a black-box warning for increased risk of and cerebrovascular events in dementia. AIMS= 0 10/10/23 discuss medication's and options [facility] refer to therapy patient reported does not want to attend therapy educated on all medications, benefits, side effects and risk, and educated on depression, anxiety, and mood d/o and educated on compliance of medications, metabolic and movement d/o education appointment's, continue therapy discussion with patient about course of treatmentand patient instructions. all rx sent to [facility] Abilify 5 mg tablet - Take 1 tablet(s) every day by oral route at bedtime 2. 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 Memory impairment -CANS/MCI. - Memory- normal functioning, Fluency- normal, Executive functioning high functioning and 11/26/22 SLUMS- 26 completed 08/31/2024 Other referral to the local chapter or national office of the Alzheimer's Association ( ; http://www.alz. org), the Alzheimer's Disease Education and Referral Center (ADEAR) ( ; http://www.[place]. nih.gov/Alzheim ers/), 1. major depression - discuss - educated on rx and Remeron 30 mg at bedtime discuss and educated on Remeron related to decreased appetite and not sleeping and also help depression and anxiety Abilify 5 mg at night for depression - currently continue dose discuss may decrease dose in near future SSRI/SNRI side effects discussed including but not limited to, gastric upset, nausea, vomiting, diarrhea and/or constipation, weight changes, sexual side effects including loss of libido, increased suicidal thoughts/behavior s in children and young adults, and serotonin syndrome. Second generation antipsychotics (SGAs) have metabolic syndrome issues with weight gain, increase in prolactin, increased waist circumference, increased lipids, and increased glucose. Thus routine monitoring of weight, metabolic labs, etc. is indicated. A general rank ordering of antipsychotics that have the greatest to the least risk of metabolic effects is olanzapine, quetiapine, risperidone, ziprasidone, and aripiprazole. However, weight gain can occur with all of these drugs and considerable variability exists among patients receiving the same drug regarding the risk of metabolic effects. Anti-psychotic agents not only increase the risk of metabolic disorder, they also increase the risk of CVA, akathisia, and movement disorders including EPS or tardive dyskinesia (more common with first generation antipsychotics) and more. Elderly- discussed risks, cognition, sedation, falls, metabolic, movement and atypical antipsychotics carry a black-box warning for increased risk of and cerebrovascular events in dementia. AIMS= 0 10/10/23 discuss medication's and options [facility] refer to therapy patient reported does not want to attend therapy educated on all medications, benefits, side effects and risk, and educated on depression, anxiety, and mood d/o and educated on compliance of medications, metabolic and movement d/o education appointment's, continue therapy discussion with patient about course of treatmentand patient instructions. [facility] 2. Generalized anxiety disorder -Remeron 30 mg at bedtime educated on rx Vistaril 25 mg twice a day Buspar 5 mg twice a day therapy discuss to see CRISTAL 3. Insomnia disorder related to another mental disorder - Trazodone 100 mg at bedtime Melatonin 3-5 mg at bedtime OTC for insomnia- reported takes PRN 4. Memory impairment -CANS/MCI. - Memory- normal functioning, Fluency- normal, SLUMS= 25 08/31/24 DISCUSS SLUMS results and medications options- patient does not want rx for memory at this time Executive functioning high functioning and 11/26/22 SLUMS- 26 completed 11/26/22 Plan Of Treatment Next Appt Details Provider Name:Blanquita Lockwood , 03/22/2025 11:15:00 AM, [address], [address], [place], [address], Insurance Providers Payer Name Payer Address Payer Phone Subscriber Number Group Number Insured Name Patient Relationship to Insured Coverage Start Date Coverage End Date Medicare-I l Medicare [address] [place] [address] [id number] JAYLIN WISE Self - patient is the insured [facility] [address] [place] [address] [id number] JAYLIN WISE Self - patient is the insured Medical (General) History Medical History History ICD Code Problems: Generalized anxiety disorder Insomnia disorder related to another men florencia disorder Memory impairment Moderate recurrent major depression , Past Psychiatric Hospitaliza tions: Y Anxiety Disorder: Y Depression Major: Y Panic Episodes: Y Asthma: Y Blood Transfusions: Y CVA / Stroke: Y GERD/Reflux: Y Gastric ulcer: Y Headaches: Y Hypertension: Y Hyperthyroidism: Y Obesity: Y Osteoarthritis: Y Osteoporosis: Y Stroke: Y Surgical History Surgery Date(Month/Year)
--- OUTSIDE RECORDS SUMMARY | 2025-02-07 12:04 | XMS_ITS | Clinical Summary ---
Author Organization [facility] Address [address] [place] [address] Care Team Providers Care Energy Consultant Name Role Phone Govind Oliva PA-C Primary Care Provider [phone] Allergies Active Allergy Reactions Criticality Noted Date [...] - 2023-2 5 season) 2024 PHQ-2 (Physician Tejon) 07/21/2024 DTaP, Tdap and Td Vaccines ( [...] age to complete this topic Insurance MEDICARE [facility] Care Teams Energy Consultant Relationship Specialty Start Date End Date Govind Oliva PA-C [address] [facility] [address] [place] [address] PCP - General PHYSICIAN BREAD RACKER 10/24/22
--- OUTSIDE RECORDS SUMMARY | 2025-02-07 12:04 | XMS_ITS | Referral Summary ---
Author Organization [facility] Address [address] [place] [address] Care Team Providers Care Customer Contact Sales Associate Name Role Phone Govind Oliva Primary Care Provider Hong Silva MD Unavailable [phone] Allergies Active Allergy Reactions Criticality Noted Date Comments Adhesive Rash,Unknown Medium 03/08/2019 Gabapentin Hallucinations Medium 03/08/2019 Pentazocine Hallucinations Medium 03/08/2019 Medications levothyroxine (SYNTHROID) 75 mcg tablet Take 1 tablet (75 mcg total) by mouth plumbing installer before breakfast Active atorvastatin (LIPITOR) 40 mg [...] (08/17/2020): Added automatically from request for surgery [id number] Lumbosacral radiculopathy 08/17/2020 Overview (08/17/2020): Added automatically from request for surgery [id number] Closed fracture of tibial pl ateau with [...] Comments Blood Pressure 114/42 07/23/2023 7:24 AM TAPER MACHINE Pulse 68 07/23/2023 7:24 AM TAPER MACHINE Temperature 36.4 C (97.5 F) 07/23/2023 7:24 AM TAPER MACHINE Respiratory Rate 18 07/23/2023 7:24 AM TAPER MACHINE Oxygen Saturation 95% 07/23/2023 7:24 AM TAPER MACHINE Inhaled Oxygen Concentration - - Weight 81.6 kg (180 lb) 07/21/2023 6:40 PM TAPER MACHINE Height 160 cm (5' 3) 07/14/2023 2:02 PM TAPER MACHINE Body Mass Index 31.89 07/14/2023 2:02 PM TAPER MACHINE Plan of Treatment Not on file Medical Devices Implanted Type Area Track Layer Head Device Identifier Shelf Expiration Date Model / Serial / Lot [employer] [id number] Vascade 6/7fr Bioabsorbable Vascular System Compression Collagen - [id number] - [id number] Implanted:Qty: 1 on 11/09/2019 by Trever Polanco MD at [facility] PDA Closure Device Left: Femoral [employer] 09/07/2021 [id number] -[id number] / [id number] / [id number] [employer] [id number] Ananda 3 26mm Transcatheter Valve Aortic Bovine Sterile - [id number] - [id number] Implanted:Qty: 1 on 11/09/2019 by Trever Polanco MD at [facility] Prosthetic Valve N/A: Heart [employer] 05/02/2021 [id number] / [id number] / [id number] Medtronic Inc 8780 Ascenda 4fr .5mm 114cm 86cm 2 Piece Connector Pin Flexible Closed - [id number] Implanted:Qty: 1 on 09/22/2020 by Suzanne Gonsalez MD at [facility] [employer] 09/20/2021 8780 / / [id number] Medtronic Neuro 8637-20 Synchromed Ii .78in Veneta Filter Mesh Pouch Programmable - [id number] - [id number] Implanted:Qty: 1 on 09/22/2020 by Suzanne Gonsalez MD at [facility] [employer] 02/14/2022 8637-20 / [id number] / Description:Pt knows pump mu st be checked post MRI JL 10/22/22 8785 Ascenda Implanted:Qty: 1 on 09/22/2020 by Suzanne Gonsalez MD at [facility] N/A: Back [employer] 09/13/2021 8785 / NA / [id number] Description:[facility] ITEM# [id number] IS ACTIVE IN [facility] Procedures Procedure Name Priority Date/Time Associated Diagnosis Comments DEXA AXIAL SKELETON BONE DENSITY 1 OR MORE SITES Schedule Routine, Read Routine (OP Routine) 12/02/2022 10:51 AM CDT Closed compression fracture of body of L1 vertebra (HCC) Age-related osteoporosis with current pathological fracture of vertebra, initial encounter ([facility]) Cervicalgia Dorsalgia, unspecified Chronic pain [...] Bone mineral density was performed on a [employer] Discovery Densitometer. Based on machine cross-calibration and [...] mineral density scan were prepared by Janeth Medina)([facility]) who is accredited by the International Society of Clinical Densitometry. The overall patient assessment and scan interpretation were performed by Lenny De Leon M.D. who is certified by the International Society of Clinical Densitometry. [id number] Srinivasa SIDHU IMG DXA PROCEDURES Final Result from Last 3 Months or Most Recently Relevant to Health Maintenance Insurance MEDICARE [facility] TRADITIONAL TRADITIONAL [place] TRADITIONAL [place] MEDICARE MEDICARE [facility] TRADITIONAL [place] TRADITIONAL OOS MEDICARE Advance Directives For more information, please contact: [phone] Documents on File Type Date Recorded Patient Day Care Home Provider Expl anation ADVANCE DIRECTIVE 11/05/2019 2:22 PM [...] in Law Health Care Agent Care Teams Customer Contact Sales Associate Relationship Specialty Start Date End Date Govind Oliva PA [address] [place] [address] PCP - General 03/08/19 Hong Silva MD [address] [place] [address] Consulting Physician Cardiothoracic Surgery 11/09/19
--- OUTSIDE RECORDS SUMMARY | 2025-02-07 12:04 | XMS_ITS | Clinical Summary ---
Author Organization [facility] Address [address] [place] [address] Care Team Providers Care Sales Review Clerk Name Role Phone Govind Oliva Primary Care Provider Hong Silva MD Unavailable [phone] Allergies Active Allergy Reactions Criticality Noted Date Comments Adhesive Rash,Unknown Medium 03/08/2019 Gabapentin Hallucinations Medium 03/08/2019 Pentazocine Hallucinations Medium 03/08/2019 Medications levothyroxine (SYNTHROID) 75 mcg tablet Take 1 tablet (75 mcg total) by mouth foreman/pile driving and erection before breakfast Active atorvastatin (LIPITOR) 40 mg [...] (08/17/2020): Added automatically from request for surgery [id number] Lumbosacral radiculopathy 08/17/2020 Overview (08/17/2020): Added automatically from request for surgery [id number] Closed fracture of tibial pl ateau with [...] Peptic ulceration 2001 DVT (deep venous thrombosis) ([facility]) 1989 right leg Arthritis Herpes [...] Comments Blood Pressure 114/42 07/23/2023 7:24 AM DIE BARBER Pulse 68 07/23/2023 7:24 AM DIE BARBER Temperature 36.4 C (97.5 F) 07/23/2023 7:24 AM DIE BARBER Respiratory Rate 18 07/23/2023 7:24 AM DIE BARBER Oxygen Saturation 95% 07/23/2023 7:24 AM DIE BARBER Inhaled Oxygen Concentration - - Weight 81.6 kg (180 lb) 07/21/2023 6:40 PM DIE BARBER Height 160 cm (5' 3) 07/14/2023 2:02 PM DIE BARBER Body Mass Index 31.89 07/14/2023 2:02 PM DIE BARBER Plan of Treatment Health Maintenance Due Date Last Done Comments Depression Screening 1945 DTaP/Tdap/Td Vaccine (1 - Tdap) 11/09/1954 Hepatitis B Screening 11/09/1961 Pneumococcal vaccine 65+ (1 of 1 - PCV) 11/09/1993 Zoster Vaccine (1 of 2) 11/09/1993 Well Visit 65+ 11/09/2008 Fall Risk Assessment 07/23/2024 07/23/2023 Osteoporosis Screening-Bone Density Scan 12/02/2024 12/02/2022 Influenza Vaccine (Season Ended) 2025 Medical Devices Implanted Type Area Warehouse Order Puller Device Identifier Shelf Expiration Date Model / Serial / Lot [employer] [id number] Vascade 6/7fr Bioabsorbable Vascular System Compression Collagen - [id number] - [id number] Implanted:Qty: 1 on 11/09/2019 by Trever Polanco MD at [facility] PDA Closure Device Left: Femoral [employer] 09/07/2021 [id number] -[id number] / [id number] / [id number] [employer] [id number] Ananda 3 26mm Transcatheter Valve Aortic Bovine Sterile - [id number] - [id number] Implanted:Qty: 1 on 11/09/2019 by Trever Polanco MD at [facility] Prosthetic Valve N/A: Heart [employer] 05/02/2021 [id number] / [id number] / [id number] Med[employer] Inc 8780 Ascenda 4fr .5mm 114cm 86cm 2 Piece Connector Pin Flexible Closed - [id number] Implanted:Qty: 1 on 09/22/2020 by Suzanne Gonsalez MD at [facility] [employer] 09/20/2021 8780 / / [id number] Medtronic Neuro 8637-20 Synchromed Ii .78in [place] Filter Mesh Pouch Programmable - [id number] - [id number] Implanted:Qty: 1 on 09/22/2020 by Suzanne Gonsalez MD at [facility] [employer] 02/14/2022 8637-20 / [id number] / Description:Pt knows pump mu st be checked post MRI JL 10/22/22 8785 Ascenda Implanted:Qty: 1 on 09/22/2020 by Suzanne Gonsalez MD at [facility] N/A: Back [employer] 09/13/2021 8785 / NA / [id number] Description:[facility] ITEM# [id number] IS ACTIVE IN [facility] Procedures Procedure Name Priority Date/Time Associated Diagnosis Comments DEXA AXIAL SKELETON BONE DENSITY 1 OR MORE SITES Schedule Routine, Read Routine (OP Routine) 12/02/2022 10:51 AM CDT Closed compression fracture of body of L1 vertebra (HCC) Age-related osteoporosis with current pathological fracture of vertebra, initial encounter ([facility]) Cervicalgia Dorsalgia, unspecified Chronic pain [...] mineral density scan were prepared by Janeth Medina)([facility]) who is accredited by the International Society of Clinical Densitometry. The overall patient assessment and scan interpretation were performed by Lenny De Leon M.D. who is certified by the International Society of Clinical Densitometry. [id number] Srinivasa SIDHU IM DXA PROCEDURES Final Result from Last 3 Months or Most Recently Relevant to Health Maintenance Insurance MEDICARE [facility] TRADITIONAL TRADITIONAL [place] TRADITIONAL OOS MEDICARE MEDICARE [facility] TRADITIONAL [facility] MEDICARE Advance Directives For more information, please contact: [phone] Documents on File Type Date Recorded Patient Filter Tank Operator Expl anation ADVANCE DIRECTIVE 11/05/2019 2:22 PM [...] in Law Health Care Agent Care Teams Sales Review Clerk Relationship Specialty Start Date End Date Govind Oliva PA [address] [place] [address] PCP - General 03/08/19 Hong Silva MD [address] [place] [address] Consulting Physician Cardiothoracic Surgery 11/09/19
== END 2025-02-07 11:59 | disposition home or self-care (01) ==
PROVIDERS: PCP Internal Medicine; Visit Provider Internal Medicine Endocrinology, Diabetes & Metabolism
DX: Z78.0 Asymptomatic menopausal state (principal); M85.88 Other specified disorders of bone density and structure, other site
CPT/HCPCS: 77080

== ENCOUNTER 2025-05-11 00:21 | Day surgery (SDC) | payer MEDICARE, MEDICAID, SELFPAY ==
[2025-05-03 08:29] VITALS: BMI 31.1
[2025-05-11 08:40] VITALS: BP 164/77; PULSE 88; RESP 18; TEMP 36.4; O2SAT 100; BMI 30.8
[2025-05-11] MEDS: LACTATED RINGERS 1,000 ML 150 ML IV CONT (09:13)
--- NOTE | 2025-05-11 09:34 | WPDANESEPPF ---
Anes - Initial Pre Proc Eval Procedure: Operation Date: 05/11/25 10:00 Proposed Procedures p Screening Colonoscopy - Chalo Ahuja MD Date/Time: 05/11/25 09:34 Surgeon: Chalo Ahuja MD Pre Op Diagnosis: Personal history of colon polyps, unspecified Patient Data Age: 79 Gender: F Height: 1.57 m Weight: 76.5 kg Last Vital Signs Temp 36.4 C L 05/11/25 08:40 Pulse 88 05/11/25 08:40 Resp 18 05/11/25 08:40 BP 164/77 H 05/11/25 08:40 Pulse Ox 100 05/11/25 08:40 O2 Del Method Room Air 05/11/25 08:40 Allergies Allergy/AdvReac Type Severity Reaction Status Date / Time gabapentin Allergy Severe hallucinati Verified 05/03/25 08:25 on pentazocine Allergy Severe hallucinati Verified 05/03/25 08:25 on adhesive tape Allergy Mild rash Verified 05/03/25 08:25 Home Medications ?Medication ?Instructions ?Recorded ?Confirmed ?Type aripiprazole 5 mg tablet 5 mg PO QHS 05/21/23 05/11/25 History mirtazapine 15 mg tablet 30 mg PO DAILY 02/17/24 05/11/25 History baclofen 10 mg tablet 10 mg PO DAILY #30 tabs 04/02/24 05/11/25 Rx furosemide 20 mg tablet 20 mg PO QAM #90 tabs 06/01/24 05/11/25 Rx buspirone 5 mg tablet 5 mg PO BID 06/15/24 05/11/25 History lidocaine 5 % topical patch 2 patch topical DAILY #60 ea 07/20/24 05/11/25 Rx polyethylene glycol 3350 17 17 g PO DAILY #510 grams 07/20/24 05/11/25 Rx gram/dose oral powder (Miralax) trazodone 100 mg tablet 200 mg (2 x 100 mg) PO QHS #180 09/13/24 05/11/25 Rx tabs solifenacin 10 mg tablet 10 mg PO DAILY #30 tabs 10/29/24 05/11/25 Rx metoprolol succinate 25 mg See Rx Instructions .Route 02/03/25 05/11/25 Rx tablet,extended release 24 hr .COMPLEX #30 tabs calcium carb, citrate, malate 500 mg (2 x 250 mg calcium) PO 02/08/25 05/11/25 Rx DAILY #180 caps cholecalciferol (vitamin D3) 50 50 mcg PO DAILY #90 caps 02/08/25 05/11/25 Rx mcg (2,000 unit) capsule CO Q10 200MG CAP-D See Rx Instructions .Route 03/24/25 05/11/25 Rx .COMPLEX #30 caps atorvastatin 40 mg tablet See Rx Instructions .Route 03/24/25 05/11/25 Rx .COMPLEX #30 tabs levothyroxine 75 mcg tablet See Rx Instructions .Route 03/24/25 05/11/25 Rx .COMPLEX #24 tabs losartan 50 mg tablet See Rx Instructions .Route 03/24/25 05/11/25 Rx .COMPLEX #30 tabs pantoprazole 40 mg tablet,delayed See Rx Instructions .Route 03/24/25 05/11/25 Rx release .COMPLEX #60 tabs ropinirole 2 mg tablet See Rx Instructions .Route 03/24/25 05/11/25 Rx .COMPLEX #30 tabs spironolactone 25 mg tablet See Rx Instructions .Route 03/24/25 05/11/25 Rx .COMPLEX #30 tabs hydroxyzine HCl 25 mg tablet 25 mg PO DAILY PRN nausea and 05/03/25 05/11/25 History vomiting methocarbamol 500 mg tablet 500 mg PO DAILY 05/03/25 05/11/25 History tizanidine 2 mg tablet 2 mg PO DAILY 05/03/25 05/11/25 History Patient hx anesthesia problems: none Family hx anesthesia problems: none Results Review: All pre-operative results and documents have been reviewed as part of the pre-operative evaluation. [facility] Past Medical History Medical History BMI 31.0-31.9,adult Lumbar radiculitis Hypersomnia Dysuria Chronic pain syndrome Right flank pain Polyneuropathy, unspecified Pain in left hip Other specified depressive episodes Muscle spasm Left leg weakness Left foot pain Gastro-esophageal reflux disease without esophagitis Essential (primary) hypertension Dorsalgia, unspecified Anxiety disorder, unspecified JUAN (obstructive sleep apnea) Chronic pain syndrome Tibia fracture RLS (restless legs syndrome) Hypothyroidism (acquired) Shortness of breath Stroke Obesity Heart disease Depression Cataracts, bilateral Arthritis Anxiety CKD (chronic kidney disease) stage 3, GFR 30-59 ml/min Inguinal hernia Migraines High cholesterol Hypertension Lumbar radiculitis Thyroid disease History of stroke Spine fracture Surgical History Surgical History Presence of left artificial hip joint History of meniscectomy of right knee (~03/09/21) Partial Lateral Menisectomy w/Cortisone Injection H/O aortic valve replacement Pig History of Mekhi-en-Y gastric bypass History of cholecystectomy History of total hysterectomy History of revision of total hip arthroplasty (~07/2018) History of hip replacement History of kyphoplasty Family History Family History Son , Cerebral aneurysm, age 47 Cerebral aneurysm Father Emphysema of lung Grandparent Emphysema of lung Mother Sibling No problems noted. Other Back pain H/O thyroid disease Hypertension Malignant neoplasm of prostate Social History Social History Social History: The patient is . Patient gave to 4 children and 3 have . The patient lives with her son and [id number]. She does not have a durable power professional housing consultant for healthcare. Patient is a lifelong nonsmoker. And rarely ever drinks. She does not use any marijuana or illicit drugs. Code status DNR Smoking status: Never smoker Second hand tobacco smoke exposure: Yes Alcohol intake: current Drinks per week: 1 Alcohol use details: rarely Substance use: never Substance use type: does not use Do You Feel Safe in your Home?: Yes Lack of Transportation: No Lack of Food: Never True Current Housing: I Have Housing Concerned About Future Housing: No Difficulty Paying Gas/Electric Bills: No Difficulty Paying for Meds: No Currently Unemployed: No Education: High School Diploma/GED Difficulty w/ Childcare or Family Care: No [place] Additional living arrangements comments: SON AND DIL Occupation/Education: retired 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 Gender identity (if verbalized by the patient): Female Spiritual care concerns: No Anes - Eval Final PreProcedure Day of Procedure 05/11/25 09:34 Patient weight: obese Heart: regular rate and rhythm Lungs: clear to auscultation Airway: Mallampati scale class II Neurological: alert and oriented Last oral intake: >/= 8 hours ASA classification: III Emergent: no Anesthetic plan: proceed Anesthesia type and monitoring: general GIVS and standard monitoring Results Review: All pre-operative results and documents have been reviewed as part of the pre-operative evaluation. Informed Consent: The patient's anesthetic plan and its attendant risks and benefits were discussed with the patient/family/POA. Questions were solicited and answers provided to the satisfaction of the patient/family/POA.
--- NOTE | 2025-05-11 09:53 | PM.IMHP ---
H&P: HPI History of Present Illness Date/Time: 05/11/25 09:53 Chief Complaint: History of colon polyps Narrative: The patient has a history of colonic polyps, the last colonoscopy was in 2021. Review of Systems Review of Systems: All systems reviewed & are unremarkable except as noted in HPI and below PMFSH Past Medical History Medical History BMI 31.0-31.9,adult Lumbar radiculitis Hypersomnia Dysuria Chronic pain syndrome Right flank pain Polyneuropathy, unspecified Pain in left hip Other specified depressive episodes Muscle spasm Left leg weakness Left foot pain Gastro-esophageal reflux disease without esophagitis Essential (primary) hypertension Dorsalgia, unspecified Anxiety disorder, unspecified JUAN (obstructive sleep apnea) Chronic pain syndrome Tibia fracture RLS (restless legs syndrome) Hypothyroidism (acquired) Shortness of breath Stroke Obesity Heart disease Depression Cataracts, bilateral Arthritis Anxiety CKD (chronic kidney disease) stage 3, GFR 30-59 ml/min Inguinal hernia Migraines High cholesterol Hypertension Lumbar radiculitis Thyroid disease History of stroke Spine fracture Surgical History Surgical History Presence of left artificial hip joint History of meniscectomy of right knee (~03/09/21) Partial Lateral Menisectomy w/Cortisone Injection H/O aortic valve replacement Pig History of Mekhi-en-Y gastric bypass History of cholecystectomy History of total hysterectomy History of revision of total hip arthroplasty (~07/2018) History of hip replacement History of kyphoplasty Family History Family History Son , Cerebral aneurysm, age 47 Cerebral aneurysm Father Emphysema of lung Grandparent Emphysema of lung Mother Sibling No problems noted. Other Back pain H/O thyroid disease Hypertension Malignant neoplasm of prostate Social History Social History Social History: The patient is . Patient gave to 4 children and 3 have . The patient lives with her son and [id number]. She does not have a durable power senior trial attorney for healthcare. Patient is a lifelong nonsmoker. And rarely ever drinks. She does not use any marijuana or illicit drugs. Code status DNR Smoking status: Never smoker Second hand tobacco smoke exposure: Yes Alcohol intake: current Drinks per week: 1 Alcohol use details: rarely Substance use: never Substance use type: does not use Do You Feel Safe in your Home?: Yes Lack of Transportation: No Lack of Food: Never True Current Housing: I Have Housing Concerned About Future Housing: No Difficulty Paying Gas/Electric Bills: No Difficulty Paying for Meds: No Currently Unemployed: No Education: High School Diploma/GED Difficulty w/ Childcare or Family Care: No Living arrangements: [facility] Additional living arrangements comments: SON AND DIL Occupation/Education: retired 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 Gender identity (if verbalized by the patient): Female Spiritual care concerns: No Meds Home Medications and Allergies Home Medications ?Medication ?Instructions ?Recorded ?Confirmed ?Type aripiprazole 5 mg tablet 5 mg PO QHS 05/21/23 05/11/25 History mirtazapine 15 mg tablet 30 mg PO DAILY 02/17/24 05/11/25 History baclofen 10 mg tablet 10 mg PO DAILY #30 tabs 04/02/24 05/11/25 Rx furosemide 20 mg tablet 20 mg PO QAM #90 tabs 06/01/24 05/11/25 Rx buspirone 5 mg tablet 5 mg PO BID 06/15/24 05/11/25 History lidocaine 5 % topical patch 2 patch topical DAILY #60 ea 07/20/24 05/11/25 Rx polyethylene glycol 3350 17 17 g PO DAILY #510 grams 07/20/24 05/11/25 Rx gram/dose oral powder (Miralax) trazodone 100 mg tablet 200 mg (2 x 100 mg) PO QHS #180 09/13/24 05/11/25 Rx tabs solifenacin 10 mg tablet 10 mg PO DAILY #30 tabs 10/29/24 05/11/25 Rx metoprolol succinate 25 mg See Rx Instructions .Route 02/03/25 05/11/25 Rx tablet,extended release 24 hr .COMPLEX #30 tabs calcium carb, citrate, malate 500 mg (2 x 250 mg calcium) PO 02/08/25 05/11/25 Rx DAILY #180 caps cholecalciferol (vitamin D3) 50 50 mcg PO DAILY #90 caps 02/08/25 05/11/25 Rx mcg (2,000 unit) capsule CO Q10 200MG CAP-D See Rx Instructions .Route 03/24/25 05/11/25 Rx .COMPLEX #30 caps atorvastatin 40 mg tablet See Rx Instructions .Route 03/24/25 05/11/25 Rx .COMPLEX #30 tabs levothyroxine 75 mcg tablet See Rx Instructions .Route 03/24/25 05/11/25 Rx .COMPLEX #24 tabs losartan 50 mg tablet See Rx Instructions .Route 03/24/25 05/11/25 Rx .COMPLEX #30 tabs pantoprazole 40 mg tablet,delayed See Rx Instructions .Route 03/24/25 05/11/25 Rx release .COMPLEX #60 tabs ropinirole 2 mg tablet See Rx Instructions .Route 03/24/25 05/11/25 Rx .COMPLEX #30 tabs spironolactone 25 mg tablet See Rx Instructions .Route 03/24/25 05/11/25 Rx .COMPLEX #30 tabs hydroxyzine HCl 25 mg tablet 25 mg PO DAILY PRN nausea and 05/03/25 05/11/25 History vomiting methocarbamol 500 mg tablet 500 mg PO DAILY 05/03/25 05/11/25 History tizanidine 2 mg tablet 2 mg PO DAILY 05/03/25 05/11/25 History Allergies Allergy/AdvReac Type Severity Reaction Status Date / Time gabapentin Allergy Severe hallucinati Verified 05/03/25 08:25 on pentazocine Allergy Severe hallucinati Verified 05/03/25 08:25 on adhesive tape Allergy Mild rash Verified 05/03/25 08:25 Vital Signs Vital Signs - 24 hr 05/11/25 08:40 Temperature 97.5 F L Pulse Rate 88 Respiratory Rate 18 Blood Pressure 164/77 H Pulse Oximetry 100 Oxygen Delivery Room Air Exam Const: General: cooperative and healthy appearing Resp: Effort & Inspection: normal respiratory effort and able to speak in complete sentences Auscultation: clear to auscultation bilaterally Cardio: Rate: regular rate Rhythm: regular rhythm GI: Inspection: normal to inspection GI Palp: No No hepatosplenomegaly present Auscultation: normal bowel sounds Rectal Exam: deferred Skin: General skin exam: normal color Psych: Appearance: grossly normal Mental Status: mental status grossly normal Assessment and Plan Assessment and plan (1) History of colonic polyps: Code(s): Z86.0100 - Personal history of colon polyps, unspecified Status: Acute Assessment and Plan: The patient is deemed a good candidate for the procedure. Consent signed. Will proceed.
--- NOTE | 2025-05-11 10:24 | S_PTH ---
PATIENT: Alpa Gifford LOC: [facility] U#:[id number] AGE/SX: 79/F ROOM: RE05/11/[address]: Chalo Ahuja MD : 1945 BED: DIS: 05/11/2025 SPEC #: [id number] RECD: 05/11/25 12:39 STATUS: AYAD REQ #: [id number] ROEL: 05/11/25 10:[address]: Chalo Ahuja DEPT: [facility] Surgical RECD BY: Marco Antonio Macario ENTERED: 05/11/25 12:40 SP TYPE: Surgical OTHR DR: Sebastian Luther, Tissues: A - Colon Polypectomy B - Colon Polypectomy C - Colon Polypectomy Procedures: Hematoxylin and Eosin Stain Gross and Microscopic Level 4
[2025-05-11 10:28] VITALS: BP 131/73; PULSE 70; RESP 14; O2SAT 99
[2025-05-11 10:38] VITALS: BP 131/73; PULSE 69; RESP 15; O2SAT 99
[2025-05-11 10:48] VITALS: BP 159/73; PULSE 69; RESP 15; O2SAT 99
== END 2025-05-11 11:05 | disposition home or self-care (01) ==
PROVIDERS: PCP Internal Medicine; Referring Provider Internal Medicine Gastroenterology; Visit Provider Internal Medicine Gastroenterology
PROC: 0DJD8ZZ Inspection of Lower Intestinal Tract, Via Natural or Artificial Opening Endoscopic (ICD-10-PCS; CPT 45378; principal; 2025-05-11 10:00)
DX: Z12.11 Encounter for screening for malignant neoplasm of colon (principal); D12.0 Benign neoplasm of cecum; D12.2 Benign neoplasm of ascending colon; D12.3 Benign neoplasm of transverse colon; K57.30 Diverticulosis of large intestine without perforation or abscess without bleeding; K64.8 Other hemorrhoids
CPT/HCPCS: 45385; 88305; J2003; J2704; J7120

== ENCOUNTER 2025-06-06 10:22 | Emergency (ER) | payer MEDICARE, MEDICAID, SELFPAY ==
--- NOTE | ~2025-06-06 | CT_ITS ---
EXAMINATION: CT abdomen pelvis w con DATE: 06/06/2025 15:38 INDICATION: Pain, nausea and vomiting and constipation. TECHNIQUE: Computed tomography (CT) of the abdomen and pelvis was performed with 100 cc of IV contrast and reviewed in multiple projections. intravenous contrast. Automated exposure control and iterative reconstruction technique were employed. The dose-length product was 857.78 mGy-cm. COMPARISON: None available FINDINGS: The lung bases do not show acute findings. Postoperative changes of endovascular aortic graft in place along with multivessel coronary artery calcifications are noted in the lower chest. No focal lesions of the liver and spleen. Postoperative changes of the bowel is noted. Postoperative changes of cholecystectomy. Pancreas is fatty in nature. Kidneys do not show destructive changes. No evidence of small bowel obstruction. Severe atherosclerotic changes of aorta and iliac arteries are noted. Significant calcific changes of the proximal superior mesenteric artery. Multiple diverticula of sigmoid colon. No CT evidence of acute diverticulitis. Multiple compression fractures of lumbar vertebrae with kyphoplasty at multiple thoracic and lumbar vertebrae. IMPRESSION: 1. Postsurgical changes as described above. 2. No evidence of small bowel obstruction. Diverticulosis of the distal colon. 3. Significant calcific changes of the abdominal aorta including proximal superior mesenteric artery and celiac axis. Calcific changes of the iliac arteries. 4. Diverticulosis of distal colon. No CT evidence of acute diverticulitis. 5. Postoperative changes of aortic valve graft. Multivessel coronary artery calcifications. Reviewed, dictated and finalized at location T. PRESSURE IMPRESSION: 1. Postsurgical changes as described above. 2. No evidence of small bowel obstruction. Diverticulosis of the distal colon. 3. Significant calcific changes of the abdominal aorta including proximal super ior mesenteric artery and celiac axis. Calcific changes of the iliac arteries. 4. Diverticulosis of distal colon. No CT evidence of acute diverticulitis. 5. Postoperative changes of aortic valve graft. Multivessel coronary artery mayank cifications.
[2025-06-06 10:38] VITALS: BP 125/57; PULSE 82; RESP 20; TEMP 36.6; O2SAT 98
--- NOTE | 2025-06-06 14:19 | ED.ABDPAIN ---
HPI - Abdominal Pain General Chief Complaint: Abdominal Pain <Saige Ly PA-C - Last Filed: 06/06/25 14:35> Stated Complaint: constipation <BEATA Muniz Last Filed: 06/06/25 14:35> Time Seen by Provider: 06/06/25 14:19 <Saige Ly PA-C - Last Filed: 06/06/25 14:35> Focused HPI: Patient is an 79-year-old female who presents the ED with report of constipation. Patient reports she had a colonoscopy on 05/11/[address] Ahuja for history of colon polyps. States she has been constipated since then. Has only had 1 bowel movement since her colonoscopy and states she had to force this out. Has been taking miralax and leftover medication from her bowel prep, but is only able to pass a small amount of liquid stool. Reports having nausea with dry heaving over the past 2 days. Reports pain throughout her upper abdomen, oliguria, decreased PO intake. Denies fevers. GENERAL: Well-appearing, well-nourished, and in no acute distress. HEAD: Normocephalic, atraumatic. CHEST: Clear to auscultation. ?No respiratory distress. HEART: Regular rate and rhythm.? ABD: Mild diffuse tenderness throughout upper abdomen, RUQ, no rebound. Normoactive BS NEURO: ?Alert and oriented x3. Patient screened in triage and initial orders placed.? ?Additional care and disposition to be based upon?diagnostic testing and treatment. <Saige Ly PA-C - Last Filed: 06/06/25 14:35> Source: patient and old records reviewed <BEATA Muniz Last Filed: 06/06/25 14:35> EMS <Gamaliel Rosario MD - Last Filed: 06/06/25 17:11> Mode of arrival: EMS <Saige Ly PA-C - Last Filed: 06/06/25 14:35> Limitations: no limitations <BEATA Muniz Last Filed: 06/06/25 14:35> History of Present Illness HPI narrative: Currently patient denying any nausea, vomiting, diarrhea or abdominal pain. Patient is telling me that she have poor appetite not eating well over the last few days. History of hypertension hyperlipidemia hypothyroidism hiatal hernia surgery questionable cholecystectomy and hysterectomy <Gamaliel Rosario MD - Last Filed: 06/06/25 17:11> Related Data Home Medications: Home Medications ?Medication ?Instructions ?Recorded ?Confirmed ?Last Taken ?Type aripiprazole 5 mg tablet 5 mg PO QHS 05/21/23 05/11/25 05/10/25 History mirtazapine 15 mg tablet 30 mg PO DAILY 02/17/24 05/11/25 05/10/25 History buspirone 5 mg tablet 5 mg PO BID 06/15/24 05/11/25 05/10/25 History hydroxyzine HCl 25 mg tablet 25 mg PO DAILY PRN nausea and 05/03/25 05/11/25 05/10/25 History vomiting methocarbamol 500 mg tablet 500 mg PO DAILY 05/03/25 05/11/25 05/10/25 History tizanidine 2 mg tablet 2 mg PO DAILY 05/03/25 05/11/25 05/10/25 History <Saige Ly PA-C - Last Filed: 06/06/25 14:35> Allergies/Adverse Reactions: Allergies Allergy/AdvReac Type Severity Reaction Status Date / Time gabapentin Allergy Severe hallucinati Verified 06/06/25 15:10 on pentazocine Allergy Severe hallucinati Verified 06/06/25 15:10 on adhesive tape Allergy Mild rash Verified 06/06/25 15:10 <Saige Ly PA-C - Last Filed: 06/06/25 14:35> Review of Systems Review of Systems: All systems reviewed & are unremarkable except as noted in HPI and below <Gamaliel Rosario MD - Last Filed: 06/06/25 17:11> [facility] Past Medical History Medical History: Medical History BMI 31.0-31.9,adult Lumbar radiculitis Hypersomnia Dysuria Chronic pain syndrome Right flank pain Polyneuropathy, unspecified Pain in left hip Other specified depressive episodes Muscle spasm Left leg weakness Left foot pain Gastro-esophageal reflux disease without esophagitis Essential (primary) hypertension Dorsalgia, unspecified Anxiety disorder, unspecified JUAN (obstructive sleep apnea) Chronic pain syndrome Tibia fracture RLS (restless legs syndrome) Hypothyroidism (acquired) Shortness of breath Stroke Obesity Heart disease Depression Cataracts, bilateral Arthritis Anxiety CKD (chronic kidney disease) stage 3, GFR 30-59 ml/min Inguinal hernia Migraines High cholesterol Hypertension Lumbar radiculitis Thyroid disease History of stroke Spine fracture <Saige Ly PA-C - Last Filed: 06/06/25 14:35> Surgical History Surgical History: Surgical History Presence of left artificial hip joint History of meniscectomy of right knee (~03/09/21) Partial Lateral Menisectomy w/Cortisone Injection H/O aortic valve replacement Pig History of Mekhi-en-Y gastric bypass History of cholecystectomy History of total hysterectomy History of revision of total hip arthroplasty (~07/2018) History of hip replacement History of kyphoplasty <Saige Ly PA-C - Last Filed: 06/06/25 14:35> Family History Family History: Family History Son , Cerebral aneurysm, age 47 Cerebral aneurysm Father Emphysema of lung Grandparent Emphysema of lung Mother Sibling No problems noted. Other Back pain H/O thyroid disease Hypertension Malignant neoplasm of prostate <BEATA Muniz Last Filed: 06/06/25 14:35> Social History Social History: Social History Social History: The patient is . Patient gave to 4 children and 3 have . The patient lives with her son and [id number]. She does not have a durable power attorney recruiter for healthcare. Patient is a lifelong nonsmoker. And rarely ever drinks. She does not use any marijuana or illicit drugs. Code status DNR Smoking status: Never smoker Second hand tobacco smoke exposure: Yes Alcohol intake: current Drinks per week: 1 Alcohol use details: rarely Substance use: never Substance use type: does not use Do You Feel Safe in your Home?: Yes Lack of Transportation: No Lack of Food: Never True Current Housing: I Have Housing Concerned About Future Housing: No Difficulty Paying Gas/Electric Bills: No Difficulty Paying for Meds: No Currently Unemployed: No Education: High School Diploma/GED Difficulty w/ Childcare or Family Care: No Living arrangements: group [facility] Additional living arrangements comments: SON AND DIL Occupation/Education: retired 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 Gender identity (if verbalized by the patient): Female Spiritual care concerns: No <Saige Ly PA-C - Last Filed: 06/06/25 14:35> Exam Narrative: General appearance: Well-developed, well-nourished Skin: Normal color Head: Normocephalic, nontraumatic Eyes: Clear conjunctiva ENT: Oropharynx normal, ears normal, nose normal Neck: Supple, nontender Chest and respiratory: Airway patent, no respiratory distress, no accessory muscle use Heart: Regular rate/rhythm Abdomen: Soft, nontender, no organomegaly, quiet bowel sounds Vascular: Normal peripheral pulses, normal capillary refill. Musculoskeletal: Normal range of motion, nontender back Neurologic: Alert and oriented ?3, DIRECTOR LEARNING is normal as tested, no gross motor deficit <Gamaliel Rosario MD - Last Filed: 06/06/25 17:11> Course Vital Signs Vital signs: Vital Signs Temperature 36.6 C 06/06/25 10:38 Pulse Rate 82 06/06/25 10:38 Respiratory Rate 20 06/06/25 10:38 Blood Pressure 125/57 L 06/06/25 10:38 Pulse Oximetry 98 06/06/25 10:38 Oxygen Delivery Room Air 06/06/25 10:38 Temperature 36.6 C 06/06/25 10:38 Pulse Rate 65 06/06/25 14:45 Respiratory Rate 16 06/06/25 14:45 Blood Pressure 147/78 H 06/06/25 14:45 Pulse Oximetry 100 06/06/25 14:45 Oxygen Delivery Room Air 06/06/25 10:38 <Saige Ly PA-C - Last Filed: 06/06/25 14:35> Vital Signs Temperature 36.6 C 06/06/25 10:38 Pulse Rate 82 06/06/25 10:38 Respiratory Rate 20 06/06/25 10:38 Blood Pressure 125/57 L 06/06/25 10:38 Pulse Oximetry 98 06/06/25 10:38 Oxygen Delivery Room Air 06/06/25 10:38 Temperature 36.6 C 06/06/25 10:38 Pulse Rate 65 06/06/25 14:45 Respiratory Rate 16 06/06/25 14:45 Blood Pressure 147/78 H 06/06/25 14:45 Pulse Oximetry 100 06/06/25 14:45 Oxygen Delivery Room Air 06/06/25 10:38 <Gamaliel Rosario MD - Last Filed: 06/06/25 17:11> MDM - Abdominal Pain MDM Narrative Medical decision making narrative: MSE by SUZI in triage <Saige Ly PA-C - Last Filed: 06/06/25 14:35> MSE by SUZI in triage Patient presents with no bowel movement for the last 7 days immediately after having colonoscopy. Also telling me that she have poor p.o. intake. Currently patient denying any abdominal pain or nausea or vomiting or fever or chills Vital signs are stable Physical examination is unremarkable Differential diagnosis include constipation, depression, electrolyte imbalance, dehydration Blood workup today includes CBC, CMP, lipase lopez lactic acid showed no significant abnormality Urinalysis showed no acute abnormality CT abdomen and pelvis with IV contrast showed NO SIGNIFICANT ABNORMALITY DIAGNOSIS: CONSTIPATION BECAUSE POOR P.O. INTAKE, ABDOMINAL PAIN MIRALAX 1 PACK Q.I.D. NEEDED THE PT WAS DISCHARGED TO HOME.THE PT,S CONDITION UPON DISCHARGE WAS FAIR,EDUCATION WAS PROVIDED TO THE PT IN REFERENCE TO THE FINAL IMPRESSION,DISCHARGE STUDY RESULTS,TREATMENT,PROGNOSIS AND NEED FOR FOLLOW UP . <Gamaliel Rosario MD - Last Filed: 06/06/25 17:11> Differential Diagnosis Differential diagnosis: Likely other ( ABOVE) <Gamaliel Rosario MD - Last Filed: 06/06/25 17:11> Medical Records Attestation: I reviewed the patient's medical records. <Gamaliel Rosario MD - Last Filed: 06/06/25 17:11> Lab Data Attestation: I reviewed the patient's lab results. <Gamaliel Rosario MD - Last Filed: 06/06/25 17:11> Result diagrams: 06/06/25 14:48 06/06/25 14:48 <Saige Ly PA-C - Last Filed: 06/06/25 14:35> Labs: Lab Results 06/06/25 06/06/25 Range/Units 14:48 14:51 WBC 7.0 (4.5-10.0) K/mm3 RBC 4.13 L (4.2-5.4) M/mm3 Hgb 12.9 (12.0-15.0) g/dL Hct 39.2 (37.0-47.0) % MCV 94.9 (80-100) fl MCH 31.2 (26-34) pg MCHC 32.9 (32-36) g/dl RDW 12.7 (11.5-14.5) % Plt Count 171 (150-375) k/mm3 MPV 8.3 (7.4-10.4) fl Immature Gran % (Auto) 0.3 (0-0.5) % Neut % (Auto) 70.3 (45.5-73.1) % Lymph % (Auto) 21.5 (18.3-44.2) % Christian % (Auto) 4.9 (2.6-8.5) % Eos % (Auto) 2.6 (0-4.4) % Baso % (Auto) 0.4 (0.2-1.2) % Lymph # (Auto) 1.50 (0.9-3.2) K/mm3 Christian # (Auto) 0.3 (0.1-0.6) K/mm3 Eos # (Auto) 0.2 (0-0.3) K/mm3 Baso # (Auto) 0.0 (0.0-0.1) K/mm3 Abs Immat Gran (auto) 0.02 (0.00-0.031) K/mm3 Absolute Neuts (auto) 4.9 (1.3-6.7) K/mm3 Absolute Nucleated RBC 0.000 (0.0-0.012) K/mm3 Nucleated RBC % 0.0 (0.0-0.2) % Sodium 140 (137-145) mmol/L Potassium 3.6 (3.4-5.0) mmol/L Chloride 103 (98-107) mmol/L Carbon Dioxide 29 (22-30) mmol/L Anion Gap 8 (4-12) mmol/L BUN 21 H (7-17) mg/dL Creatinine 1.37 H (0.7-1.0) mg/dL Estim Creat Clear Calc 28 ml/min Estimated GFR 37 L (59 - ) Glucose 104 (65-110) mg/dL Lactic Acid 1.3 (0.7-2.0) mmol/L Calcium 9.2 (8.4-10.2) mg/dL Total Bilirubin 1.4 H (0.2-1.3) mg/dL AST 23 (14-36) U/L ALT 15 (6-35) U/L Alkaline Phosphatase 65 (38-126) U/L Total Protein 7.6 (6.3-8.2) g/dL Albumin 4.2 (3.5-5.1) g/dL Lipase 11 L (23-300) U/L Urine Color Yellow (Yellow) Urine Appearance Clear (Clear) Urine pH 5.5 (5.0-9.0) Ur Specific [place] 1.008 (1.001-1.035) Urine Protein Negative (Negative) mg/dL Urine Glucose (UA) Negative (Negative) mg/dL Urine Ketones Negative (Negative) mg/dL Ur Blood (Man) Negative (Negative) Urine Nitrate Negative (Negative) Urine Bilirubin Negative (Negative) Urine Urobilinogen 1.0 (<2.0) mg/dL Add Ur Microanalysis Reviewed Leukocyte Esterase Rfl 1+ H (Negative) FREDO/UL Urine RBC 0-2 (0-2) /hpf Urine WBC 0-5 (0-3) /hpf Ur Squamous Epith Cells None seen (Few) /hpf Urine Bacteria None seen /hpf Urine Casts 0-2 <Saige Ly PA-C - Last Filed: 06/06/25 14:35> Lab Results 06/06/25 06/06/25 Range/Units 14:48 14:51 WBC 7.0 (4.5-10.0) K/mm3 RBC 4.13 L (4.2-5.4) M/mm3 Hgb 12.9 (12.0-15.0) g/dL Hct 39.2 (37.0-47.0) % MCV 94.9 (80-100) fl MCH 31.2 (26-34) pg MCHC 32.9 (32-36) g/dl RDW 12.7 (11.5-14.5) % Plt Count 171 (150-375) k/mm3 MPV 8.3 (7.4-10.4) fl Immature Gran % (Auto) 0.3 (0-0.5) % Neut % (Auto) 70.3 (45.5-73.1) % Lymph % (Auto) 21.5 (18.3-44.2) % Christian % (Auto) 4.9 (2.6-8.5) % Eos % (Auto) 2.6 (0-4.4) % Baso % (Auto) 0.4 (0.2-1.2) % Lymph # (Auto) 1.50 (0.9-3.2) K/mm3 Christian # (Auto) 0.3 (0.1-0.6) K/mm3 Eos # (Auto) 0.2 (0-0.3) K/mm3 Baso # (Auto) 0.0 (0.0-0.1) K/mm3 Abs Immat Gran (auto) 0.02 (0.00-0.031) K/mm3 Absolute Neuts (auto) 4.9 (1.3-6.7) K/mm3 Absolute Nucleated RBC 0.000 (0.0-0.012) K/mm3 Nucleated RBC % 0.0 (0.0-0.2) % Sodium 140 (137-145) mmol/L Potassium 3.6 (3.4-5.0) mmol/L Chloride 103 (98-107) mmol/L Carbon Dioxide 29 (22-30) mmol/L Anion Gap 8 (4-12) mmol/L BUN 21 H (7-17) mg/dL Creatinine 1.37 H (0.7-1.0) mg/dL Estim Creat Clear Calc 28 ml/min Estimated GFR 37 L (59 - ) Glucose 104 (65-110) mg/dL Lactic Acid 1.3 (0.7-2.0) mmol/L Calcium 9.2 (8.4-10.2) mg/dL Total Bilirubin 1.4 H (0.2-1.3) mg/dL AST 23 (14-36) U/L ALT 15 (6-35) U/L Alkaline Phosphatase 65 (38-126) U/L Total Protein 7.6 (6.3-8.2) g/dL Albumin 4.2 (3.5-5.1) g/dL Lipase 11 L (23-300) U/L Urine Color Yellow (Yellow) Urine Appearance Clear (Clear) Urine pH 5.5 (5.0-9.0) Ur Specific [place] 1.008 (1.001-1.035) Urine Protein Negative (Negative) mg/dL Urine Glucose (UA) Negative (Negative) mg/dL Urine Ketones Negative (Negative) mg/dL Ur Blood (Man) Negative (Negative) Urine Nitrate Negative (Negative) Urine Bilirubin Negative (Negative) Urine Urobilinogen 1.0 (<2.0) mg/dL Add Ur Microanalysis Reviewed Leukocyte Esterase Rfl 1+ H (Negative) FREDO/UL Urine RBC 0-2 (0-2) /hpf Urine WBC 0-5 (0-3) /hpf Ur Squamous Epith Cells None seen (Few) /hpf Urine Bacteria None seen /hpf Urine Casts 0-2 <Gamaliel Rosario MD - Last Filed: 06/06/25 17:11> Imaging Data Radiologist's impression: ITS Impressions Abdomen/Pelvis CT 06/06/25 15:41 IMPRESSION: 1. Postsurgical changes as described above. 2. No evidence of small bowel obstruction. Diverticulosis of the distal colon. 3. Significant calcific changes of the abdominal aorta including proximal superior mesenteric artery and celiac axis. Calcific changes of the iliac arteries. 4. Diverticulosis of distal colon. No CT evidence of acute diverticulitis. 5. Postoperative changes of aortic valve graft. Multivessel coronary artery calcifications. <Saige Ly PA-C - Last Filed: 06/06/25 14:35> ITS Impressions Abdomen/Pelvis CT 06/06/25 15:41 IMPRESSION: 1. Postsurgical changes as described above. 2. No evidence of small bowel obstruction. Diverticulosis of the distal colon. 3. Significant calcific changes of the abdominal aorta including proximal superior mesenteric artery and celiac axis. Calcific changes of the iliac arteries. 4. Diverticulosis of distal colon. No CT evidence of acute diverticulitis. 5. Postoperative changes of aortic valve graft. Multivessel coronary artery calcifications. <Gamaliel Rosario MD - Last Filed: 06/06/25 17:11> Critical Care Time Critical Care Time Critical Care Time: No <Gamaliel Rosario MD - Last Filed: 06/06/25 17:11> Discharge Plan Discharge Clinical Impression: Abdominal pain <BEATA Muniz Last Filed: 06/06/25 14:35> Patient Disposition: [place] Group Home/[facility] Living <BEATA Muniz Last Filed: 06/06/25 14:35> Condition: Stable <BEATA Muniz Last Filed: 06/06/25 14:35> Instructions: Abdominal Pain (ED) <BEATA Muniz Last Filed: 06/06/25 14:35> Additional Instructions: RETURN IF SYMPTOMS ARE WORSENING , CALL YOUR FAMILY PHYSICIAN FOR APPOINTMENT, TAKE TYLENOL NEEDED FOR ACHES AND PAIN, CONTINUE HOME MEDICATIONS. MIRALAX 4 TIMES A DAY NEEDED <BEATA Muniz Last Filed: 06/06/25 14:35> Patient Language: Maori <BEATA Muniz Last Filed: 06/06/25 14:35> Prescriptions: No Action lidocaine 5 % adhesive patch,medicated 2 patch topical DAILY Qty: 60 4RF Rx Instructions: leave on most painful area for up to 12 hrs polyethylene glycol 3350 [Miralax] 17 gram/dose powder 17 g PO DAILY Qty: 510 3RF Rx Instructions: Mix in juice or water. buspirone 5 mg tablet 5 mg PO BID mirtazapine 15 mg tablet 30 mg PO DAILY aripiprazole 5 mg tablet 5 mg PO QHS hydroxyzine HCl 25 mg tablet 25 mg PO DAILY PRN (Reason: nausea and vomiting) methocarbamol 500 mg tablet 500 mg PO DAILY tizanidine 2 mg tablet 2 mg PO DAILY baclofen 10 mg tablet 10 mg PO DAILY Qty: 30 2RF Patient Comments: not taking furosemide 20 mg tablet 20 mg PO QAM Qty: 90 2RF trazodone 100 mg tablet 200 mg PO QHS Qty: 180 1RF solifenacin 10 mg tablet 10 mg PO DAILY Qty: 30 5RF metoprolol succinate 25 mg tablet extended release 24 hr See Rx Instructions .ROUTE .COMPLEX Qty: 30 5RF Dose Instruction: TAKE 1 TABLET BY MOUTH ONCE DAILY Rx Instructions: TAKE 1 TABLET BY MOUTH ONCE DAILY calcium carb, citrate, malate 250 mg calcium capsule 500 mg PO DAILY Qty: 180 1RF cholecalciferol (vitamin D3) 50 mcg (2,000 unit) capsule 50 mcg PO DAILY Qty: 90 1RF spironolactone 25 mg tablet See Rx Instructions .ROUTE .COMPLEX Qty: 30 3RF Dose Instruction: TAKE 1 TABLET BY MOUTH ONCE DAILY Rx Instructions: TAKE 1 TABLET BY MOUTH ONCE DAILY levothyroxine 75 mcg tablet See Rx Instructions .ROUTE .COMPLEX Qty: 24 3RF Dose Instruction: TAKE 1 TABLET BY MOUTH DAILY EXCEPT FRIDAY Rx Instructions: TAKE 1 TABLET BY MOUTH DAILY EXCEPT FRIDAY ropinirole 2 mg tablet See Rx Instructions .ROUTE .COMPLEX Qty: 30 3RF Dose Instruction: TAKE 1 TABLET BY MOUTH AT BEDTIME Rx Instructions: TAKE 1 TABLET BY MOUTH AT BEDTIME losartan 50 mg tablet See Rx Instructions .ROUTE .COMPLEX Qty: 30 3RF Dose Instruction: TAKE 1 TABLET BY MOUTH ONCE DAILY Rx Instructions: TAKE 1 TABLET BY MOUTH ONCE DAILY atorvastatin 40 mg tablet See Rx Instructions .ROUTE .COMPLEX Qty: 30 3RF Dose Instruction: TAKE 1 TABLET BY MOUTH EVERY EVENING Rx Instructions: TAKE 1 TABLET BY MOUTH EVERY EVENING pantoprazole 40 mg tablet,delayed release (DR/EC) See Rx Instructions .ROUTE .COMPLEX Qty: 60 3RF Dose Instruction: TAKE 1 TABLET BY MOUTH IN THE MORNING AND AT BEDTIME Rx Instructions: TAKE 1 TABLET BY MOUTH IN THE MORNING AND AT BEDTIME CO Q10 200MG CAP-D See Rx Instructions .ROUTE .COMPLEX Qty: 30 3RF Dose Instruction: TAKE 1 CAPSULE BY MOUTH DAILY Rx Instructions: TAKE 1 CAPSULE BY MOUTH DAILY <Saige Ly PA-C - Last Filed: 06/06/25 14:35> Follow-up/Referrals: Sebastian Luther DO [Primary Care Provider, Internal Medicine] <Saige Ly PA-C - Last Filed: 06/06/25 14:35>
[2025-06-06 14:24] VITALS: BP 135/62; PULSE 72; RESP 16; O2SAT 100
[2025-06-06 14:45] VITALS: BP 147/78; PULSE 65; RESP 16; O2SAT 100
[2025-06-06 14:55] LABS: Hematocrit 39.2 % (37.0-47.0); Hemoglobin 12.9 g/dL (12.0-15.0); Immature Granulocyte Percent A 0.3 % (0-0.5); Lymphocytes Absolute Auto 1.50 K/mm3 (0.9-3.2); Mean Corpuscular HGB Conc 32.9 g/dl (32-36); Mean Corpuscular Hemoglobin 31.2 pg (26-34); Mean Corpuscular Volume 94.9 fl (80-100); Nucleated Red Blood Cells Absolute Auto 0.000 K/mm3 (0.0-0.012); Nucleated Red Blood Cells Perc 0.0 % (0.0-0.2); Platelet Count Result 171 k/mm3 (150-375); Red Blood Count 4.13 M/mm3 (4.2-5.4); White Blood Count 7.0 K/mm3 (4.5-10.0)
[2025-06-06 15:06] LABS: Alanine Aminotransferase 15 U/L (6-35); Albumin Level 4.2 g/dL (3.5-5.1); Alkaline Phosphatase 65 U/L (38-126); Anion Gap 8 mmol/L (4-12); Aspartate Amino Transferase 23 U/L (14-36); Bilirubin,Total 1.4 mg/dL (0.2-1.3); Blood Urea Nitrogen 21 mg/dL (7-17); Calcium 9.2 mg/dL (8.4-10.2); Carbon Dioxide 29 mmol/L (22-30); Chloride 103 mmol/L (98-107); Estimated CRCL calculation 28 ml/min; Estimated Glomerular Filt Rate 37; Glucose 104 mg/dL (65-110); Lipase 11 U/L (23-300); Potassium 3.6 mmol/L (3.4-5.0); Sodium 140 mmol/L (137-145); Total Protein 7.6 g/dL (6.3-8.2)
[2025-06-06] MEDS: SODIUM CHLORIDE 0.9% IV 1,000 ML 999 ML IV CONT (15:07)
[2025-06-06 15:12] LABS: Add Urine Microscopic? YES; Appearance Urine Clear (Clear); Glucose Urine UA Negative (Negative); Leukocyte Esterase Ur 1+ LEU/UL (Negative); Need Manual Microscopic Reviewed; Nitrate Urine Negative (Negative); Non Pathogenic Casts 0-2; Specific Grav Ur 1.008 (1.001-1.035)
[2025-06-06 16:56] VITALS: BP 155/59; PULSE 61; RESP 13; O2SAT 100
[2025-06-06 17:01] VITALS: BP 142/57; PULSE 62; RESP 14; O2SAT 99
[2025-06-06 17:37] VITALS: BP 142/57; PULSE 69; RESP 18; O2SAT 100
== END 2025-06-06 17:41 ==
PROVIDERS: Physician Assistant; Emergency Provider Emergency Medicine; PCP Internal Medicine
DX: R10.9 Unspecified abdominal pain (principal); I13.10 Hypertensive heart and chronic kidney disease without heart failure, with stage 1 through stage 4 chronic kidney disease, or unspecified chronic kidney disease; N18.30 Chronic kidney disease, stage 3 unspecified; E03.9 Hypothyroidism, unspecified; E07.9 Disorder of thyroid, unspecified; E78.00 Pure hypercholesterolemia, unspecified; K21.9 Gastro-esophageal reflux disease without esophagitis; G62.9 Polyneuropathy, unspecified; G47.33 Obstructive sleep apnea (adult) (pediatric); G25.81 Restless legs syndrome; M19.90 Unspecified osteoarthritis, unspecified site; F41.9 Anxiety disorder, unspecified; F32.A Depression, unspecified; Z95.3 Presence of xenogenic heart valve; Z66 Do not resuscitate; Z96.642 Presence of left artificial hip joint; Z98.84 Bariatric surgery status; Z86.73 Personal history of transient ischemic attack (TIA), and cerebral infarction without residual deficits; Z86.0100 Personal history of colon polyps, unspecified; Z90.49 Acquired absence of other specified parts of digestive tract; Z90.710 Acquired absence of both cervix and uterus; Z77.22 Contact with and (suspected) exposure to environmental tobacco smoke (acute) (chronic); K57.90 Diverticulosis of intestine, part unspecified, without perforation or abscess without bleeding; Z79.899 Other long term (current) drug therapy
CPT/HCPCS: 36415; 74177; 80053; 81001; 83605; 83690; 85025; 87086; 96360; 99284; J7030; Q9967

== ENCOUNTER 2025-07-01 09:43 | Outpatient (CLI) | payer MEDICARE, MEDICAID, SELFPAY ==
[2025-07-01 10:44] LABS: Cholesterol 160 mg/dL (0-200); HDL Direct 56 mg/dL; Triglycerides 128 mg/dL (<150)
[2025-07-01 11:00] LABS: Free T4 Free Thyroxine 1.57 ng/dL (0.78-2.19)
[2025-07-01 13:27] LABS: Thyroid Stimulating Hormone 4.100 uIU/mL (0.465-4.680)
== END 2025-07-01 09:44 | disposition home or self-care (01) ==
PROVIDERS: PCP Internal Medicine; Visit Provider Internal Medicine
DX: E78.5 Hyperlipidemia, unspecified (principal); E55.9 Vitamin D deficiency, unspecified; E03.9 Hypothyroidism, unspecified
CPT/HCPCS: 36415; 80061; 82306; 84439; 84443